=== PATIENT | female | born 1930 | race Caucasian/White ===

== ENCOUNTER 2017-01-08 12:34 | Inpatient (IN) | payer MEDICARE, BC ==
--- NOTE | 2017-01-08 14:12 | EDM.PDOC ---
ED HPI Trauma - General Chief Complaint: Lower Extremity Injury/Pain Stated Complaint: right sciatic pain Time Seen by Provider: 01/08/17 12:56 Source: Reports: Patient, Family History Limitations: Reports: No limitations - History of Present Illness INITIAL COMMENTS - FREE TEXT/NARRATIVE: Patient has had worsening right sciatic pain since recent UTI diagnosed on . Pain is now to point where patient cannot get around her apartment. Significant difficulties with ADLs. Pain originates in right buttock area and goes all the way down to her toes in sciatic distribution. Was seen at clinic for this and also at chiropractor. Told to try Aleve twice daily. Seen once at Rehab and had deep massage in sciatic area, patient said this made pain worse. Denies any focal weakness in affected limb. No numbness. Has not fallen or had recent trauma. No UTI complaints. No fever. No weight changes. No loss bowel/ bladder control. No other new complaints. Last episode of sciatica this severe was years ago per patient. Allergies/ADRs: Allergies ciprofloxacin [From Cipro] Allergy (Verified 01/08/17 12:55) Other ciprofloxacin HCl [From Cipro] Allergy (Verified 01/08/17 12:55) Other Home Medications: Ambulatory Orders Cholecalciferol (Vitamin D3) [Vitamin D3] 1,000 units PO QAM 05/28/15 [ Confirmed 01/20/16] Fish Oil/[place]-3 Fatty Acids [Fish Oil 1,000 MG] 1,000 mg PO QAM 05/28/15 [ Confirmed 01/20/16] Levothyroxine 25 mcg PO QAM 05/28/15 [Confirmed 01/20/16] Ezetimibe [Zetia] 10 mg PO BEDTIME 01/20/16 [Confirmed 01/20/16] Ibuprofen 200 mg PO Q4HR PRN 01/20/16 [Confirmed 01/20/16] Multivitamin [Daily Multiple Vitamin] 1 tab PO DAILY 01/20/16 [Confirmed ] Naproxen Sodium [Aleve] 220 mg PO BID PRN 01/20/16 [Confirmed 01/20/16] Vit C/E/Zn/Coppr/Lutein/Zeaxan [Preservision Areds 2 Softgel] 1 each PO TID [Confirmed 01/20/16] Past Medical History HEENT History: Reports: Macular degeneration Social & Family History - Tobacco Use Smoking Status *Q: Never Smoker Second Hand Smoke Exposure: No - Alcohol Use Days Per Week of Alcohol Use: 0 - Recreational Drug Use Recreational Drug Use: No Drug Use in Last 12 Months: No - Living Situation & Occupation Living situation: Reports: (07/17[birth year]1999, 5 children), alone Occupation: retired ([employer] ) Review of Systems - Review of Systems Review Of Systems: See Below Constitutional: Reports: no symptoms Eyes: Reports: other (No acute changes) Ears: Reports: other (No acute changes) Nose: Reports: no symptoms Mouth/Throat: Reports: no symptoms Respiratory: Reports: no symptoms, other (no acute changes) Cardiovascular: Reports: no symptoms GI/Abdominal: Reports: Other (no acute changes) Genitourinary: Reports: no symptoms Musculoskeletal: Reports: other (See HPI for right sided sciatic complaints. ) Skin: Reports: no symptoms Neurological: Reports: difficulty walking. Denies: confusion, dizziness, headache, numbness, paresthesia, trouble speaking, weakness, change in speech Psychiatric: Reports: no symptoms Trauma Exam - Physical Exam Exam: See Below Exam Limited By: No limitations General Appearance: Reports: alert, WD/WN, no apparent distress Head: Reports: atraumatic, normocephalic Eyes: bilateral eye: EOMI, PERRL (1mm difference between left and right) Ears: Reports: normal external exam, hearing grossly normal Nose: Reports: normal inspection Throat/Mouth: Reports: Normal inspection, Normal voice, No airway compromise Neck: Reports: non-tender, full range of motion, normal alignment, normal inspection Respiratory Exam: Reports: no respiratory distress, lungs clear, normal breath sounds, no accessory muscle use, chest non-tender Cardiovascular: Reports: normal peripheral pulses, regular rate, rhythm, no edema, no gallop, systolic murmur (low grade). Denies: JVD GI/Abdominal: Reports: normal bowel sounds, soft, non tender, no distention (Female) Exam: Deferred Rectal (Female) Exam: Deferred Back: Reports: other (patient noted to have tenderness only in right buttock area. ). Denies: CVA tenderness (R), CVA tenderness (L), paraspinal tenderness , vertebral tenderness Extremities: Reports: no evidence of injury, normal range of motion, non-tender , no pedal edema, pelvis stable, pain with movement (some pain with lifting of right leg/straight leg raise in buttock area but patient did not complain of increase in sciatic radicular pain severity), unable to bear weight (Patient had significant difficulty trying to go from laying to sitting , and from sitting to standing. Also significant difficulty trying to ambulate due to pain in sciatic distribution. Needed assistance for ambulation. Usually uses walker. ). Denies: pedal edema Neurologic: Reports: no motor/sensory deficits, alert, normal mood/affect, oriented x 3 Skin: Reports: Normal color, Warm/dry Course - Vital Signs Last Recorded V/S: Last Vital Signs Temp 36.8 C 01/08/17 13:12 Pulse 65 01/08/17 13:12 Resp 16 01/08/17 13:12 BP 137/66 01/08/17 13:12 Pulse Ox 99 01/08/17 13:12 - Re-Assessments/Exams Free Text/Narrative Re-Assessment/Exam: 01/08/17 14:26 Exacerbation of right sided sciatica. Patient unable to perform ADLs or safely move around apartment. Failed outpatient therapy. Will admit for pain control, steroids to help inflammation, PT and OT. Anticipate 3-4 day stay as inpatient. Swing bed if needed. Departure - Departure Time of Disposition: 14:28 Disposition: Admitted As Inpatient 64 Condition: good Clinical Impression: Right sided sciatica, Unable to ambulate Forms: ED Department Discharge - Problem List & Annotations (1) Right sided sciatica SNOMED Code(s): 68762365 Code(s): M54.31 - SCIATICA, RIGHT SIDE Status: Acute Priority: High Current Visit: Yes Onset Date: Unknown (2) Unable to ambulate SNOMED Code(s): 674007837 Code(s): R26.2 - DIFFICULTY IN WALKING, NOT ELSEWHERE CLASSIFIED Status: Acute Priority: High Current Visit: Yes Onset Date: ~01/08/17 - Problem List Review Problem List Initiated/Reviewed/Updated: No - Assessment/Plan Admission H&P: Please use this note as an admission H&P Assessment:: Exacerbation of right sided sciatica in elderly patient that lives alone and currently cannot perform ADLs due to limitations from pain. Plan: Will admit for pain control, PT/OT. PO steroids planned to help with pain. Will request updated problem list from clinic for patient.
[2017-01-08] MEDS ORDERED: methylPREDNISolone Sodium Succinate 125 MG/2 ML SDV IVPUSH ONE (14:43)
--- NOTE | 2017-01-08 14:53 | PCM.SN ---
- Free Text/Narrative Note: NSAIDS on form of Ibuprofen and Aleve held/discontinued per recommendation of Pharmacy due to patient's advanced age and potential side effects.
[2017-01-08 15:19] LABS: CHLORIDE,CL 108 mmol/L (98-107); SODIUM,NA 145 mmol/L (136-145)
[2017-01-08] MEDS: traMADol 50 MG Tab PO PRN (15:44)
[2017-01-08] MEDS: Lutein/Minerals/Vitamin C/Vitamin E Acetate Cap PO SCH (17:42)
[2017-01-08] MEDS: Ezetimibe 10 MG Tab PO SCH (19:13)
[2017-01-09] MEDS: traMADol 50 MG Tab PO PRN ×3 (03:42→21:54)
[2017-01-09] MEDS: Lutein/Minerals/Vitamin C/Vitamin E Acetate Cap PO SCH ×2 (09:23→17:38)
[2017-01-09] MEDS: Multivitamin Tab PO SCH (09:23)
[2017-01-09] MEDS: Cholecalciferol (Vitamin D3) 1,000 Unit Tab PO SCH (09:24)
[2017-01-09] MEDS: Levothyroxine 25 MCG Tab PO SCH (09:24)
[2017-01-09] MEDS: Fish Oil/Omega-3 Fatty Acids 1 Gm Cap PO SCH (09:24)
[2017-01-09] MEDS ORDERED: Loperamide 1 MG/5 ML Soln 5 ML UD Cup PO SCH (10:00)
[2017-01-09] MEDS ORDERED: Loperamide 2 MG Tab PO ONE (10:15)
[2017-01-09] MEDS ORDERED: methylPREDNISolone Sodium Succinate 125 MG/2 ML SDV IVPUSH ONE (16:59)
--- NOTE | 2017-01-09 17:07 | PCM.PN ---
- General Info Date of Service: 01/09/17 Admission Dx/Problem (Free Text): Right sided sciatic pain. Unable to perform ADLs. Functional Status: Reports: other (Pain improved. Able to ambulate with assistance. ) - Review of Systems General: Reports: no symptoms HEENT: Reports: no symptoms Pulmonary: Reports: no symptoms Cardiovascular: Reports: no symptoms Gastrointestinal: Reports: No symptoms Genitourinary: Reports: no symptoms Musculoskeletal: Reports: back pain (low back/sciatic), leg pain. Denies: joint swelling Skin: Reports: no symptoms Neurological: Reports: no symptoms Psychiatric: Reports: no symptoms - Patient Data Vitals - most recent: Last Vital Signs Temp 36.2 C 01/09/17 08:00 Pulse 69 01/09/17 08:00 Resp 20 01/09/17 08:00 BP 142/93 H 01/09/17 08:00 Pulse Ox 96 01/09/17 08:00 Weight - most recent: 81.647 kg I&O - last 24 hours: Intake & Output 01/09/17 01/09/17 01/09/17 06:59 14:59 22:59 Intake Total 150 360 Balance 150 360 Lab Results last 24 hrs: Laboratory Results - last 24 hr 01/09/17 Range/Units 09:30 Specimen Type Urinblad Urine Color Shannan H (YELLOW) Urine Appearance Slightly cloudy H (CLEAR) Urine pH 5.5 (5.0-9.0) Ur Specific [place] >= 1.030 (1.005-1.030) Urine Protein Negative (NEGATIVE) mg/dL Urine Glucose (UA) Negative (NEGATIVE) mg/dL Urine Ketones 15 H (NEGATIVE) mg/dL Urine Occult Blood Negative (NEGATIVE) Urine Nitrite Negative (NEGATIVE) Urine Bilirubin Negative (NEGATIVE) Urine Urobilinogen 0.2 (0.2-1.0) E.U./dL Ur Leukocyte Esterase Negative (NEGATIVE) Urine RBC 5-10 H /HPF Urine WBC 5-10 H /HPF Ur Epithelial Cells Moderate H /LPF Urine Bacteria Moderate H (NONE TO FEW) /HPF Urine Mucus Moderate H (NEGATIVE) /LPF Med Orders - Current: Current Medications Acetaminophen (Tylenol) 650 mg PO Q6H PRN PRN Reason: Pain Cholecalciferol (Vitamin D3) 2,000 units PO [facility] Last Admin: 01/09/17 09:24 Dose: 2,000 units Ezetimibe (Zetia) 10 mg PO BEDTIME [facility] Last Admin: 01/08/17 19:13 Dose: 10 mg Fish Oil (Fish Oil) 1 gm PO QAM [facility] Last Admin: 01/09/17 09:24 Dose: 1 gm Levothyroxine Sodium (Levothyroxine) 25 mcg PO QAM [facility] Last Admin: 01/09/17 09:24 Dose: 25 mcg Methylprednisolone Sodium Succinate (Solu-Medrol) 125 mg IVPUSH ONETIME ONE Stop: 01/09/17 17:00 Multivitamins/Minerals/Vitamin C (Tab-A-Camila) 1 tab PO DAILY [facility] Last Admin: 01/09/17 09:23 Dose: 1 tab Sodium Chloride (Saline Flush) 10 ml FLUSH ASDIRECTED PRN PRN Reason: flush Tramadol HCl (Ultram) 50 mg PO Q6H PRN PRN Reason: Pain (moderate 4-6) Last Admin: 01/09/17 09:42 Dose: 50 mg Vit C/Vit E/Zinc/Copper/Lutein (Ocuvite Lutein) 1 each PO BID [facility] Last Admin: 01/09/17 09:23 Dose: 1 each Discontinued Medications Loperamide HCl (Imodium) 4 mg PO ASDIRECTED [facility] Loperamide HCl (Imodium Ad) 4 mg PO ONETIME ONE Stop: 01/09/17 10:16 Last Admin: 01/09/17 10:26 Dose: 4 mg Methylprednisolone Sodium Succinate (Solu-Medrol) 125 mg IVPUSH ONETIME ONE Stop: 01/08/17 14:44 Last Admin: 01/08/17 15:45 Dose: 125 mg - Exam General: alert, oriented, cooperative, no acute distress HEENT: Pupils equal, Pupils reactive, EOMI, Mucous membr. moist/pink Neck: supple Lungs: Clear to auscultation, Normal respiratory effort Cardiovascular: regular rate, regular rhythm, murmurs (faint systolic murmur) Abdomen: bowel sounds present, soft, no tenderness, no distension Back Exam: other (tender right buttock area). No: CVA tenderness (L), CVA tenderness (R) Extremities: no calf tenderness Skin: warm, dry, intact Neurological: no new focal deficit Psy/Mental Status: alert, normal affect, normal mood - Problem List & Annotations (1) Right sided sciatica SNOMED Code(s): 36106238 Code(s): M54.31 - SCIATICA, RIGHT SIDE Status: Acute Priority: High Current Visit: Yes Onset Date: Unknown Annotation/Comment:: improved since yesterday but still present. (2) Unable to ambulate SNOMED Code(s): 965614039 Code(s): R26.2 - DIFFICULTY IN WALKING, NOT ELSEWHERE CLASSIFIED Status: Acute Priority: High Current Visit: Yes Onset Date: ~01/08/17 (3) Macular degeneration SNOMED Code(s): 061764196 Code(s): H35.30 - UNSPECIFIED MACULAR DEGENERATION Status: Acute Current Visit: Yes (4) Low back pain SNOMED Code(s): 393265319 Code(s): M54.5 - LOW BACK PAIN Status: Acute Current Visit: Yes (5) Obesity SNOMED Code(s): 168420660 Code(s): E66.9 - OBESITY, UNSPECIFIED Status: Chronic Priority: Low Current Visit: No (6) Hyperlipidemia SNOMED Code(s): 14123872 Code(s): E78.5 - HYPERLIPIDEMIA, UNSPECIFIED Status: Chronic Priority: Low Current Visit: No Annotation/Comment:: Medically treated with repeat lipid panel per discretion of her providers at [facility] (7) Hypertension SNOMED Code(s): 59569169 Code(s): I10 - ESSENTIAL (PRIMARY) HYPERTENSION Status: Chronic Priority : Low Current Visit: No Annotation/Comment:: Blood Pressures under adequate control during emergency room care, although systolic blood pressure in the 100s prior to transfer to her observation bed. Continue to watch blood pressures closely secondary to the newly initiated Lasix therapy as above (8) Hypothyroidism SNOMED Code(s): 27847775 Code(s): E03.9 - HYPOTHYROIDISM, UNSPECIFIED Status: Chronic Priority: Low Current Visit: No (9) Osteoarthritis SNOMED Code(s): 637814188 Code(s): M19.90 - UNSPECIFIED OSTEOARTHRITIS, UNSPECIFIED SITE Status: Chronic Priority: Low Current Visit: No Annotation/Comment:: Stable by patient history despite history of spinal stenosis - Problem List Review Problem List Initiated/Reviewed/Updated: Yes - My Orders Last 24 Hours: My Active Orders 01/08/17 18:00 Lutein/Min/Vit C/Vit E Acetate [Ocuvite Lutein] 1 each PO BID 01/08/17 20:00 Ezetimibe [Zetia] 10 mg PO BEDTIME 01/08/17 Dinner Heart Healthy Diet [DIET] 01/09/17 08:00 Cholecalciferol (Vitamin D3) [Vitamin D3] 2,000 units PO QAM Fish Oil/[place]-3 Fatty Acids [Fish Oil] 1 gm PO QAM Levothyroxine 25 mcg PO QAM Multivitamins [Tab-A-Camila] 1 tab PO DAILY 01/09/17 16:59 methylPREDNISolone Sod Succ [Solu-MEDROL] 125 mg IVPUSH ONETIME ONE 01/09/17 17:00 Enoxaparin [Lovenox] 40 mg SUBCUT DAILY - Assessment Assessment:: Acute sciatica. Patient lives alone. Unable to perform ADLs, unsafe. Some improvement since yesterday. - Plan Plan:: Continue pain medication, steroids, and assistance with ADLs. PT and OT to see patient Wednesday. Anticipate discharge Wednesday unless patient is required to move to Swing Bed for further treatment.
[2017-01-09] MEDS: Acetaminophen 325 MG Tab PO PRN (17:39)
[2017-01-09] MEDS: Enoxaparin 40 MG/0.4 ML Syringe SUBCUT SCH (17:41)
[2017-01-09] MEDS: Sodium Chloride 0.9% 10 ML Syringe FLUSH PRN ×2 (17:42→21:55)
[2017-01-09] MEDS: Ezetimibe 10 MG Tab PO SCH (20:12)
[2017-01-10] MEDS: traMADol 50 MG Tab PO PRN (06:22)
[2017-01-10] MEDS: Lutein/Minerals/Vitamin C/Vitamin E Acetate Cap PO SCH ×2 (09:20→17:21)
[2017-01-10] MEDS: Fish Oil/Omega-3 Fatty Acids 1 Gm Cap PO SCH (09:20)
[2017-01-10] MEDS: Multivitamin Tab PO SCH (09:21)
[2017-01-10] MEDS: Cholecalciferol (Vitamin D3) 1,000 Unit Tab PO SCH (09:21)
[2017-01-10] MEDS: Levothyroxine 25 MCG Tab PO SCH (09:21)
[2017-01-10] MEDS: Enoxaparin 40 MG/0.4 ML Syringe SUBCUT SCH (09:22)
[2017-01-10] MEDS: Acetaminophen 325 MG Tab PO PRN ×2 (10:27→21:32)
--- NOTE | 2017-01-10 13:15 | PCM.PN ---
- General Info Date of Service: 01/10/17 Admission Dx/Problem (Free Text): Right sided sciatic pain. Unable to perform ADLs. Functional Status: Reports: other (Pain free when laying down. Continues to complain of signficant right sciatic pain with activity/change of position/ ambulation) - Review of Systems General: Reports: no symptoms HEENT: Reports: no symptoms Pulmonary: Reports: no symptoms Cardiovascular: Reports: no symptoms Gastrointestinal: Reports: No symptoms Genitourinary: Reports: no symptoms Musculoskeletal: Reports: other (See HPI) Skin: Reports: no symptoms Neurological: Reports: other (episodic numbness in sciatic distribution right leg) Psychiatric: Reports: no symptoms - Patient Data Vitals - most recent: Last Vital Signs Temp 36.3 C 01/10/17 08:00 Pulse 67 01/10/17 08:00 Resp 20 01/10/17 08:00 BP 124/60 01/09/17 19:56 Pulse Ox 93 L 01/10/17 08:00 Weight - most recent: 81.647 kg Med Orders - Current: Current Medications Acetaminophen (Tylenol) 650 mg PO Q6H PRN PRN Reason: Pain Last Admin: 01/10/17 10:27 Dose: 650 mg Cholecalciferol (Vitamin D3) 2,000 units PO QAM [facility] Last Admin: 01/10/17 09:21 Dose: 2,000 units Ezetimibe (Zetia) 10 mg PO BEDTIME [facility] Last Admin: 01/09/17 20:12 Dose: 10 mg Enoxaparin Sodium (Lovenox) 40 mg SUBCUT DAILY [facility] Last Admin: 01/10/17 09:22 Dose: 40 mg Fish Oil (Fish Oil) 1 gm PO QAM [facility] Last Admin: 01/10/17 09:20 Dose: 1 gm Levothyroxine Sodium (Levothyroxine) 25 mcg PO QAM [facility] Last Admin: 01/10/17 09:21 Dose: 25 mcg Multivitamins/Minerals/Vitamin C (Tab-A-Camila) 1 tab PO DAILY [facility] Last Admin: 01/10/17 09:21 Dose: 1 tab Sodium Chloride (Saline Flush) 10 ml FLUSH ASDIRECTED PRN PRN Reason: flush Last Admin: 01/09/17 21:55 Dose: 10 ml Tramadol HCl (Ultram) 50 mg PO Q6H PRN PRN Reason: Pain (moderate 4-6) Last Admin: 01/10/17 06:22 Dose: 50 mg Vit C/Vit E/Zinc/Copper/Lutein (Ocuvite Lutein) 1 each PO BID [facility] Last Admin: 01/10/17 09:20 Dose: 1 each Discontinued Medications Loperamide HCl (Imodium) 4 mg PO ASDIRECTED [facility] Loperamide HCl (Imodium Ad) 4 mg PO ONETIME ONE Stop: 01/09/17 10:16 Last Admin: 01/09/17 10:26 Dose: 4 mg Methylprednisolone Sodium Succinate (Solu-Medrol) 125 mg IVPUSH ONETIME ONE Stop: 01/08/17 14:44 Last Admin: 01/08/17 15:45 Dose: 125 mg Methylprednisolone Sodium Succinate (Solu-Medrol) 125 mg IVPUSH ONETIME ONE Stop: 01/09/17 17:00 Last Admin: 01/09/17 17:41 Dose: 125 mg - Exam General: alert, oriented, cooperative, no acute distress HEENT: Pupils equal, Pupils reactive, EOMI, Mucous membr. moist/pink Neck: supple Lungs: Clear to auscultation, Normal respiratory effort Cardiovascular: regular rate, regular rhythm Abdomen: bowel sounds present, soft, no tenderness, no distension Back Exam: No: muscle spasm, paraspinal tenderness, vertebral tenderness Extremities: normal pulses, no tenderness/swelling, no cyanosis, no calf tenderness, other (negative straight leg raise bilaterally) Peripheral Pulses: 2+: radial (L), radial (R) Skin: warm, dry, intact Neurological: no new focal deficit Psy/Mental Status: alert, normal affect, normal mood - Problem List & Annotations (1) Right sided sciatica SNOMED Code(s): 88817836 Code(s): M54.31 - SCIATICA, RIGHT SIDE Status: Acute Priority: High Current Visit: Yes Onset Date: Unknown Annotation/Comment:: improved since yesterday but still present. (2) Unable to ambulate SNOMED Code(s): 667055119 Code(s): R26.2 - DIFFICULTY IN WALKING, NOT ELSEWHERE CLASSIFIED Status: Acute Priority: High Current Visit: Yes Onset Date: ~01/08/17 (3) Macular degeneration SNOMED Code(s): 058551904 Code(s): H35.30 - UNSPECIFIED MACULAR DEGENERATION Status: Acute Current Visit: Yes (4) Low back pain SNOMED Code(s): 620190392 Code(s): M54.5 - LOW BACK PAIN Status: Acute Priority: High Current Visit: Yes Qualifiers: Chronicity: acute Back pain laterality: right Sciatica laterality: sciatica of right side (5) Obesity SNOMED Code(s): 202986986 Code(s): E66.9 - OBESITY, UNSPECIFIED Status: Chronic Priority: Low Current Visit: No (6) Hyperlipidemia SNOMED Code(s): 33742589 Code(s): E78.5 - HYPERLIPIDEMIA, UNSPECIFIED Status: Chronic Priority: Low Current Visit: No Annotation/Comment:: Medically treated with repeat lipid panel per discretion of her providers at [facility] (7) Hypertension SNOMED Code(s): 90756497 Code(s): I10 - ESSENTIAL (PRIMARY) HYPERTENSION Status: Chronic Priority : Low Current Visit: No Annotation/Comment:: Currently on no medication for HTN due to episodes of dizziness in past. (8) Hypothyroidism SNOMED Code(s): 98380098 Code(s): E03.9 - HYPOTHYROIDISM, UNSPECIFIED Status: Chronic Priority: Low Current Visit: No (9) Osteoarthritis SNOMED Code(s): 865146760 Code(s): M19.90 - UNSPECIFIED OSTEOARTHRITIS, UNSPECIFIED SITE Status: Chronic Priority: Low Current Visit: No Annotation/Comment:: Stable by patient history despite history of spinal stenosis - Problem List Review Problem List Initiated/Reviewed/Updated: Yes - My Orders Last 24 Hours: My Active Orders 01/09/17 17:00 Enoxaparin [Lovenox] 40 mg SUBCUT DAILY 01/11/17 05:11 UA W/MICROSCOPIC [URIN] AM - Assessment Assessment:: Mild improvement. Still has pain to point where ambulation and ADLs are difficult. - Plan Plan:: Continue pain medication, steroids, and assistance with ADLs. PT and OT to see patient Wednesday. Anticipate discharge Wednesday unless patient is required to move to Swing Bed for further treatment.
[2017-01-10] MEDS ORDERED: methylPREDNISolone Sodium Succinate 125 MG/2 ML SDV IVPUSH ONE (17:00)
[2017-01-10] MEDS: Ezetimibe 10 MG Tab PO SCH (19:57)
[2017-01-11] MEDS: Fish Oil/Omega-3 Fatty Acids 1 Gm Cap PO SCH (07:42)
[2017-01-11] MEDS: Lutein/Minerals/Vitamin C/Vitamin E Acetate Cap PO SCH ×2 (07:44→17:12)
[2017-01-11] MEDS: Levothyroxine 25 MCG Tab PO SCH (07:44)
[2017-01-11] MEDS: Enoxaparin 40 MG/0.4 ML Syringe SUBCUT SCH (07:45)
[2017-01-11] MEDS: Multivitamin Tab PO SCH (07:46)
[2017-01-11] MEDS: Cholecalciferol (Vitamin D3) 1,000 Unit Tab PO SCH (07:46)
[2017-01-11] MEDS: Sodium Chloride 0.9% 10 ML Syringe FLUSH SCH ×2 (07:46→17:13)
[2017-01-11] MEDS ORDERED: Ketorolac 15 MG/ML SDV IVPUSH ONE (13:00)
[2017-01-11] MEDS ORDERED: Pantoprazole 40 MG Vial IVPUSH ONE (13:00)
[2017-01-11 13:34] LABS: CHLORIDE,CL 108 mmol/L (98-107); SODIUM,NA 145 mmol/L (136-145)
[2017-01-11] MEDS: Sodium Chloride 0.9% 10 ML Syringe FLUSH PRN ×2 (13:44→23:57)
[2017-01-11] MEDS: Ketorolac 15 MG/ML SDV IVPUSH SCH ×2 (17:13→23:56)
[2017-01-11] MEDS: Ezetimibe 10 MG Tab PO SCH (19:36)
[2017-01-11] MEDS ORDERED: Sennosides 8.6 MG Tab PO PRN (20:02)
--- NOTE | 2017-01-11 20:11 | PCM.PN ---
- General Info Date of Service: 01/11/17 Admission Dx/Problem (Free Text): Right sided sciatic pain. Unable to perform ADLs. Functional Status: Reports: tolerating diet - Review of Systems HEENT: Reports: no symptoms Pulmonary: Reports: no symptoms Cardiovascular: Reports: no symptoms Gastrointestinal: Reports: Constipation Genitourinary: Reports: no symptoms Musculoskeletal: Reports: back pain, leg pain (right) Skin: Reports: no symptoms Neurological: Reports: difficulty walking Psychiatric: Reports: no symptoms - Patient Data Vitals - most recent: Last Vital Signs Temp 96 F 01/11/17 19:39 Pulse 62 01/11/17 19:39 Resp 20 01/11/17 19:39 BP 151/56 H 01/11/17 19:39 Pulse Ox 94 L 01/11/17 19:39 Weight - most recent: 180 lb 0.013 oz I&O - last 24 hours: Intake & Output 01/11/17 01/11/17 01/11/17 06:59 14:59 22:59 Intake Total 1100 300 Output Total 150 650 100 Balance -150 450 200 Lab Results last 24 hrs: Laboratory Results - last 24 hr 01/11/17 01/11/17 01/11/17 Range/Units 06:00 13:05 13:05 WBC 8.0 (4.0-10.2) K/uL RBC 4.25 (3.77-5.09) M/uL Hgb 13.1 (11.7-15.5) g/dL Hct 39.7 (34.0-46.0) % MCV 93.4 (84.0-98.0) fL MCH 30.8 (28.2-33.3) pg MCHC 33.0 (31.7-36.0) g/dL RDW 14.1 (11.2-14.1) % Plt Count 181 (150-350) K/uL Neut % (Auto) 70.2 (45.0-80.0) % Lymph % (Auto) 21.3 (10.0-50.0) % Andrews % (Auto) 8.0 (2.0-14.0) % Eos % (Auto) 0.1 (0.0-5.0) % Baso % (Auto) 0.4 (0.0-2.0) % Neut # 5.59 (1.40-7.00) K/uL Lymph # 1.70 (0.50-3.50) K/uL Andrews # 0.64 (0.00-1.00) K/uL Eos # 0.01 (0.00-0.50) K/uL Baso # 0.03 (0.00-0.20) K/uL ESR 16 (0-42) mm/hr PT 10.7 (9.8-11.7) SEC INR 1.0 APTT 21.8 L (23.5-30.0) SEC Sodium (136-145) mmol/L Potassium (3.5-5.1) mmol/L Chloride (98-107) mmol/L Carbon Dioxide (21.0-32.0) mmol/L BUN (7-18) mg/dL Creatinine (0.51-1.17) mg/dL Est Cr Clr Drug Dosing mL/min Estimated GFR (MDRD) mL/min Glucose (74-106) mg/dL Lactic Acid (0.4-2.0) mmol/L Uric Acid (2.6-7.2) mg/dL Calcium (8.5-10.1) mg/dL Total Bilirubin (0.2-1.0) mg/dL AST (15-37) U/L ALT (12-78) U/L Alkaline Phosphatase (46-116) IU/L Creatine Kinase (26-308) U/L C-Reactive Protein (<=0.9) mg/dL Total Protein (6.4-8.2) g/dL Albumin (3.4-5.0) g/dL Specimen Type Urinvoid Urine Color Yellow Urine Appearance Clear Urine pH 6.5 (5.0-9.0) Ur Specific Inez 1.020 (1.005-1.030) Urine Protein Negative (NEGATIVE) mg/dL Urine Glucose (UA) Negative (NEGATIVE) mg/dL Urine Ketones Negative (NEGATIVE) mg/dL Urine Occult Blood Negative (NEGATIVE) Urine Nitrite Negative (NEGATIVE) Urine Bilirubin Negative (NEGATIVE) Urine Urobilinogen 0.2 (0.2-1.0) E.U./dL Ur Leukocyte Esterase Negative (NEGATIVE) Urine RBC Not seen /HPF Urine WBC 0-5 /HPF Ur Epithelial Cells Few /LPF Urine Bacteria Rare (NONE TO FEW) /HPF 03/06/17 03/06/17 Range/Units 13:05 13:05 WBC (4.0-10.2) K/uL RBC (3.77-5.09) M/uL Hgb (11.7-15.5) g/dL Hct (34.0-46.0) % MCV (84.0-98.0) fL MCH (28.2-33.3) pg MCHC (31.7-36.0) g/dL RDW (11.2-14.1) % Plt Count (150-350) K/uL Neut % (Auto) (45.0-80.0) % Lymph % (Auto) (10.0-50.0) % Andrews % (Auto) (2.0-14.0) % Eos % (Auto) (0.0-5.0) % Baso % (Auto) (0.0-2.0) % Neut # (1.40-7.00) K/uL Lymph # (0.50-3.50) K/uL Andrews # (0.00-1.00) K/uL Eos # (0.00-0.50) K/uL Baso # (0.00-0.20) K/uL ESR (0-42) mm/hr PT (9.8-11.7) SEC INR APTT (23.5-30.0) SEC Sodium 145 (136-145) mmol/L Potassium 3.5 (3.5-5.1) mmol/L Chloride 108 H (98-107) mmol/L Carbon Dioxide 26.5 (21.0-32.0) mmol/L BUN 25 H (7-18) mg/dL Creatinine 0.58 (0.51-1.17) mg/dL Est Cr Clr Drug Dosing 65.03 mL/min Estimated GFR (MDRD) > 60 mL/min Glucose 108 H (74-106) mg/dL Lactic Acid 2.8 H (0.4-2.0) mmol/L Uric Acid 2.7 (2.6-7.2) mg/dL Calcium 9.2 (8.5-10.1) mg/dL Total Bilirubin 0.2 (0.2-1.0) mg/dL AST 16 (15-37) U/L ALT 16 (12-78) U/L Alkaline Phosphatase 67 (46-116) IU/L Creatine Kinase 61 (26-308) U/L C-Reactive Protein < 0.1 (<=0.9) mg/dL Total Protein 6.5 (6.4-8.2) g/dL Albumin 3.1 L (3.4-5.0) g/dL Specimen Type Urine Color Urine Appearance Urine pH (5.0-9.0) Ur Specific Inez (1.005-1.030) Urine Protein (NEGATIVE) mg/dL Urine Glucose (UA) (NEGATIVE) mg/dL Urine Ketones (NEGATIVE) mg/dL Urine Occult Blood (NEGATIVE) Urine Nitrite (NEGATIVE) Urine Bilirubin (NEGATIVE) Urine Urobilinogen (0.2-1.0) E.U./dL Ur Leukocyte Esterase (NEGATIVE) Urine RBC /HPF Urine WBC /HPF Ur Epithelial Cells /LPF Urine Bacteria (NONE TO FEW) /HPF Med Orders - Current: Current Medications Acetaminophen (Tylenol) 650 mg PO Q6H PRN PRN Reason: Pain Last Admin: 01/10/17 21:32 Dose: 650 mg Cholecalciferol (Vitamin D[facility]) [facility] [place] Last Admin: 01/11/17 07:46 Dose: 2,000 units Ketorolac Tromethamine (Toradol) 15 mg IVPUSH Q6H [facility] Stop: 01/16/17 18:01 Last Admin: 01/11/17 17:13 Dose: 15 mg Levothyroxine Sodium (Levothyroxine) 25 mcg PO QAM [facility] Last Admin: 01/11/17 07:44 Dose: 25 mcg Senna (Senna) 8.6 mg PO BID PRN PRN Reason: Constipation Sodium Chloride (Saline Flush) 10 ml FLUSH ASDIRECTED PRN PRN Reason: flush Last Admin: 01/11/17 13:44 Dose: 10 ml Sodium Chloride (Saline Flush) 10 ml FLUSH BID [facility] Last Admin: 01/11/17 17:13 Dose: 10 ml Tramadol HCl (Ultram) 50 mg PO Q6H PRN PRN Reason: Pain (moderate 4-6) Last Admin: 01/10/17 06:22 Dose: 50 mg Discontinued Medications Ezetimibe (Zetia) 10 mg PO BEDTIME [facility] Last Admin: 01/11/17 19:36 Dose: 10 mg Enoxaparin Sodium (Lovenox) 40 mg SUBCUT DAILY [facility] Last Admin: 01/11/17 07:45 Dose: 40 mg Fish Oil (Fish Oil) 1 gm PO QAM [facility] Last Admin: 01/11/17 07:42 Dose: 1 gm Ketorolac Tromethamine (Toradol) 15 mg IVPUSH ONETIME ONE Stop: 01/11/17 13:01 Last Admin: 01/11/17 13:43 Dose: 15 mg Loperamide HCl (Imodium) 4 mg PO ASDIRECTED [facility] Loperamide HCl (Imodium Ad) 4 mg PO ONETIME ONE Stop: 01/09/17 10:16 Last Admin: 01/09/17 10:26 Dose: 4 mg Methylprednisolone Sodium Succinate (Solu-Medrol) 125 mg IVPUSH ONETIME ONE Stop: 01/08/17 14:44 Last Admin: 01/08/17 15:45 Dose: 125 mg Methylprednisolone Sodium Succinate (Solu-Medrol) 125 mg IVPUSH ONETIME ONE Stop: 01/09/17 17:00 Last Admin: 01/09/17 17:41 Dose: 125 mg Methylprednisolone Sodium Succinate (Solu-Medrol) 125 mg IVPUSH ONETIME ONE Stop: 01/10/17 17:01 Last Admin: 01/10/17 16:58 Dose: 125 mg Multivitamins/Minerals/Vitamin C (Tab-A-Camila) 1 tab PO DAILY [facility] Last Admin: 01/11/17 07:46 Dose: 1 tab Pantoprazole Sodium (Protonix Iv) 40 mg IVPUSH ONETIME ONE Stop: 01/11/17 13:01 Last Admin: 01/11/17 13:42 Dose: 40 mg Vit C/Vit E/Zinc/Copper/Lutein (Ocuvite Lutein) 1 each PO BID [facility] Last Admin: 01/11/17 17:12 Dose: 1 each - Exam General: alert, cooperative HEENT: Mucous membr. moist/pink Neck: trachea midline Lungs: Normal respiratory effort Cardiovascular: regular rate, regular rhythm Abdomen: bowel sounds present, soft, no tenderness, no distension (Female) Exam: Deferred Back Exam: decreased range of motion, other (tender over SI notch) Extremities: no edema, other (pain radiating down right leg) Skin: warm, dry, intact Neurological: no new focal deficit Psy/Mental Status: alert, normal affect, normal mood - Problem List & Annotations (1) Low back pain SNOMED Code(s): 887894687 Code(s): M54.5 - LOW BACK PAIN Status: Acute Priority: High Current Visit: Yes Qualifiers: Chronicity: acute Back pain laterality: right Sciatica laterality: sciatica of right side (2) Right sided sciatica SNOMED Code(s): 68009786 Code(s): M54.31 - SCIATICA, RIGHT SIDE Status: Acute Priority: High Current Visit: Yes Onset Date: Unknown Annotation/Comment:: improved since yesterday but still present. 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 Still has pain to point where ambulation and ADLs are difficult. - Plan Plan:: Continue pain medication, steroids, and assistance with ADLs. PT and OT to see patient Wednesday. Anticipate discharge Wednesday unless patient is required to move to Swing Bed for further treatment. 01/11/17 Ever Marino MD Still with significant back pain radiating into right leg. Change medications to IV toradol. Monitor kidney function and start GI prophylaxis.
[2017-01-12] MEDS: Ketorolac 15 MG/ML SDV IVPUSH SCH ×4 (05:44→23:39)
[2017-01-12] MEDS: Levothyroxine 25 MCG Tab PO SCH (07:34)
[2017-01-12] MEDS: Cholecalciferol (Vitamin D3) 1,000 Unit Tab PO SCH (07:35)
[2017-01-12 07:36] LABS: CHLORIDE,CL 109 mmol/L (98-107); SODIUM,NA 146 mmol/L (136-145)
[2017-01-12] MEDS: Sodium Chloride 0.9% 10 ML Syringe FLUSH SCH ×2 (09:09→17:47)
[2017-01-12] MEDS: Sodium Chloride 0.9% 10 ML Syringe FLUSH PRN (11:14)
[2017-01-12] MEDS ORDERED: Loperamide 1 MG/5 ML Soln 5 ML UD Cup PO PRN (15:49)
--- NOTE | 2017-01-12 17:20 | PCM.PN ---
- General Info Date of Service: 01/12/17 Admission Dx/Problem (Free Text): Right sided sciatic pain. Unable to perform ADLs. Functional Status: Reports: new symptoms - Review of Systems HEENT: Reports: no symptoms Pulmonary: Reports: no symptoms Cardiovascular: Reports: no symptoms Gastrointestinal: Reports: Diarrhea Genitourinary: Reports: no symptoms Musculoskeletal: Reports: back pain (maybe slight improvement), leg pain (right) Skin: Reports: no symptoms Neurological: Reports: no symptoms Psychiatric: Reports: no symptoms - Patient Data Vitals - most recent: Last Vital Signs Temp 97.2 F 01/12/17 08:00 Pulse 82 01/12/17 08:00 Resp 18 01/12/17 08:00 BP 146/83 H 01/12/17 08:00 Pulse Ox 98 01/12/17 08:00 Weight - most recent: 180 lb 0.013 oz Lab Results last 24 hrs: Laboratory Results - last 24 hr 01/12/17 01/12/17 Range/Units 06:50 06:50 WBC 4.9 (4.0-10.2) K/uL RBC 4.06 (3.77-5.09) M/uL Hgb 12.6 (11.7-15.5) g/dL Hct 38.3 (34.0-46.0) % MCV 94.3 (84.0-98.0) fL MCH 31.0 (28.2-33.3) pg MCHC 32.9 (31.7-36.0) g/dL RDW 14.4 H (11.2-14.1) % Plt Count 159 (150-350) K/uL Neut % (Auto) 59.8 (45.0-80.0) % Lymph % (Auto) 26.5 (10.0-50.0) % Mckean % (Auto) 10.8 (2.0-14.0) % Eos % (Auto) 2.7 (0.0-5.0) % Baso % (Auto) 0.2 (0.0-2.0) % Neut # 2.93 (1.40-7.00) K/uL Lymph # 1.30 (0.50-3.50) K/uL Mckean # 0.53 (0.00-1.00) K/uL Eos # 0.13 (0.00-0.50) K/uL Baso # 0.01 (0.00-0.20) K/uL Sodium 146 H (136-145) mmol/L Potassium 3.8 (3.5-5.1) mmol/L Chloride 109 H (98-107) mmol/L Carbon Dioxide 30.4 (21.0-32.0) mmol/L BUN 29 H (7-18) mg/dL Creatinine 0.66 (0.51-1.17) mg/dL Est Cr Clr Drug Dosing 57.14 mL/min Estimated GFR (MDRD) > 60 mL/min Glucose 86 (74-106) mg/dL Calcium 8.7 (8.5-10.1) mg/dL Total Bilirubin 0.3 (0.2-1.0) mg/dL AST 16 (15-37) U/L ALT 20 (12-78) U/L Alkaline Phosphatase 61 (46-116) IU/L Total Protein 6.0 L (6.4-8.2) g/dL Albumin 3.0 L (3.4-5.0) g/dL Med Orders - Current: Current Medications Acetaminophen (Tylenol) 650 mg PO Q6H PRN PRN Reason: Pain Last Admin: 01/10/17 21:32 Dose: 650 mg Cholecalciferol (Vitamin D3) 2,000 units PO [facility] Last Admin: 01/12/17 07:35 Dose: 2,000 units Ketorolac Tromethamine (Toradol) 15 mg IVPUSH Q6H [facility] Stop: 01/16/17 18:01 Last Admin: 01/12/17 11:14 Dose: 15 mg Levothyroxine Sodium (Levothyroxine) [facility] [place] Last Admin: 01/12/17 07:34 Dose: 25 mcg Loperamide HCl (Imodium Ad) 2 mg PO Q4H PRN PRN Reason: Diarrhea Senna (Senna) 8.6 mg PO BID PRN PRN Reason: Constipation Sodium Chloride (Saline Flush) 10 ml FLUSH ASDIRECTED PRN PRN Reason: flush Last Admin: 01/12/17 11:14 Dose: 10 ml Sodium Chloride (Saline Flush) 10 ml FLUSH BID [facility] Last Admin: 01/12/17 09:09 Dose: Not Given Tramadol HCl (Ultram) 50 mg PO Q6H PRN PRN Reason: Pain (moderate 4-6) Last Admin: 01/10/17 06:22 Dose: 50 mg Discontinued Medications Ezetimibe (Zetia) 10 mg PO BEDTIME [facility] Last Admin: 01/11/17 19:36 Dose: 10 mg Enoxaparin Sodium (Lovenox) 40 mg SUBCUT DAILY [facility] Last Admin: 01/11/17 07:45 Dose: 40 mg Fish Oil (Fish Oil) 1 gm PO QAM [facility] Last Admin: 01/11/17 07:42 Dose: 1 gm Ketorolac Tromethamine (Toradol) 15 mg IVPUSH ONETIME ONE Stop: 01/11/17 13:01 Last Admin: 01/11/17 13:43 Dose: 15 mg Loperamide HCl (Imodium) 4 mg PO ASDIRECTED ANIYA Loperamide HCl (Imodium Ad) 4 mg PO ONETIME ONE Stop: 01/09/17 10:16 Last Admin: 01/09/17 10:26 Dose: 4 mg Loperamide HCl (Imodium) 2 mg PO ASDIRECTED PRN PRN Reason: Diarrhea Last Admin: 01/12/17 16:06 Dose: 2 mg Methylprednisolone Sodium Succinate (Solu-Medrol) 125 mg IVPUSH ONETIME ONE Stop: 01/08/17 14:44 Last Admin: 01/08/17 15:45 Dose: 125 mg Methylprednisolone Sodium Succinate (Solu-Medrol) 125 mg IVPUSH ONETIME ONE Stop: 01/09/17 17:00 Last Admin: 01/09/17 17:41 Dose: 125 mg Methylprednisolone Sodium Succinate (Solu-Medrol) 125 mg IVPUSH ONETIME ONE Stop: 01/10/17 17:01 Last Admin: 01/10/17 16:58 Dose: 125 mg Multivitamins/Minerals/Vitamin C (Tab-A-Camila) 1 tab PO DAILY [facility] Last Admin: 01/11/17 07:46 Dose: 1 tab Pantoprazole Sodium (Protonix Iv) 40 mg IVPUSH ONETIME ONE Stop: 01/11/17 13:01 Last Admin: 01/11/17 13:42 Dose: 40 mg Vit C/Vit E/Zinc/Copper/Lutein (Ocuvite Lutein) 1 each PO BID [facility] Last Admin: 01/11/17 17:12 Dose: 1 each - Exam General: alert, cooperative HEENT: Mucous membr. moist/pink Neck: trachea midline Lungs: Clear to auscultation Cardiovascular: regular rate, regular rhythm Abdomen: bowel sounds present, soft, no tenderness, no distension (Female) Exam: Deferred Back Exam: decreased range of motion, other (pain radiates down right leg) Extremities: no edema Skin: warm, dry, intact Neurological: no new focal deficit Psy/Mental Status: alert, normal affect, normal mood - Problem List & Annotations (1) Low back pain SNOMED Code(s): 622470259 Code(s): M54.5 - LOW BACK PAIN Status: Acute Priority: High Current Visit: Yes Qualifiers: Chronicity: acute Back pain laterality: right Sciatica laterality: sciatica of right side (2) Right sided sciatica SNOMED Code(s): 26141913 Code(s): M54.31 - SCIATICA, RIGHT SIDE Status: Acute Priority: High Current Visit: Yes Onset Date: Unknown Annotation/Comment:: improved since yesterday but still present. (3) Obesity SNOMED Code(s): 753467727 Code(s): E66.9 - OBESITY, UNSPECIFIED Status: Chronic Priority: Low Current Visit: No (4) Osteoarthritis SNOMED Code(s): 302140802 Code(s): M19.90 - UNSPECIFIED OSTEOARTHRITIS, UNSPECIFIED SITE Status: Chronic Priority: Low Current Visit: No Qualifiers: Osteoarthritis location: spine Spinal region: lumbosacral Spinal osteoarthritis complication: with radiculopathy Qualified Code(s): M47.27 - Other spondylosis with radiculopathy, lumbosacral region Annotation/Comment:: Stable by patient history despite history of spinal stenosis - Problem List Review Problem List Initiated/Reviewed/Updated: Yes - My Orders Last 24 Hours: My Active Orders 01/11/17 18:00 Ketorolac [Toradol] 15 mg IVPUSH Q6H 01/11/17 20:02 Sennosides [Senna] 8.6 mg PO BID PRN 01/12/17 17:00 Loperamide [Imodium AD] 2 mg PO Q4H PRN 01/12/17 20:00 Vital Signs [RC] QID 01/13/17 05:11 Lumbar Spine wo Cont [CT] Routine CBC WITH AUTO DIFF [HEME] Routine CMP [COMPREHENSIVE METABOLIC PN,CMP] [CHEM] Routine - Assessment Assessment:: Mild improvement. Still has pain to point where ambulation and ADLs are difficult. - Plan Plan:: Continue pain medication, steroids, and assistance with ADLs. PT and OT to see patient Wednesday. Anticipate discharge Wednesday unless patient is required to move to Swing Bed for further treatment. 01/11/17 Ever Marino MD Still with significant back pain radiating into right leg. Change medications to IV toradol. Monitor kidney function and start GI prophylaxis. 01/12/17 Ever Marino MD Maybe pain is a little bit better. She does have history of endometrial cancer with surgery and radiation treatments. With radiation of pain down right leg will check lumbar sacral spine CT to R/O radiculopathy/ or metasis. Also she needs to continue scheduled IV toradol for at least another 24-48 hours so impatient status necessary and justified. Having a lot of diarrhea today. Did have imodium AD.
[2017-01-12] MEDS: Loperamide 2 MG Tab PO PRN (19:40)
[2017-01-13] MEDS: Ketorolac 15 MG/ML SDV IVPUSH SCH ×2 (06:18→11:38)
[2017-01-13] MEDS: Cholecalciferol (Vitamin D3) 1,000 Unit Tab PO SCH (07:39)
[2017-01-13] MEDS: Levothyroxine 25 MCG Tab PO SCH (07:39)
[2017-01-13] MEDS: Sodium Chloride 0.9% 10 ML Syringe FLUSH SCH (07:39)
[2017-01-13 07:57] LABS: CHLORIDE,CL 109 mmol/L (98-107); SODIUM,NA 144 mmol/L (136-145)
[2017-01-13 08:00] VITALS: BP 120/65
[2017-01-13] MEDS: Loperamide 2 MG Tab PO PRN (09:42)
[2017-01-13] MEDS: Sodium Chloride 0.9% 10 ML Syringe FLUSH PRN (11:39)
[2017-01-13] MEDS ORDERED: Calcitonin (Salmon) Nasal Spray 3.7 ML Bottle NAS SCH (12:00)
[2017-01-13] MEDS ORDERED: fentaNYL 100 MCG/2 ML SDV IVPUSH PRN (12:00)
--- NOTE | 2017-01-13 16:16 | PCM.PN ---
- General Info Date of Service: 01/13/17 Functional Status: Reports: ambulating - Review of Systems General: Reports: other (pain persists) HEENT: Reports: no symptoms Pulmonary: Reports: no symptoms Cardiovascular: Reports: no symptoms Gastrointestinal: Reports: Diarrhea Genitourinary: Reports: no symptoms Musculoskeletal: Reports: back pain, leg pain Skin: Reports: no symptoms Neurological: Reports: no symptoms Psychiatric: Reports: no symptoms - Patient Data Vitals - most recent: Last Vital Signs Temp 95.8 F 01/13/17 07:58 Pulse 72 01/13/17 07:58 Resp 16 01/13/17 07:58 BP 120/65 01/13/17 07:58 Pulse Ox 94 L 01/13/17 07:58 Weight - most recent: 180 lb 0.013 oz Lab Results last 24 hrs: Laboratory Results - last 24 hr 01/13/17 01/13/17 Range/Units 07:30 07:30 WBC 5.6 (4.0-10.2) K/uL RBC 3.97 (3.77-5.09) M/uL Hgb 12.3 (11.7-15.5) g/dL Hct 37.0 (34.0-46.0) % MCV 93.2 (84.0-98.0) fL MCH 31.0 (28.2-33.3) pg MCHC 33.2 (31.7-36.0) g/dL RDW 14.6 H (11.2-14.1) % Plt Count 140 L (150-350) K/uL Neut % (Auto) 62.9 (45.0-80.0) % Lymph % (Auto) 22.7 (10.0-50.0) % Todd % (Auto) 9.5 (2.0-14.0) % Eos % (Auto) 4.5 (0.0-5.0) % Baso % (Auto) 0.4 (0.0-2.0) % Neut # 3.50 (1.40-7.00) K/uL Lymph # 1.26 (0.50-3.50) K/uL Todd # 0.53 (0.00-1.00) K/uL Eos # 0.25 (0.00-0.50) K/uL Baso # 0.02 (0.00-0.20) K/uL Sodium 144 (136-145) mmol/L Potassium 4.0 (3.5-5.1) mmol/L Chloride 109 H (98-107) mmol/L Carbon Dioxide 29.2 (21.0-32.0) mmol/L BUN 32 H (7-18) mg/dL Creatinine 0.71 (0.51-1.17) mg/dL Est Cr Clr Drug Dosing 53.12 mL/min Estimated GFR (MDRD) > 60 mL/min Glucose 95 (74-106) mg/dL Calcium 8.7 (8.5-10.1) mg/dL Total Bilirubin 0.4 (0.2-1.0) mg/dL AST 18 (15-37) U/L ALT 19 (12-78) U/L Alkaline Phosphatase 65 (46-116) IU/L Total Protein 5.8 L (6.4-8.2) g/dL Albumin 2.8 L (3.4-5.0) g/dL Med Orders - Current: Current Medications Acetaminophen (Tylenol) 650 mg PO Q6H PRN PRN Reason: Pain Last Admin: 01/10/17 21:32 Dose: 650 mg Calcitonin [place] (Miacalcin Nasal [place]) 0 ml RADHA DAILY [facility] Last Admin: 01/13/17 13:57 Dose: 1 spray Cholecalcifer[facility] ([facility]itamin [facility]) [facility] [place] Last Admin: 01/13/17 07:39 Dose: 2,000 units Fentanyl (Sublimaze) 25 mcg IVPUSH Q4H PRN PRN Reason: Pain (severe 7-10) Levothyroxine S[facility]ine) [facility] [place] Last Admin: 01/13/17 07:39 Dose: 25 mcg Loperamide HCl (Imodium Ad) 2 mg PO Q4H PRN PRN Reason: Diarrhea Last Admin: 01/13/17 09:42 Dose: 2 mg Senna (Senna) 8.6 mg PO BID PRN PRN Reason: Constipation Sodium Chloride (Saline Flush) 10 ml FLUSH ASDIRECTED PRN PRN Reason: flush Last Admin: 01/13/17 11:39 Dose: 10 ml Sodium Chloride (Saline Flush) 10 ml FLUSH BID [facility] Last Admin: 01/13/17 07:39 Dose: 10 ml Tramadol HCl (Ultram) 50 mg PO Q6H PRN PRN Reason: Pain (moderate 4-6) Last Admin: 01/10/17 06:22 Dose: 50 mg Discontinued Medications Ezetimibe (Zetia) 10 mg PO BEDTIME [facility] Last Admin: 01/11/17 19:36 Dose: 10 mg Enoxaparin Sodium (Lovenox) 40 mg SUBCUT DAILY [facility] Last Admin: 01/11/17 07:45 Dose: 40 mg Fish Oil (Fish Oil) 1 gm PO QAM [facility] Last Admin: 01/11/17 07:42 Dose: 1 gm Ketorolac Tromethamine (Toradol) 15 mg IVPUSH ONETIME ONE Stop: 01/11/17 13:01 Last Admin: 01/11/17 13:43 Dose: 15 mg Ketorolac Tromethamine (Toradol) 15 mg IVPUSH Q6H [facility] Stop: 01/16/17 18:01 Last Admin: 01/13/17 11:38 Dose: 15 mg Loperamide HCl (Imodium) 4 mg PO ASDIRECTED ANIYA Loperamide HCl (Imodium Ad) 4 mg PO ONETIME ONE Stop: 01/09/17 10:16 Last Admin: 01/09/17 10:26 Dose: 4 mg Loperamide HCl (Imodium) 2 mg PO ASDIRECTED PRN PRN Reason: Diarrhea Last Admin: 01/12/17 16:06 Dose: 2 mg Methylprednisolone Sodium Succinate (Solu-Medrol) 125 mg IVPUSH ONETIME ONE Stop: 01/08/17 14:44 Last Admin: 01/08/17 15:45 Dose: 125 mg Methylprednisolone Sodium Succinate (Solu-Medrol) 125 mg IVPUSH ONETIME ONE Stop: 01/09/17 17:00 Last Admin: 01/09/17 17:41 Dose: 125 mg Methylprednisolone Sodium Succinate (Solu-Medrol) 125 mg IVPUSH ONETIME ONE Stop: 01/10/17 17:01 Last Admin: 01/10/17 16:58 Dose: 125 mg Multivitamins/Minerals/Vitamin C (Tab-A-Camila) 1 tab PO DAILY [facility] Last Admin: 01/11/17 07:46 Dose: 1 tab Pantoprazole Sodium (Protonix Iv) 40 mg IVPUSH ONETIME ONE Stop: 01/11/17 13:01 Last Admin: 01/11/17 13:42 Dose: 40 mg Vit C/Vit E/Zinc/Copper/Lutein (Ocuvite Lutein) 1 each PO BID ANIYA Last Admin: 01/11/17 17:12 Dose: 1 each - Exam General: alert, cooperative HEENT: Mucous membr. moist/pink Neck: trachea midline, no JVD Lungs: Clear to auscultation, Normal respiratory effort Cardiovascular: regular rate, regular rhythm Abdomen: bowel sounds present, soft, no tenderness, no distension (Female) Exam: Deferred Back Exam: decreased range of motion, paraspinal tenderness, vertebral tenderness (L5) Extremities: no edema Skin: warm, dry, intact Neurological: no new focal deficit Psy/Mental Status: alert, normal affect, normal mood - Problem List & Annotations (1) Low back pain SNOMED Code(s): 343012521 Code(s): M54.5 - LOW BACK PAIN Status: Acute Priority: High Current Visit: Yes Qualifiers: Chronicity: acute Back pain laterality: right Sciatica laterality: sciatica of right side (2) Right sided sciatica SNOMED Code(s): 75469053 Code(s): M54.31 - SCIATICA, RIGHT SIDE Status: Acute Priority: High Current Visit: Yes Onset Date: Unknown Annotation/Comment:: improved since yesterday but still present. (3) Obesity SNOMED Code(s): 631685861 Code(s): E66.9 - OBESITY, UNSPECIFIED Status: Chronic Priority: Low Current Visit: No (4) Osteoarthritis SNOMED Code(s): 734475784 Code(s): M19.90 - UNSPECIFIED OSTEOARTHRITIS, UNSPECIFIED SITE Status: Chronic Priority: Low Current Visit: No Qualifiers: Osteoarthritis location: spine Spinal region: lumbosacral Spinal osteoarthritis complication: with radiculopathy Qualified Code(s): M47.27 - Other spondylosis with radiculopathy, lumbosacral region Annotation/Comment:: Stable by patient history despite history of spinal stenosis (5) Compression fracture of L5 lumbar vertebra SNOMED Code(s): 111654587 Code(s): S32.050A - WEDGE COMPRESSION FRACTURE OF FIFTH LUMBAR VERTEBRA, INIT Status: Acute Priority: High Current Visit: Yes (6) Spinal stenosis of lumbar region at multiple levels SNOMED Code(s): 16073883 Code(s): M48.06 - SPINAL STENOSIS, LUMBAR REGION Status: Acute Priority: High Current Visit: Yes (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 Status: Acute Current Visit: Yes Qualifiers: Spinal osteoarthritis complication: with radiculopathy Qualified Code(s): M47.26 - Other spondylosis with radiculopathy, lumbar region - Problem List Review Problem List Initiated/Reviewed/Updated: Yes - My Orders Last 24 Hours: My Active Orders 01/12/17 17:00 Loperamide [Imodium AD] 2 mg PO Q4H PRN 01/12/17 20:00 Vital Signs [RC] QID 01/13/17 05:11 Lumbar Spine wo Cont [CT] Routine 01/13/17 12:00 Calcitonin ([place]) [Miacalcin Nasal [place]] See Dose Instructions RADHA DAILY fentaNYL [Sublimaze] 25 mcg IVPUSH Q4H PRN - Assessment Assessment:: Mild improvement. Still has pain to point where ambulation and ADLs are difficult. 01/13/17 Ever Marino MD Still with pain. Maybe a little bit better. Stopped IV toradol due to dropping platelets (thrombocytopenia). Ct showing compression fracture L5, spinal stenosis, and DJD multiple levels lumbar spine. Stable for transfer into swingbed to continue PT-OT and medical therapy. - Plan Plan:: Continue pain medication, steroids, and assistance with ADLs. PT and OT to see patient Wednesday. Anticipate discharge Wednesday unless patient is required to move to Swing Bed for further treatment. 01/11/17 Ever Marino MD Still with significant back pain radiating into right leg. Change medications to IV toradol. Monitor kidney function and start GI prophylaxis. 01/12/17 Ever Marino MD Maybe pain is a little bit better. She does have history of endometrial cancer with surgery and radiation treatments. With radiation of pain down right leg will check lumbar sacral spine CT to R/O radiculopathy/ or metasis. Also she needs to continue scheduled IV toradol for at least another 24-48 hours so impatient status necessary and justified. Having a lot of diarrhea today. Did have imodium AD.
--- NOTE | 2017-01-13 16:18 | PCM.DCSUM1 ---
Discharge Summary - Discharge Data Discharge Date: 01/13/17 Discharge Disposition: DC/Tfer W/I Hosp To Swing 61 Condition: Good - Discharge Diagnosis/Problem(s) (1) Low back pain SNOMED Code(s): 483967403 ICD Code: M54.5 - LOW BACK PAIN Status: Acute Priority: High Current Visit: Yes Qualifiers: Chronicity: acute Back pain laterality: right Sciatica laterality: sciatica of right side (2) Right sided sciatica SNOMED Code(s): 88060618 ICD Code: M54.31 - SCIATICA, RIGHT SIDE Status: Acute Priority: High Current Visit: Yes Onset Date: Unknown Problem Details: improved since yesterday but still present. (3) Obesity SNOMED Code(s): 978402848 ICD Code: E66.9 - OBESITY, UNSPECIFIED Status: Chronic Priority: Low Current Visit: No (4) Osteoarthritis SNOMED Code(s): 703700358 ICD Code: M19.90 - UNSPECIFIED OSTEOARTHRITIS, UNSPECIFIED SITE Status: Chronic Priority: Low Current Visit: No Problem Details: Stable by patient history despite history of spinal stenosis Qualifiers: Osteoarthritis location: spine Spinal region: lumbosacral Spinal osteoarthritis complication: with radiculopathy Qualified Code(s): M47.27 - Other spondylosis with radiculopathy, lumbosacral region (5) Compression fracture of L5 lumbar vertebra SNOMED Code(s): 735039306 ICD Code: S32.050A - WEDGE COMPRESSION FRACTURE OF FIFTH LUMBAR VERTEBRA, INIT Status: Acute Priority: High Current Visit: Yes (6) Spinal stenosis of lumbar region at multiple levels SNOMED Code(s): 79169047 ICD Code: M48.06 - SPINAL STENOSIS, LUMBAR REGION Status: Acute Priority : High Current Visit: Yes (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 Status: Acute Current Visit: Yes Qualifiers: Spinal osteoarthritis complication: with radiculopathy Qualified Code(s): M47.26 - Other spondylosis with radiculopathy, lumbar region - Patient Summary/Data Consults: Consultations 01/08/17 14:35 OT Evaluation and Treatment [CONS] Routine PT Evaluation and Treatment [CONS] Routine - Patient Instructions Diet: Regular Diet as Tolerated Activity: As Tolerated - Discharge Plan Home Medications: Home Meds Cholecalciferol (Vitamin D3) [Vitamin D3] 2,000 units PO QAM 05/28/15 [History] Fish Oil/[place]-3 Fatty Acids [Fish Oil 1,000 MG] 1,000 mg PO QAM 05/28/15 [ History] Levothyroxine 25 mcg PO QAM 05/28/15 [History] Ezetimibe [Zetia] 10 mg PO BEDTIME 01/20/16 [History] Ibuprofen 200 mg PO Q4HR PRN 01/20/16 [History] Multivitamin [Daily Multiple Vitamin] 1 tab PO DAILY 01/20/16 [History] Naproxen Sodium [Aleve] 220 mg PO BID PRN 01/20/16 [History] Vit C/E/Zn/Coppr/Lutein/Zeaxan [Preservision Areds 2 Softgel] 1 each PO BID [History] Forms: ED Department Discharge Referrals: Sheets-Radha Marino MD [Primary Care Provider] - - Discharge Summary/Plan Comment DC Time >30 min.: No Discharge Summary/Plan Comment: Transfer into [facility] today for continued PT-OT and medical therapy for acute back pain. - Patient Data Vitals - Most Recent: Last Vital Signs Temp 95.8 F 01/13/17 07:58 Pulse 72 01/13/17 07:58 Resp 16 01/13/17 07:58 BP 120/65 01/13/17 07:58 Pulse Ox 94 L 01/13/17 07:58 Weight - Most Recent: 180 lb 0.013 oz Lab Results - Last 24 hrs: Laboratory Results - last 24 hr 01/13/17 01/13/17 Range/Units 07:30 07:30 WBC 5.6 (4.0-10.2) K/uL RBC 3.97 (3.77-5.09) M/uL Hgb 12.3 (11.7-15.5) g/dL Hct 37.0 (34.0-46.0) % MCV 93.2 (84.0-98.0) fL MCH 31.0 (28.2-33.3) pg MCHC 33.2 (31.7-36.0) g/dL RDW 14.6 H (11.2-14.1) % Plt Count 140 L (150-350) K/uL Neut % (Auto) 62.9 (45.0-80.0) % Lymph % (Auto) 22.7 (10.0-50.0) % [place] % (Auto) 9.5 (2.0-14.0) % Eos % (Auto) 4.5 (0.0-5.0) % Baso % (Auto) 0.4 (0.0-2.0) % Neut # 3.50 (1.40-7.00) K/uL Lymph # 1.26 (0.50-3.50) K/uL [place] # 0.53 (0.00-1.00) K/uL Eos # 0.25 (0.00-0.50) K/uL Baso # 0.02 (0.00-0.20) K/uL Sodium 144 (136-145) mmol/L Potassium 4.0 (3.5-5.1) mmol/L Chloride 109 H (98-107) mmol/L Carbon Dioxide 29.2 (21.0-32.0) mmol/L BUN 32 H (7-18) mg/dL Creatinine 0.71 (0.51-1.17) mg/dL Est Cr Clr Drug Dosing 53.12 mL/min Estimated GFR (MDRD) > 60 mL/min Glucose 95 (74-106) mg/dL Calcium 8.7 (8.5-10.1) mg/dL Total Bilirubin 0.4 (0.2-1.0) mg/dL AST 18 (15-37) U/L ALT 19 (12-78) U/L Alkaline Phosphatase 65 (46-116) IU/L Total Protein 5.8 L (6.4-8.2) g/dL Albumin 2.8 L (3.4-5.0) g/dL Med Orders - Current: Current Medications Acetaminophen (Tylenol) 650 mg PO Q6H PRN PRN Reason: Pain Last Admin: 01/10/17 21:32 Dose: 650 mg Calcitonin [place] (Miacalcin Nasal [place]) 0 ml RADHA DAILY [facility] Last Admin: 01/13/17 13:57 Dose: 1 spray Cholecalciferol (Vitamin D3) 2,000 units PO QAM [facility] Last Admin: 01/13/17 07:39 Dose: 2,000 units Fentanyl (Sublimaze) 25 mcg IVPUSH Q4H PRN PRN Reason: Pain (severe 7-10) Levothyroxine Sodium (Levothyroxine) 25 mcg PO QAM ANIYA Last Admin: 01/13/17 07:39 Dose: 25 mcg Loperamide HCl (Imodium Ad) 2 mg PO Q4H PRN PRN Reason: Diarrhea Last Admin: 01/13/17 09:42 Dose: 2 mg Senna (Senna) 8.6 mg PO BID PRN PRN Reason: Constipation Sodium Chloride (Saline Flush) 10 ml FLUSH ASDIRECTED PRN PRN Reason: flush Last Admin: 01/13/17 11:39 Dose: 10 ml Sodium Chloride (Saline Flush) 10 ml FLUSH BID ANIYA Last Admin: 01/13/17 07:39 Dose: 10 ml Tramadol HCl (Ultram) 50 mg PO Q6H PRN PRN Reason: Pain (moderate 4-6) Last Admin: 01/10/17 06:22 Dose: 50 mg Discontinued Medications Ezetimibe (Zetia) 10 mg PO BEDTIME [facility] Last Admin: 01/11/17 19:36 Dose: 10 mg Enoxaparin Sodium (Lovenox) 40 mg SUBCUT DAILY [facility] Last Admin: 01/11/17 07:45 Dose: 40 mg Fish Oil (Fish Oil) 1 gm PO QAM [facility] Last Admin: 01/11/17 07:42 Dose: 1 gm Ketorolac Tromethamine (Toradol) 15 mg IVPUSH ONETIME ONE Stop: 01/11/17 13:01 Last Admin: 01/11/17 13:43 Dose: 15 mg Ketorolac Tromethamine (Toradol) 15 mg IVPUSH Q6H [facility] Stop: 01/16/17 18:01 Last Admin: 01/13/17 11:38 Dose: 15 mg Loperamide HCl (Imodium) 4 mg PO ASDIRECTED ANIYA Loperamide HCl (Imodium Ad) 4 mg PO ONETIME ONE Stop: 01/09/17 10:16 Last Admin: 01/09/17 10:26 Dose: 4 mg Loperamide HCl (Imodium) 2 mg PO ASDIRECTED PRN PRN Reason: Diarrhea Last Admin: 01/12/17 16:06 Dose: 2 mg Methylprednisolone Sodium Succinate (Solu-Medrol) 125 mg IVPUSH ONETIME ONE Stop: 01/08/17 14:44 Last Admin: 01/08/17 15:45 Dose: 125 mg Methylprednisolone Sodium Succinate (Solu-Medrol) 125 mg IVPUSH ONETIME ONE Stop: 01/09/17 17:00 Last Admin: 01/09/17 17:41 Dose: 125 mg Methylprednisolone Sodium Succinate (Solu-Medrol) 125 mg IVPUSH ONETIME ONE Stop: 01/10/17 17:01 Last Admin: 01/10/17 16:58 Dose: 125 mg Multivitamins/Minerals/Vitamin C (Tab-A-Camila) 1 tab PO DAILY [facility] Last Admin: 01/11/17 07:46 Dose: 1 tab Pantoprazole Sodium (Protonix Iv) 40 mg IVPUSH ONETIME ONE Stop: 01/11/17 13:01 Last Admin: 01/11/17 13:42 Dose: 40 mg Vit C/Vit E/Zinc/Copper/Lutein (Ocuvite Lutein) 1 each PO BID [facility] Last Admin: 01/11/17 17:12 Dose: 1 each *Q Meaningful Use (DIS) - VTE *Q VTE Criteria *Q: - Stroke *Q Stroke Criteria *Q: - AMI *Q AMI Criteria *Q:
== END 2017-01-13 16:24 | disposition swing bed (61) | DRG 552 ==
LOC: LL.ED 12:34 → LL.MS 14:11
PROVIDERS: ADMIT Emergency Medicine; ATTEND Family Medicine
DX: M54.31 Sciatica, right side (principal); M54.41 Lumbago with sciatica, right side; H35.30 Unspecified macular degeneration; S32.050A Wedge compression fracture of fifth lumbar vertebra, initial encounter for closed fracture; R26.2 Difficulty in walking, not elsewhere classified; H65.30 Chronic mucoid otitis media, unspecified ear; E66.9 Obesity, unspecified; E78.5 Hyperlipidemia, unspecified; I10 Essential (primary) hypertension; E03.9 Hypothyroidism, unspecified; M19.90 Unspecified osteoarthritis, unspecified site; M48.06 Spinal stenosis, lumbar region; M47.26 Other spondylosis with radiculopathy, lumbar region; X58.XXXA Exposure to other specified factors, initial encounter; Z79.899 Other long term (current) drug therapy; Z88.1 Allergy status to other antibiotic agents
CPT/HCPCS: 36000; 36415; 72131; 80053; 81001; 82550; 83605; 84550; 85025; 85610; 85651; 85730; 86140; 97032-GP; 97110-GP; 97161-GP; 97165-GO; 99284; A9270-GY; C9113; G0283-GP; J1650; J1885; J2930; J7050

== ENCOUNTER 2017-01-13 16:11 | Inpatient (IN) | payer MEDICARE, BC ==
[2017-01-13] MEDS ORDERED: fentaNYL 100 MCG/2 ML SDV IVPUSH PRN (16:22)
--- NOTE | 2017-01-13 16:45 | PCM.HP ---
H&P History of Present Illness - General Date of Service: 01/13/17 Admit Problem/Dx: Admission Diagnosis/Problem Admission Diagnosis/Problem Compression fracture Source of Information: Patient, Old records History Limitations: Reports: No limitations - History of Present Illness Onset of Symptoms: Reports: other (couple of weeks ago) Location: Reports: back, lower extremity, right Severity: severe Improves with: Reports: Heat therapy, Immobilization, Medication, Rest Worsens with: Reports: Movement Associated Symptoms: Reports: no other symptoms - Related Data Allergies/Adverse Reactions: Allergies Allergy/AdvReac Type Severity Reaction Status Date / Time ciprofloxacin [From Cipro] Allergy Other Verified 01/08/17 12:55 ciprofloxacin HCl Allergy Other Verified 01/08/17 12:55 [From Cipro] Home Medications: Home Meds Cholecalciferol (Vitamin D3) [Vitamin D3] 2,000 units PO QAM 05/28/15 [History] Fish Oil/Maryneal-3 Fatty Acids [Fish Oil 1,000 MG] 1,000 mg PO QAM 05/28/15 [ History] Levothyroxine 25 mcg PO QAM 05/28/15 [History] Ezetimibe [Zetia] 10 mg PO BEDTIME 01/20/16 [History] Ibuprofen 200 mg PO Q4HR PRN 01/20/16 [History] Multivitamin [Daily Multiple Vitamin] 1 tab PO DAILY 01/20/16 [History] Naproxen Sodium [Aleve] 220 mg PO BID PRN 01/20/16 [History] Vit C/E/Zn/Coppr/Lutein/Zeaxan [Preservision Areds 2 Softgel] 1 each PO BID [History] Past Medical History HEENT History: Reports: Macular degeneration Cardiovascular History: Reports: High cholesterol, Hypertension Gastrointestinal History: Reports: Diverticulosis, Other (see below) Other Gastrointestinal History: History of perforated diverticuli with colon resection with pelvic abscess and urinary fistula Genitourinary History: Reports: Other (see below) Other Genitourinary History: Urinary fistula Musculoskeletal History: Reports: Back pain, chronic Endocrine/Metabolic History: Reports: Hypothyroidism Oncologic (Cancer) History: Reports: Uterine - Past Surgical History Female Surgical History: Reports: Hysterectomy, Other (see below) Other Female Surgeries/Procedures: Hysterectomy fall 2015 secondary to uterine malignancy Social & Family History - Tobacco Use Smoking Status *Q: Never Smoker Second Hand Smoke Exposure: No - Caffeine Use Caffeine Use: Reports: Coffee - Alcohol Use Days Per Week of Alcohol Use: 0 - Recreational Drug Use Recreational Drug Use: No Drug Use in Last 12 Months: No - Living Situation & Occupation Living situation: Reports: (07/17/1999, 5 children), alone Occupation: retired ([employer] ) H&P Review of Systems - Review of Systems: Review Of Systems: See Below General: Reports: no symptoms HEENT: Reports: no symptoms Pulmonary: Reports: no symptoms Cardiovascular: Reports: no symptoms Gastrointestinal: Reports: No symptoms Genitourinary: Reports: no symptoms Musculoskeletal: Reports: back pain, leg pain Skin: Reports: no symptoms Psychiatric: Reports: no symptoms Neurological: Reports: no symptoms Hematologic/Lymphatic: Reports: no symptoms Immunologic: Reports: no symptoms Exam - Exam Exam: See Below - Vital Signs Weight: 180 lb 0.013 oz - Exam General: alert, cooperative, mild distress HEENT: Hearing intact Neck: trachea midline Lungs: Clear to auscultation, Normal respiratory effort Cardiovascular: regular rate, regular rhythm Abdomen: normal bowel sounds, soft (Female) Exam: Deferred Rectal (Female) Exam: Deferred Back Exam: decreased range of motion, paraspinal tenderness, vertebral tenderness (L5) Extremities: 3, normal inspection, 10 Skin: warm, dry, intact, ecchymosis (arms) Neuro Extensive - Mental Status: alert, normal mood/affect, normal cognition, memory intact Neuro Extensive - Motor, Sensory, Reflexes: abnormal gait Psychiatric: alert, normal affect, normal mood *Q Meaningful Use (ADM) - VTE *Q VTE Criteria *Q: - Stroke *Q Stroke Criteria *Q: - AMI *Q AMI Criteria *Q: - Problem List (1) COPD (chronic obstructive pulmonary disease) SNOMED Code(s): 98690274 ICD Code: J44.9 - CHRONIC OBSTRUCTIVE PULMONARY DISEASE, UNSPECIFIED Status : Acute Priority: Medium Current Visit: No Problem Details: No recent history of bronchitic-type symptoms, fever, etc. with patient not using any medications currently for her COPD/pulmonary fibrosis. Consider PFTs on an outpatient basis (2) Compression fracture of L5 lumbar vertebra SNOMED Code(s): 935666643 ICD Code: S32.050A - WEDGE COMPRESSION FRACTURE OF FIFTH LUMBAR VERTEBRA, INIT Status: Acute Priority: High Current Visit: No (3) Degenerative joint disease (DJD) of lumbar spine Status: Acute Current Visit: No Qualifiers: Spinal osteoarthritis complication: with radiculopathy Qualified Code(s): M47.26 - Other spondylosis with radiculopathy, lumbar region (4) Heart disease SNOMED Code(s): 88745354 ICD Code: I51.9 - HEART DISEASE, UNSPECIFIED Status: Acute Priority: High Current Visit: No Problem Details: Chest Pain protocol was not initiated in the emergency room secondary to absence of anginal-type symptoms. Note history of distant atrial fibrillation with no current anticoagulation therapy. Complete bifascicular bundle-branch, sinus arrhythmia, and sinus bradycardia with multiple previous negative Persantine Cardiolite evaluations as below. Note CHF as above with consideration of an echocardiogram on an outpatient basis. Cardiology consultation as needed. (5) Low back pain SNOMED Code(s): 015036943 ICD Code: M54.5 - LOW BACK PAIN Status: Acute Priority: High Current Visit: No Qualifiers: Chronicity: acute Back pain laterality: right Sciatica laterality: sciatica of right side (6) Macular degeneration SNOMED Code(s): 208015881 ICD Code: H35.30 - UNSPECIFIED MACULAR DEGENERATION Status: Acute Current Visit: No (7) Right sided sciatica SNOMED Code(s): 20258754 ICD Code: M54.31 - SCIATICA, RIGHT SIDE Status: Acute Priority: High Current Visit: No Onset Date: Unknown Problem Details: improved since yesterday but still present. (8) Spinal stenosis of lumbar region at multiple levels SNOMED Code(s): 83459869 ICD Code: M48.06 - SPINAL STENOSIS, LUMBAR REGION Status: Acute Priority : High Current Visit: No (9) Hyperlipidemia SNOMED Code(s): 17750752 ICD Code: E78.5 - HYPERLIPIDEMIA, UNSPECIFIED Status: Chronic Priority: Low Current Visit: No Problem Details: Medically treated with repeat lipid panel per discretion of her providers at [facility] [place] (10) Hypertension SNOMED Code(s): 71882022 ICD Code: I10 - ESSENTIAL (PRIMARY) HYPERTENSION Status: Chronic Priority : Low Current Visit: No Problem Details: Currently on no medication for HTN due to episodes of dizziness in past. (11) Hypothyroidism SNOMED Code(s): 07808369 ICD Code: E03.9 - HYPOTHYROIDISM, UNSPECIFIED Status: Chronic Priority: Low Current Visit: No (12) Obesity SNOMED Code(s): 656204880 ICD Code: E66.9 - OBESITY, UNSPECIFIED Status: Chronic Priority: Low Current Visit: No (13) Osteoarthritis SNOMED Code(s): 751658451 ICD Code: M19.90 - UNSPECIFIED OSTEOARTHRITIS, UNSPECIFIED SITE Status: Chronic Priority: Low Current Visit: No Problem Details: Stable by patient history despite history of spinal stenosis Qualifiers: Osteoarthritis location: spine Spinal region: lumbosacral Spinal osteoarthritis complication: with radiculopathy Qualified Code(s): M47.27 - Other spondylosis with radiculopathy, lumbosacral region (14) TIA (transient ischemic attack) SNOMED Code(s): 838975994, 524154685 ICD Code: G45.9 - TRANSIENT CEREBRAL ISCHEMIC ATTACK, UNSPECIFIED Status: Suspected Current Visit: No Problem List Initiated/Reviewed/Updated: Yes Orders Last 24hrs: Active Orders 24 hr Category Date Time Status Patient Status [ADT] Routine ADT 01/13/17 16:25 Active Antiembolic Devices [RC] .Routine Care 01/13/17 16:22 Active Antiembolic Devices [RC] PER UNIT ROUTINE Care 01/13/17 16:22 Active May Shower [RC] ASDIRECTED Care 01/13/17 16:22 Active Up With Assistance [RC] ASDIRECTED Care 01/13/17 16:22 Active Vital Signs [RC] BID Care 01/13/17 16:28 Ordered OT Evaluation and Treatment [CONS] Routine Cons 01/13/17 16:22 Active PT Evaluation and Treatment [CONS] Routine Cons 01/13/17 16:22 Active Heart Healthy Diet [DIET] Diet 01/13/17 Dinner Active CBC WITH AUTO DIFF [HEME] Routine Lab 01/14/17 05:11 Ordered CMP [COMPREHENSIVE METABOLIC PN,CMP] [CHEM] Routine Lab 01/14/17 05:11 Ordered Acetaminophen [Tylenol] Med 01/13/17 16:22 Ordered 650 mg PO Q6H PRN Calcitonin ([place]) [Miacalcin Nasal [place]] Med 01/14/17 08:00 Ordered See Dose Instructions RADHA DAILY Cholecalciferol (Vitamin D3) [Vitamin D3] Med 01/14/17 08:00 Ordered 2,000 units PO QAM Levothyroxine Med 01/14/17 08:00 Ordered 25 mcg PO QAM Loperamide [Imodium AD] Med 01/13/17 16:22 Ordered 2 mg PO Q4H PRN Loperamide [Imodium AD] Med 01/14/17 08:00 Ordered 4 mg PO DAILY Sennosides [Senna] Med 01/13/17 16:22 Ordered 8.6 mg PO BID PRN Sodium Chloride 0.9% [Saline Flush] Med 01/13/17 16:22 Ordered 10 ml FLUSH ASDIRECTED PRN Sodium Chloride 0.9% [Saline Flush] Med 01/13/17 18:00 Ordered 10 ml FLUSH BID fentaNYL [Sublimaze] Med 01/13/17 16:22 Ordered 25 mcg IVPUSH Q4H PRN traMADol [Ultram] Med 01/13/17 16:22 Ordered 50 mg PO Q6H PRN Antiembolic Hose [OM.PC] Per Unit Routine Oth 01/13/17 16:22 Ordered DVT/VTE Prophylaxis Reflex [OM.PC] Routine Oth 01/13/17 16:22 Ordered Code Status [Resuscitation Status] Routine Resus Stat 01/13/17 16:27 Ordered Medication Orders Acetaminophen (Tylenol) 650 mg PO Q6H PRN PRN Reason: Pain Calcitonin [place] (Miacalcin Nasal [place]) 0 ml RADHA DAILY ANIYA Cholecalciferol (Vitamin D3) 2,000 units PO QAM ANIYA Fentanyl (Sublimaze) 25 mcg IVPUSH Q4H PRN PRN Reason: Pain (severe 7-10) Levothyroxine Sodium (Levothyroxine) 25 mcg PO QAM ANIYA Loperamide HCl (Imodium Ad) 2 mg PO Q4H PRN PRN Reason: Diarrhea Loperamide HCl (Imodium Ad) 4 mg PO DAILY ANIYA Senna (Senna) 8.6 mg PO BID PRN PRN Reason: Constipation Sodium Chloride (Saline Flush) 10 ml FLUSH ASDIRECTED PRN PRN Reason: flush Sodium Chloride (Saline Flush) 10 ml FLUSH BID ANIYA Tramadol HCl (Ultram) 50 mg PO Q6H PRN PRN Reason: Pain (moderate 4-6) Assessment/Plan Comment:: 01/13/17 Ever Marino MD Severe low back pain. Treated with IV solumedrol, IV toradol, for right sciatica. Lumbar CT today reveals acute compression fracture L5, spinal stenosis , DJD lumbar spine. Platelets decreasing so IV toradol stopped. Miacalcin started. Needs swing bed status for continued pain control, monitoring renal function, platelet level and PT-OT.
[2017-01-13] MEDS: Sodium Chloride 0.9% 10 ML Syringe FLUSH SCH (20:12)
[2017-01-14 07:24] LABS: CHLORIDE,CL 109 mmol/L (98-107); SODIUM,NA 145 mmol/L (136-145)
[2017-01-14] MEDS: Loperamide 2 MG Tab PO SCH (08:09)
[2017-01-14] MEDS: Levothyroxine 25 MCG Tab PO SCH (08:10)
[2017-01-14] MEDS: Cholecalciferol (Vitamin D3) 1,000 Unit Tab PO SCH (08:10)
[2017-01-14] MEDS: Sodium Chloride 0.9% 10 ML Syringe FLUSH SCH ×2 (08:11→21:12)
[2017-01-14] MEDS: Calcitonin (Salmon) Nasal Spray 3.7 ML Bottle NAS SCH (08:11)
[2017-01-14] MEDS: Loperamide 2 MG Tab PO PRN (16:12)
[2017-01-14] MEDS: Acetaminophen 325 MG Tab PO PRN (16:12)
[2017-01-14] MEDS: traMADol 50 MG Tab PO PRN (21:11)
[2017-01-15] MEDS: Calcitonin (Salmon) Nasal Spray 3.7 ML Bottle NAS SCH (07:30)
[2017-01-15] MEDS: Levothyroxine 25 MCG Tab PO SCH (07:30)
[2017-01-15] MEDS: Loperamide 2 MG Tab PO SCH (07:31)
[2017-01-15] MEDS: Cholecalciferol (Vitamin D3) 1,000 Unit Tab PO SCH (07:31)
[2017-01-15] MEDS: Sodium Chloride 0.9% 10 ML Syringe FLUSH SCH ×2 (07:32→20:45)
[2017-01-15] MEDS: Sodium Chloride 0.9% 10 ML Syringe FLUSH PRN (16:51)
[2017-01-15] MEDS: traMADol 50 MG Tab PO PRN (17:45)
[2017-01-16] MEDS: Loperamide 2 MG Tab PO SCH (07:14)
[2017-01-16] MEDS: Levothyroxine 25 MCG Tab PO SCH (07:14)
[2017-01-16] MEDS: Cholecalciferol (Vitamin D3) 1,000 Unit Tab PO SCH (07:14)
[2017-01-16] MEDS: Sodium Chloride 0.9% 10 ML Syringe FLUSH SCH ×2 (07:16→17:38)
[2017-01-16] MEDS: Calcitonin (Salmon) Nasal Spray 3.7 ML Bottle NAS SCH (07:24)
[2017-01-16] MEDS: Sodium Chloride 0.9% 10 ML Syringe FLUSH PRN ×2 (08:24→08:28)
[2017-01-16] MEDS: traMADol 50 MG Tab PO PRN (17:49)
[2017-01-17] MEDS: traMADol 50 MG Tab PO PRN ×2 (04:25→11:04)
[2017-01-17] MEDS: Loperamide 2 MG Tab PO SCH (07:38)
[2017-01-17] MEDS: Levothyroxine 25 MCG Tab PO SCH (07:39)
[2017-01-17] MEDS: Calcitonin (Salmon) Nasal Spray 3.7 ML Bottle NAS SCH (07:41)
[2017-01-17] MEDS: Cholecalciferol (Vitamin D3) 1,000 Unit Tab PO SCH (07:42)
[2017-01-17] MEDS: Sodium Chloride 0.9% 10 ML Syringe FLUSH SCH ×2 (07:42→17:43)
[2017-01-17] MEDS: Famotidine 20 MG Tab PO SCH (19:49)
[2017-01-17] MEDS: Celecoxib 100 MG Cap PO SCH (19:49)
[2017-01-18] MEDS: traMADol 50 MG Tab PO PRN ×3 (00:26→20:00)
[2017-01-18 07:44] LABS: CHLORIDE,CL 106 mmol/L (98-107); SODIUM,NA 142 mmol/L (136-145)
[2017-01-18] MEDS: Calcitonin (Salmon) Nasal Spray 3.7 ML Bottle NAS SCH (08:02)
[2017-01-18] MEDS: Levothyroxine 25 MCG Tab PO SCH (08:03)
[2017-01-18] MEDS: Cholecalciferol (Vitamin D3) 1,000 Unit Tab PO SCH ×2 (08:05→17:32)
[2017-01-18] MEDS: Loperamide 2 MG Tab PO SCH (08:06)
[2017-01-18] MEDS: Sodium Chloride 0.9% 10 ML Syringe FLUSH SCH ×2 (08:08→17:32)
[2017-01-18] MEDS: Celecoxib 100 MG Cap PO SCH ×2 (08:11→17:31)
[2017-01-18] MEDS: Famotidine 20 MG Tab PO SCH ×2 (08:11→17:31)
[2017-01-19] MEDS: Celecoxib 100 MG Cap PO SCH ×2 (07:43→17:29)
[2017-01-19] MEDS: Loperamide 2 MG Tab PO SCH (07:44)
[2017-01-19] MEDS: Levothyroxine 25 MCG Tab PO SCH (07:45)
[2017-01-19] MEDS: Calcitonin (Salmon) Nasal Spray 3.7 ML Bottle NAS SCH (07:45)
[2017-01-19] MEDS: Sodium Chloride 0.9% 10 ML Syringe FLUSH SCH ×2 (07:46→17:31)
[2017-01-19] MEDS: Famotidine 20 MG Tab PO SCH ×2 (07:46→17:29)
[2017-01-19] MEDS: traMADol 50 MG Tab PO PRN ×2 (07:47→13:45)
[2017-01-19] MEDS: Cholecalciferol (Vitamin D3) 1,000 Unit Tab PO SCH ×2 (07:47→17:30)
[2017-01-19] MEDS: Acetaminophen 650 MG Tab.ER PO PRN (13:42)
[2017-01-19] MEDS: [UNRECOGNIZED DRUG - REMARK] TRDERM SCH (20:09)
[2017-01-19] MEDS: Acetaminophen 650 MG Tab.ER PO SCH (20:10)
[2017-01-19] MEDS: traMADol 50 MG Tab PO SCH (20:12)
[2017-01-20] MEDS: Celecoxib 100 MG Cap PO SCH ×2 (07:36→17:14)
[2017-01-20] MEDS: Levothyroxine 25 MCG Tab PO SCH (07:37)
[2017-01-20] MEDS: Calcitonin (Salmon) Nasal Spray 3.7 ML Bottle NAS SCH (07:37)
[2017-01-20] MEDS: Famotidine 20 MG Tab PO SCH ×2 (07:37→17:14)
[2017-01-20] MEDS: Acetaminophen 325 MG Tab PO PRN (07:39)
[2017-01-20] MEDS: Cholecalciferol (Vitamin D3) 1,000 Unit Tab PO SCH ×2 (07:41→17:14)
[2017-01-20] MEDS: Acetaminophen 650 MG Tab.ER PO SCH ×2 (07:41→19:17)
[2017-01-20] MEDS: traMADol 50 MG Tab PO SCH ×2 (07:42→19:16)
[2017-01-20] MEDS: [UNRECOGNIZED DRUG - OTHER] TRDERM SCH (07:51)
[2017-01-20] MEDS: [UNRECOGNIZED DRUG - REMARK] TRDERM SCH (19:12)
[2017-01-21] MEDS: traMADol 50 MG Tab PO PRN (02:56)
[2017-01-21] MEDS: Celecoxib 100 MG Cap PO SCH ×2 (07:47→17:38)
[2017-01-21] MEDS: Levothyroxine 25 MCG Tab PO SCH (07:48)
[2017-01-21] MEDS: Calcitonin (Salmon) Nasal Spray 3.7 ML Bottle NAS SCH (07:48)
[2017-01-21] MEDS: Acetaminophen 650 MG Tab.ER PO SCH ×2 (07:51→19:13)
[2017-01-21] MEDS: Famotidine 20 MG Tab PO SCH ×2 (07:51→17:38)
[2017-01-21] MEDS: Cholecalciferol (Vitamin D3) 1,000 Unit Tab PO SCH ×2 (07:54→17:38)
[2017-01-21] MEDS: traMADol 50 MG Tab PO SCH ×2 (07:54→19:12)
[2017-01-21] MEDS: [UNRECOGNIZED DRUG - OTHER] TRDERM SCH (07:55)
[2017-01-21 09:13] LABS: CHLORIDE,CL 106 mmol/L (98-107); SODIUM,NA 142 mmol/L (136-145)
[2017-01-21] MEDS: [UNRECOGNIZED DRUG - REMARK] TRDERM SCH (19:10)
--- NOTE | 2017-01-21 20:34 | PCM.PN ---
- General Info Date of Service: 01/21/17 Functional Status: Reports: ambulating (with walker but causes increasing pain low back and right leg) - Review of Systems General: Reports: Other (pain) HEENT: Reports: no symptoms Pulmonary: Reports: no symptoms Cardiovascular: Reports: No Symptoms Gastrointestinal: Reports: No symptoms Genitourinary: Reports: no symptoms Musculoskeletal: Reports: back pain, leg pain (right) Skin: Reports: no symptoms Neurological: Reports: Difficulty Walking (due to pain) Psychiatric: Reports: no symptoms - Patient Data Vitals - most recent: Last Vital Signs Temp 97.6 F 01/21/17 17:00 Pulse 76 01/21/17 17:00 Resp 18 01/21/17 17:00 BP 109/55 L 01/21/17 17:00 Pulse Ox 95 01/21/17 17:00 Weight - most recent: 171 lb 3.2 oz I&O - last 24 hours: Intake & Output 01/21/17 01/21/17 01/21/17 06:59 14:59 22:59 Intake Total 240 Balance 240 Lab Results last 24 hrs: Laboratory Results - last 24 hr 01/18/17 01/21/17 01/21/17 Range/Units 07:05 06:40 06:40 WBC 5.9 (4.0-10.2) K/uL RBC 3.86 (3.77-5.09) M/uL Hgb 12.0 (11.7-15.5) g/dL Hct 36.7 (34.0-46.0) % MCV 95.1 (84.0-98.0) fL MCH 31.1 (28.2-33.3) pg MCHC 32.7 (31.7-36.0) g/dL RDW 14.3 H (11.2-14.1) % Plt Count 157 (150-350) K/uL Neut % (Auto) 67.1 (45.0-80.0) % Lymph % (Auto) 18.9 (10.0-50.0) % Humphreys % (Auto) 8.3 (2.0-14.0) % Eos % (Auto) 5.4 H (0.0-5.0) % Baso % (Auto) 0.3 (0.0-2.0) % Neut # 3.98 (1.40-7.00) K/uL Lymph # 1.12 (0.50-3.50) K/uL Humphreys # 0.49 (0.00-1.00) K/uL Eos # 0.32 (0.00-0.50) K/uL Baso # 0.02 (0.00-0.20) K/uL Sodium 142 (136-145) mmol/L Potassium 4.2 (3.5-5.1) mmol/L Chloride 106 (98-107) mmol/L Carbon Dioxide 28.0 (21.0-32.0) mmol/L BUN 20 H (7-18) mg/dL Creatinine 0.71 (0.51-1.17) mg/dL Est Cr Clr Drug Dosing 53.12 mL/min Estimated GFR (MDRD) > 60 mL/min Glucose 94 (74-106) mg/dL Calcium 8.7 (8.5-10.1) mg/dL Total Bilirubin 0.3 (0.2-1.0) mg/dL AST 14 L (15-37) U/L ALT 21 (12-78) U/L Alkaline Phosphatase 59 (46-116) IU/L Total Protein 5.8 L (6.4-8.2) g/dL Albumin 2.7 L (3.4-5.0) g/dL 25-OH Vitamin D Total 20 L (>29) ng/mL Med Orders - Current: Current Medications Acetaminophen (Tylenol Arthritis Pain) 650 mg PO Q12H COUNT INCLUDES THE [facility] Last Admin: 01/21/17 19:13 Dose: 650 mg Acetaminophen (Tylenol Arthritis Pain) 650 mg PO Q8H PRN PRN Reason: Pain Last Admin: 01/19/17 13:42 Dose: 650 mg Calcitonin [place] (Miacalcin Nasal [place]) 0 ml RADHA DAILY COUNT INCLUDES THE [facility] Last Admin: 01/21/17 07:48 Dose: 1 spray Celecoxib (Celebrex) 100 mg PO BID COUNT INCLUDES THE [facility] Last Admin: 01/21/17 17:38 Dose: 100 mg Cholecalciferol (Vitamin D3) 4,000 units PO BID COUNT INCLUDES THE [facility] Last Admin: 01/21/17 17:38 Dose: 4,000 units Famotidine (Pepcid) 20 mg PO BID COUNT INCLUDES THE [facility] Last Admin: 01/21/17 17:38 Dose: 20 mg Fentanyl (Sublimaze) 25 mcg IVPUSH Q4H PRN PRN Reason: Pain (severe 7-10) Last Admin: 01/16/17 08:24 Dose: 25 mcg Levothyroxine Sodium (Levothyroxine) 25 mcg PO QAM COUNT INCLUDES THE [facility] Last Admin: 01/21/17 07:48 Dose: 25 mcg Lidocaine (Lidocaine 5% Paraben-Free) 140 mg TRDERM Q24H COUNT INCLUDES THE [facility] Last Admin: 01/21/17 19:10 Dose: 140 mg Loperamide HCl (Imodium Ad) 2 mg PO Q4H PRN PRN Reason: Diarrhea Last Admin: 01/14/17 16:12 Dose: 2 mg Miscellaneous Information (Remove Patch) 1 ea TRDERM DAILY@0800 COUNT INCLUDES THE [facility] Last Admin: 01/21/17 07:55 Dose: 1 ea Senna (Senna) 8.6 mg PO BID PRN PRN Reason: Constipation Sodium Chloride (Saline Flush) 10 ml FLUSH ASDIRECTED PRN PRN Reason: flush Last Admin: 01/16/17 08:28 Dose: 10 ml Tramadol HCl (Ultram) 50 mg PO Q6H PRN PRN Reason: Pain (moderate 4-6) Last Admin: 01/21/17 02:56 Dose: 50 mg Tramadol HCl (Ultram) 50 mg PO Q12H COUNT INCLUDES THE [facility] Last Admin: 01/21/17 19:12 Dose: 50 mg Discontinued Medications Acetaminophen (Tylenol) 650 mg PO Q6H PRN PRN Reason: Pain Last Admin: 01/20/17 07:39 Dose: 650 mg Cholecalciferol (Vitamin D3) 2,000 units PO QAM COUNT INCLUDES THE [facility] Last Admin: 01/17/17 07:42 Dose: 2,000 units Cholecalciferol (Vitamin D3) 2,000 units PO BID COUNT INCLUDES THE [facility] Last Admin: 01/21/17 07:54 Dose: 2,000 units Loperamide HCl (Imodium Ad) 4 mg PO DAILY COUNT INCLUDES THE [facility] Last Admin: 01/19/17 07:44 Dose: 4 mg Sodium Chloride (Saline Flush) 10 ml FLUSH BID COUNT INCLUDES THE [facility] Last Admin: 01/19/17 17:31 Dose: 10 ml - Exam General: alert, cooperative HEENT: Mucous membr. moist/pink Neck: trachea midline, no JVD Lungs: Clear to auscultation, Normal respiratory effort Cardiovascular: Regular Rate, Regular Rhythm Abdomen: bowel sounds present, soft, no tenderness, no distension (Female) Exam: Deferred Back Exam: decreased range of motion, paraspinal tenderness, vertebral tenderness (L1) Extremities: no edema Skin: warm, dry, intact Neurological: other (right radiculopathy) Psy/Mental Status: alert, normal affect, normal mood, other (frustrated due to slow progress) - Problem List & Annotations (1) COPD (chronic obstructive pulmonary disease) SNOMED Code(s): 05182326 Code(s): J44.9 - CHRONIC OBSTRUCTIVE PULMONARY DISEASE, UNSPECIFIED Status : Acute Priority: Medium Current Visit: No Annotation/Comment:: No recent history of bronchitic-type symptoms, fever, etc. with patient not using any medications currently for her COPD/pulmonary fibrosis. Consider PFTs on an outpatient basis (2) Compression fracture of L5 lumbar vertebra SNOMED Code(s): 457470401 Code(s): S32.050A - WEDGE COMPRESSION FRACTURE OF FIFTH LUMBAR VERTEBRA, INIT Status: Acute Priority: High Current Visit: No (3) Degenerative joint disease (DJD) of lumbar spine Status: Acute Current Visit: No Qualifiers: Spinal osteoarthritis complication: with radiculopathy Qualified Code(s): M47.26 - Other spondylosis with radiculopathy, lumbar region (4) Heart disease SNOMED Code(s): 48302534 Code(s): I51.9 - HEART DISEASE, UNSPECIFIED Status: Acute Priority: High Current Visit: No Annotation/Comment:: Chest Pain protocol was not initiated in the emergency room secondary to absence of anginal-type symptoms. Note history of distant atrial fibrillation with no current anticoagulation therapy. Complete bifascicular bundle-branch, sinus arrhythmia, and sinus bradycardia with multiple previous negative Persantine Cardiolite evaluations as below. Note CHF as above with consideration of an echocardiogram on an outpatient basis. Cardiology consultation as needed. (5) Low back pain SNOMED Code(s): 136418680 Code(s): M54.5 - LOW BACK PAIN Status: Acute Priority: High Current Visit: No Qualifiers: Chronicity: acute Back pain laterality: right Sciatica laterality: sciatica of right side (6) Macular degeneration SNOMED Code(s): 183327566 Code(s): H35.30 - UNSPECIFIED MACULAR DEGENERATION Status: Acute Current Visit: No (7) Right sided sciatica SNOMED Code(s): 24616157 Code(s): M54.31 - SCIATICA, RIGHT SIDE Status: Acute Priority: High Current Visit: No Onset Date: Unknown Annotation/Comment:: improved since yesterday but still present. (8) Spinal stenosis of lumbar region at multiple levels SNOMED Code(s): 10962283 Code(s): M48.06 - SPINAL STENOSIS, LUMBAR REGION Status: Acute Priority: High Current Visit: No (9) Hyperlipidemia SNOMED Code(s): 64508290 Code(s): E78.5 - HYPERLIPIDEMIA, UNSPECIFIED Status: Chronic Priority: Low Current Visit: No Annotation/Comment:: Medically treated with repeat lipid panel per discretion of her providers at [facility] [place] (10) Hypertension SNOMED Code(s): 65653873 Code(s): I10 - ESSENTIAL (PRIMARY) HYPERTENSION Status: Chronic Priority : Low Current Visit: No Annotation/Comment:: Currently on no medication for HTN due to episodes of dizziness in past. (11) Hypothyroidism SNOMED Code(s): 55604547 Code(s): E03.9 - HYPOTHYROIDISM, UNSPECIFIED Status: Chronic Priority: Low Current Visit: No (12) Obesity SNOMED Code(s): 908225192 Code(s): E66.9 - OBESITY, UNSPECIFIED Status: Chronic Priority: Low Current Visit: No (13) Osteoarthritis SNOMED Code(s): 680357394 Code(s): M19.90 - UNSPECIFIED OSTEOARTHRITIS, UNSPECIFIED SITE Status: Chronic Priority: Low Current Visit: No Qualifiers: Osteoarthritis location: spine Spinal region: lumbosacral Spinal osteoarthritis complication: with radiculopathy Qualified Code(s): M47.27 - Other spondylosis with radiculopathy, lumbosacral region Annotation/Comment:: Stable by patient history despite history of spinal stenosis (14) TIA (transient ischemic attack) SNOMED Code(s): 947074298, 093410166 Code(s): G45.9 - TRANSIENT CEREBRAL ISCHEMIC ATTACK, UNSPECIFIED Status: Suspected Current Visit: No - Problem List Review Problem List Initiated/Reviewed/Updated: Yes - My Orders Last 24 Hours: My Active Orders 01/21/17 18:00 Cholecalciferol (Vitamin D3) [Vitamin D3] 4,000 units PO BID - Plan Plan:: 01/13/17 Ever Marino MD Severe low back pain. Treated with IV solumedrol, IV toradol, for right sciatica. Lumbar CT today reveals acute compression fracture L5, spinal stenosis , DJD lumbar spine. Platelets decreasing so IV toradol stopped. Miacalcin started. Needs swing bed status for continued pain control, monitoring renal function, platelet level and PT-OT. 01/21/17 Ever Marino MD Still with severe pain into right leg. On scheduled tylenol, scheduled tramadol , scheduled NSAID (celebrex) and prn pain medications. PT working with her. Will order MRI.
[2017-01-22] MEDS: traMADol 50 MG Tab PO PRN ×2 (03:58→15:45)
[2017-01-22] MEDS: Famotidine 20 MG Tab PO SCH ×2 (07:36→17:52)
[2017-01-22] MEDS: Celecoxib 100 MG Cap PO SCH ×2 (07:36→17:52)
[2017-01-22] MEDS: Levothyroxine 25 MCG Tab PO SCH (07:36)
[2017-01-22] MEDS: [UNRECOGNIZED DRUG - OTHER] TRDERM SCH (07:36)
[2017-01-22] MEDS: Acetaminophen 650 MG Tab.ER PO SCH ×2 (07:37→19:19)
[2017-01-22] MEDS: Cholecalciferol (Vitamin D3) 1,000 Unit Tab PO SCH ×2 (07:38→17:52)
[2017-01-22] MEDS: traMADol 50 MG Tab PO SCH ×2 (07:38→19:20)
[2017-01-22] MEDS: Calcitonin (Salmon) Nasal Spray 3.7 ML Bottle NAS SCH (07:39)
[2017-01-22] MEDS: [UNRECOGNIZED DRUG - REMARK] TRDERM SCH (19:19)
[2017-01-23] MEDS: traMADol 50 MG Tab PO SCH ×2 (07:34→19:23)
[2017-01-23] MEDS: Celecoxib 100 MG Cap PO SCH ×2 (07:35→17:20)
[2017-01-23] MEDS: Calcitonin (Salmon) Nasal Spray 3.7 ML Bottle NAS SCH (07:36)
[2017-01-23] MEDS: Levothyroxine 25 MCG Tab PO SCH (07:36)
[2017-01-23] MEDS: Famotidine 20 MG Tab PO SCH ×2 (07:37→17:20)
[2017-01-23] MEDS: Acetaminophen 650 MG Tab.ER PO SCH ×2 (07:38→19:23)
[2017-01-23] MEDS: Cholecalciferol (Vitamin D3) 1,000 Unit Tab PO SCH ×2 (07:39→17:21)
[2017-01-23] MEDS: [UNRECOGNIZED DRUG - OTHER] TRDERM SCH (07:40)
[2017-01-23] MEDS: traMADol 50 MG Tab PO PRN (11:57)
[2017-01-23] MEDS: [UNRECOGNIZED DRUG - REMARK] TRDERM SCH (19:22)
[2017-01-24] MEDS: Levothyroxine 25 MCG Tab PO SCH (07:47)
[2017-01-24] MEDS: Famotidine 20 MG Tab PO SCH ×2 (07:47→17:14)
[2017-01-24] MEDS: Calcitonin (Salmon) Nasal Spray 3.7 ML Bottle NAS SCH (07:48)
[2017-01-24] MEDS: Celecoxib 100 MG Cap PO SCH ×2 (07:48→17:13)
[2017-01-24] MEDS: Acetaminophen 650 MG Tab.ER PO SCH ×2 (07:49→19:07)
[2017-01-24] MEDS: [UNRECOGNIZED DRUG - OTHER] TRDERM SCH (07:50)
[2017-01-24] MEDS: traMADol 50 MG Tab PO SCH ×2 (07:50→19:07)
[2017-01-24] MEDS: Cholecalciferol (Vitamin D3) 1,000 Unit Tab PO SCH ×2 (07:51→17:14)
[2017-01-24] MEDS: [UNRECOGNIZED DRUG - REMARK] TRDERM SCH (19:07)
[2017-01-25 07:46] LABS: CHLORIDE,CL 106 mmol/L (98-107); SODIUM,NA 144 mmol/L (136-145)
[2017-01-25] MEDS: Calcitonin (Salmon) Nasal Spray 3.7 ML Bottle NAS SCH (07:53)
[2017-01-25] MEDS: Famotidine 20 MG Tab PO SCH ×2 (07:54→17:40)
[2017-01-25] MEDS: Cholecalciferol (Vitamin D3) 1,000 Unit Tab PO SCH ×2 (07:56→17:40)
[2017-01-25] MEDS: Acetaminophen 650 MG Tab.ER PO SCH ×2 (07:57→19:27)
[2017-01-25] MEDS: Levothyroxine 25 MCG Tab PO SCH (07:58)
[2017-01-25] MEDS: traMADol 50 MG Tab PO SCH ×2 (07:59→19:31)
[2017-01-25] MEDS: [UNRECOGNIZED DRUG - OTHER] TRDERM SCH (09:56)
[2017-01-25] MEDS: Celecoxib 100 MG Cap PO SCH (17:39)
[2017-01-25] MEDS: [UNRECOGNIZED DRUG - REMARK] TRDERM SCH (19:27)
[2017-01-26] MEDS: Calcitonin (Salmon) Nasal Spray 3.7 ML Bottle NAS SCH (07:41)
[2017-01-26] MEDS: Famotidine 20 MG Tab PO SCH ×2 (07:41→17:32)
[2017-01-26] MEDS: Levothyroxine 25 MCG Tab PO SCH (07:41)
[2017-01-26] MEDS: [UNRECOGNIZED DRUG - OTHER] TRDERM SCH (07:42)
[2017-01-26] MEDS: Acetaminophen 650 MG Tab.ER PO SCH ×2 (07:42→19:16)
[2017-01-26] MEDS: traMADol 50 MG Tab PO SCH ×2 (07:43→19:17)
[2017-01-26] MEDS: Cholecalciferol (Vitamin D3) 1,000 Unit Tab PO SCH ×2 (07:45→17:32)
[2017-01-26] MEDS: Acetaminophen/HYDROcodone 325-5 MG Tab PO PRN (16:09)
[2017-01-26] MEDS: Celecoxib 100 MG Cap PO SCH (17:32)
[2017-01-26] MEDS: [UNRECOGNIZED DRUG - REMARK] TRDERM SCH (19:15)
[2017-01-27] MEDS: Levothyroxine 25 MCG Tab PO SCH (07:32)
[2017-01-27] MEDS: Calcitonin (Salmon) Nasal Spray 3.7 ML Bottle NAS SCH (07:32)
[2017-01-27] MEDS: Famotidine 20 MG Tab PO SCH ×2 (07:33→18:02)
[2017-01-27] MEDS: [UNRECOGNIZED DRUG - OTHER] TRDERM SCH (07:33)
[2017-01-27] MEDS: Acetaminophen 650 MG Tab.ER PO SCH ×2 (07:34→19:20)
[2017-01-27] MEDS: traMADol 50 MG Tab PO SCH ×2 (07:35→19:21)
[2017-01-27] MEDS: Cholecalciferol (Vitamin D3) 1,000 Unit Tab PO SCH ×2 (07:36→18:01)
[2017-01-27] MEDS: Loperamide 2 MG Tab PO PRN (09:00)
[2017-01-27] MEDS: Acetaminophen/HYDROcodone 325-5 MG Tab PO PRN ×2 (11:49→18:00)
[2017-01-27] MEDS: Celecoxib 100 MG Cap PO SCH (18:02)
--- NOTE | 2017-01-27 18:02 | PCM.PN ---
- General Info Date of Service: 01/27/17 Admission Dx/Problem (Free Text): Admission Diagnosis/Problem Admission Diagnosis/Problem Compression fracture Functional Status: Reports: ambulating (but still has right low back pain, right leg pain) - Review of Systems General: Reports: No Symptoms HEENT: Reports: no symptoms Pulmonary: Reports: no symptoms Cardiovascular: Reports: No Symptoms Gastrointestinal: Reports: No symptoms Genitourinary: Reports: no symptoms Musculoskeletal: Reports: back pain, leg pain, joint pain (right hip) Skin: Reports: no symptoms Neurological: Reports: No Symptoms Psychiatric: Reports: no symptoms - Patient Data Vitals - most recent: Last Vital Signs Temp 97.9 F 01/27/17 09:00 Pulse 98 01/27/17 09:00 Resp 20 01/27/17 09:00 BP 99/56 L 01/27/17 09:00 Pulse Ox 97 01/26/17 17:00 Weight - most recent: 168 lb 6.4 oz Med Orders - Current: Current Medications Acetaminophen (Tylenol Arthritis Pain) 650 mg PO Q12H [facility] Last Admin: 01/27/17 07:34 Dose: 650 mg Acetaminophen (Tylenol Arthritis Pain) 650 mg PO Q8H PRN PRN Reason: Pain Last Admin: 01/19/17 13:42 Dose: 650 mg Acetaminophen/Hydrocodone Bitart ([place] 325-5 Mg) 1 tab PO Q6H PRN PRN Reason: Pain Last Admin: 01/27/17 11:49 Dose: 1 tab Calcitonin [place] (Miacalcin Nasal [place]) 0 ml RADHA DAILY [facility] Last Admin: 01/27/17 07:32 Dose: 1 spray Celecoxib (Celebrex) 100 mg PO DAILY@1800 [facility] Last Admin: 01/26/17 17:32 Dose: 100 mg Cholecalciferol (Vitamin D3) 4,000 units PO BID [facility] Last Admin: 01/27/17 07:36 Dose: 4,000 units Famotidine (Pepcid) 20 mg PO BID [facility] Last Admin: 01/27/17 07:33 Dose: 20 mg Levothyroxine Sodium (Levothyroxine) 25 mcg PO QAM [facility] Last Admin: 01/27/17 07:32 Dose: 25 mcg Lidocaine (Lidocaine 5% Paraben-Free) 140 mg TRDERM Q24H [facility] Last Admin: 01/26/17 19:15 Dose: 140 mg Loperamide HCl (Imodium Ad) 2 mg PO Q4H PRN PRN Reason: Diarrhea Last Admin: 01/27/17 09:00 Dose: 2 mg Miscellaneous Information (Remove Patch) 1 ea TRDERM DAILY@0800 [facility] Last Admin: 01/27/17 07:33 Dose: 1 ea Senna (Senna) 8.6 mg PO BID PRN PRN Reason: Constipation Tramadol HCl (Ultram) 50 mg PO Q6H PRN PRN Reason: Pain (moderate 4-6) Last Admin: 01/23/17 11:57 Dose: 50 mg Tramadol HCl (Ultram) 50 mg PO Q12H [facility] Last Admin: 01/27/17 07:35 Dose: 50 mg Discontinued Medications Acetaminophen (Tylenol) 650 mg PO Q6H PRN PRN Reason: Pain Last Admin: 01/20/17 07:39 Dose: 650 mg Celecoxib (Celebrex) 100 mg PO BID [facility] Last Admin: 01/24/17 07:48 Dose: 100 mg Cholecalciferol (Vitamin D3) 2,000 units PO QAM [facility] Last Admin: 01/17/17 07:42 Dose: 2,000 units Cholecalciferol (Vitamin D3) 2,000 units PO BID [facility] Last Admin: 01/21/17 07:54 Dose: 2,000 units Fentanyl (Sublimaze) 25 mcg IVPUSH Q4H PRN PRN Reason: Pain (severe 7-10) Last Admin: 01/16/17 08:24 Dose: 25 mcg Loperamide HCl (Imodium Ad) 4 mg PO DAILY [facility] Last Admin: 01/19/17 07:44 Dose: 4 mg Sodium Chloride (Saline Flush) 10 ml FLUSH ASDIRECTED PRN PRN Reason: flush Last Admin: 01/16/17 08:28 Dose: 10 ml Sodium Chloride (Saline Flush) 10 ml FLUSH BID [facility] Last Admin: 01/19/17 17:31 Dose: 10 ml - Exam General: alert, cooperative HEENT: Mucous membr. moist/pink Neck: trachea midline Lungs: Clear to auscultation, Normal respiratory effort Cardiovascular: Regular Rate, Regular Rhythm Abdomen: bowel sounds present, soft, no tenderness, no distension (Female) Exam: Deferred Back Exam: decreased range of motion, paraspinal tenderness (right para-lumbar) Extremities: no edema Skin: warm, dry, intact Neurological: no new focal deficit Psy/Mental Status: alert, normal affect, normal mood - Problem List & Annotations (1) COPD (chronic obstructive pulmonary disease) SNOMED Code(s): 52072200 Code(s): J44.9 - CHRONIC OBSTRUCTIVE PULMONARY DISEASE, UNSPECIFIED Status : Acute Priority: Medium Current Visit: No Annotation/Comment:: No recent history of bronchitic-type symptoms, fever, etc. with patient not using any medications currently for her COPD/pulmonary fibrosis. Consider PFTs on an outpatient basis (2) Compression fracture of L5 lumbar vertebra SNOMED Code(s): 185350003 Code(s): S32.050A - WEDGE COMPRESSION FRACTURE OF FIFTH LUMBAR VERTEBRA, INIT Status: Acute Priority: High Current Visit: No (3) Degenerative joint disease (DJD) of lumbar spine Status: Acute Current Visit: No Qualifiers: Spinal osteoarthritis complication: with radiculopathy Qualified Code(s): M47.26 - Other spondylosis with radiculopathy, lumbar region (4) Heart disease SNOMED Code(s): 94254903 Code(s): I51.9 - HEART DISEASE, UNSPECIFIED Status: Acute Priority: High Current Visit: No Annotation/Comment:: Chest Pain protocol was not initiated in the emergency room secondary to absence of anginal-type symptoms. Note history of distant atrial fibrillation with no current anticoagulation therapy. Complete bifascicular bundle-branch, sinus arrhythmia, and sinus bradycardia with multiple previous negative Persantine Cardiolite evaluations as below. Note CHF as above with consideration of an echocardiogram on an outpatient basis. Cardiology consultation as needed. (5) Low back pain SNOMED Code(s): 272270260 Code(s): M54.5 - LOW BACK PAIN Status: Acute Priority: High Current Visit: No Qualifiers: Chronicity: acute Back pain laterality: right Sciatica laterality: sciatica of right side (6) Macular degeneration SNOMED Code(s): 066589746 Code(s): H35.30 - UNSPECIFIED MACULAR DEGENERATION Status: Acute Current Visit: No (7) Right sided sciatica SNOMED Code(s): 18433881 Code(s): M54.31 - SCIATICA, RIGHT SIDE Status: Acute Priority: High Current Visit: No Onset Date: Unknown Annotation/Comment:: improved since yesterday but still present. (8) Spinal stenosis of lumbar region at multiple levels SNOMED Code(s): 14249935 Code(s): M48.06 - SPINAL STENOSIS, LUMBAR REGION Status: Acute Priority: High Current Visit: No (9) Hyperlipidemia SNOMED Code(s): 00743755 Code(s): E78.5 - HYPERLIPIDEMIA, UNSPECIFIED Status: Chronic Priority: Low Current Visit: No Annotation/Comment:: Medically treated with repeat lipid panel per discretion of her providers at [facility] (10) Hypertension SNOMED Code(s): 12993395 Code(s): I10 - ESSENTIAL (PRIMARY) HYPERTENSION Status: Chronic Priority : Low Current Visit: No Annotation/Comment:: Currently on no medication for HTN due to episodes of dizziness in past. (11) Hypothyroidism SNOMED Code(s): 87044125 Code(s): E03.9 - HYPOTHYROIDISM, UNSPECIFIED Status: Chronic Priority: Low Current Visit: No (12) Obesity SNOMED Code(s): 096852901 Code(s): E66.9 - OBESITY, UNSPECIFIED Status: Chronic Priority: Low Current Visit: No (13) Osteoarthritis SNOMED Code(s): 872275831 Code(s): M19.90 - UNSPECIFIED OSTEOARTHRITIS, UNSPECIFIED SITE Status: Chronic Priority: Low Current Visit: No Qualifiers: Osteoarthritis location: spine Spinal region: lumbosacral Spinal osteoarthritis complication: with radiculopathy Qualified Code(s): M47.27 - Other spondylosis with radiculopathy, lumbosacral region Annotation/Comment:: Stable by patient history despite history of spinal stenosis (14) TIA (transient ischemic attack) SNOMED Code(s): 979062153, 580890045 Code(s): G45.9 - TRANSIENT CEREBRAL ISCHEMIC ATTACK, UNSPECIFIED Status: Suspected Current Visit: No - Problem List Review Problem List Initiated/Reviewed/Updated: Yes - Plan Plan:: 01/13/17 Ever Marino MD Severe low back pain. Treated with IV solumedrol, IV toradol, for right sciatica. Lumbar CT today reveals acute compression fracture L5, spinal stenosis , DJD lumbar spine. Platelets decreasing so IV toradol stopped. Miacalcin started. Needs swing bed status for continued pain control, monitoring renal function, platelet level and PT-OT. 01/21/17 Ever Marino MD Still with severe pain into right leg. On scheduled tylenol, scheduled tramadol , scheduled NSAID (celebrex) and prn pain medications. PT working with her. Will order MRI. 01/27/17 Ever Marino MD Still with pain right low back, right hip and right lateral thigh. MRI 25% loss of vertebral height compression fracture of L1. L4-L5 severe central stenosis, advanced facet arthropathy, diffuse bulging disc. Discussed options with her and daughter Ashley. PT starting to help pain. She continues on scheduled tylenol , scheduled tramadol, scheduled NSAID (celebrex), calcitonin, vitamin D, and lidocaine patch and prn pain medications.
[2017-01-27] MEDS: [UNRECOGNIZED DRUG - REMARK] TRDERM SCH (19:19)
[2017-01-28] MEDS: Calcitonin (Salmon) Nasal Spray 3.7 ML Bottle NAS SCH (08:04)
[2017-01-28] MEDS: Levothyroxine 25 MCG Tab PO SCH (08:04)
[2017-01-28] MEDS: Famotidine 20 MG Tab PO SCH ×2 (08:05→17:20)
[2017-01-28] MEDS: Acetaminophen 650 MG Tab.ER PO SCH ×2 (08:05→19:22)
[2017-01-28] MEDS: [UNRECOGNIZED DRUG - OTHER] TRDERM SCH (08:09)
[2017-01-28] MEDS: traMADol 50 MG Tab PO SCH ×2 (08:10→19:24)
[2017-01-28] MEDS: Cholecalciferol (Vitamin D3) 1,000 Unit Tab PO SCH ×2 (08:12→17:20)
[2017-01-28] MEDS: Acetaminophen/HYDROcodone 325-5 MG Tab PO PRN ×2 (11:05→17:21)
[2017-01-28] MEDS: Celecoxib 100 MG Cap PO SCH (17:19)
[2017-01-28] MEDS: [UNRECOGNIZED DRUG - REMARK] TRDERM SCH (19:22)
[2017-01-29] MEDS: [UNRECOGNIZED DRUG - OTHER] TRDERM SCH (08:12)
[2017-01-29] MEDS: Famotidine 20 MG Tab PO SCH ×2 (08:13→17:54)
[2017-01-29] MEDS: Levothyroxine 25 MCG Tab PO SCH (08:13)
[2017-01-29] MEDS: Calcitonin (Salmon) Nasal Spray 3.7 ML Bottle NAS SCH (08:13)
[2017-01-29] MEDS: Acetaminophen 650 MG Tab.ER PO SCH ×2 (08:14→19:09)
[2017-01-29] MEDS: traMADol 50 MG Tab PO SCH ×2 (08:16→19:10)
[2017-01-29] MEDS: Cholecalciferol (Vitamin D3) 1,000 Unit Tab PO SCH ×2 (08:17→17:54)
[2017-01-29] MEDS: Loperamide 2 MG Tab PO PRN (09:34)
[2017-01-29] MEDS: Acetaminophen/HYDROcodone 325-5 MG Tab PO PRN (16:18)
[2017-01-29] MEDS: Celecoxib 100 MG Cap PO SCH (17:54)
[2017-01-29] MEDS: Gabapentin 100 MG Cap PO SCH (19:08)
[2017-01-29] MEDS: [UNRECOGNIZED DRUG - REMARK] TRDERM SCH (19:10)
[2017-01-30] MEDS: Levothyroxine 25 MCG Tab PO SCH (07:42)
[2017-01-30] MEDS: Calcitonin (Salmon) Nasal Spray 3.7 ML Bottle NAS SCH (07:42)
[2017-01-30] MEDS: Famotidine 20 MG Tab PO SCH ×2 (07:43→17:02)
[2017-01-30] MEDS: Acetaminophen 650 MG Tab.ER PO SCH ×2 (07:43→19:05)
[2017-01-30] MEDS: Cholecalciferol (Vitamin D3) 1,000 Unit Tab PO SCH ×2 (07:44→17:01)
[2017-01-30] MEDS: traMADol 50 MG Tab PO SCH ×2 (07:45→19:04)
[2017-01-30] MEDS: [UNRECOGNIZED DRUG - OTHER] TRDERM SCH (07:46)
[2017-01-30] MEDS: Loperamide 2 MG Tab PO PRN (07:47)
[2017-01-30] MEDS: Celecoxib 100 MG Cap PO SCH (17:02)
[2017-01-30] MEDS: Gabapentin 100 MG Cap PO SCH (19:04)
[2017-01-30] MEDS: [UNRECOGNIZED DRUG - REMARK] TRDERM SCH (19:07)
[2017-01-31] MEDS: Levothyroxine 25 MCG Tab PO SCH (07:53)
[2017-01-31] MEDS: Calcitonin (Salmon) Nasal Spray 3.7 ML Bottle NAS SCH (07:54)
[2017-01-31] MEDS: Famotidine 20 MG Tab PO SCH ×2 (07:54→17:16)
[2017-01-31] MEDS: Acetaminophen 650 MG Tab.ER PO SCH ×2 (07:55→19:23)
[2017-01-31] MEDS: traMADol 50 MG Tab PO SCH ×2 (07:57→19:24)
[2017-01-31] MEDS: Cholecalciferol (Vitamin D3) 1,000 Unit Tab PO SCH ×2 (07:57→17:17)
[2017-01-31] MEDS: [UNRECOGNIZED DRUG - OTHER] TRDERM SCH (07:58)
[2017-01-31] MEDS: Loperamide 2 MG Tab PO PRN (08:04)
[2017-01-31] MEDS: Acetaminophen/HYDROcodone 325-5 MG Tab PO PRN (16:40)
[2017-01-31] MEDS: Celecoxib 100 MG Cap PO SCH (17:16)
[2017-01-31] MEDS: Gabapentin 100 MG Cap PO SCH (19:24)
[2017-01-31] MEDS: [UNRECOGNIZED DRUG - REMARK] TRDERM SCH (19:25)
[2017-02-01 07:34] LABS: CHLORIDE,CL 110 mmol/L (98-107); SODIUM,NA 145 mmol/L (136-145)
[2017-02-01] MEDS: Levothyroxine 25 MCG Tab PO SCH (07:36)
[2017-02-01] MEDS: Calcitonin (Salmon) Nasal Spray 3.7 ML Bottle NAS SCH (07:36)
[2017-02-01] MEDS: Famotidine 20 MG Tab PO SCH ×2 (07:37→17:27)
[2017-02-01] MEDS: [UNRECOGNIZED DRUG - OTHER] TRDERM SCH (07:37)
[2017-02-01] MEDS: Acetaminophen 650 MG Tab.ER PO SCH ×2 (07:38→19:18)
[2017-02-01] MEDS: traMADol 50 MG Tab PO SCH ×2 (07:39→19:20)
[2017-02-01] MEDS: Cholecalciferol (Vitamin D3) 1,000 Unit Tab PO SCH ×2 (07:40→17:28)
[2017-02-01] MEDS: Loperamide 2 MG Tab PO PRN (07:45)
[2017-02-01] MEDS: Acetaminophen/HYDROcodone 325-5 MG Tab PO PRN ×2 (10:50→17:30)
[2017-02-01] MEDS: traMADol 50 MG Tab PO PRN (14:15)
[2017-02-01] MEDS: [UNRECOGNIZED DRUG - REMARK] TRDERM SCH (19:17)
[2017-02-01] MEDS: Gabapentin 100 MG Cap PO SCH (19:17)
--- NOTE | 2017-02-01 20:06 | PCM.SN ---
- Free Text/Narrative Note: 02/01/17 Ever Marino MD EKG noted. Atrial fibrillation with ventricular rate ~118. Asymptomatic. Will monitor blood pressure and pulse.
[2017-02-02] MEDS: Acetaminophen/HYDROcodone 325-5 MG Tab PO PRN ×4 (01:09→23:40)
[2017-02-02] MEDS: Levothyroxine 25 MCG Tab PO SCH (07:25)
[2017-02-02] MEDS: Calcitonin (Salmon) Nasal Spray 3.7 ML Bottle NAS SCH (07:25)
[2017-02-02] MEDS: Famotidine 20 MG Tab PO SCH ×2 (07:26→17:09)
[2017-02-02] MEDS: Acetaminophen 650 MG Tab.ER PO SCH ×2 (07:30→20:06)
[2017-02-02] MEDS: traMADol 50 MG Tab PO SCH ×2 (07:32→20:00)
[2017-02-02] MEDS: Cholecalciferol (Vitamin D3) 1,000 Unit Tab PO SCH ×2 (07:34→17:10)
[2017-02-02] MEDS: [UNRECOGNIZED DRUG - OTHER] TRDERM SCH (07:35)
[2017-02-02] MEDS: traMADol 50 MG Tab PO PRN (14:27)
[2017-02-02] MEDS: Acetaminophen 650 MG Tab.ER PO PRN (14:28)
[2017-02-02] MEDS: Gabapentin 100 MG Cap PO SCH (19:59)
[2017-02-02] MEDS: [UNRECOGNIZED DRUG - REMARK] TRDERM SCH (19:59)
[2017-02-03] MEDS: Acetaminophen/HYDROcodone 325-5 MG Tab PO PRN ×2 (06:22→16:14)
[2017-02-03] MEDS: Calcitonin (Salmon) Nasal Spray 3.7 ML Bottle NAS SCH (07:53)
[2017-02-03] MEDS: [UNRECOGNIZED DRUG - OTHER] TRDERM SCH (07:53)
[2017-02-03] MEDS: Famotidine 20 MG Tab PO SCH ×2 (07:53→17:14)
[2017-02-03] MEDS: Acetaminophen 650 MG Tab.ER PO SCH ×2 (07:54→20:00)
[2017-02-03] MEDS: Cholecalciferol (Vitamin D3) 1,000 Unit Tab PO SCH ×2 (07:54→17:14)
[2017-02-03] MEDS: traMADol 50 MG Tab PO SCH ×2 (07:56→19:59)
[2017-02-03] MEDS: Levothyroxine 25 MCG Tab PO SCH (07:57)
[2017-02-03] MEDS: Loperamide 2 MG Tab PO PRN (08:10)
[2017-02-03] MEDS: traMADol 50 MG Tab PO PRN (12:03)
[2017-02-03] MEDS: Acetaminophen 650 MG Tab.ER PO PRN (12:03)
[2017-02-03] MEDS: Gabapentin 100 MG Cap PO SCH (19:58)
[2017-02-03] MEDS: [UNRECOGNIZED DRUG - REMARK] TRDERM SCH (19:58)
[2017-02-04] MEDS: Acetaminophen/HYDROcodone 325-5 MG Tab PO PRN ×2 (06:51→12:51)
[2017-02-04] MEDS: Levothyroxine 25 MCG Tab PO SCH (08:04)
[2017-02-04] MEDS: Calcitonin (Salmon) Nasal Spray 3.7 ML Bottle NAS SCH (08:05)
[2017-02-04] MEDS: Famotidine 20 MG Tab PO SCH ×2 (08:05→17:38)
[2017-02-04] MEDS: Acetaminophen 650 MG Tab.ER PO SCH ×2 (08:06→20:15)
[2017-02-04] MEDS: traMADol 50 MG Tab PO SCH ×2 (08:07→20:15)
[2017-02-04] MEDS: Cholecalciferol (Vitamin D3) 1,000 Unit Tab PO SCH ×2 (08:07→17:38)
[2017-02-04] MEDS: [UNRECOGNIZED DRUG - OTHER] TRDERM SCH (08:12)
[2017-02-04] MEDS: Acetaminophen 650 MG Tab.ER PO PRN (15:52)
[2017-02-04] MEDS: traMADol 50 MG Tab PO PRN (15:53)
[2017-02-04] MEDS: Gabapentin 100 MG Cap PO SCH (20:12)
[2017-02-04] MEDS: [UNRECOGNIZED DRUG - REMARK] TRDERM SCH (20:16)
[2017-02-05] MEDS: Acetaminophen/HYDROcodone 325-5 MG Tab PO PRN ×2 (01:44→16:14)
[2017-02-05] MEDS: Calcitonin (Salmon) Nasal Spray 3.7 ML Bottle NAS SCH (08:14)
[2017-02-05] MEDS: Famotidine 20 MG Tab PO SCH ×2 (08:14→17:32)
[2017-02-05] MEDS: Levothyroxine 25 MCG Tab PO SCH (08:14)
[2017-02-05] MEDS: [UNRECOGNIZED DRUG - OTHER] TRDERM SCH (08:15)
[2017-02-05] MEDS: Acetaminophen 650 MG Tab.ER PO SCH ×2 (08:16→19:39)
[2017-02-05] MEDS: Cholecalciferol (Vitamin D3) 1,000 Unit Tab PO SCH ×2 (08:18→17:32)
[2017-02-05] MEDS: traMADol 50 MG Tab PO SCH ×2 (08:18→19:40)
[2017-02-05] MEDS: [UNRECOGNIZED DRUG - REMARK] TRDERM SCH (19:38)
[2017-02-05] MEDS: Gabapentin 100 MG Cap PO SCH (19:38)
[2017-02-06] MEDS: Acetaminophen/HYDROcodone 325-5 MG Tab PO PRN ×3 (04:03→21:14)
[2017-02-06] MEDS: Famotidine 20 MG Tab PO SCH ×2 (07:38→17:38)
[2017-02-06] MEDS: Levothyroxine 25 MCG Tab PO SCH (07:38)
[2017-02-06] MEDS: Calcitonin (Salmon) Nasal Spray 3.7 ML Bottle NAS SCH (07:38)
[2017-02-06] MEDS: Acetaminophen 650 MG Tab.ER PO SCH ×2 (07:39→19:30)
[2017-02-06] MEDS: [UNRECOGNIZED DRUG - OTHER] TRDERM SCH (07:39)
[2017-02-06] MEDS: Cholecalciferol (Vitamin D3) 1,000 Unit Tab PO SCH ×2 (07:41→17:38)
[2017-02-06] MEDS: traMADol 50 MG Tab PO SCH ×2 (07:42→19:32)
[2017-02-06] MEDS: traMADol 50 MG Tab PO PRN (15:39)
[2017-02-06] MEDS: Gabapentin 100 MG Cap PO SCH (19:30)
[2017-02-06] MEDS: [UNRECOGNIZED DRUG - REMARK] TRDERM SCH (19:33)
[2017-02-07] MEDS: Calcitonin (Salmon) Nasal Spray 3.7 ML Bottle NAS SCH (07:28)
[2017-02-07] MEDS: Famotidine 20 MG Tab PO SCH ×2 (07:29→17:16)
[2017-02-07] MEDS: Levothyroxine 25 MCG Tab PO SCH (07:29)
[2017-02-07] MEDS: [UNRECOGNIZED DRUG - OTHER] TRDERM SCH (07:30)
[2017-02-07] MEDS: Acetaminophen 650 MG Tab.ER PO SCH ×2 (07:30→19:18)
[2017-02-07] MEDS: traMADol 50 MG Tab PO SCH ×2 (07:31→19:20)
[2017-02-07] MEDS: Cholecalciferol (Vitamin D3) 1,000 Unit Tab PO SCH ×2 (07:32→17:16)
[2017-02-07] MEDS: Acetaminophen/HYDROcodone 325-5 MG Tab PO PRN ×2 (13:37→23:57)
[2017-02-07] MEDS: Gabapentin 100 MG Cap PO SCH (19:18)
[2017-02-07] MEDS: [UNRECOGNIZED DRUG - REMARK] TRDERM SCH (19:20)
[2017-02-08] MEDS: Acetaminophen/HYDROcodone 325-5 MG Tab PO PRN (06:20)
[2017-02-08] MEDS: Levothyroxine 25 MCG Tab PO SCH (07:37)
[2017-02-08] MEDS: Calcitonin (Salmon) Nasal Spray 3.7 ML Bottle NAS SCH (07:38)
[2017-02-08] MEDS: Famotidine 20 MG Tab PO SCH ×2 (07:38→17:32)
[2017-02-08] MEDS: Acetaminophen 650 MG Tab.ER PO SCH ×2 (07:39→20:55)
[2017-02-08] MEDS: [UNRECOGNIZED DRUG - OTHER] TRDERM SCH (07:39)
[2017-02-08] MEDS: traMADol 50 MG Tab PO SCH ×2 (07:40→20:56)
[2017-02-08] MEDS: Cholecalciferol (Vitamin D3) 1,000 Unit Tab PO SCH ×2 (07:42→17:32)
[2017-02-08 07:46] LABS: CHLORIDE,CL 106 mmol/L (98-107); SODIUM,NA 142 mmol/L (136-145)
[2017-02-08] MEDS: Acetaminophen/HYDROcodone 325-10 MG Tab PO PRN (13:19)
[2017-02-08] MEDS: Loperamide 2 MG Tab PO PRN (13:20)
[2017-02-08] MEDS: traMADol 50 MG Tab PO PRN (16:35)
[2017-02-08] MEDS: Acetaminophen 650 MG Tab.ER PO PRN (16:38)
--- NOTE | 2017-02-08 19:38 | PCM.PN ---
- General Info Date of Service: 02/08/17 Functional Status: Reports: other (still with pain right leg and lower back) - Review of Systems General: Reports: No Symptoms HEENT: Reports: no symptoms Pulmonary: Reports: no symptoms Cardiovascular: Reports: No Symptoms Gastrointestinal: Reports: No symptoms Genitourinary: Reports: no symptoms Musculoskeletal: Reports: leg pain (right) Skin: Reports: no symptoms Neurological: Reports: No Symptoms Psychiatric: Reports: no symptoms - Patient Data Vitals - most recent: Last Vital Signs Temp 98.9 F 02/08/17 16:53 Pulse 87 02/08/17 16:53 Resp 20 02/08/17 16:53 BP 138/64 02/08/17 16:53 Pulse Ox 96 02/08/17 16:53 Weight - most recent: 171 lb 4.8 oz I&O - last 24 hours: Intake & Output 02/08/17 02/08/17 02/08/17 06:59 14:59 22:59 Intake Total 100 Balance 100 Lab Results last 24 hrs: Laboratory Results - last 24 hr 02/08/17 02/08/17 02/08/17 Range/Units 07:20 07:20 07:20 WBC 3.6 L (4.0-10.2) K/uL RBC 4.10 (3.77-5.09) M/uL Hgb 12.7 (11.7-15.5) g/dL Hct 39.0 (34.0-46.0) % MCV 95.1 (84.0-98.0) fL MCH 31.0 (28.2-33.3) pg MCHC 32.6 (31.7-36.0) g/dL RDW 15.3 H (11.2-14.1) % Plt Count 160 (150-350) K/uL Neut % (Auto) 56.0 (45.0-80.0) % Lymph % (Auto) 26.9 (10.0-50.0) % [place] % (Auto) 10.9 (2.0-14.0) % Eos % (Auto) 5.6 H (0.0-5.0) % Baso % (Auto) 0.6 (0.0-2.0) % Neut # (Auto) 2.00 (1.40-7.00) K/uL Lymph # (Auto) 0.96 (0.50-3.50) K/uL [place] # (Auto) 0.39 (0.00-1.00) K/uL Eos # (Auto) 0.20 (0.00-0.50) K/uL Baso # (Auto) 0.02 (0.00-0.20) K/uL PT 11.2 (9.8-11.7) SEC INR 1.0 APTT 24.4 (23.5-30.0) SEC Sodium 142 (136-145) mmol/L Potassium 4.0 (3.5-5.1) mmol/L Chloride 106 (98-107) mmol/L Carbon Dioxide 28.7 (21.0-32.0) mmol/L BUN 14 (7-18) mg/dL Creatinine 0.82 (0.51-1.17) mg/dL Est Cr Clr Drug Dosing 45.99 mL/min Estimated GFR (MDRD) > 60 mL/min Glucose 97 (74-106) mg/dL Calcium 8.9 (8.5-10.1) mg/dL Total Bilirubin 0.3 (0.2-1.0) mg/dL AST 15 (15-37) U/L ALT 14 (12-78) U/L Alkaline Phosphatase 58 (46-116) IU/L Total Protein 5.9 L (6.4-8.2) g/dL Albumin 2.9 L (3.4-5.0) g/dL Med Orders - Current: Current Medications Acetaminophen (Tylenol Arthritis Pain) 650 mg PO Q12H [facility] Last Admin: 02/08/17 07:39 Dose: 650 mg Acetaminophen (Tylenol Arthritis Pain) 650 mg PO Q8H PRN PRN Reason: Pain Last Admin: 02/08/17 16:38 Dose: 650 mg Hydrocodone Bitart/Acetaminophen ([place] 325-10 Mg) 1 tab PO Q6H PRN PRN Reason: Pain Last Admin: 02/08/17 13:19 Dose: 1 tab Calcitonin [place] (Miacalcin Nasal [place]) 0 ml RADHA DAILY [facility] Last Admin: 02/08/17 07:38 Dose: 1 spray Cholecalciferol (Vitamin D3) 4,000 units PO BID [facility] Last Admin: 02/08/17 17:32 Dose: 4,000 units Famotidine (Pepcid) 20 mg PO BID [facility] Last Admin: 02/08/17 17:32 Dose: 20 mg Gabapentin (Neurontin) 100 mg PO BEDTIME [facility] Last Admin: 02/07/17 19:18 Dose: 100 mg Levothyroxine Sodium (Levothyroxine) 25 mcg PO QAM [facility] Last Admin: 02/08/17 07:37 Dose: 25 mcg Lidocaine (Lidocaine 5% Paraben-Free) 140 mg TRDERM Q24H [facility] Last Admin: 02/07/17 19:20 Dose: 140 mg Loperamide HCl (Imodium Ad) 2 mg PO Q4H PRN PRN Reason: Diarrhea Last Admin: 02/08/17 13:20 Dose: 2 mg Miscellaneous Information (Remove Patch) 1 ea TRDERM DAILY@0800 [facility] Last Admin: 02/08/17 07:39 Dose: 1 ea Senna (Senna) 8.6 mg PO BID PRN PRN Reason: Constipation Tramadol HCl (Ultram) 50 mg PO Q6H PRN PRN Reason: Pain (moderate 4-6) Last Admin: 02/08/17 16:35 Dose: 50 mg Tramadol HCl (Ultram) 50 mg PO Q12H [facility] Last Admin: 02/08/17 07:40 Dose: 50 mg Discontinued Medications Acetaminophen (Tylenol) 650 mg PO Q6H PRN PRN Reason: Pain Last Admin: 01/20/17 07:39 Dose: 650 mg Hydrocodone Bitart/Acetaminophen ([place] 325-5 Mg) 1 tab PO Q6H PRN PRN Reason: Pain Last Admin: 02/08/17 06:20 Dose: 1 tab Celecoxib (Celebrex) 100 mg PO BID [facility] Last Admin: 01/24/17 07:48 Dose: 100 mg Celecoxib (Celebrex) 100 mg PO DAILY@1800 [facility] Last Admin: 01/31/17 17:16 Dose: 100 mg Cholecalciferol (Vitamin D3) 2,000 units PO QAM [facility] Last Admin: 01/17/17 07:42 Dose: 2,000 units Cholecalciferol (Vitamin D3) 2,000 units PO BID [facility] Last Admin: 01/21/17 07:54 Dose: 2,000 units Fentanyl (Sublimaze) 25 mcg IVPUSH Q4H PRN PRN Reason: Pain (severe 7-10) Last Admin: 01/16/17 08:24 Dose: 25 mcg Loperamide HCl (Imodium Ad) 4 mg PO DAILY [facility] Last Admin: 01/19/17 07:44 Dose: 4 mg Sodium Chloride (Saline Flush) 10 ml FLUSH ASDIRECTED PRN PRN Reason: flush Last Admin: 01/16/17 08:28 Dose: 10 ml Sodium Chloride (Saline Flush) 10 ml FLUSH BID [facility] Last Admin: 01/19/17 17:31 Dose: 10 ml - Exam General: alert, cooperative, mild distress HEENT: Mucous membr. moist/pink Neck: trachea midline, no JVD Lungs: Clear to auscultation, Normal respiratory effort Cardiovascular: Irregular Rhythm Abdomen: bowel sounds present, soft, no tenderness, no distension (Female) Exam: Deferred Back Exam: paraspinal tenderness (right lumbar) Extremities: no edema Skin: warm, dry, intact Neurological: other (right radiculopathy) Psy/Mental Status: alert, normal affect, normal mood - Problem List & Annotations (1) COPD (chronic obstructive pulmonary disease) SNOMED Code(s): 34294334 Code(s): J44.9 - CHRONIC OBSTRUCTIVE PULMONARY DISEASE, UNSPECIFIED Status : Acute Priority: Medium Current Visit: No Annotation/Comment:: No recent history of bronchitic-type symptoms, fever, etc. with patient not using any medications currently for her COPD/pulmonary fibrosis. Consider PFTs on an outpatient basis (2) Compression fracture of L5 lumbar vertebra SNOMED Code(s): 227898014 Code(s): S32.050A - WEDGE COMPRESSION FRACTURE OF FIFTH LUMBAR VERTEBRA, INIT Status: Acute Priority: High Current Visit: No (3) Degenerative joint disease (DJD) of lumbar spine Status: Acute Current Visit: No Qualifiers: Spinal osteoarthritis complication: with radiculopathy Qualified Code(s): M47.26 - Other spondylosis with radiculopathy, lumbar region (4) Heart disease SNOMED Code(s): 28821806 Code(s): I51.9 - HEART DISEASE, UNSPECIFIED Status: Acute Priority: High Current Visit: No Annotation/Comment:: Chest Pain protocol was not initiated in the emergency room secondary to absence of anginal-type symptoms. Note history of distant atrial fibrillation with no current anticoagulation therapy. Complete bifascicular bundle-branch, sinus arrhythmia, and sinus bradycardia with multiple previous negative Persantine Cardiolite evaluations as below. Note CHF as above with consideration of an echocardiogram on an outpatient basis. Cardiology consultation as needed. (5) Low back pain SNOMED Code(s): 975436459 Code(s): M54.5 - LOW BACK PAIN Status: Acute Priority: High Current Visit: No Qualifiers: Chronicity: acute Back pain laterality: right Sciatica laterality: sciatica of right side (6) Macular degeneration SNOMED Code(s): 651472524 Code(s): H35.30 - UNSPECIFIED MACULAR DEGENERATION Status: Acute Current Visit: No (7) Right sided sciatica SNOMED Code(s): 80165049 Code(s): M54.31 - SCIATICA, RIGHT SIDE Status: Acute Priority: High Current Visit: No Onset Date: Unknown Annotation/Comment:: improved since yesterday but still present. (8) Spinal stenosis of lumbar region at multiple levels SNOMED Code(s): 64427164 Code(s): M48.06 - SPINAL STENOSIS, LUMBAR REGION Status: Acute Priority: High Current Visit: No (9) Hyperlipidemia SNOMED Code(s): 52924470 Code(s): E78.5 - HYPERLIPIDEMIA, UNSPECIFIED Status: Chronic Priority: Low Current Visit: No Annotation/Comment:: Medically treated with repeat lipid panel per discretion of her providers at [facility] (10) Hypertension SNOMED Code(s): 69259517 Code(s): I10 - ESSENTIAL (PRIMARY) HYPERTENSION Status: Chronic Priority : Low Current Visit: No Annotation/Comment:: Currently on no medication for HTN due to episodes of dizziness in past. (11) Hypothyroidism SNOMED Code(s): 53282780 Code(s): E03.9 - HYPOTHYROIDISM, UNSPECIFIED Status: Chronic Priority: Low Current Visit: No (12) Obesity SNOMED Code(s): 702827058 Code(s): E66.9 - OBESITY, UNSPECIFIED Status: Chronic Priority: Low Current Visit: No (13) Osteoarthritis SNOMED Code(s): 924177401 Code(s): M19.90 - UNSPECIFIED OSTEOARTHRITIS, UNSPECIFIED SITE Status: Chronic Priority: Low Current Visit: No Qualifiers: Osteoarthritis location: spine Spinal region: lumbosacral Spinal osteoarthritis complication: with radiculopathy Qualified Code(s): M47.27 - Other spondylosis with radiculopathy, lumbosacral region Annotation/Comment:: Stable by patient history despite history of spinal stenosis (14) TIA (transient ischemic attack) SNOMED Code(s): 716904187, 691337663 Code(s): G45.9 - TRANSIENT CEREBRAL ISCHEMIC ATTACK, UNSPECIFIED Status: Suspected Current Visit: No - Problem List Review Problem List Initiated/Reviewed/Updated: Yes - Plan Plan:: 01/13/17 Ever Marino MD Severe low back pain. Treated with IV solumedrol, IV toradol, for right sciatica. Lumbar CT today reveals acute compression fracture L5, spinal stenosis , DJD lumbar spine. Platelets decreasing so IV toradol stopped. Miacalcin started. Needs swing bed status for continued pain control, monitoring renal function, platelet level and PT-OT. 01/21/17 Ever Marino MD Still with severe pain into right leg. On scheduled tylenol, scheduled tramadol , scheduled NSAID (celebrex) and prn pain medications. PT working with her. Will order MRI. 01/27/17 Ever Marino MD Still with pain right low back, right hip and right lateral thigh. MRI 25% loss of vertebral height compression fracture of L1. L4-L5 severe central stenosis, advanced facet arthropathy, diffuse bulging disc. Discussed options with her and daughter Ashley. PT starting to help pain. She continues on scheduled tylenol , scheduled tramadol, scheduled NSAID (celebrex), calcitonin, vitamin D, and lidocaine patch and prn pain medications. 02/08/17 Ever Marino MD Still with significant right lower back and right leg pain. Increase in pain pill has helped. She continues with PT. She has appointment with [facility] Wednesday02/15/17, 1300 x-rays and appointment with Dr.Dan Parnell 1340. Continue PT-OT.
[2017-02-08] MEDS: [UNRECOGNIZED DRUG - REMARK] TRDERM SCH (20:53)
[2017-02-08] MEDS: Gabapentin 300 MG Cap PO SCH (21:06)
[2017-02-09] MEDS: Calcitonin (Salmon) Nasal Spray 3.7 ML Bottle NAS SCH (07:55)
[2017-02-09] MEDS: Levothyroxine 25 MCG Tab PO SCH (07:55)
[2017-02-09] MEDS: Famotidine 20 MG Tab PO SCH ×2 (07:56→17:24)
[2017-02-09] MEDS: Acetaminophen 650 MG Tab.ER PO SCH ×2 (07:57→19:30)
[2017-02-09] MEDS: [UNRECOGNIZED DRUG - OTHER] TRDERM SCH (07:58)
[2017-02-09] MEDS: Cholecalciferol (Vitamin D3) 1,000 Unit Tab PO SCH ×2 (07:59→17:24)
[2017-02-09] MEDS: traMADol 50 MG Tab PO SCH ×2 (08:00→19:32)
[2017-02-09] MEDS: Gabapentin 300 MG Cap PO SCH ×2 (08:09→19:30)
[2017-02-09] MEDS: Loperamide 2 MG Tab PO PRN ×2 (12:48→17:22)
[2017-02-09] MEDS: Acetaminophen/HYDROcodone 325-10 MG Tab PO PRN (15:56)
[2017-02-09] MEDS: [UNRECOGNIZED DRUG - REMARK] TRDERM SCH (19:30)
[2017-02-10] MEDS: Levothyroxine 25 MCG Tab PO SCH (08:33)
[2017-02-10] MEDS: Calcitonin (Salmon) Nasal Spray 3.7 ML Bottle NAS SCH (08:33)
[2017-02-10] MEDS: Gabapentin 300 MG Cap PO SCH ×2 (08:34→20:24)
[2017-02-10] MEDS: Famotidine 20 MG Tab PO SCH ×2 (08:35→18:11)
[2017-02-10] MEDS: Acetaminophen 650 MG Tab.ER PO SCH ×2 (08:36→20:24)
[2017-02-10] MEDS: Cholecalciferol (Vitamin D3) 1,000 Unit Tab PO SCH ×2 (08:41→18:11)
[2017-02-10] MEDS: traMADol 50 MG Tab PO SCH ×2 (08:45→20:25)
[2017-02-10] MEDS: [UNRECOGNIZED DRUG - OTHER] TRDERM SCH (08:48)
[2017-02-10] MEDS: Acetaminophen/HYDROcodone 325-10 MG Tab PO PRN (12:51)
[2017-02-10] MEDS: Loperamide 2 MG Tab PO PRN (12:54)
[2017-02-10] MEDS: traMADol 50 MG Tab PO PRN (16:05)
[2017-02-10] MEDS: [UNRECOGNIZED DRUG - REMARK] TRDERM SCH (20:22)
[2017-02-11] MEDS: Levothyroxine 25 MCG Tab PO SCH (07:50)
[2017-02-11] MEDS: Calcitonin (Salmon) Nasal Spray 3.7 ML Bottle NAS SCH (07:51)
[2017-02-11] MEDS: Famotidine 20 MG Tab PO SCH ×2 (07:52→17:42)
[2017-02-11] MEDS: Gabapentin 300 MG Cap PO SCH ×2 (07:52→19:09)
[2017-02-11] MEDS: [UNRECOGNIZED DRUG - OTHER] TRDERM SCH (07:53)
[2017-02-11] MEDS: Acetaminophen 650 MG Tab.ER PO SCH ×2 (07:53→19:10)
[2017-02-11] MEDS: traMADol 50 MG Tab PO SCH ×2 (07:55→19:12)
[2017-02-11] MEDS: Cholecalciferol (Vitamin D3) 1,000 Unit Tab PO SCH ×2 (07:56→17:42)
[2017-02-11] MEDS: Acetaminophen/HYDROcodone 325-10 MG Tab PO PRN (15:54)
[2017-02-11] MEDS: [UNRECOGNIZED DRUG - REMARK] TRDERM SCH (19:10)
[2017-02-12] MEDS: Calcitonin (Salmon) Nasal Spray 3.7 ML Bottle NAS SCH (07:48)
[2017-02-12] MEDS: Levothyroxine 25 MCG Tab PO SCH (07:48)
[2017-02-12] MEDS: [UNRECOGNIZED DRUG - OTHER] TRDERM SCH (07:49)
[2017-02-12] MEDS: Acetaminophen 650 MG Tab.ER PO SCH ×2 (07:49→20:00)
[2017-02-12] MEDS: Gabapentin 300 MG Cap PO SCH ×2 (07:49→19:59)
[2017-02-12] MEDS: Famotidine 20 MG Tab PO SCH ×2 (07:49→17:16)
[2017-02-12] MEDS: traMADol 50 MG Tab PO SCH ×2 (07:52→20:02)
[2017-02-12] MEDS: Cholecalciferol (Vitamin D3) 1,000 Unit Tab PO SCH ×2 (07:54→17:17)
[2017-02-12] MEDS: Acetaminophen/HYDROcodone 325-10 MG Tab PO PRN ×2 (10:10→17:18)
[2017-02-12] MEDS: [UNRECOGNIZED DRUG - REMARK] TRDERM SCH (19:58)
[2017-02-13] MEDS: Levothyroxine 25 MCG Tab PO SCH (07:49)
[2017-02-13] MEDS: Calcitonin (Salmon) Nasal Spray 3.7 ML Bottle NAS SCH (07:50)
[2017-02-13] MEDS: Gabapentin 300 MG Cap PO SCH ×2 (07:50→19:20)
[2017-02-13] MEDS: [UNRECOGNIZED DRUG - OTHER] TRDERM SCH (07:51)
[2017-02-13] MEDS: Famotidine 20 MG Tab PO SCH ×2 (07:51→17:10)
[2017-02-13] MEDS: Acetaminophen 650 MG Tab.ER PO SCH ×2 (07:52→19:21)
[2017-02-13] MEDS: traMADol 50 MG Tab PO SCH ×2 (07:53→19:23)
[2017-02-13] MEDS: Cholecalciferol (Vitamin D3) 1,000 Unit Tab PO SCH ×2 (07:54→17:11)
[2017-02-13] MEDS: Acetaminophen/HYDROcodone 325-10 MG Tab PO PRN (10:30)
[2017-02-13] MEDS: traMADol 50 MG Tab PO PRN (15:22)
[2017-02-13] MEDS: [UNRECOGNIZED DRUG - REMARK] TRDERM SCH (19:18)
[2017-02-14] MEDS: Acetaminophen/HYDROcodone 325-10 MG Tab PO PRN ×2 (02:11→12:00)
[2017-02-14] MEDS: Levothyroxine 25 MCG Tab PO SCH (07:50)
[2017-02-14] MEDS: Gabapentin 300 MG Cap PO SCH ×2 (07:51→19:33)
[2017-02-14] MEDS: Calcitonin (Salmon) Nasal Spray 3.7 ML Bottle NAS SCH (07:51)
[2017-02-14] MEDS: Famotidine 20 MG Tab PO SCH ×2 (07:52→17:38)
[2017-02-14] MEDS: [UNRECOGNIZED DRUG - OTHER] TRDERM SCH (07:52)
[2017-02-14] MEDS: Acetaminophen 650 MG Tab.ER PO SCH ×2 (07:52→19:34)
[2017-02-14] MEDS: traMADol 50 MG Tab PO SCH ×2 (07:53→19:36)
[2017-02-14] MEDS: Cholecalciferol (Vitamin D3) 1,000 Unit Tab PO SCH ×2 (07:54→17:39)
[2017-02-14] MEDS: traMADol 50 MG Tab PO PRN (17:16)
[2017-02-14] MEDS: [UNRECOGNIZED DRUG - REMARK] TRDERM SCH (19:32)
[2017-02-15] MEDS: Acetaminophen/HYDROcodone 325-10 MG Tab PO PRN ×3 (05:24→19:40)
[2017-02-15] MEDS: Levothyroxine 25 MCG Tab PO SCH (07:29)
[2017-02-15] MEDS: Calcitonin (Salmon) Nasal Spray 3.7 ML Bottle NAS SCH (07:29)
[2017-02-15] MEDS: Gabapentin 300 MG Cap PO SCH ×2 (07:29→19:42)
[2017-02-15] MEDS: [UNRECOGNIZED DRUG - OTHER] TRDERM SCH (07:30)
[2017-02-15] MEDS: Famotidine 20 MG Tab PO SCH ×2 (07:30→17:48)
[2017-02-15] MEDS: Acetaminophen 650 MG Tab.ER PO SCH ×2 (07:31→19:43)
[2017-02-15] MEDS: traMADol 50 MG Tab PO SCH ×2 (07:32→19:45)
[2017-02-15] MEDS: Cholecalciferol (Vitamin D3) 1,000 Unit Tab PO SCH ×2 (07:33→17:49)
[2017-02-15] MEDS: [UNRECOGNIZED DRUG - REMARK] TRDERM SCH (19:42)
[2017-02-16] MEDS: Levothyroxine 25 MCG Tab PO SCH (07:40)
[2017-02-16] MEDS: Calcitonin (Salmon) Nasal Spray 3.7 ML Bottle NAS SCH (07:40)
[2017-02-16] MEDS: Gabapentin 300 MG Cap PO SCH ×2 (07:41→19:15)
[2017-02-16] MEDS: Famotidine 20 MG Tab PO SCH ×2 (07:42→17:53)
[2017-02-16] MEDS: Acetaminophen 650 MG Tab.ER PO SCH ×2 (07:42→19:16)
[2017-02-16] MEDS: [UNRECOGNIZED DRUG - OTHER] TRDERM SCH (07:42)
[2017-02-16] MEDS: traMADol 50 MG Tab PO SCH ×2 (07:43→19:17)
[2017-02-16] MEDS: Cholecalciferol (Vitamin D3) 1,000 Unit Tab PO SCH ×2 (07:44→17:53)
[2017-02-16] MEDS: Acetaminophen/HYDROcodone 325-10 MG Tab PO PRN (18:03)
[2017-02-16] MEDS: [UNRECOGNIZED DRUG - REMARK] TRDERM SCH (19:15)
[2017-02-17] MEDS: Acetaminophen/HYDROcodone 325-10 MG Tab PO PRN ×2 (05:30→23:41)
[2017-02-17 07:36] LABS: CHLORIDE,CL 106 mmol/L (98-107); SODIUM,NA 141 mmol/L (136-145)
[2017-02-17] MEDS ORDERED: Calcium Citrate 950 MG Tab PO SCH (08:00)
[2017-02-17] MEDS: Levothyroxine 25 MCG Tab PO SCH (08:43)
[2017-02-17] MEDS: Gabapentin 300 MG Cap PO SCH ×2 (08:44→19:34)
[2017-02-17] MEDS: Calcitonin (Salmon) Nasal Spray 3.7 ML Bottle NAS SCH (08:44)
[2017-02-17] MEDS: Famotidine 20 MG Tab PO SCH ×2 (08:45→17:09)
[2017-02-17] MEDS: Acetaminophen 650 MG Tab.ER PO SCH ×2 (08:45→19:34)
[2017-02-17] MEDS: traMADol 50 MG Tab PO SCH ×2 (08:46→19:35)
[2017-02-17] MEDS: Cholecalciferol (Vitamin D3) 1,000 Unit Tab PO SCH ×2 (08:48→17:09)
[2017-02-17] MEDS: [UNRECOGNIZED DRUG - OTHER] TRDERM SCH (09:01)
[2017-02-17] MEDS: Calcium Citrate 950 MG Tab PO SCH (17:08)
[2017-02-17] MEDS: [UNRECOGNIZED DRUG - REMARK] TRDERM SCH (19:33)
[2017-02-18] MEDS: Levothyroxine 25 MCG Tab PO SCH (07:25)
[2017-02-18] MEDS: Calcium Citrate 950 MG Tab PO SCH ×2 (08:04→17:47)
[2017-02-18] MEDS: Calcitonin (Salmon) Nasal Spray 3.7 ML Bottle NAS SCH (08:05)
[2017-02-18] MEDS: Gabapentin 300 MG Cap PO SCH ×2 (08:05→19:24)
[2017-02-18] MEDS: Famotidine 20 MG Tab PO SCH ×2 (08:06→17:48)
[2017-02-18] MEDS: Acetaminophen 650 MG Tab.ER PO SCH ×2 (08:06→19:25)
[2017-02-18] MEDS: [UNRECOGNIZED DRUG - OTHER] TRDERM SCH (08:06)
[2017-02-18] MEDS: traMADol 50 MG Tab PO SCH ×2 (08:08→19:26)
[2017-02-18] MEDS: Cholecalciferol (Vitamin D3) 1,000 Unit Tab PO SCH ×2 (08:09→17:48)
[2017-02-18] MEDS: Loperamide 2 MG Tab PO PRN (09:57)
[2017-02-18] MEDS: Acetaminophen/HYDROcodone 325-10 MG Tab PO PRN ×2 (09:59→23:46)
--- NOTE | 2017-02-18 16:47 | PCM.SN ---
- Free Text/Narrative Note: 02-18-17 Lolita Mendoza PA-C Vitamin D level came back today at 29 (nl 30-100). Res. is on 4,000 units of Vitamin D BID. No change made in dose, will recheck level in one more month.
[2017-02-18] MEDS: [UNRECOGNIZED DRUG - REMARK] TRDERM SCH (19:24)
[2017-02-19] MEDS: Levothyroxine 25 MCG Tab PO SCH (07:16)
[2017-02-19] MEDS: Calcium Citrate 950 MG Tab PO SCH ×2 (08:13→17:10)
[2017-02-19] MEDS: Calcitonin (Salmon) Nasal Spray 3.7 ML Bottle NAS SCH (08:13)
[2017-02-19] MEDS: Gabapentin 300 MG Cap PO SCH ×2 (08:14→20:14)
[2017-02-19] MEDS: Famotidine 20 MG Tab PO SCH ×2 (08:14→17:10)
[2017-02-19] MEDS: Acetaminophen 650 MG Tab.ER PO SCH ×2 (08:14→20:13)
[2017-02-19] MEDS: Cholecalciferol (Vitamin D3) 1,000 Unit Tab PO SCH ×2 (08:16→17:10)
[2017-02-19] MEDS: traMADol 50 MG Tab PO SCH ×2 (08:17→20:14)
[2017-02-19] MEDS: [UNRECOGNIZED DRUG - OTHER] TRDERM SCH (08:25)
[2017-02-19] MEDS: Acetaminophen/HYDROcodone 325-10 MG Tab PO PRN (10:40)
[2017-02-19] MEDS: Celecoxib 100 MG Cap PO SCH (17:09)
[2017-02-19] MEDS: [UNRECOGNIZED DRUG - REMARK] TRDERM SCH (20:14)
[2017-02-20] MEDS: Levothyroxine 25 MCG Tab PO SCH (08:08)
[2017-02-20] MEDS: Celecoxib 100 MG Cap PO SCH ×2 (08:09→17:23)
[2017-02-20] MEDS: Calcitonin (Salmon) Nasal Spray 3.7 ML Bottle NAS SCH (08:10)
[2017-02-20] MEDS: Gabapentin 300 MG Cap PO SCH ×2 (08:10→20:08)
[2017-02-20] MEDS: Acetaminophen 650 MG Tab.ER PO SCH ×2 (08:11→20:09)
[2017-02-20] MEDS: Famotidine 20 MG Tab PO SCH ×2 (08:11→17:23)
[2017-02-20] MEDS: [UNRECOGNIZED DRUG - OTHER] TRDERM SCH (08:11)
[2017-02-20] MEDS: Cholecalciferol (Vitamin D3) 1,000 Unit Tab PO SCH ×2 (08:13→17:23)
[2017-02-20] MEDS: traMADol 50 MG Tab PO SCH ×2 (08:13→20:08)
[2017-02-20] MEDS: Loperamide 2 MG Tab PO PRN ×2 (08:17→14:14)
[2017-02-20] MEDS: Calcium Citrate 950 MG Tab PO SCH ×2 (08:48→17:22)
[2017-02-20] MEDS: [UNRECOGNIZED DRUG - REMARK] TRDERM SCH (20:08)
[2017-02-21] MEDS: Levothyroxine 25 MCG Tab PO SCH (08:15)
[2017-02-21] MEDS: Celecoxib 100 MG Cap PO SCH ×2 (08:16→17:14)
[2017-02-21] MEDS: Calcitonin (Salmon) Nasal Spray 3.7 ML Bottle NAS SCH (08:17)
[2017-02-21] MEDS: Gabapentin 300 MG Cap PO SCH ×2 (08:17→19:39)
[2017-02-21] MEDS: [UNRECOGNIZED DRUG - OTHER] TRDERM SCH (08:18)
[2017-02-21] MEDS: Famotidine 20 MG Tab PO SCH ×2 (08:18→17:13)
[2017-02-21] MEDS: Acetaminophen 650 MG Tab.ER PO SCH ×2 (08:19→19:40)
[2017-02-21] MEDS: traMADol 50 MG Tab PO SCH ×2 (08:20→19:41)
[2017-02-21] MEDS: Cholecalciferol (Vitamin D3) 1,000 Unit Tab PO SCH ×2 (08:21→17:15)
[2017-02-21] MEDS: Calcium Citrate 950 MG Tab PO SCH ×2 (08:46→17:13)
[2017-02-21] MEDS: [UNRECOGNIZED DRUG - REMARK] TRDERM SCH (19:38)
[2017-02-22] MEDS: Levothyroxine 25 MCG Tab PO SCH (07:13)
[2017-02-22 08:10] LABS: CHLORIDE,CL 105 mmol/L (98-107); SODIUM,NA 143 mmol/L (136-145)
[2017-02-22] MEDS: Calcium Citrate 950 MG Tab PO SCH ×2 (08:10→17:19)
[2017-02-22] MEDS: Celecoxib 100 MG Cap PO SCH ×2 (08:10→17:20)
[2017-02-22] MEDS: Calcitonin (Salmon) Nasal Spray 3.7 ML Bottle NAS SCH (08:11)
[2017-02-22] MEDS: Gabapentin 300 MG Cap PO SCH ×2 (08:11→19:33)
[2017-02-22] MEDS: Acetaminophen 650 MG Tab.ER PO SCH ×2 (08:12→19:32)
[2017-02-22] MEDS: [UNRECOGNIZED DRUG - OTHER] TRDERM SCH (08:12)
[2017-02-22] MEDS: Famotidine 20 MG Tab PO SCH ×2 (08:12→17:20)
[2017-02-22] MEDS: traMADol 50 MG Tab PO SCH ×2 (08:14→19:34)
[2017-02-22] MEDS: Cholecalciferol (Vitamin D3) 1,000 Unit Tab PO SCH ×2 (08:15→17:21)
[2017-02-22] MEDS: [UNRECOGNIZED DRUG - REMARK] TRDERM SCH (19:31)
[2017-02-23] MEDS: Acetaminophen/HYDROcodone 325-10 MG Tab PO PRN ×2 (03:16→15:04)
[2017-02-23] MEDS: Levothyroxine 25 MCG Tab PO SCH (08:10)
[2017-02-23] MEDS: Calcitonin (Salmon) Nasal Spray 3.7 ML Bottle NAS SCH (08:11)
[2017-02-23] MEDS: Celecoxib 100 MG Cap PO SCH ×2 (08:11→17:09)
[2017-02-23] MEDS: Gabapentin 300 MG Cap PO SCH ×2 (08:12→19:29)
[2017-02-23] MEDS: Famotidine 20 MG Tab PO SCH ×2 (08:12→17:10)
[2017-02-23] MEDS: Acetaminophen 650 MG Tab.ER PO SCH ×2 (08:13→19:29)
[2017-02-23] MEDS: traMADol 50 MG Tab PO SCH ×2 (08:14→19:30)
[2017-02-23] MEDS: Cholecalciferol (Vitamin D3) 1,000 Unit Tab PO SCH ×2 (08:15→17:10)
[2017-02-23] MEDS: [UNRECOGNIZED DRUG - OTHER] TRDERM SCH (08:15)
[2017-02-23] MEDS: Calcium Citrate 950 MG Tab PO SCH ×2 (09:05→17:09)
[2017-02-23] MEDS: [UNRECOGNIZED DRUG - REMARK] TRDERM SCH (19:29)
[2017-02-24] MEDS: Acetaminophen/HYDROcodone 325-10 MG Tab PO PRN (02:13)
[2017-02-24] MEDS: Levothyroxine 25 MCG Tab PO SCH (07:02)
[2017-02-24] MEDS: Celecoxib 100 MG Cap PO SCH ×2 (07:47→17:20)
[2017-02-24] MEDS: Calcium Citrate 950 MG Tab PO SCH ×2 (07:47→17:19)
[2017-02-24] MEDS: Calcitonin (Salmon) Nasal Spray 3.7 ML Bottle NAS SCH (07:47)
[2017-02-24] MEDS: Gabapentin 300 MG Cap PO SCH ×2 (07:48→19:51)
[2017-02-24] MEDS: Famotidine 20 MG Tab PO SCH ×2 (07:48→17:20)
[2017-02-24] MEDS: [UNRECOGNIZED DRUG - OTHER] TRDERM SCH (07:48)
[2017-02-24] MEDS: Acetaminophen 650 MG Tab.ER PO SCH ×2 (07:49→19:52)
[2017-02-24] MEDS: traMADol 50 MG Tab PO SCH ×2 (07:50→19:54)
[2017-02-24] MEDS: Cholecalciferol (Vitamin D3) 1,000 Unit Tab PO SCH ×2 (07:51→17:20)
[2017-02-24] MEDS: [UNRECOGNIZED DRUG - REMARK] TRDERM SCH (19:50)
[2017-02-25] MEDS: Acetaminophen/HYDROcodone 325-10 MG Tab PO PRN ×2 (02:16→08:27)
[2017-02-25] MEDS: traMADol 50 MG Tab PO PRN ×2 (05:35→12:03)
[2017-02-25] MEDS: Levothyroxine 25 MCG Tab PO SCH (07:26)
[2017-02-25] MEDS: Celecoxib 100 MG Cap PO SCH ×2 (08:02→17:34)
[2017-02-25] MEDS: Calcium Citrate 950 MG Tab PO SCH ×2 (08:02→17:33)
[2017-02-25] MEDS: Gabapentin 300 MG Cap PO SCH ×2 (08:03→19:32)
[2017-02-25] MEDS: Calcitonin (Salmon) Nasal Spray 3.7 ML Bottle NAS SCH (08:03)
[2017-02-25] MEDS: Acetaminophen 650 MG Tab.ER PO SCH ×3 (08:04→19:32)
[2017-02-25] MEDS: Famotidine 20 MG Tab PO SCH ×2 (08:04→17:34)
[2017-02-25] MEDS: Cholecalciferol (Vitamin D3) 1,000 Unit Tab PO SCH ×2 (08:05→17:34)
[2017-02-25] MEDS: [UNRECOGNIZED DRUG - OTHER] TRDERM SCH (08:06)
[2017-02-25] MEDS: traMADol 50 MG Tab PO SCH ×2 (08:15→19:34)
[2017-02-25] MEDS: [UNRECOGNIZED DRUG - REMARK] TRDERM SCH (19:32)
[2017-02-26] MEDS: Levothyroxine 25 MCG Tab PO SCH (08:19)
[2017-02-26] MEDS: Calcium Citrate 950 MG Tab PO SCH ×2 (08:19→17:56)
[2017-02-26] MEDS: Celecoxib 100 MG Cap PO SCH ×2 (08:19→17:56)
[2017-02-26] MEDS: Gabapentin 300 MG Cap PO SCH ×2 (08:20→19:32)
[2017-02-26] MEDS: Calcitonin (Salmon) Nasal Spray 3.7 ML Bottle NAS SCH (08:20)
[2017-02-26] MEDS: Famotidine 20 MG Tab PO SCH ×2 (08:21→17:59)
[2017-02-26] MEDS: [UNRECOGNIZED DRUG - OTHER] TRDERM SCH (08:21)
[2017-02-26] MEDS: Acetaminophen 650 MG Tab.ER PO SCH ×2 (08:22→19:32)
[2017-02-26] MEDS: traMADol 50 MG Tab PO SCH ×2 (08:24→19:33)
[2017-02-26] MEDS: Cholecalciferol (Vitamin D3) 1,000 Unit Tab PO SCH ×2 (08:25→18:00)
[2017-02-26] MEDS: Acetaminophen/HYDROcodone 325-10 MG Tab PO PRN (18:01)
[2017-02-26] MEDS: [UNRECOGNIZED DRUG - REMARK] TRDERM SCH (19:34)
[2017-02-27] MEDS: Acetaminophen/HYDROcodone 325-10 MG Tab PO PRN ×2 (06:31→17:15)
[2017-02-27] MEDS: Levothyroxine 25 MCG Tab PO SCH (07:39)
[2017-02-27] MEDS: Calcium Citrate 950 MG Tab PO SCH ×2 (08:15→17:13)
[2017-02-27] MEDS: Calcitonin (Salmon) Nasal Spray 3.7 ML Bottle NAS SCH (08:16)
[2017-02-27] MEDS: Celecoxib 100 MG Cap PO SCH ×2 (08:16→17:13)
[2017-02-27] MEDS: Gabapentin 300 MG Cap PO SCH ×3 (08:17→19:27)
[2017-02-27] MEDS: Famotidine 20 MG Tab PO SCH ×2 (08:17→17:14)
[2017-02-27] MEDS: [UNRECOGNIZED DRUG - OTHER] TRDERM SCH (08:17)
[2017-02-27] MEDS: Acetaminophen 650 MG Tab.ER PO SCH ×2 (08:18→19:27)
[2017-02-27] MEDS: traMADol 50 MG Tab PO SCH ×2 (08:20→19:28)
[2017-02-27] MEDS: Cholecalciferol (Vitamin D3) 1,000 Unit Tab PO SCH ×2 (08:20→17:14)
[2017-02-27] MEDS: [UNRECOGNIZED DRUG - REMARK] TRDERM SCH (19:27)
[2017-02-28] MEDS: Acetaminophen/HYDROcodone 325-10 MG Tab PO PRN ×2 (02:14→14:52)
[2017-02-28] MEDS: Levothyroxine 25 MCG Tab PO SCH (07:38)
[2017-02-28] MEDS: Calcium Citrate 950 MG Tab PO SCH ×2 (08:02→17:25)
[2017-02-28] MEDS: Celecoxib 100 MG Cap PO SCH ×2 (08:02→17:25)
[2017-02-28] MEDS: Gabapentin 300 MG Cap PO SCH ×3 (08:03→19:26)
[2017-02-28] MEDS: Calcitonin (Salmon) Nasal Spray 3.7 ML Bottle NAS SCH (08:03)
[2017-02-28] MEDS: [UNRECOGNIZED DRUG - OTHER] TRDERM SCH (08:04)
[2017-02-28] MEDS: Famotidine 20 MG Tab PO SCH ×2 (08:04→17:26)
[2017-02-28] MEDS: Acetaminophen 650 MG Tab.ER PO SCH ×2 (08:04→19:25)
[2017-02-28] MEDS: traMADol 50 MG Tab PO SCH ×2 (08:06→19:26)
[2017-02-28] MEDS: Cholecalciferol (Vitamin D3) 1,000 Unit Tab PO SCH ×2 (08:07→17:26)
[2017-02-28] MEDS: [UNRECOGNIZED DRUG - REMARK] TRDERM SCH (19:24)
[2017-03-01] MEDS: Acetaminophen/HYDROcodone 325-10 MG Tab PO PRN ×2 (00:20→11:18)
[2017-03-01] MEDS: Levothyroxine 25 MCG Tab PO SCH (07:46)
[2017-03-01] MEDS: traMADol 50 MG Tab PO SCH ×2 (07:48→19:34)
[2017-03-01] MEDS: Acetaminophen 650 MG Tab.ER PO SCH ×2 (07:49→19:33)
[2017-03-01] MEDS: Calcium Citrate 950 MG Tab PO SCH ×2 (08:11→17:09)
[2017-03-01] MEDS: Celecoxib 100 MG Cap PO SCH ×2 (08:11→17:09)
[2017-03-01] MEDS: Calcitonin (Salmon) Nasal Spray 3.7 ML Bottle NAS SCH (08:13)
[2017-03-01] MEDS: Gabapentin 300 MG Cap PO SCH ×3 (08:14→19:32)
[2017-03-01] MEDS: Famotidine 20 MG Tab PO SCH ×2 (08:14→17:10)
[2017-03-01] MEDS: [UNRECOGNIZED DRUG - OTHER] TRDERM SCH (08:14)
[2017-03-01] MEDS: Cholecalciferol (Vitamin D3) 1,000 Unit Tab PO SCH ×2 (08:15→17:10)
[2017-03-01] MEDS: [UNRECOGNIZED DRUG - REMARK] TRDERM SCH (19:32)
[2017-03-02] MEDS: Acetaminophen/HYDROcodone 325-10 MG Tab PO PRN ×2 (03:43→11:42)
[2017-03-02] MEDS: Levothyroxine 25 MCG Tab PO SCH (07:15)
[2017-03-02] MEDS: Calcium Citrate 950 MG Tab PO SCH ×2 (07:49→17:14)
[2017-03-02] MEDS: Celecoxib 100 MG Cap PO SCH ×2 (07:50→17:14)
[2017-03-02] MEDS: Gabapentin 300 MG Cap PO SCH ×3 (07:51→19:35)
[2017-03-02] MEDS: Calcitonin (Salmon) Nasal Spray 3.7 ML Bottle NAS SCH (07:51)
[2017-03-02] MEDS: Famotidine 20 MG Tab PO SCH ×2 (07:52→17:14)
[2017-03-02] MEDS: [UNRECOGNIZED DRUG - OTHER] TRDERM SCH (07:52)
[2017-03-02] MEDS: Acetaminophen 650 MG Tab.ER PO SCH ×2 (07:53→19:35)
[2017-03-02] MEDS: traMADol 50 MG Tab PO SCH ×2 (07:54→19:36)
[2017-03-02] MEDS: Cholecalciferol (Vitamin D3) 1,000 Unit Tab PO SCH ×2 (07:55→17:14)
[2017-03-02] MEDS: Sennosides 8.6 MG Tab PO PRN (08:11)
[2017-03-02] MEDS: [UNRECOGNIZED DRUG - REMARK] TRDERM SCH (19:36)
[2017-03-03] MEDS: Acetaminophen/HYDROcodone 325-10 MG Tab PO PRN ×2 (06:14→17:21)
[2017-03-03] MEDS: Levothyroxine 25 MCG Tab PO SCH (07:15)
[2017-03-03] MEDS: traMADol 50 MG Tab PO SCH ×2 (07:15→19:33)
[2017-03-03] MEDS: Calcium Citrate 950 MG Tab PO SCH ×2 (07:47→17:17)
[2017-03-03] MEDS: Gabapentin 300 MG Cap PO SCH ×3 (07:48→19:31)
[2017-03-03] MEDS: Celecoxib 100 MG Cap PO SCH ×2 (07:48→17:18)
[2017-03-03] MEDS: Calcitonin (Salmon) Nasal Spray 3.7 ML Bottle NAS SCH (07:48)
[2017-03-03] MEDS: [UNRECOGNIZED DRUG - OTHER] TRDERM SCH (07:49)
[2017-03-03] MEDS: Famotidine 20 MG Tab PO SCH ×2 (07:49→17:18)
[2017-03-03] MEDS: Acetaminophen 650 MG Tab.ER PO SCH ×2 (07:49→19:31)
[2017-03-03] MEDS: Cholecalciferol (Vitamin D3) 1,000 Unit Tab PO SCH ×2 (07:50→17:18)
[2017-03-03] MEDS: [UNRECOGNIZED DRUG - REMARK] TRDERM SCH (19:32)
[2017-03-04] MEDS: Levothyroxine 25 MCG Tab PO SCH (07:13)
[2017-03-04] MEDS: Acetaminophen 650 MG Tab.ER PO SCH ×2 (07:13→20:22)
[2017-03-04] MEDS: traMADol 50 MG Tab PO SCH ×2 (07:15→20:23)
[2017-03-04] MEDS: Celecoxib 100 MG Cap PO SCH ×2 (08:02→17:22)
[2017-03-04] MEDS: Calcium Citrate 950 MG Tab PO SCH ×2 (08:02→17:21)
[2017-03-04] MEDS: Calcitonin (Salmon) Nasal Spray 3.7 ML Bottle NAS SCH (08:03)
[2017-03-04] MEDS: Cholecalciferol (Vitamin D3) 1,000 Unit Tab PO SCH ×2 (08:04→17:22)
[2017-03-04] MEDS: Gabapentin 300 MG Cap PO SCH ×3 (08:04→20:21)
[2017-03-04] MEDS: Famotidine 20 MG Tab PO SCH ×2 (08:04→17:22)
[2017-03-04] MEDS: [UNRECOGNIZED DRUG - OTHER] TRDERM SCH (08:05)
[2017-03-04] MEDS: Acetaminophen/HYDROcodone 325-10 MG Tab PO PRN (17:24)
[2017-03-04] MEDS: [UNRECOGNIZED DRUG - REMARK] TRDERM SCH (20:21)
[2017-03-05] MEDS: Acetaminophen/HYDROcodone 325-10 MG Tab PO PRN ×2 (04:40→16:08)
[2017-03-05] MEDS: Acetaminophen 650 MG Tab.ER PO SCH ×2 (07:08→19:17)
[2017-03-05] MEDS: Levothyroxine 25 MCG Tab PO SCH (07:08)
[2017-03-05] MEDS: traMADol 50 MG Tab PO SCH ×2 (07:09→19:19)
[2017-03-05] MEDS: Calcium Citrate 950 MG Tab PO SCH ×2 (07:41→17:55)
[2017-03-05] MEDS: Celecoxib 100 MG Cap PO SCH ×2 (07:41→17:56)
[2017-03-05] MEDS: Calcitonin (Salmon) Nasal Spray 3.7 ML Bottle NAS SCH (07:41)
[2017-03-05] MEDS: Famotidine 20 MG Tab PO SCH ×2 (07:42→17:57)
[2017-03-05] MEDS: Gabapentin 300 MG Cap PO SCH ×3 (07:42→19:17)
[2017-03-05] MEDS: [UNRECOGNIZED DRUG - OTHER] TRDERM SCH (07:43)
[2017-03-05] MEDS: Cholecalciferol (Vitamin D3) 1,000 Unit Tab PO SCH ×2 (07:43→17:58)
[2017-03-05] MEDS: [UNRECOGNIZED DRUG - REMARK] TRDERM SCH (19:17)
[2017-03-06] MEDS: Levothyroxine 25 MCG Tab PO SCH (07:19)
[2017-03-06] MEDS: Calcium Citrate 950 MG Tab PO SCH ×2 (07:19→17:13)
[2017-03-06] MEDS: Calcitonin (Salmon) Nasal Spray 3.7 ML Bottle NAS SCH (07:20)
[2017-03-06] MEDS: Gabapentin 300 MG Cap PO SCH ×3 (07:20→19:15)
[2017-03-06] MEDS: Celecoxib 100 MG Cap PO SCH ×2 (07:20→17:14)
[2017-03-06] MEDS: Acetaminophen 650 MG Tab.ER PO SCH ×2 (07:21→19:15)
[2017-03-06] MEDS: Famotidine 20 MG Tab PO SCH ×2 (07:21→17:14)
[2017-03-06] MEDS: traMADol 50 MG Tab PO SCH ×2 (07:23→19:16)
[2017-03-06] MEDS: Cholecalciferol (Vitamin D3) 1,000 Unit Tab PO SCH ×2 (07:24→17:15)
[2017-03-06] MEDS: [UNRECOGNIZED DRUG - OTHER] TRDERM SCH (07:25)
[2017-03-06] MEDS: [UNRECOGNIZED DRUG - REMARK] TRDERM SCH (19:15)
[2017-03-07] MEDS: Celecoxib 100 MG Cap PO SCH ×2 (08:16→17:44)
[2017-03-07] MEDS: Calcium Citrate 950 MG Tab PO SCH ×2 (08:16→17:43)
[2017-03-07] MEDS: Levothyroxine 25 MCG Tab PO SCH (08:16)
[2017-03-07] MEDS: Calcitonin (Salmon) Nasal Spray 3.7 ML Bottle NAS SCH (08:17)
[2017-03-07] MEDS: Gabapentin 300 MG Cap PO SCH ×3 (08:17→19:15)
[2017-03-07] MEDS: Famotidine 20 MG Tab PO SCH ×2 (08:18→17:45)
[2017-03-07] MEDS: [UNRECOGNIZED DRUG - OTHER] TRDERM SCH (08:18)
[2017-03-07] MEDS: Acetaminophen 650 MG Tab.ER PO SCH ×2 (08:19→19:17)
[2017-03-07] MEDS: traMADol 50 MG Tab PO SCH ×2 (08:20→19:18)
[2017-03-07] MEDS: Cholecalciferol (Vitamin D3) 1,000 Unit Tab PO SCH ×2 (08:21→17:46)
[2017-03-07] MEDS: Acetaminophen/HYDROcodone 325-10 MG Tab PO PRN (14:11)
[2017-03-07] MEDS: [UNRECOGNIZED DRUG - REMARK] TRDERM SCH (19:16)
[2017-03-08] MEDS: Acetaminophen/HYDROcodone 325-10 MG Tab PO PRN (05:27)
[2017-03-08] MEDS: Levothyroxine 25 MCG Tab PO SCH (07:33)
[2017-03-08] MEDS: Calcium Citrate 950 MG Tab PO SCH ×2 (08:32→17:25)
[2017-03-08] MEDS: Calcitonin (Salmon) Nasal Spray 3.7 ML Bottle NAS SCH (08:33)
[2017-03-08] MEDS: Celecoxib 100 MG Cap PO SCH (08:33)
[2017-03-08] MEDS: Gabapentin 300 MG Cap PO SCH (08:34)
[2017-03-08] MEDS: Acetaminophen 650 MG Tab.ER PO SCH (08:35)
[2017-03-08] MEDS: [UNRECOGNIZED DRUG - OTHER] TRDERM SCH (08:35)
[2017-03-08] MEDS: Famotidine 20 MG Tab PO SCH ×2 (08:35→17:25)
[2017-03-08] MEDS: traMADol 50 MG Tab PO SCH (08:37)
[2017-03-08] MEDS: Cholecalciferol (Vitamin D3) 1,000 Unit Tab PO SCH ×2 (08:37→17:26)
[2017-03-08] MEDS: DULoxetine 20 MG Cap PO SCH (12:35)
[2017-03-08] MEDS: Gabapentin 400 MG Cap PO SCH ×2 (13:01→19:37)
[2017-03-08] MEDS: Morphine 15 MG Tab.ER PO SCH ×2 (13:02→19:37)
[2017-03-08] MEDS: Lidocaine 5% 700 MG Patch TRDERM SCH (19:36)
[2017-03-09] MEDS: Acetaminophen/HYDROcodone 325-10 MG Tab PO PRN (00:03)
[2017-03-09 07:13] LABS: CHLORIDE,CL 106 mmol/L (98-107); SODIUM,NA 142 mmol/L (136-145)
[2017-03-09] MEDS: Levothyroxine 25 MCG Tab PO SCH (07:25)
[2017-03-09] MEDS: Calcium Citrate 950 MG Tab PO SCH ×2 (08:03→17:34)
[2017-03-09] MEDS: DULoxetine 20 MG Cap PO SCH (08:04)
[2017-03-09] MEDS: Calcitonin (Salmon) Nasal Spray 3.7 ML Bottle NAS SCH (08:04)
[2017-03-09] MEDS: Morphine 15 MG Tab.ER PO SCH ×3 (08:05→20:03)
[2017-03-09] MEDS: Famotidine 20 MG Tab PO SCH ×2 (08:07→17:34)
[2017-03-09] MEDS: Gabapentin 400 MG Cap PO SCH ×3 (08:07→20:01)
[2017-03-09] MEDS: [UNRECOGNIZED DRUG - OTHER] TRDERM SCH (08:08)
[2017-03-09] MEDS: Cholecalciferol (Vitamin D3) 1,000 Unit Tab PO SCH ×2 (08:08→17:35)
[2017-03-09] MEDS: Lidocaine 5% 700 MG Patch TRDERM SCH (20:01)
[2017-03-10] MEDS: Acetaminophen/HYDROcodone 325-10 MG Tab PO PRN ×2 (01:14→16:34)
[2017-03-10] MEDS: Calcium Citrate 950 MG Tab PO SCH ×2 (07:56→17:19)
[2017-03-10] MEDS: Levothyroxine 25 MCG Tab PO SCH (07:56)
[2017-03-10] MEDS: DULoxetine 20 MG Cap PO SCH (07:57)
[2017-03-10] MEDS: Calcitonin (Salmon) Nasal Spray 3.7 ML Bottle NAS SCH (07:58)
[2017-03-10] MEDS: Morphine 15 MG Tab.ER PO SCH ×3 (07:59→19:31)
[2017-03-10] MEDS: Gabapentin 400 MG Cap PO SCH ×3 (08:01→19:30)
[2017-03-10] MEDS: Famotidine 20 MG Tab PO SCH ×2 (08:02→17:19)
[2017-03-10] MEDS: [UNRECOGNIZED DRUG - OTHER] TRDERM SCH (08:03)
[2017-03-10] MEDS: Cholecalciferol (Vitamin D3) 1,000 Unit Tab PO SCH (08:03)
[2017-03-10] MEDS: Lidocaine 5% 700 MG Patch TRDERM SCH (19:29)
[2017-03-11] MEDS: Acetaminophen/HYDROcodone 325-10 MG Tab PO PRN (03:23)
[2017-03-11] MEDS: Levothyroxine 25 MCG Tab PO SCH (07:53)
[2017-03-11] MEDS: Morphine 15 MG Tab.ER PO SCH ×2 (07:54→14:32)
[2017-03-11] MEDS: Calcitonin (Salmon) Nasal Spray 3.7 ML Bottle NAS SCH (07:54)
[2017-03-11] MEDS: Calcium Citrate 950 MG Tab PO SCH ×2 (08:21→17:32)
[2017-03-11] MEDS: Gabapentin 400 MG Cap PO SCH ×2 (08:22→14:32)
[2017-03-11] MEDS: DULoxetine 20 MG Cap PO SCH (08:22)
[2017-03-11] MEDS: [UNRECOGNIZED DRUG - OTHER] TRDERM SCH (08:23)
[2017-03-11] MEDS: Famotidine 20 MG Tab PO SCH ×2 (08:23→17:32)
[2017-03-11] MEDS: Cholecalciferol (Vitamin D3) 1,000 Unit Tab PO SCH (08:23)
[2017-03-11] MEDS: Lidocaine 5% 700 MG Patch TRDERM SCH (20:01)
[2017-03-11] MEDS: Gabapentin 300 MG Cap PO SCH (20:02)
[2017-03-12] MEDS: Acetaminophen/HYDROcodone 325-10 MG Tab PO PRN (06:10)
[2017-03-12] MEDS: Levothyroxine 25 MCG Tab PO SCH (07:42)
[2017-03-12] MEDS: Calcitonin (Salmon) Nasal Spray 3.7 ML Bottle NAS SCH (07:42)
[2017-03-12] MEDS: Calcium Citrate 950 MG Tab PO SCH ×2 (08:17→17:27)
[2017-03-12] MEDS: DULoxetine 20 MG Cap PO SCH (08:18)
[2017-03-12] MEDS: Morphine 15 MG Tab.ER PO SCH ×2 (08:19→19:16)
[2017-03-12] MEDS: Gabapentin 300 MG Cap PO SCH ×3 (08:21→19:11)
[2017-03-12] MEDS: Famotidine 20 MG Tab PO SCH ×2 (08:21→17:27)
[2017-03-12] MEDS: [UNRECOGNIZED DRUG - OTHER] TRDERM SCH (08:21)
[2017-03-12] MEDS: Cholecalciferol (Vitamin D3) 1,000 Unit Tab PO SCH (08:22)
[2017-03-12] MEDS: Lidocaine 5% 700 MG Patch TRDERM SCH (19:11)
[2017-03-13] MEDS: Levothyroxine 25 MCG Tab PO SCH (07:24)
[2017-03-13] MEDS: Calcitonin (Salmon) Nasal Spray 3.7 ML Bottle NAS SCH (07:24)
[2017-03-13] MEDS: Calcium Citrate 950 MG Tab PO SCH ×2 (07:48→17:11)
[2017-03-13] MEDS: Morphine 15 MG Tab.ER PO SCH ×2 (07:49→19:22)
[2017-03-13] MEDS: DULoxetine 20 MG Cap PO SCH (07:49)
[2017-03-13] MEDS: Famotidine 20 MG Tab PO SCH ×2 (07:51→17:12)
[2017-03-13] MEDS: Gabapentin 300 MG Cap PO SCH ×3 (07:51→19:22)
[2017-03-13] MEDS: [UNRECOGNIZED DRUG - OTHER] TRDERM SCH (07:52)
[2017-03-13] MEDS: Cholecalciferol (Vitamin D3) 1,000 Unit Tab PO SCH (07:52)
[2017-03-13] MEDS: Acetaminophen/HYDROcodone 325-10 MG Tab PO PRN (18:24)
[2017-03-13] MEDS: Lidocaine 5% 700 MG Patch TRDERM SCH (19:25)
[2017-03-14] MEDS: Levothyroxine 25 MCG Tab PO SCH (07:11)
[2017-03-14] MEDS: Calcitonin (Salmon) Nasal Spray 3.7 ML Bottle NAS SCH (07:11)
[2017-03-14] MEDS: Calcium Citrate 950 MG Tab PO SCH ×2 (07:37→17:19)
[2017-03-14] MEDS: Morphine 15 MG Tab.ER PO SCH (07:38)
[2017-03-14] MEDS: DULoxetine 20 MG Cap PO SCH (07:38)
[2017-03-14] MEDS: Famotidine 20 MG Tab PO SCH ×2 (07:40→17:20)
[2017-03-14] MEDS: Gabapentin 300 MG Cap PO SCH ×3 (07:40→19:43)
[2017-03-14] MEDS: [UNRECOGNIZED DRUG - OTHER] TRDERM SCH (07:41)
[2017-03-14] MEDS: Cholecalciferol (Vitamin D3) 1,000 Unit Tab PO SCH (07:41)
[2017-03-14] MEDS: Celecoxib 100 MG Cap PO SCH (17:26)
[2017-03-14] MEDS: Lidocaine 5% 700 MG Patch TRDERM SCH (19:43)
[2017-03-14] MEDS: Acetaminophen/HYDROcodone 325-10 MG Tab PO SCH (19:45)
[2017-03-15] MEDS: oxyCODONE 5 MG Tab PO PRN (05:35)
[2017-03-15] MEDS: Levothyroxine 25 MCG Tab PO SCH (07:19)
[2017-03-15] MEDS: Calcitonin (Salmon) Nasal Spray 3.7 ML Bottle NAS SCH (07:52)
[2017-03-15] MEDS: Calcium Citrate 950 MG Tab PO SCH ×2 (07:52→17:43)
[2017-03-15] MEDS: Gabapentin 300 MG Cap PO SCH ×3 (07:53→20:16)
[2017-03-15] MEDS: Famotidine 20 MG Tab PO SCH ×2 (07:55→17:44)
[2017-03-15] MEDS ORDERED: DULoxetine 20 MG Cap PO SCH (08:00)
[2017-03-15] MEDS: Celecoxib 100 MG Cap PO SCH ×2 (08:02→17:44)
[2017-03-15] MEDS: Acetaminophen/HYDROcodone 325-10 MG Tab PO SCH ×3 (08:03→20:17)
[2017-03-15] MEDS: Cholecalciferol (Vitamin D3) 1,000 Unit Tab PO SCH (08:05)
[2017-03-15] MEDS: [UNRECOGNIZED DRUG - OTHER] TRDERM SCH (08:11)
[2017-03-15] MEDS: DULoxetine 30 MG Cap PO SCH (08:51)
[2017-03-15] MEDS: Lidocaine 5% 700 MG Patch TRDERM SCH (20:16)
[2017-03-16] MEDS: oxyCODONE 5 MG Tab PO PRN (00:25)
[2017-03-16] MEDS: Acetaminophen/HYDROcodone 325-10 MG Tab PO SCH ×3 (07:20→19:09)
[2017-03-16] MEDS: Levothyroxine 25 MCG Tab PO SCH (07:23)
[2017-03-16] MEDS: Calcium Citrate 950 MG Tab PO SCH ×2 (08:19→17:23)
[2017-03-16] MEDS: DULoxetine 30 MG Cap PO SCH (08:20)
[2017-03-16] MEDS: Celecoxib 100 MG Cap PO SCH ×2 (08:20→17:24)
[2017-03-16] MEDS: Calcitonin (Salmon) Nasal Spray 3.7 ML Bottle NAS SCH (08:21)
[2017-03-16] MEDS: Gabapentin 300 MG Cap PO SCH ×3 (08:21→19:09)
[2017-03-16] MEDS: [UNRECOGNIZED DRUG - OTHER] TRDERM SCH (08:22)
[2017-03-16] MEDS: Famotidine 20 MG Tab PO SCH ×2 (08:22→17:24)
[2017-03-16] MEDS: Cholecalciferol (Vitamin D3) 1,000 Unit Tab PO SCH (08:22)
[2017-03-16] MEDS: Lidocaine 5% 700 MG Patch TRDERM SCH (19:07)
[2017-03-17] MEDS: Calcitonin (Salmon) Nasal Spray 3.7 ML Bottle NAS SCH (07:19)
[2017-03-17] MEDS: Levothyroxine 25 MCG Tab PO SCH (07:19)
[2017-03-17] MEDS: Celecoxib 100 MG Cap PO SCH ×2 (07:35→19:21)
[2017-03-17] MEDS: Calcium Citrate 950 MG Tab PO SCH ×2 (07:35→19:19)
[2017-03-17] MEDS: DULoxetine 30 MG Cap PO SCH (07:35)
[2017-03-17] MEDS: Gabapentin 300 MG Cap PO SCH ×3 (07:36→19:23)
[2017-03-17] MEDS: Acetaminophen/HYDROcodone 325-10 MG Tab PO SCH ×3 (07:37→19:26)
[2017-03-17] MEDS: Famotidine 20 MG Tab PO SCH ×2 (07:40→19:21)
[2017-03-17] MEDS: [UNRECOGNIZED DRUG - OTHER] TRDERM SCH (07:41)
[2017-03-17] MEDS: Cholecalciferol (Vitamin D3) 1,000 Unit Tab PO SCH (07:41)
[2017-03-17] MEDS: Lidocaine 5% 700 MG Patch TRDERM SCH (19:25)
[2017-03-18] MEDS: Levothyroxine 25 MCG Tab PO SCH (07:39)
[2017-03-18] MEDS: Calcitonin (Salmon) Nasal Spray 3.7 ML Bottle NAS SCH (07:40)
[2017-03-18] MEDS: Calcium Citrate 950 MG Tab PO SCH ×2 (08:03→17:36)
[2017-03-18] MEDS: Celecoxib 100 MG Cap PO SCH ×2 (08:03→17:37)
[2017-03-18] MEDS: Gabapentin 300 MG Cap PO SCH ×3 (08:04→20:20)
[2017-03-18] MEDS: Acetaminophen/HYDROcodone 325-10 MG Tab PO SCH ×3 (08:04→20:18)
[2017-03-18] MEDS: DULoxetine 30 MG Cap PO SCH (08:04)
[2017-03-18] MEDS: Famotidine 20 MG Tab PO SCH ×2 (08:06→17:37)
[2017-03-18] MEDS: [UNRECOGNIZED DRUG - OTHER] TRDERM SCH (08:06)
[2017-03-18] MEDS: Cholecalciferol (Vitamin D3) 1,000 Unit Tab PO SCH (08:07)
[2017-03-19] MEDS: Levothyroxine 25 MCG Tab PO SCH (07:40)
[2017-03-19] MEDS: Acetaminophen/HYDROcodone 325-10 MG Tab PO SCH ×3 (07:42→19:47)
[2017-03-19] MEDS: Calcium Citrate 950 MG Tab PO SCH ×2 (08:16→17:27)
[2017-03-19] MEDS: DULoxetine 30 MG Cap PO SCH (08:17)
[2017-03-19] MEDS: Celecoxib 100 MG Cap PO SCH ×2 (08:17→17:28)
[2017-03-19] MEDS: Calcitonin (Salmon) Nasal Spray 3.7 ML Bottle NAS SCH (08:18)
[2017-03-19] MEDS: Gabapentin 300 MG Cap PO SCH ×3 (08:19→19:46)
[2017-03-19] MEDS: Cholecalciferol (Vitamin D3) 1,000 Unit Tab PO SCH (08:19)
[2017-03-19] MEDS: Famotidine 20 MG Tab PO SCH ×2 (08:19→17:28)
[2017-03-20] MEDS: Levothyroxine 25 MCG Tab PO SCH (07:28)
[2017-03-20] MEDS: Calcium Citrate 950 MG Tab PO SCH ×2 (07:58→17:46)
[2017-03-20] MEDS: Celecoxib 100 MG Cap PO SCH ×2 (07:58→17:46)
[2017-03-20] MEDS: Calcitonin (Salmon) Nasal Spray 3.7 ML Bottle NAS SCH (07:59)
[2017-03-20] MEDS: Famotidine 20 MG Tab PO SCH ×2 (07:59→17:46)
[2017-03-20] MEDS: DULoxetine 30 MG Cap PO SCH (07:59)
[2017-03-20] MEDS: Gabapentin 300 MG Cap PO SCH ×3 (07:59→19:21)
[2017-03-20] MEDS: Cholecalciferol (Vitamin D3) 1,000 Unit Tab PO SCH (08:00)
[2017-03-20] MEDS: Acetaminophen/HYDROcodone 325-10 MG Tab PO SCH ×3 (08:01→19:21)
[2017-03-21] MEDS: Levothyroxine 25 MCG Tab PO SCH (07:25)
[2017-03-21] MEDS: Acetaminophen/HYDROcodone 325-10 MG Tab PO SCH ×3 (07:25→19:01)
[2017-03-21] MEDS: Calcium Citrate 950 MG Tab PO SCH ×2 (08:05→17:26)
[2017-03-21] MEDS: DULoxetine 30 MG Cap PO SCH (08:05)
[2017-03-21] MEDS: Celecoxib 100 MG Cap PO SCH ×2 (08:05→17:27)
[2017-03-21] MEDS: Calcitonin (Salmon) Nasal Spray 3.7 ML Bottle NAS SCH (08:06)
[2017-03-21] MEDS: Gabapentin 300 MG Cap PO SCH ×3 (08:06→19:01)
[2017-03-21] MEDS: Famotidine 20 MG Tab PO SCH ×2 (08:06→17:27)
[2017-03-21] MEDS: Cholecalciferol (Vitamin D3) 1,000 Unit Tab PO SCH (08:07)
[2017-03-22] MEDS: Levothyroxine 25 MCG Tab PO SCH (07:13)
[2017-03-22] MEDS: Acetaminophen/HYDROcodone 325-10 MG Tab PO SCH ×3 (07:13→19:01)
[2017-03-22] MEDS: Calcitonin (Salmon) Nasal Spray 3.7 ML Bottle NAS SCH (07:14)
[2017-03-22] MEDS: Celecoxib 100 MG Cap PO SCH ×2 (07:50→17:32)
[2017-03-22] MEDS: Famotidine 20 MG Tab PO SCH ×2 (07:50→17:32)
[2017-03-22] MEDS: Gabapentin 300 MG Cap PO SCH ×3 (07:50→19:01)
[2017-03-22] MEDS: Calcium Citrate 950 MG Tab PO SCH ×2 (07:50→17:32)
[2017-03-22] MEDS: DULoxetine 30 MG Cap PO SCH (07:50)
[2017-03-22] MEDS: Cholecalciferol (Vitamin D3) 1,000 Unit Tab PO SCH (07:51)
[2017-03-23] MEDS: Levothyroxine 25 MCG Tab PO SCH (06:56)
[2017-03-23] MEDS: DULoxetine 30 MG Cap PO SCH (07:34)
[2017-03-23] MEDS: Calcium Citrate 950 MG Tab PO SCH ×2 (07:34→17:18)
[2017-03-23] MEDS: Celecoxib 100 MG Cap PO SCH ×2 (07:34→17:18)
[2017-03-23] MEDS: Calcitonin (Salmon) Nasal Spray 3.7 ML Bottle NAS SCH (07:35)
[2017-03-23] MEDS: Gabapentin 300 MG Cap PO SCH ×3 (07:36→19:23)
[2017-03-23] MEDS: Acetaminophen/HYDROcodone 325-10 MG Tab PO SCH ×3 (07:36→19:24)
[2017-03-23] MEDS: Famotidine 20 MG Tab PO SCH ×2 (07:37→17:19)
[2017-03-23] MEDS: Cholecalciferol (Vitamin D3) 1,000 Unit Tab PO SCH (07:37)
[2017-03-24] MEDS: Levothyroxine 25 MCG Tab PO SCH (06:53)
[2017-03-24] MEDS: DULoxetine 30 MG Cap PO SCH (07:24)
[2017-03-24] MEDS: Celecoxib 100 MG Cap PO SCH ×2 (07:24→17:26)
[2017-03-24] MEDS: Calcium Citrate 950 MG Tab PO SCH ×2 (07:24→17:26)
[2017-03-24] MEDS: Gabapentin 300 MG Cap PO SCH ×3 (07:24→19:08)
[2017-03-24] MEDS: Calcitonin (Salmon) Nasal Spray 3.7 ML Bottle NAS SCH (07:24)
[2017-03-24] MEDS: Acetaminophen/HYDROcodone 325-10 MG Tab PO SCH ×3 (07:26→19:09)
[2017-03-24] MEDS: Famotidine 20 MG Tab PO SCH ×2 (07:27→17:26)
[2017-03-24] MEDS: Cholecalciferol (Vitamin D3) 1,000 Unit Tab PO SCH (07:27)
[2017-03-25] MEDS: Levothyroxine 25 MCG Tab PO SCH (07:24)
[2017-03-25] MEDS: Acetaminophen/HYDROcodone 325-10 MG Tab PO SCH ×3 (07:25→19:05)
[2017-03-25] MEDS: Calcium Citrate 950 MG Tab PO SCH ×2 (07:57→17:21)
[2017-03-25] MEDS: Celecoxib 100 MG Cap PO SCH ×2 (07:58→17:21)
[2017-03-25] MEDS: DULoxetine 30 MG Cap PO SCH (07:58)
[2017-03-25] MEDS: Multivitamin Tab PO SCH (07:59)
[2017-03-25] MEDS: Calcitonin (Salmon) Nasal Spray 3.7 ML Bottle NAS SCH (07:59)
[2017-03-25] MEDS: Famotidine 20 MG Tab PO SCH ×2 (07:59→17:21)
[2017-03-25] MEDS: Gabapentin 300 MG Cap PO SCH ×3 (07:59→19:05)
[2017-03-25] MEDS: Cholecalciferol (Vitamin D3) 1,000 Unit Tab PO SCH (08:00)
[2017-03-25] MEDS: Zinc (Zinc Gluconate) 50 MG Tab PO SCH (08:01)
[2017-03-26] MEDS: Levothyroxine 25 MCG Tab PO SCH (07:30)
[2017-03-26] MEDS: Acetaminophen/HYDROcodone 325-10 MG Tab PO SCH ×3 (07:30→19:28)
[2017-03-26 07:40] LABS: CHLORIDE,CL 105 mmol/L (98-107); SODIUM,NA 145 mmol/L (136-145)
[2017-03-26] MEDS: Calcium Citrate 950 MG Tab PO SCH ×2 (08:21→17:38)
[2017-03-26] MEDS: Celecoxib 100 MG Cap PO SCH ×2 (08:22→17:38)
[2017-03-26] MEDS: DULoxetine 30 MG Cap PO SCH (08:22)
[2017-03-26] MEDS: Gabapentin 300 MG Cap PO SCH ×3 (08:23→19:28)
[2017-03-26] MEDS: Calcitonin (Salmon) Nasal Spray 3.7 ML Bottle NAS SCH (08:23)
[2017-03-26] MEDS: Famotidine 20 MG Tab PO SCH ×2 (08:23→17:38)
[2017-03-26] MEDS: Multivitamin Tab PO SCH (08:24)
[2017-03-26] MEDS: Cholecalciferol (Vitamin D3) 1,000 Unit Tab PO SCH (08:24)
[2017-03-26] MEDS: Zinc (Zinc Gluconate) 50 MG Tab PO SCH (08:25)
--- NOTE | 2017-03-26 22:31 | PCM.PN ---
- General Info Date of Service: 03/26/17 Admission Dx/Problem (Free Text): Admission Diagnosis/Problem Admission Diagnosis/Problem Compression fracture Functional Status: Reports: pain controlled (she says she still has pain with movement but she thinks she is getting enough pain medication and does not want her pain medication increased) - Review of Systems General: Reports: No Symptoms HEENT: Reports: no symptoms Pulmonary: Reports: no symptoms Cardiovascular: Reports: No Symptoms Gastrointestinal: Reports: No symptoms Genitourinary: Reports: no symptoms Musculoskeletal: Reports: back pain, leg pain (improved) Skin: Reports: no symptoms Neurological: Reports: Confusion, Difficulty Walking, Weakness Psychiatric: Reports: no symptoms, other (she thinks she is ready to go home) - Patient Data Vitals - most recent: Last Vital Signs Temp 97.7 F 03/26/17 08:00 Pulse 96 03/26/17 08:00 Resp 17 03/26/17 08:00 BP 136/75 03/26/17 08:00 Pulse Ox 98 03/26/17 08:00 Weight - most recent: 169 lb 3.241 oz I&O - last 24 hours: Intake & Output 03/26/17 03/26/17 03/26/17 06:59 14:59 22:59 Intake Total 100 Balance 100 Lab Results last 24 hrs: Laboratory Results - last 24 hr 03/26/17 03/26/17 Range/Units 07:00 07:00 WBC 4.5 (4.0-10.2) K/uL RBC 4.36 (3.77-5.09) M/uL Hgb 13.9 (11.7-15.5) g/dL Hct 42.3 (34.0-46.0) % MCV 97.0 (84.0-98.0) fL MCH 31.9 (28.2-33.3) pg MCHC 32.9 (31.7-36.0) g/dL RDW 13.9 (11.2-14.1) % Plt Count 159 (150-350) K/uL Neut % (Auto) 61.8 (45.0-80.0) % Lymph % (Auto) 24.6 (10.0-50.0) % [place] % (Auto) 8.6 (2.0-14.0) % Eos % (Auto) 4.6 (0.0-5.0) % Baso % (Auto) 0.4 (0.0-2.0) % Neut # (Auto) 2.79 (1.40-7.00) K/uL Lymph # (Auto) 1.11 (0.50-3.50) K/uL [place] # (Auto) 0.39 (0.00-1.00) K/uL Eos # (Auto) 0.21 (0.00-0.50) K/uL Baso # (Auto) 0.02 (0.00-0.20) K/uL Sodium 145 (136-145) mmol/L Potassium 4.4 (3.5-5.1) mmol/L Chloride 105 (98-107) mmol/L Carbon Dioxide 33.4 H (21.0-32.0) mmol/L BUN 20 H (7-18) mg/dL Creatinine 0.74 (0.51-1.17) mg/dL Est Cr Clr Drug Dosing 50.97 mL/min Estimated GFR (MDRD) > 60 mL/min Glucose 86 (74-106) mg/dL Calcium 9.1 (8.5-10.1) mg/dL Total Bilirubin 0.4 (0.2-1.0) mg/dL AST 17 (15-37) U/L ALT 18 (12-78) U/L Alkaline Phosphatase 67 (46-116) IU/L Total Protein 6.1 L (6.4-8.2) g/dL Albumin 3.2 L (3.4-5.0) g/dL Med Orders - Current: Current Medications Hydrocodone Bitart/Acetaminophen ([place] 325-10 Mg) 1 tab PO TID@0800,1400,2000 [facility] Last Admin: 03/26/17 19:28 Dose: 1 tab Calcitonin Marcellus (Miacalcin Nasal [place]) 0 ml RADHA DAILY [facility] Last Admin: 03/26/17 08:23 Dose: 1 spray Calcium Citrate (Calcitrate) 950 mg PO BID [facility] Last Admin: 03/26/17 17:38 Dose: 950 mg Celecoxib (Celebrex) 100 mg PO BID [facility] Last Admin: 03/26/17 17:38 Dose: 100 mg Cholecalciferol (Vitamin D3) 4,000 units PO DAILY [facility] Last Admin: 03/26/17 08:24 Dose: 4,000 units Duloxetine HCl (Cymbalta) 30 mg PO DAILY [facility] Last Admin: 03/26/17 08:22 Dose: 30 mg Famotidine (Pepcid) 20 mg PO BID [facility] Last Admin: 03/26/17 17:38 Dose: 20 mg Gabapentin (Neurontin) 300 mg PO TID@0800,1400,2000 [facility] Last Admin: 03/26/17 19:28 Dose: 300 mg Levothyroxine Sodium (Levothyroxine) 25 mcg PO ACBREAKFAST [facility] Last Admin: 03/26/17 07:30 Dose: 25 mcg Loperamide HCl (Imodium Ad) 2 mg PO Q4H PRN PRN Reason: Diarrhea Last Admin: 02/20/17 14:14 Dose: 2 mg Multivitamins/Minerals/Vitamin C (Tab-A-Camila) 1 tab PO DAILY [facility] Last Admin: 03/26/17 08:24 Dose: 1 tab Oxycodone HCl (Oxycodone) 5 mg PO Q4H PRN PRN Reason: Pain Last Admin: 03/16/17 00:25 Dose: 5 mg Senna (Senna) 8.6 mg PO BID PRN PRN Reason: Constipation Last Admin: 03/02/17 08:11 Dose: 8.6 mg Zinc Gluconate (Zinc) 50 mg PO DAILY [facility] Last Admin: 03/26/17 08:25 Dose: 50 mg Discontinued Medications Acetaminophen (Tylenol) 650 mg PO Q6H PRN PRN Reason: Pain Last Admin: 01/20/17 07:39 Dose: 650 mg Acetaminophen (Tylenol Arthritis Pain) 650 mg PO Q12H [facility] Last Admin: 03/08/17 08:35 Dose: 650 mg Acetaminophen (Tylenol Arthritis Pain) 650 mg PO Q8H PRN PRN Reason: Pain Last Admin: 02/08/17 16:38 Dose: 650 mg Hydrocodone Bitart/Acetaminophen ([place] 325-5 Mg) 1 tab PO Q6H PRN PRN Reason: Pain Last Admin: 02/08/17 06:20 Dose: 1 tab Hydrocodone Bitart/Acetaminophen ([place] 325-10 Mg) 1 tab PO Q6H PRN PRN Reason: Pain Last Admin: 03/08/17 05:27 Dose: 1 tab Hydrocodone Bitart/Acetaminophen ([place] 325-10 Mg) 1 tab PO Q4H PRN PRN Reason: Pain Last Admin: 03/13/17 18:24 Dose: 1 tab Calcium Citrate (Calcitrate) 315 mg PO BID [facility] Last Admin: 02/17/17 19:39 Dose: Not Given Celecoxib (Celebrex) 100 mg PO BID [facility] Last Admin: 01/24/17 07:48 Dose: 100 mg Celecoxib (Celebrex) 100 mg PO DAILY@1800 [facility] Last Admin: 01/31/17 17:16 Dose: 100 mg Celecoxib (Celebrex) 100 mg PO BID [facility] Last Admin: 03/08/17 08:33 Dose: 100 mg Cholecalciferol (Vitamin D3) 2,000 units PO QAM [facility] Last Admin: 01/17/17 07:42 Dose: 2,000 units Cholecalciferol (Vitamin D3) 2,000 units PO BID [facility] Last Admin: 01/21/17 07:54 Dose: 2,000 units Cholecalciferol (Vitamin D3) 4,000 units PO BID [facility] Last Admin: 03/10/17 08:03 Dose: 4,000 units Duloxetine HCl (Cymbalta) 20 mg PO DAILY [facility] Last Admin: 03/14/17 07:38 Dose: 20 mg Duloxetine HCl (Cymbalta) 30 mg PO DAILY [facility] Last Admin: 03/15/17 08:58 Dose: Not Given Fentanyl (Sublimaze) 25 mcg IVPUSH Q4H PRN PRN Reason: Pain (severe 7-10) Last Admin: 01/16/17 08:24 Dose: 25 mcg Gabapentin (Neurontin) 100 mg PO BEDTIME [facility] Last Admin: 02/07/17 19:18 Dose: 100 mg Gabapentin (Neurontin) 300 mg PO Q12HR [facility] Last Admin: 02/26/17 08:20 Dose: 300 mg Gabapentin (Neurontin) 300 mg PO TID@0800,1400,1999 [facility] Last Admin: 03/08/17 08:34 Dose: 300 mg Gabapentin (Neurontin) 400 mg PO TID@0800,1400,1999 [facility] Last Admin: 03/11/17 14:32 Dose: 400 mg Levothyroxine Sodium (Levothyroxine) 25 mcg PO QAM [facility] Last Admin: 02/17/17 08:43 Dose: 25 mcg Lidocaine (Lidocaine 5% Paraben-Free) 140 mg TRDERM Q24H [facility] Last Admin: 03/07/17 19:16 Dose: 140 mg Lidocaine (Lidoderm 5%) 700 mg TRDERM Q24H [facility] Last Admin: 03/17/17 19:25 Dose: Not Given Loperamide HCl (Imodium Ad) 4 mg PO DAILY [facility] Last Admin: 01/19/17 07:44 Dose: 4 mg Miscellaneous Information (Remove Patch) 1 ea TRDERM DAILY@0800 [facility] Last Admin: 03/08/17 08:35 Dose: 1 ea Miscellaneous Information (Remove Patch) 1 ea TRDERM DAILY@0800 [facility] Last Admin: 03/18/17 08:06 Dose: 1 ea Morphine Sulfate (Ms Contin) 15 mg PO TID@0800,1400,2000 [facility] Last Admin: 03/11/17 14:32 Dose: 15 mg Morphine Sulfate (Ms Contin) 15 mg PO Q12HR [facility] Last Admin: 03/14/17 07:38 Dose: 15 mg Sodium Chloride (Saline Flush) 10 ml FLUSH ASDIRECTED PRN PRN Reason: flush Last Admin: 01/16/17 08:28 Dose: 10 ml Sodium Chloride (Saline Flush) 10 ml FLUSH BID [facility] Last Admin: 01/19/17 17:31 Dose: 10 ml Tramadol HCl (Ultram) 50 mg PO Q6H PRN PRN Reason: Pain (moderate 4-6) Last Admin: 02/25/17 12:03 Dose: 50 mg Tramadol HCl (Ultram) 50 mg PO Q12H [facility] Last Admin: 03/08/17 08:37 Dose: 50 mg - Exam General: alert, cooperative, no acute distress HEENT: Mucous membr. moist/pink, Other (decreased visual acuity) Neck: trachea midline, no JVD Lungs: Clear to auscultation, Normal respiratory effort Cardiovascular: Irregular Rhythm Abdomen: bowel sounds present, soft, no tenderness, no distension (Female) Exam: Deferred Back Exam: Decreased Range of Motion, Paraspinal Tenderness, Other (kyphosis) Extremities: no edema, no calf tenderness Skin: warm, dry, intact Wound/Incisions: healing well, no drainage, decubitis (coccyx) Neurological: no new focal deficit Psy/Mental Status: alert, normal affect, normal mood - Problem List & Annotations (1) COPD (chronic obstructive pulmonary disease) SNOMED Code(s): 30698498 Code(s): J44.9 - CHRONIC OBSTRUCTIVE PULMONARY DISEASE, UNSPECIFIED Status : Acute Priority: Medium Current Visit: No Annotation/Comment:: No recent history of bronchitic-type symptoms, fever, etc. with patient not using any medications currently for her COPD/pulmonary fibrosis. Consider PFTs on an outpatient basis (2) Compression fracture of L5 lumbar vertebra SNOMED Code(s): 547672563 Code(s): S32.050A - WEDGE COMPRESSION FRACTURE OF FIFTH LUMBAR VERTEBRA, INIT Status: Acute Priority: High Current Visit: No (3) Degenerative joint disease (DJD) of lumbar spine Status: Acute Current Visit: No Qualifiers: Spinal osteoarthritis complication: with radiculopathy Qualified Code(s): M47.26 - Other spondylosis with radiculopathy, lumbar region (4) Heart disease SNOMED Code(s): 07033852 Code(s): I51.9 - HEART DISEASE, UNSPECIFIED Status: Acute Priority: High Current Visit: No Annotation/Comment:: Chest Pain protocol was not initiated in the emergency room secondary to absence of anginal-type symptoms. Note history of distant atrial fibrillation with no current anticoagulation therapy. Complete bifascicular bundle-branch, sinus arrhythmia, and sinus bradycardia with multiple previous negative Persantine Cardiolite evaluations as below. Note CHF as above with consideration of an echocardiogram on an outpatient basis. Cardiology consultation as needed. (5) Low back pain SNOMED Code(s): 679710152 Code(s): M54.5 - LOW BACK PAIN Status: Acute Priority: High Current Visit: No Qualifiers: Chronicity: acute Back pain laterality: right Sciatica laterality: sciatica of right side (6) Macular degeneration SNOMED Code(s): 356942348 Code(s): H35.30 - UNSPECIFIED MACULAR DEGENERATION Status: Acute Current Visit: No (7) Right sided sciatica SNOMED Code(s): 40470104 Code(s): M54.31 - SCIATICA, RIGHT SIDE Status: Acute Priority: High Current Visit: No Onset Date: Unknown Annotation/Comment:: improved since yesterday but still present. (8) Spinal stenosis of lumbar region at multiple levels SNOMED Code(s): 06372580 Code(s): M48.06 - SPINAL STENOSIS, LUMBAR REGION Status: Acute Priority: High Current Visit: No (9) Hyperlipidemia SNOMED Code(s): 74067542 Code(s): E78.5 - HYPERLIPIDEMIA, UNSPECIFIED Status: Chronic Priority: Low Current Visit: No Annotation/Comment:: Medically treated with repeat lipid panel per discretion of her providers at [facility] (10) Hypertension SNOMED Code(s): 21206715 Code(s): I10 - ESSENTIAL (PRIMARY) HYPERTENSION Status: Chronic Priority : Low Current Visit: No Annotation/Comment:: Currently on no medication for HTN due to episodes of dizziness in past. (11) Hypothyroidism SNOMED Code(s): 20365146 Code(s): E03.9 - HYPOTHYROIDISM, UNSPECIFIED Status: Chronic Priority: Low Current Visit: No (12) Obesity SNOMED Code(s): 822995770 Code(s): E66.9 - OBESITY, UNSPECIFIED Status: Chronic Priority: Low Current Visit: No (13) Osteoarthritis SNOMED Code(s): 713976212 Code(s): M19.90 - UNSPECIFIED OSTEOARTHRITIS, UNSPECIFIED SITE Status: Chronic Priority: Low Current Visit: No Qualifiers: Osteoarthritis location: spine Spinal region: lumbosacral Spinal osteoarthritis complication: with radiculopathy Qualified Code(s): M47.27 - Other spondylosis with radiculopathy, lumbosacral region Annotation/Comment:: Stable by patient history despite history of spinal stenosis (14) TIA (transient ischemic attack) SNOMED Code(s): 968333343, 271274222 Code(s): G45.9 - TRANSIENT CEREBRAL ISCHEMIC ATTACK, UNSPECIFIED Status: Suspected Current Visit: No - Problem List Review Problem List Initiated/Reviewed/Updated: Yes - My Orders Last 24 Hours: My Active Orders 03/26/17 07:00 GABAPENTIN [REF] Routine 03/29/17 08:00 Consult to Occupational Therapy [OT Evaluation and Treatment] [CONS] Routine - Plan Plan:: 01/13/17 Ever Marino MD Severe low back pain. Treated with IV solumedrol, IV toradol, for right sciatica. Lumbar CT today reveals acute compression fracture L5, spinal stenosis , DJD lumbar spine. Platelets decreasing so IV toradol stopped. Miacalcin started. Needs swing bed status for continued pain control, monitoring renal function, platelet level and PT-OT. 01/21/17 Ever Marino MD Still with severe pain into right leg. On scheduled tylenol, scheduled tramadol , scheduled NSAID (celebrex) and prn pain medications. PT working with her. Will order MRI. 01/27/17 Ever Marino MD Still with pain right low back, right hip and right lateral thigh. MRI 25% loss of vertebral height compression fracture of L1. L4-L5 severe central stenosis, advanced facet arthropathy, diffuse bulging disc. Discussed options with her and daughter Ashley. PT starting to help pain. She continues on scheduled tylenol , scheduled tramadol, scheduled NSAID (celebrex), calcitonin, vitamin D, and lidocaine patch and prn pain medications. 02/08/17 Ever Marino MD Still with significant right lower back and right leg pain. Increase in pain pill has helped. She continues with PT. She has appointment with [facility] Wednesday02/15/17, 1300 x-rays and appointment with Dr.Dan Parnell 1340. Continue PT-OT. 03/26/17 Ever Marino MD She says her pain is improved. In fact she thinks she is good enough to go home. Questions about the doctor appointments in [place]. She does not think the appointments have helped her. Will obtain OT evaluation for home safety next week and review notes from [place].
[2017-03-27] MEDS: Levothyroxine 25 MCG Tab PO SCH (08:11)
[2017-03-27] MEDS: Celecoxib 100 MG Cap PO SCH ×2 (08:11→17:57)
[2017-03-27] MEDS: Gabapentin 300 MG Cap PO SCH ×3 (08:14→19:13)
[2017-03-27] MEDS: DULoxetine 30 MG Cap PO SCH (08:14)
[2017-03-27] MEDS: Calcium Citrate 950 MG Tab PO SCH ×2 (08:14→17:57)
[2017-03-27] MEDS: Calcitonin (Salmon) Nasal Spray 3.7 ML Bottle NAS SCH (08:14)
[2017-03-27] MEDS: Famotidine 20 MG Tab PO SCH ×2 (08:14→17:57)
[2017-03-27] MEDS: Acetaminophen/HYDROcodone 325-10 MG Tab PO SCH ×3 (08:15→19:13)
[2017-03-27] MEDS: Multivitamin Tab PO SCH (08:16)
[2017-03-27] MEDS: Cholecalciferol (Vitamin D3) 1,000 Unit Tab PO SCH (08:16)
[2017-03-27] MEDS: Zinc (Zinc Gluconate) 50 MG Tab PO SCH (08:17)
[2017-03-28] MEDS: Gabapentin 300 MG Cap PO SCH ×3 (07:38→19:12)
[2017-03-28] MEDS: Celecoxib 100 MG Cap PO SCH ×2 (07:38→18:17)
[2017-03-28] MEDS: DULoxetine 30 MG Cap PO SCH (07:38)
[2017-03-28] MEDS: Levothyroxine 25 MCG Tab PO SCH (07:38)
[2017-03-28] MEDS: Famotidine 20 MG Tab PO SCH ×2 (07:39→18:17)
[2017-03-28] MEDS: Calcium Citrate 950 MG Tab PO SCH ×2 (07:39→18:22)
[2017-03-28] MEDS: Acetaminophen/HYDROcodone 325-10 MG Tab PO SCH ×3 (07:40→19:13)
[2017-03-28] MEDS: Calcitonin (Salmon) Nasal Spray 3.7 ML Bottle NAS SCH (07:41)
[2017-03-28] MEDS: Multivitamin Tab PO SCH (07:42)
[2017-03-28] MEDS: Cholecalciferol (Vitamin D3) 1,000 Unit Tab PO SCH (07:43)
[2017-03-28] MEDS: Zinc (Zinc Gluconate) 50 MG Tab PO SCH (07:44)
[2017-03-29] MEDS: Calcium Citrate 950 MG Tab PO SCH ×2 (08:23→17:10)
[2017-03-29] MEDS: Levothyroxine 25 MCG Tab PO SCH (08:23)
[2017-03-29] MEDS: Calcitonin (Salmon) Nasal Spray 3.7 ML Bottle NAS SCH (08:24)
[2017-03-29] MEDS: Celecoxib 100 MG Cap PO SCH ×2 (08:24→17:10)
[2017-03-29] MEDS: DULoxetine 30 MG Cap PO SCH (08:24)
[2017-03-29] MEDS: Multivitamin Tab PO SCH (08:25)
[2017-03-29] MEDS: Famotidine 20 MG Tab PO SCH ×2 (08:25→17:10)
[2017-03-29] MEDS: Acetaminophen/HYDROcodone 325-10 MG Tab PO SCH ×3 (08:25→19:54)
[2017-03-29] MEDS: Gabapentin 300 MG Cap PO SCH ×3 (08:25→19:54)
[2017-03-29] MEDS: Cholecalciferol (Vitamin D3) 1,000 Unit Tab PO SCH (08:26)
[2017-03-29] MEDS: Zinc (Zinc Gluconate) 50 MG Tab PO SCH (08:26)
--- NOTE | 2017-03-29 20:14 | PCM.PN ---
- General Info Date of Service: 03/29/17 Admission Dx/Problem (Free Text): Admission Diagnosis/Problem Admission Diagnosis/Problem Compression fracture Functional Status: Reports: pain controlled, tolerating diet, ambulating - Review of Systems General: Reports: Weakness HEENT: Reports: other (decreased visual acuity) Pulmonary: Reports: no symptoms Cardiovascular: Reports: No Symptoms Gastrointestinal: Reports: No symptoms Genitourinary: Reports: no symptoms Musculoskeletal: Reports: back pain (improved), leg pain (improved) Skin: Reports: no symptoms Neurological: Reports: Confusion, Difficulty Walking (walks with walker) Psychiatric: Reports: confusion, depression - Patient Data Vitals - most recent: Last Vital Signs Temp 97 F 03/29/17 08:00 Pulse 99 03/29/17 08:00 Resp 18 03/29/17 08:00 BP 115/60 03/29/17 08:00 Pulse Ox 97 03/29/17 08:00 Weight - most recent: 169 lb 3.241 oz I&O - last 24 hours: Intake & Output 03/29/17 03/29/17 03/29/17 06:59 14:59 22:59 Intake Total 240 240 Balance 240 240 Med Orders - Current: Current Medications Hydrocodone Bitart/Acetaminophen (Tarzana 325-10 Mg) 1 tab PO TID@0800,1399,1999 [facility] Last Admin: 03/29/17 19:54 Dose: 1 tab Calcitonin Bronson (Miacalcin Nasal [place]) 0 ml RADHA DAILY [facility] Last Admin: 03/29/17 08:24 Dose: 1 spray Calcium Citrate (Calcitrate) 950 mg PO BID [facility] Last Admin: 03/29/17 17:10 Dose: 950 mg Celecoxib (Celebrex) 100 mg PO BID [facility] Last Admin: 03/29/17 17:10 Dose: 100 mg Cholecalciferol (Vitamin D3) 4,000 units PO DAILY [facility] Last Admin: 03/29/17 08:26 Dose: 4,000 units Duloxetine HCl (Cymbalta) 30 mg PO DAILY [facility] Last Admin: 03/29/17 08:24 Dose: 30 mg Famotidine (Pepcid) 20 mg PO BID [facility] Last Admin: 03/29/17 17:10 Dose: 20 mg Gabapentin (Neurontin) 300 mg PO TID@0800,1399,1999 [facility] Last Admin: 03/29/17 19:54 Dose: 300 mg Levothyroxine Sodium (Levothyroxine) 25 mcg PO ACBREAKFAST [facility] Last Admin: 03/29/17 08:23 Dose: 25 mcg Loperamide HCl (Imodium Ad) 2 mg PO Q4H PRN PRN Reason: Diarrhea Last Admin: 02/20/17 14:14 Dose: 2 mg Multivitamins/Minerals/Vitamin C (Tab-A-Camila) 1 tab PO DAILY [facility] Last Admin: 03/29/17 08:25 Dose: 1 tab Oxycodone HCl (Oxycodone) 5 mg PO Q4H PRN PRN Reason: Pain Last Admin: 03/16/17 00:25 Dose: 5 mg Senna (Senna) 8.6 mg PO BID PRN PRN Reason: Constipation Last Admin: 03/02/17 08:11 Dose: 8.6 mg Zinc Gluconate (Zinc) 50 mg PO DAILY [facility] Last Admin: 03/29/17 08:26 Dose: 50 mg Discontinued Medications Acetaminophen (Tylenol) 650 mg PO Q6H PRN PRN Reason: Pain Last Admin: 01/20/17 07:39 Dose: 650 mg Acetaminophen (Tylenol Arthritis Pain) 650 mg PO Q12H [facility] Last Admin: 03/08/17 08:35 Dose: 650 mg Acetaminophen (Tylenol Arthritis Pain) 650 mg PO Q8H PRN PRN Reason: Pain Last Admin: 02/08/17 16:38 Dose: 650 mg Hydrocodone Bitart/Acetaminophen (Tarzana 325-5 Mg) 1 tab PO Q6H PRN PRN Reason: Pain Last Admin: 02/08/17 06:20 Dose: 1 tab Hydrocodone Bitart/Acetaminophen (Tarzana 325-10 Mg) 1 tab PO Q6H PRN PRN Reason: Pain Last Admin: 03/08/17 05:27 Dose: 1 tab Hydrocodone Bitart/Acetaminophen (Tarzana 325-10 Mg) 1 tab PO Q4H PRN PRN Reason: Pain Last Admin: 03/13/17 18:24 Dose: 1 tab Calcium Citrate (Calcitrate) 315 mg PO BID [facility] Last Admin: 02/17/17 19:39 Dose: Not Given Celecoxib (Celebrex) 100 mg PO BID [facility] Last Admin: 01/24/17 07:48 Dose: 100 mg Celecoxib (Celebrex) 100 mg PO DAILY@1800 [facility] Last Admin: 01/31/17 17:16 Dose: 100 mg Celecoxib (Celebrex) 100 mg PO BID [facility] Last Admin: 03/08/17 08:33 Dose: 100 mg Cholecalciferol (Vitamin D3) 2,000 units PO QAM [facility] Last Admin: 01/17/17 07:42 Dose: 2,000 units Cholecalciferol (Vitamin D3) 2,000 units PO BID [facility] Last Admin: 01/21/17 07:54 Dose: 2,000 units Cholecalciferol (Vitamin D3) 4,000 units PO BID [facility] Last Admin: 03/10/17 08:03 Dose: 4,000 units Duloxetine HCl (Cymbalta) 20 mg PO DAILY [facility] Last Admin: 03/14/17 07:38 Dose: 20 mg Duloxetine HCl (Cymbalta) 30 mg PO DAILY [facility] Last Admin: 03/15/17 08:58 Dose: Not Given Fentanyl (Sublimaze) 25 mcg IVPUSH Q4H PRN PRN Reason: Pain (severe 7-10) Last Admin: 01/16/17 08:24 Dose: 25 mcg Gabapentin (Neurontin) 100 mg PO BEDTIME [facility] Last Admin: 02/07/17 19:18 Dose: 100 mg Gabapentin (Neurontin) 300 mg PO Q12HR [facility] Last Admin: 02/26/17 08:20 Dose: 300 mg Gabapentin (Neurontin) 300 mg PO TID@0800,1400,2000 [facility] Last Admin: 03/08/17 08:34 Dose: 300 mg Gabapentin (Neurontin) 400 mg PO TID@0800,1400,2000 [facility] Last Admin: 03/11/17 14:32 Dose: 400 mg Levothyroxine Sodium (Levothyroxine) 25 mcg PO QAM [facility] Last Admin: 02/17/17 08:43 Dose: 25 mcg Lidocaine (Lidocaine 5% Paraben-Free) 140 mg TRDERM Q24H [facility] Last Admin: 03/07/17 19:16 Dose: 140 mg Lidocaine (Lidoderm 5%) 700 mg TRDERM Q24H [facility] Last Admin: 03/17/17 19:25 Dose: Not Given Loperamide HCl (Imodium Ad) 4 mg PO DAILY [facility] Last Admin: 01/19/17 07:44 Dose: 4 mg Miscellaneous Information (Remove Patch) 1 ea TRDERM DAILY@0800 [facility] Last Admin: 03/08/17 08:35 Dose: 1 ea Miscellaneous Information (Remove Patch) 1 ea TRDERM DAILY@0800 [facility] Last Admin: 03/18/17 08:06 Dose: 1 ea Morphine Sulfate (Ms Contin) 15 mg PO TID@0800,1400,2000 [facility] Last Admin: 03/11/17 14:32 Dose: 15 mg Morphine Sulfate (Ms Contin) 15 mg PO Q12HR [facility] Last Admin: 03/14/17 07:38 Dose: 15 mg Sodium Chloride (Saline Flush) 10 ml FLUSH ASDIRECTED PRN PRN Reason: flush Last Admin: 01/16/17 08:28 Dose: 10 ml Sodium Chloride (Saline Flush) 10 ml FLUSH BID [facility] Last Admin: 01/19/17 17:31 Dose: 10 ml Tramadol HCl (Ultram) 50 mg PO Q6H PRN PRN Reason: Pain (moderate 4-6) Last Admin: 02/25/17 12:03 Dose: 50 mg Tramadol HCl (Ultram) 50 mg PO Q12H [facility] Last Admin: 03/08/17 08:37 Dose: 50 mg - Exam General: alert, cooperative, no acute distress HEENT: Mucous membr. moist/pink Neck: trachea midline, no JVD Lungs: Normal respiratory effort, Decreased breath sounds Cardiovascular: Irregular Rhythm Abdomen: bowel sounds present, soft, no tenderness, no distension (Female) Exam: Deferred Back Exam: Decreased Range of Motion, Paraspinal Tenderness, Other (kyphosis, lordosis) Extremities: no edema, no calf tenderness Skin: warm, dry, intact Neurological: no new focal deficit Psy/Mental Status: alert, depressed - Problem List & Annotations (1) COPD (chronic obstructive pulmonary disease) SNOMED Code(s): 71162856 Code(s): J44.9 - CHRONIC OBSTRUCTIVE PULMONARY DISEASE, UNSPECIFIED Status : Acute Priority: Medium Current Visit: No Annotation/Comment:: No recent history of bronchitic-type symptoms, fever, etc. with patient not using any medications currently for her COPD/pulmonary fibrosis. Consider PFTs on an outpatient basis (2) Compression fracture of L5 lumbar vertebra SNOMED Code(s): 366496247 Code(s): S32.050A - WEDGE COMPRESSION FRACTURE OF FIFTH LUMBAR VERTEBRA, INIT Status: Acute Priority: High Current Visit: No (3) Degenerative joint disease (DJD) of lumbar spine Status: Acute Current Visit: No Qualifiers: Spinal osteoarthritis complication: with radiculopathy Qualified Code(s): M47.26 - Other spondylosis with radiculopathy, lumbar region (4) Heart disease SNOMED Code(s): 47778661 Code(s): I51.9 - HEART DISEASE, UNSPECIFIED Status: Acute Priority: High Current Visit: No Annotation/Comment:: Chest Pain protocol was not initiated in the emergency room secondary to absence of anginal-type symptoms. Note history of distant atrial fibrillation with no current anticoagulation therapy. Complete bifascicular bundle-branch, sinus arrhythmia, and sinus bradycardia with multiple previous negative Persantine Cardiolite evaluations as below. Note CHF as above with consideration of an echocardiogram on an outpatient basis. Cardiology consultation as needed. (5) Low back pain SNOMED Code(s): 172135813 Code(s): M54.5 - LOW BACK PAIN Status: Acute Priority: High Current Visit: No Qualifiers: Chronicity: acute Back pain laterality: right Sciatica laterality: sciatica of right side (6) Macular degeneration SNOMED Code(s): 641616654 Code(s): H35.30 - UNSPECIFIED MACULAR DEGENERATION Status: Acute Current Visit: No (7) Right sided sciatica SNOMED Code(s): 68660312 Code(s): M54.31 - SCIATICA, RIGHT SIDE Status: Acute Priority: High Current Visit: No Onset Date: Unknown Annotation/Comment:: improved since yesterday but still present. (8) Spinal stenosis of lumbar region at multiple levels SNOMED Code(s): 00216267 Code(s): M48.06 - SPINAL STENOSIS, LUMBAR REGION Status: Acute Priority: High Current Visit: No (9) Hyperlipidemia SNOMED Code(s): 01530214 Code(s): E78.5 - HYPERLIPIDEMIA, UNSPECIFIED Status: Chronic Priority: Low Current Visit: No Annotation/Comment:: Medically treated with repeat lipid panel per discretion of her providers at [facility] (10) Hypertension SNOMED Code(s): 87271251 Code(s): I10 - ESSENTIAL (PRIMARY) HYPERTENSION Status: Chronic Priority : Low Current Visit: No Annotation/Comment:: Currently on no medication for HTN due to episodes of dizziness in past. (11) Hypothyroidism SNOMED Code(s): 78582172 Code(s): E03.9 - HYPOTHYROIDISM, UNSPECIFIED Status: Chronic Priority: Low Current Visit: No (12) Obesity SNOMED Code(s): 508443097 Code(s): E66.9 - OBESITY, UNSPECIFIED Status: Chronic Priority: Low Current Visit: No (13) Osteoarthritis SNOMED Code(s): 005634576 Code(s): M19.90 - UNSPECIFIED OSTEOARTHRITIS, UNSPECIFIED SITE Status: Chronic Priority: Low Current Visit: No Qualifiers: Osteoarthritis location: spine Spinal region: lumbosacral Spinal osteoarthritis complication: with radiculopathy Qualified Code(s): M47.27 - Other spondylosis with radiculopathy, lumbosacral region Annotation/Comment:: Stable by patient history despite history of spinal stenosis (14) TIA (transient ischemic attack) SNOMED Code(s): 204618464, 167444620 Code(s): G45.9 - TRANSIENT CEREBRAL ISCHEMIC ATTACK, UNSPECIFIED Status: Suspected Current Visit: No (15) Depressed affect SNOMED Code(s): 332882704 Code(s): R45.89 - OTHER SYMPTOMS AND SIGNS INVOLVING EMOTIONAL STATE Status : Acute Priority: High Current Visit: Yes - Problem List Review Problem List Initiated/Reviewed/Updated: Yes - My Orders Last 24 Hours: My Active Orders 03/29/17 08:00 Consult to Occupational Therapy [OT Evaluation and Treatment] [CONS] Routine - Plan Plan:: 01/13/17 Ever Marino MD Severe low back pain. Treated with IV solumedrol, IV toradol, for right sciatica. Lumbar CT today reveals acute compression fracture L5, spinal stenosis , DJD lumbar spine. Platelets decreasing so IV toradol stopped. Miacalcin started. Needs swing bed status for continued pain control, monitoring renal function, platelet level and PT-OT. 01/21/17 Ever Marino MD Still with severe pain into right leg. On scheduled tylenol, scheduled tramadol , scheduled NSAID (celebrex) and prn pain medications. PT working with her. Will order MRI. 01/27/17 Ever Marino MD Still with pain right low back, right hip and right lateral thigh. MRI 25% loss of vertebral height compression fracture of L1. L4-L5 severe central stenosis, advanced facet arthropathy, diffuse bulging disc. Discussed options with her and daughter Ashley. PT starting to help pain. She continues on scheduled tylenol , scheduled tramadol, scheduled NSAID (celebrex), calcitonin, vitamin D, and lidocaine patch and prn pain medications. 02/08/17 Ever Marino MD Still with significant right lower back and right leg pain. Increase in pain pill has helped. She continues with PT. She has appointment with [facility] Wednesday02/15/17, 1300 x-rays and appointment with Dr.Dan Parnell 1340. Continue PT-OT. 03/26/17 Ever Marino MD She says her pain is improved. In fact she thinks she is good enough to go home. Questions about the doctor appointments in [place]. She does not think the appointments have helped her. Will obtain OT evaluation for home safety next week and review notes from [place]. 03/29/17 Ever Marino MD She says she is about the same. She was seen by OT today. She is still not dressing herself. [id number] not here at this time. I did call her cell phone [phone] but no answer.
[2017-03-30] MEDS: Levothyroxine 25 MCG Tab PO SCH (07:09)
[2017-03-30] MEDS: Calcium Citrate 950 MG Tab PO SCH ×2 (07:41→17:49)
[2017-03-30] MEDS: Calcitonin (Salmon) Nasal Spray 3.7 ML Bottle NAS SCH (07:42)
[2017-03-30] MEDS: Celecoxib 100 MG Cap PO SCH ×2 (07:42→17:50)
[2017-03-30] MEDS: DULoxetine 30 MG Cap PO SCH (07:42)
[2017-03-30] MEDS: Gabapentin 300 MG Cap PO SCH ×2 (07:42→17:45)
[2017-03-30] MEDS: Acetaminophen/HYDROcodone 325-10 MG Tab PO SCH ×3 (07:43→19:13)
[2017-03-30] MEDS: Famotidine 20 MG Tab PO SCH ×2 (07:45→17:50)
[2017-03-30] MEDS: Zinc (Zinc Gluconate) 50 MG Tab PO SCH (07:46)
[2017-03-30] MEDS: Multivitamin Tab PO SCH (07:46)
[2017-03-30] MEDS: Cholecalciferol (Vitamin D3) 1,000 Unit Tab PO SCH (07:46)
--- NOTE | 2017-03-30 18:53 | PCM.PN ---
- General Info Date of Service: 03/30/17 Functional Status: Reports: tolerating diet, new symptoms (increased weakness) - Review of Systems General: Reports: Weakness HEENT: Reports: other (decreased visual acuity) Pulmonary: Reports: no symptoms Cardiovascular: Reports: No Symptoms Gastrointestinal: Reports: No symptoms Genitourinary: Reports: no symptoms Musculoskeletal: Reports: back pain, leg pain Skin: Reports: no symptoms Neurological: Reports: Confusion, Difficulty Walking, Weakness Psychiatric: Reports: depression - Patient Data Vitals - most recent: Last Vital Signs Temp 97.9 F 03/30/17 08:00 Pulse 80 03/30/17 08:00 Resp 18 03/30/17 08:00 BP 103/61 03/30/17 08:00 Pulse Ox 97 03/30/17 08:00 Weight - most recent: 169 lb 3.241 oz I&O - last 24 hours: Intake & Output 03/30/17 03/30/17 03/30/17 06:59 14:59 22:59 Intake Total 100 Balance 100 Med Orders - Current: Current Medications Hydrocodone Bitart/Acetaminophen ([place] 325-10 Mg) 1 tab PO TID@0800,1400,2000 [facility] Last Admin: 03/30/17 17:47 Dose: 1 tab Alendronate Sodium (Fosamax) 70 mg PO Q7D@0600 [facility] Calcium Citrate (Calcitrate) 950 mg PO BID [facility] Last Admin: 03/30/17 17:49 Dose: 950 mg Celecoxib (Celebrex) 100 mg PO BID [facility] Last Admin: 03/30/17 17:50 Dose: 100 mg Cholecalciferol (Vitamin D3) 4,000 units PO DAILY [facility] Last Admin: 03/30/17 07:46 Dose: 4,000 units Duloxetine HCl (Cymbalta) 30 mg PO DAILY [facility] Last Admin: 03/30/17 07:42 Dose: 30 mg Famotidine (Pepcid) 20 mg PO BID [facility] Last Admin: 03/30/17 17:50 Dose: 20 mg Gabapentin (Neurontin) 300 mg PO BID@0800,1400 [facility] Gabapentin (Neurontin) 600 mg PO BEDTIME [facility] Levothyroxine Sodium (Levothyroxine) 25 mcg PO ACBREAKFAST [facility] Last Admin: 03/30/17 07:09 Dose: 25 mcg Loperamide HCl (Imodium Ad) 2 mg PO Q4H PRN PRN Reason: Diarrhea Last Admin: 02/20/17 14:14 Dose: 2 mg Multivitamins/Minerals/Vitamin C (Tab-A-Camila) 1 tab PO DAILY@1200 [facility] Oxycodone HCl (Oxycodone) 5 mg PO Q4H PRN PRN Reason: Pain Last Admin: 03/16/17 00:25 Dose: 5 mg Senna (Senna) 8.6 mg PO BID PRN PRN Reason: Constipation Last Admin: 03/02/17 08:11 Dose: 8.6 mg Zinc Gluconate (Zinc) 50 mg PO DAILY@1200 [facility] Discontinued Medications Acetaminophen (Tylenol) 650 mg PO Q6H PRN PRN Reason: Pain Last Admin: 01/20/17 07:39 Dose: 650 mg Acetaminophen (Tylenol Arthritis Pain) 650 mg PO Q12H [facility] Last Admin: 03/08/17 08:35 Dose: 650 mg Acetaminophen (Tylenol Arthritis Pain) 650 mg PO Q8H PRN PRN Reason: Pain Last Admin: 02/08/17 16:38 Dose: 650 mg Hydrocodone Bitart/Acetaminophen ([place]ier 325-5 Mg) 1 tab PO Q6H PRN PRN Reason: Pain Last Admin: 02/08/17 06:20 Dose: 1 tab Hydrocodone Bitart/Acetaminophen ([place] 325-10 Mg) 1 tab PO Q6H PRN PRN Reason: Pain Last Admin: 03/08/17 05:27 Dose: 1 tab Hydrocodone Bitart/Acetaminophen ([place] 325-10 Mg) 1 tab PO Q4H PRN PRN Reason: Pain Last Admin: 03/13/17 18:24 Dose: 1 tab Calcitonin [place] (Miacalcin Nasal [place]) 0 ml RADHA DAILY [facility] Last Admin: 03/30/17 07:42 Dose: 1 spray Calcium Citrate (Calcitrate) 315 mg PO BID [facility] Last Admin: 02/17/17 19:39 Dose: Not Given Celecoxib (Celebrex) 100 mg PO BID [facility] Last Admin: 01/24/17 07:48 Dose: 100 mg Celecoxib (Celebrex) 100 mg PO DAILY@1800 [facility] Last Admin: 01/31/17 17:16 Dose: 100 mg Celecoxib (Celebrex) 100 mg PO BID [facility] Last Admin: 03/08/17 08:33 Dose: 100 mg Cholecalciferol (Vitamin D3) 2,000 units PO QAM [facility] Last Admin: 01/17/17 07:42 Dose: 2,000 units Cholecalciferol (Vitamin D3) 2,000 units PO BID [facility] Last Admin: 01/21/17 07:54 Dose: 2,000 units Cholecalciferol (Vitamin D3) 4,000 units PO BID [facility] Last Admin: 03/10/17 08:03 Dose: 4,000 units Duloxetine HCl (Cymbalta) 20 mg PO DAILY [facility] Last Admin: 03/14/17 07:38 Dose: 20 mg Duloxetine HCl (Cymbalta) 30 mg PO DAILY [facility] Last Admin: 03/15/17 08:58 Dose: Not Given Fentanyl (Sublimaze) 25 mcg IVPUSH Q4H PRN PRN Reason: Pain (severe 7-10) Last Admin: 01/16/17 08:24 Dose: 25 mcg Gabapentin (Neurontin) 100 mg PO BEDTIME [facility] Last Admin: 02/07/17 19:18 Dose: 100 mg Gabapentin (Neurontin) 300 mg PO Q12HR [facility] Last Admin: 02/26/17 08:20 Dose: 300 mg Gabapentin (Neurontin) 300 mg PO TID@0800,1400,2000 [facility] Last Admin: 03/08/17 08:34 Dose: 300 mg Gabapentin (Neurontin) 400 mg PO TID@0800,1400,2000 [facility] Last Admin: 03/11/17 14:32 Dose: 400 mg Gabapentin (Neurontin) 300 mg PO TID@0800,1400,2000 [facility] Last Admin: 03/30/17 17:45 Dose: 300 mg Levothyroxine Sodium (Levothyroxine) 25 mcg PO QAM [facility] Last Admin: 02/17/17 08:43 Dose: 25 mcg Lidocaine (Lidocaine 5% Paraben-Free) 140 mg TRDERM Q24H [facility] Last Admin: 03/07/17 19:16 Dose: 140 mg Lidocaine (Lidoderm 5%) 700 mg TRDERM Q24H [facility] Last Admin: 03/17/17 19:25 Dose: Not Given Loperamide HCl (Imodium Ad) 4 mg PO DAILY [facility] Last Admin: 01/19/17 07:44 Dose: 4 mg Miscellaneous Information (Remove Patch) 1 ea TRDERM DAILY@0800 [facility] Last Admin: 03/08/17 08:35 Dose: 1 ea Miscellaneous Information (Remove Patch) 1 ea TRDERM DAILY@0800 [facility] Last Admin: 03/18/17 08:06 Dose: 1 ea Morphine Sulfate (Ms Contin) 15 mg PO TID@0800,1400,2000 [facility] Last Admin: 03/11/17 14:32 Dose: 15 mg Morphine Sulfate (Ms Contin) 15 mg PO Q12HR [facility] Last Admin: 03/14/17 07:38 Dose: 15 mg Multivitamins/Minerals/Vitamin C (Tab-A-Camila) 1 tab PO DAILY [facility] Last Admin: 03/30/17 07:46 Dose: 1 tab Sodium Chloride (Saline Flush) 10 ml FLUSH ASDIRECTED PRN PRN Reason: flush Last Admin: 01/16/17 08:28 Dose: 10 ml Sodium Chloride (Saline Flush) 10 ml FLUSH BID [facility] Last Admin: 01/19/17 17:31 Dose: 10 ml Tramadol HCl (Ultram) 50 mg PO Q6H PRN PRN Reason: Pain (moderate 4-6) Last Admin: 02/25/17 12:03 Dose: 50 mg Tramadol HCl (Ultram) 50 mg PO Q12H [facility] Last Admin: 03/08/17 08:37 Dose: 50 mg Zinc Gluconate (Zinc) 50 mg PO DAILY [facility] Last Admin: 03/30/17 07:46 Dose: 50 mg - Exam General: alert, cooperative, no acute distress HEENT: Mucous membr. moist/pink Neck: trachea midline Lungs: Normal respiratory effort Cardiovascular: Irregular Rhythm Abdomen: bowel sounds present, soft, no tenderness, no distension (Female) Exam: Deferred Back Exam: Decreased Range of Motion, Paraspinal Tenderness, Other (kyphosis) Extremities: no edema, no calf tenderness Skin: warm, dry, intact Wound/Incisions: decubitis (coccyx) Neurological: other (weakness bilateral legs R>L) Psy/Mental Status: alert, depressed - Problem List & Annotations (1) COPD (chronic obstructive pulmonary disease) SNOMED Code(s): 25130156 Code(s): J44.9 - CHRONIC OBSTRUCTIVE PULMONARY DISEASE, UNSPECIFIED Status : Acute Priority: Medium Current Visit: No Annotation/Comment:: No recent history of bronchitic-type symptoms, fever, etc. with patient not using any medications currently for her COPD/pulmonary fibrosis. Consider PFTs on an outpatient basis (2) Compression fracture of L5 lumbar vertebra SNOMED Code(s): 306886076 Code(s): S32.050A - WEDGE COMPRESSION FRACTURE OF FIFTH LUMBAR VERTEBRA, INIT Status: Acute Priority: High Current Visit: No (3) Degenerative joint disease (DJD) of lumbar spine Status: Acute Current Visit: No Qualifiers: Spinal osteoarthritis complication: with radiculopathy Qualified Code(s): M47.26 - Other spondylosis with radiculopathy, lumbar region (4) Heart disease SNOMED Code(s): 35921186 Code(s): I51.9 - HEART DISEASE, UNSPECIFIED Status: Acute Priority: High Current Visit: No Annotation/Comment:: Chest Pain protocol was not initiated in the emergency room secondary to absence of anginal-type symptoms. Note history of distant atrial fibrillation with no current anticoagulation therapy. Complete bifascicular bundle-branch, sinus arrhythmia, and sinus bradycardia with multiple previous negative Persantine Cardiolite evaluations as below. Note CHF as above with consideration of an echocardiogram on an outpatient basis. Cardiology consultation as needed. (5) Low back pain SNOMED Code(s): 846288430 Code(s): M54.5 - LOW BACK PAIN Status: Acute Priority: High Current Visit: No Qualifiers: Chronicity: acute Back pain laterality: right Sciatica laterality: sciatica of right side (6) Macular degeneration SNOMED Code(s): 997230862 Code(s): H35.30 - UNSPECIFIED MACULAR DEGENERATION Status: Acute Current Visit: No (7) Right sided sciatica SNOMED Code(s): 56601080 Code(s): M54.31 - SCIATICA, RIGHT SIDE Status: Acute Priority: High Current Visit: No Onset Date: Unknown Annotation/Comment:: improved since yesterday but still present. (8) Spinal stenosis of lumbar region at multiple levels SNOMED Code(s): 83550762 Code(s): M48.06 - SPINAL STENOSIS, LUMBAR REGION Status: Acute Priority: High Current Visit: No (9) Hyperlipidemia SNOMED Code(s): 94010784 Code(s): E78.5 - HYPERLIPIDEMIA, UNSPECIFIED Status: Chronic Priority: Low Current Visit: No Annotation/Comment:: Medically treated with repeat lipid panel per discretion of her providers at [facility] (10) Hypertension SNOMED Code(s): 34399087 Code(s): I10 - ESSENTIAL (PRIMARY) HYPERTENSION Status: Chronic Priority : Low Current Visit: No Annotation/Comment:: Currently on no medication for HTN due to episodes of dizziness in past. (11) Hypothyroidism SNOMED Code(s): 88916997 Code(s): E03.9 - HYPOTHYROIDISM, UNSPECIFIED Status: Chronic Priority: Low Current Visit: No (12) Obesity SNOMED Code(s): 832165539 Code(s): E66.9 - OBESITY, UNSPECIFIED Status: Chronic Priority: Low Current Visit: No (13) Osteoarthritis SNOMED Code(s): 398625287 Code(s): M19.90 - UNSPECIFIED OSTEOARTHRITIS, UNSPECIFIED SITE Status: Chronic Priority: Low Current Visit: No Qualifiers: Osteoarthritis location: spine Spinal region: lumbosacral Spinal osteoarthritis complication: with radiculopathy Qualified Code(s): M47.27 - Other spondylosis with radiculopathy, lumbosacral region Annotation/Comment:: Stable by patient history despite history of spinal stenosis (14) TIA (transient ischemic attack) SNOMED Code(s): 471821341, 272426439 Code(s): G45.9 - TRANSIENT CEREBRAL ISCHEMIC ATTACK, UNSPECIFIED Status: Suspected Current Visit: No (15) Depressed affect SNOMED Code(s): 265116891 Code(s): R45.89 - OTHER SYMPTOMS AND SIGNS INVOLVING EMOTIONAL STATE Status : Acute Priority: High Current Visit: Yes - Problem List Review Problem List Initiated/Reviewed/Updated: Yes - My Orders Last 24 Hours: My Active Orders 03/29/17 22:28 Communication Order [RC] ROUTINE 03/30/17 11:54 Communication Order [RC] DAILY 03/30/17 20:00 Gabapentin [Neurontin] 600 mg PO BEDTIME 03/31/17 06:00 Alendronate [Fosamax] 70 mg PO Q7D@0600 03/31/17 08:00 Consult to Physical Therapy [PT Evaluation and Treatment] [CONS] Routine Gabapentin [Neurontin] 300 mg PO BID@0800,1400 03/31/17 12:00 Multivitamins [Tab-A-Camila] 1 tab PO DAILY@1200 Zinc Gluconate [Zinc] 50 mg PO DAILY@1200 - Plan Plan:: 01/13/17 Ever Marino MD Severe low back pain. Treated with IV solumedrol, IV toradol, for right sciatica. Lumbar CT today reveals acute compression fracture L5, spinal stenosis , DJD lumbar spine. Platelets decreasing so IV toradol stopped. Miacalcin started. Needs swing bed status for continued pain control, monitoring renal function, platelet level and PT-OT. 01/21/17 Ever Marino MD Still with severe pain into right leg. On scheduled tylenol, scheduled tramadol , scheduled NSAID (celebrex) and prn pain medications. PT working with her. Will order MRI. 01/27/17 Ever Marino MD Still with pain right low back, right hip and right lateral thigh. MRI 25% loss of vertebral height compression fracture of L1. L4-L5 severe central stenosis, advanced facet arthropathy, diffuse bulging disc. Discussed options with her and daughter Ashley. PT starting to help pain. She continues on scheduled tylenol , scheduled tramadol, scheduled NSAID (celebrex), calcitonin, vitamin D, and lidocaine patch and prn pain medications. 02/08/17 Ever Marino MD Still with significant right lower back and right leg pain. Increase in pain pill has helped. She continues with PT. She has appointment with [facility] Wednesday02/15/17, 1300 x-rays and appointment with Dr.Dan Parnell [phone]. Continue PT-OT. 03/26/17 Ever Marino MD She says her pain is improved. In fact she thinks she is good enough to go home. Questions about the doctor appointments in [place]. She does not think the appointments have helped her. Will obtain OT evaluation for home safety next week and review notes from [place]. 03/29/17 Ever Marino MD She says she is about the same. She was seen by OT today. She is still not dressing herself. She can not get out of bed herself. [id number] not here at this time. I did call her cell phone [phone] but no answer. 03/30/17 Ever Marino MD She had [address] [facility] today. Notes reviewed from Dr. Tim Felton. Restart PT. Increase gabapentin. Continue other medications. Manage decubitus ulcer. Pain is from spinal stenosis. She has appointment Wednesday with psychologist for evaluation to consider the spinal nerve stimulator. Talked with Jessy, son Deandre, and daughter in law Fox. Discussion >1 hour. She has surgical consult on with surgeon to evaluate decubitus ulcer. All in agreement with plan of care.
[2017-03-30] MEDS ORDERED: Gabapentin 300 MG Cap ** OWN MED PO SCH (20:00)
[2017-03-31] MEDS ORDERED: Alendronate 70 MG Tab PO SCH (06:00)
[2017-03-31] MEDS: Levothyroxine 25 MCG Tab PO SCH (08:23)
[2017-03-31] MEDS: Calcium Citrate 950 MG Tab PO SCH ×2 (08:24→17:45)
[2017-03-31] MEDS: Celecoxib 100 MG Cap PO SCH ×2 (08:24→17:46)
[2017-03-31] MEDS: Gabapentin 300 MG Cap PO SCH ×2 (08:24→14:33)
[2017-03-31] MEDS: DULoxetine 30 MG Cap PO SCH (08:24)
[2017-03-31] MEDS: Cholecalciferol (Vitamin D3) 1,000 Unit Tab PO SCH (08:25)
[2017-03-31] MEDS: Famotidine 20 MG Tab PO SCH ×2 (08:25→17:46)
[2017-03-31] MEDS: Acetaminophen/HYDROcodone 325-10 MG Tab PO SCH ×3 (08:28→19:18)
[2017-03-31] MEDS: Zinc (Zinc Gluconate) 50 MG Tab PO SCH (11:52)
[2017-03-31] MEDS: Multivitamin Tab PO SCH (11:52)
[2017-03-31] MEDS: GABAPENTIN 600 MG PO SCH (19:18)
[2017-04-01] MEDS ORDERED: Alendronate 70 MG Tab PO SCH (06:00)
[2017-04-01] MEDS: Celecoxib 100 MG Cap PO SCH ×2 (08:15→17:40)
[2017-04-01] MEDS: Calcium Citrate 950 MG Tab PO SCH ×2 (08:15→17:40)
[2017-04-01] MEDS: DULoxetine 30 MG Cap PO SCH (08:15)
[2017-04-01] MEDS: Levothyroxine 25 MCG Tab PO SCH (08:15)
[2017-04-01] MEDS: Gabapentin 300 MG Cap PO SCH ×2 (08:16→14:36)
[2017-04-01] MEDS: Famotidine 20 MG Tab PO SCH ×2 (08:16→17:40)
[2017-04-01] MEDS: Acetaminophen/HYDROcodone 325-10 MG Tab PO SCH ×3 (08:17→19:14)
[2017-04-01] MEDS: Cholecalciferol (Vitamin D3) 1,000 Unit Tab PO SCH (08:19)
[2017-04-01] MEDS: Zinc (Zinc Gluconate) 50 MG Tab PO SCH (12:07)
[2017-04-01] MEDS: Multivitamin Tab PO SCH (12:07)
[2017-04-01] MEDS: GABAPENTIN 600 MG PO SCH (19:13)
[2017-04-02] MEDS: Levothyroxine 25 MCG Tab PO SCH (06:50)
[2017-04-02] MEDS: Calcium Citrate 950 MG Tab PO SCH ×2 (07:42→17:15)
[2017-04-02] MEDS: Celecoxib 100 MG Cap PO SCH ×2 (07:44→17:16)
[2017-04-02] MEDS: Gabapentin 300 MG Cap PO SCH ×2 (07:44→13:55)
[2017-04-02] MEDS: DULoxetine 30 MG Cap PO SCH (07:44)
[2017-04-02] MEDS: Acetaminophen/HYDROcodone 325-10 MG Tab PO SCH ×3 (07:44→19:13)
[2017-04-02] MEDS: Famotidine 20 MG Tab PO SCH ×2 (07:45→17:16)
[2017-04-02] MEDS: Cholecalciferol (Vitamin D3) 1,000 Unit Tab PO SCH (07:46)
--- NOTE | 2017-04-02 10:16 | PN ---
PATIENT NAME: FRANKO BROWN : 1930 DATE: 04/01/2017 This patient is currently swing bed patient at [facility]. She has developed a decubitus ulcer over her coccyx. It is unclear how long this has been in place, but at least for several days. The patient does note some pain at the site and it is noted by the staff that she is now more mobile being able to spend more time ambulating and lying on her side than previously. Examination shows that over the coccyx, there is a 2 x 1.5 cm decubitus ulcer in the midline. The ulcer appears to go down to the underlying muscle at this area and there is necrotic tissue in the base of the wound. A silver-based dressing has been used in an attempt to debride the wound. The surrounding skin appears to be of good quality and is beginning to show evidence of healing across. There is no crepitus or erythema of the skin. I advised debridement of the depth of the wound to remove as much necrotic tissue as possible and promote wound healing. This was agreed upon and carried out today with the depth of the 2 x 1.5 cm decubitus ulcer being sharply debrided of necrotic tissue down to bleeding sites in many areas. This is well tolerated by the patient. We will continue with the silver-based dressing at this time, but as the wound becomes more clean, a wound VAC may be a good option for promoting a good healing in this decubitus ulcer. She will try to keep pressure off this as much as possible and also maximize her nutrition. FLACO
[2017-04-02] MEDS: Multivitamin Tab PO SCH (13:54)
[2017-04-02] MEDS: Zinc (Zinc Gluconate) 50 MG Tab PO SCH (13:54)
[2017-04-02] MEDS: GABAPENTIN 600 MG PO SCH (19:12)
[2017-04-03] MEDS: Levothyroxine 25 MCG Tab PO SCH (07:37)
[2017-04-03] MEDS: Gabapentin 300 MG Cap PO SCH ×2 (07:56→13:00)
[2017-04-03] MEDS: Celecoxib 100 MG Cap PO SCH ×2 (07:56→17:10)
[2017-04-03] MEDS: Acetaminophen/HYDROcodone 325-10 MG Tab PO SCH ×3 (07:56→19:14)
[2017-04-03] MEDS: Calcium Citrate 950 MG Tab PO SCH ×2 (07:56→17:10)
[2017-04-03] MEDS: DULoxetine 30 MG Cap PO SCH (07:56)
[2017-04-03] MEDS: Cholecalciferol (Vitamin D3) 1,000 Unit Tab PO SCH (07:58)
[2017-04-03] MEDS: Famotidine 20 MG Tab PO SCH ×2 (07:58→17:11)
[2017-04-03] MEDS: Zinc (Zinc Gluconate) 50 MG Tab PO SCH (11:21)
[2017-04-03] MEDS: Multivitamin Tab PO SCH (11:21)
[2017-04-03] MEDS: Betamethasone Dipropionate/Clotrimazole 0.05-1% Crm 15 GM Tube TOP SCH (17:11)
[2017-04-03] MEDS: GABAPENTIN 600 MG PO SCH (19:14)
[2017-04-04] MEDS: Levothyroxine 25 MCG Tab PO SCH (06:59)
[2017-04-04] MEDS: Betamethasone Dipropionate/Clotrimazole 0.05-1% Crm 15 GM Tube TOP SCH ×2 (07:44→17:17)
[2017-04-04] MEDS: Celecoxib 100 MG Cap PO SCH ×2 (07:44→17:16)
[2017-04-04] MEDS: DULoxetine 30 MG Cap PO SCH (07:44)
[2017-04-04] MEDS: Calcium Citrate 950 MG Tab PO SCH ×2 (07:44→17:16)
[2017-04-04] MEDS: Acetaminophen/HYDROcodone 325-10 MG Tab PO SCH ×3 (07:45→19:31)
[2017-04-04] MEDS: Gabapentin 300 MG Cap PO SCH ×2 (07:45→13:02)
[2017-04-04] MEDS: Famotidine 20 MG Tab PO SCH ×2 (07:46→17:17)
[2017-04-04] MEDS: Cholecalciferol (Vitamin D3) 1,000 Unit Tab PO SCH (07:46)
[2017-04-04] MEDS: Multivitamin Tab PO SCH (11:13)
[2017-04-04] MEDS: Zinc (Zinc Gluconate) 50 MG Tab PO SCH (11:13)
[2017-04-04] MEDS: GABAPENTIN 600 MG PO SCH (19:30)
[2017-04-05] MEDS: Levothyroxine 25 MCG Tab PO SCH (08:17)
[2017-04-05] MEDS: Celecoxib 100 MG Cap PO SCH ×2 (08:17→17:36)
[2017-04-05] MEDS: Gabapentin 300 MG Cap PO SCH ×2 (08:18→14:24)
[2017-04-05] MEDS: Calcium Citrate 950 MG Tab PO SCH ×2 (08:18→17:36)
[2017-04-05] MEDS: Famotidine 20 MG Tab PO SCH ×2 (08:18→17:37)
[2017-04-05] MEDS: DULoxetine 30 MG Cap PO SCH (08:18)
[2017-04-05] MEDS: Betamethasone Dipropionate/Clotrimazole 0.05-1% Crm 15 GM Tube TOP SCH ×2 (08:19→17:36)
[2017-04-05] MEDS: Acetaminophen/HYDROcodone 325-10 MG Tab PO SCH ×3 (08:20→19:12)
[2017-04-05] MEDS: Cholecalciferol (Vitamin D3) 1,000 Unit Tab PO SCH (08:21)
[2017-04-05] MEDS: Multivitamin Tab PO SCH (12:03)
[2017-04-05] MEDS: Zinc (Zinc Gluconate) 50 MG Tab PO SCH (12:03)
[2017-04-05] MEDS: GABAPENTIN 600 MG PO SCH (19:14)
[2017-04-06] MEDS: Levothyroxine 25 MCG Tab PO SCH (08:20)
[2017-04-06] MEDS: Celecoxib 100 MG Cap PO SCH ×2 (08:20→17:33)
[2017-04-06] MEDS: Famotidine 20 MG Tab PO SCH ×2 (08:21→17:33)
[2017-04-06] MEDS: Gabapentin 300 MG Cap PO SCH ×2 (08:21→14:17)
[2017-04-06] MEDS: Calcium Citrate 950 MG Tab PO SCH ×2 (08:21→17:32)
[2017-04-06] MEDS: Acetaminophen/HYDROcodone 325-10 MG Tab PO SCH ×3 (08:24→19:17)
[2017-04-06] MEDS: Cholecalciferol (Vitamin D3) 1,000 Unit Tab PO SCH (08:27)
[2017-04-06] MEDS: Betamethasone Dipropionate/Clotrimazole 0.05-1% Crm 15 GM Tube TOP SCH ×2 (08:28→17:33)
[2017-04-06] MEDS: DULoxetine 30 MG Cap PO SCH (10:42)
[2017-04-06] MEDS: Zinc (Zinc Gluconate) 50 MG Tab PO SCH (11:51)
[2017-04-06] MEDS: Multivitamin Tab PO SCH (11:51)
[2017-04-06] MEDS: GABAPENTIN 600 MG PO SCH (19:16)
[2017-04-07] MEDS: Levothyroxine 25 MCG Tab PO SCH (07:03)
[2017-04-07] MEDS: Celecoxib 100 MG Cap PO SCH ×2 (07:49→17:23)
[2017-04-07] MEDS: Calcium Citrate 950 MG Tab PO SCH ×2 (07:49→17:22)
[2017-04-07] MEDS: Betamethasone Dipropionate/Clotrimazole 0.05-1% Crm 15 GM Tube TOP SCH ×2 (07:50→17:23)
[2017-04-07] MEDS: DULoxetine 30 MG Cap PO SCH (07:50)
[2017-04-07] MEDS: Acetaminophen/HYDROcodone 325-10 MG Tab PO SCH ×3 (07:51→19:05)
[2017-04-07] MEDS: Gabapentin 300 MG Cap PO SCH ×2 (07:51→13:26)
[2017-04-07] MEDS: Famotidine 20 MG Tab PO SCH ×2 (07:53→17:23)
[2017-04-07] MEDS: Cholecalciferol (Vitamin D3) 1,000 Unit Tab PO SCH (07:54)
[2017-04-07] MEDS: Zinc (Zinc Gluconate) 50 MG Tab PO SCH (12:11)
[2017-04-07] MEDS: Multivitamin Tab PO SCH (12:11)
[2017-04-07] MEDS: GABAPENTIN 600 MG PO SCH (19:05)
[2017-04-08] MEDS: Levothyroxine 25 MCG Tab PO SCH (07:18)
[2017-04-08 07:50] LABS: CHLORIDE,CL 108 mmol/L (98-107); SODIUM,NA 145 mmol/L (136-145)
[2017-04-08] MEDS: Calcium Citrate 950 MG Tab PO SCH ×2 (08:13→17:18)
[2017-04-08] MEDS: DULoxetine 30 MG Cap PO SCH (08:13)
[2017-04-08] MEDS: Gabapentin 300 MG Cap PO SCH ×2 (08:14→14:50)
[2017-04-08] MEDS: Betamethasone Dipropionate/Clotrimazole 0.05-1% Crm 15 GM Tube TOP SCH ×2 (08:14→17:18)
[2017-04-08] MEDS: Acetaminophen/HYDROcodone 325-10 MG Tab PO SCH ×3 (08:14→19:05)
[2017-04-08] MEDS: Famotidine 20 MG Tab PO SCH ×2 (08:15→17:19)
[2017-04-08] MEDS: Cholecalciferol (Vitamin D3) 1,000 Unit Tab PO SCH (08:16)
[2017-04-08] MEDS: Zinc (Zinc Gluconate) 50 MG Tab PO SCH (11:44)
[2017-04-08] MEDS: Multivitamin Tab PO SCH (11:44)
[2017-04-08] MEDS: GABAPENTIN 600 MG PO SCH (19:05)
[2017-04-09] MEDS: oxyCODONE 5 MG Tab PO PRN ×2 (00:33→17:34)
[2017-04-09] MEDS: Acetaminophen/HYDROcodone 325-10 MG Tab PO SCH ×3 (07:24→19:58)
[2017-04-09] MEDS: Levothyroxine 25 MCG Tab PO SCH (07:24)
[2017-04-09] MEDS: DULoxetine 30 MG Cap PO SCH (08:02)
[2017-04-09] MEDS: Calcium Citrate 950 MG Tab PO SCH ×2 (08:02→17:25)
[2017-04-09] MEDS: Famotidine 20 MG Tab PO SCH ×2 (08:03→17:25)
[2017-04-09] MEDS: Betamethasone Dipropionate/Clotrimazole 0.05-1% Crm 15 GM Tube TOP SCH ×2 (08:03→17:26)
[2017-04-09] MEDS: Gabapentin 300 MG Cap PO SCH ×2 (08:03→13:35)
[2017-04-09] MEDS: Cholecalciferol (Vitamin D3) 1,000 Unit Tab PO SCH (08:04)
[2017-04-09] MEDS: Multivitamin Tab PO SCH (12:36)
[2017-04-09] MEDS: Zinc (Zinc Gluconate) 50 MG Tab PO SCH (12:36)
[2017-04-09] MEDS: Sennosides 8.6 MG Tab PO PRN (12:38)
[2017-04-09] MEDS: Metoprolol Tartrate 25 MG Tab **OWN MED PO SCH ×2 (19:50→19:52)
[2017-04-09] MEDS: GABAPENTIN 600 MG PO SCH (19:57)
[2017-04-10] MEDS: Levothyroxine 25 MCG Tab PO SCH (07:29)
[2017-04-10] MEDS: Acetaminophen/HYDROcodone 325-10 MG Tab PO SCH ×3 (07:29→20:07)
[2017-04-10] MEDS: Betamethasone Dipropionate/Clotrimazole 0.05-1% Crm 15 GM Tube TOP SCH ×2 (07:33→17:11)
[2017-04-10] MEDS: Calcium Citrate 950 MG Tab PO SCH ×2 (08:21→17:11)
[2017-04-10] MEDS: DULoxetine 30 MG Cap PO SCH (08:22)
[2017-04-10] MEDS: Gabapentin 300 MG Cap PO SCH ×2 (08:22→13:51)
[2017-04-10] MEDS: Famotidine 20 MG Tab PO SCH ×2 (08:22→17:11)
[2017-04-10] MEDS: Cholecalciferol (Vitamin D3) 1,000 Unit Tab PO SCH (08:23)
[2017-04-10] MEDS: Metoprolol Tartrate 25 MG Tab **OWN MED PO SCH (08:28)
[2017-04-10] MEDS: Magnesium Hydroxide 400 MG/5 ML Susp 30 ML Cup PO PRN (11:08)
[2017-04-10] MEDS: Multivitamin Tab PO SCH (11:45)
[2017-04-10] MEDS: Zinc (Zinc Gluconate) 50 MG Tab PO SCH (11:46)
[2017-04-10] MEDS: oxyCODONE 5 MG Tab PO PRN (11:51)
[2017-04-10] MEDS: Sennosides 8.6 MG Tab PO PRN (17:13)
[2017-04-10] MEDS: GABAPENTIN 600 MG PO SCH (20:06)
[2017-04-11] MEDS: Levothyroxine 25 MCG Tab PO SCH (07:20)
[2017-04-11] MEDS: Acetaminophen/HYDROcodone 325-10 MG Tab PO SCH ×3 (07:21→20:29)
[2017-04-11] MEDS ORDERED: Metoprolol Succinate 25 MG Tab.ER PO SCH (08:00)
[2017-04-11] MEDS: Gabapentin 300 MG Cap PO SCH ×2 (08:01→13:48)
[2017-04-11] MEDS: Betamethasone Dipropionate/Clotrimazole 0.05-1% Crm 15 GM Tube TOP SCH ×2 (08:01→17:01)
[2017-04-11] MEDS: DULoxetine 30 MG Cap PO SCH (08:01)
[2017-04-11] MEDS: Calcium Citrate 950 MG Tab PO SCH ×2 (08:01→17:01)
[2017-04-11] MEDS: Famotidine 20 MG Tab PO SCH ×2 (08:02→17:01)
[2017-04-11] MEDS: Cholecalciferol (Vitamin D3) 1,000 Unit Tab PO SCH (08:05)
[2017-04-11] MEDS ORDERED: Metoprolol Tartrate 25 MG Tab PO SCH (08:30)
[2017-04-11] MEDS: Multivitamin Tab PO SCH (11:11)
[2017-04-11] MEDS: Zinc (Zinc Gluconate) 50 MG Tab PO SCH (11:11)
[2017-04-11] MEDS: Sennosides 8.6 MG Tab PO PRN (11:14)
[2017-04-11] MEDS: oxyCODONE 5 MG Tab PO PRN (16:59)
[2017-04-11] MEDS: GABAPENTIN 600 MG PO SCH (20:11)
--- NOTE | 2017-04-11 21:11 | PCM.PN ---
- General Info Date of Service: 04/11/17 Admission Dx/Problem (Free Text): Admission Diagnosis/Problem Admission Diagnosis/Problem Compression fracture Functional Status: Reports: new symptoms (now weakness also in left leg, more difficulty with ambulation) - Review of Systems General: Reports: Weakness (bilateral legs) HEENT: Reports: other (decreased vision) Pulmonary: Reports: no symptoms Cardiovascular: Reports: No Symptoms Gastrointestinal: Reports: No symptoms Genitourinary: Reports: no symptoms Musculoskeletal: Reports: back pain, leg pain (right) Skin: Reports: other (decubitus ulcer coccyx) Neurological: Reports: Confusion, Pre-Existing Deficit, Difficulty Walking, Gait Disturbance, Other (right radiculopathy, left foot drop) Psychiatric: Reports: confusion - Patient Data Vitals - most recent: Last Vital Signs Temp 98.2 F 04/11/17 09:54 Pulse 96 04/11/17 09:54 Resp 16 04/11/17 09:54 BP 115/71 04/11/17 09:54 Pulse Ox 93 L 04/11/17 09:54 Weight - most recent: 170 lb 9.6 oz Med Orders - Current: Current Medications Hydrocodone Bitart/Acetaminophen ([place] 325-10 Mg) 1 tab PO TID@0800,1400,2000 [facility] Last Admin: 04/11/17 20:29 Dose: 1 tab Betamethasone/Clotrimazole (Lotrisone) 0 gm TOP BID [facility] Last Admin: 04/11/17 17:01 Dose: 1 applic Calcium Citrate (Calcitrate) 950 mg PO BID [facility] Last Admin: 04/11/17 17:01 Dose: 950 mg Cholecalciferol (Vitamin D3) 4,000 units PO DAILY [facility] Last Admin: 04/11/17 08:05 Dose: 4,000 units Duloxetine HCl (Cymbalta) 30 mg PO DAILY [facility] Last Admin: 04/11/17 08:01 Dose: 30 mg Famotidine (Pepcid) 20 mg PO BID [facility] Last Admin: 04/11/17 17:01 Dose: 20 mg Gabapentin (Neurontin) 300 mg PO BID@0800,1400 [facility] Last Admin: 04/11/17 13:48 Dose: 300 mg Levothyroxine Sodium (Levothyroxine) 25 mcg PO ACBREAKFAST [facility] Last Admin: 04/11/17 07:20 Dose: 25 mcg Loperamide HCl (Imodium Ad) 2 mg PO Q4H PRN PRN Reason: Diarrhea Last Admin: 02/20/17 14:14 Dose: 2 mg Magnesium Hydroxide (Milk Of Magnesia) 30 ml PO DAILY PRN PRN Reason: Constipation Last Admin: 04/10/17 11:08 Dose: 30 ml Metoprolol Tartrate (Lopressor) 25 mg PO ONETIME ONE Stop: 04/12/17 06:01 Multivitamins/Minerals/Vitamin C (Tab-A-Camila) 1 tab PO DAILY@1200 [facility] Last Admin: 04/11/17 11:11 Dose: 1 tab Gabapentin 600 Mg (Cap Own Med ) 1 each PO BEDTIME [facility] Last Admin: 04/11/17 20:11 Dose: 1 each Oxycodone HCl (Oxycodone) 5 mg PO Q4H PRN PRN Reason: Pain Last Admin: 04/11/17 16:59 Dose: 5 mg Senna (Senna) 8.6 mg PO BID PRN PRN Reason: Constipation Last Admin: 04/11/17 11:14 Dose: 8.6 mg Zinc Gluconate (Zinc) 50 mg PO DAILY@1200 [facility] Last Admin: 04/11/17 11:11 Dose: 50 mg Discontinued Medications Acetaminophen (Tylenol) 650 mg PO Q6H PRN PRN Reason: Pain Last Admin: 01/20/17 07:39 Dose: 650 mg Acetaminophen (Tylenol Arthritis Pain) 650 mg PO Q12H [facility] Last Admin: 03/08/17 08:35 Dose: 650 mg Acetaminophen (Tylenol Arthritis Pain) 650 mg PO Q8H PRN PRN Reason: Pain Last Admin: 02/08/17 16:38 Dose: 650 mg Hydrocodone Bitart/Acetaminophen ([place] 325-5 Mg) 1 tab PO Q6H PRN PRN Reason: Pain Last Admin: 02/08/17 06:20 Dose: 1 tab Hydrocodone Bitart/Acetaminophen ([place] 325-10 Mg) 1 tab PO Q6H PRN PRN Reason: Pain Last Admin: 03/08/17 05:27 Dose: 1 tab Hydrocodone Bitart/Acetaminophen ([place] 325-10 Mg) 1 tab PO Q4H PRN PRN Reason: Pain Last Admin: 03/13/17 18:24 Dose: 1 tab Alendronate Sodium (Fosamax) 70 mg PO Q7D@0600 [facility] Last Admin: 03/31/17 14:55 Dose: Not Given Alendronate Sodium (Fosamax) 70 mg PO Q7D@0600 [facility] Last Admin: 04/01/17 06:10 Dose: 70 mg Calcitonin [place] (Miacalcin Nasal [place]) 0 ml RADHA DAILY [facility] Last Admin: 03/30/17 07:42 Dose: 1 spray Calcium Citrate (Calcitrate) 315 mg PO BID [facility] Last Admin: 02/17/17 19:39 Dose: Not Given Celecoxib (Celebrex) 100 mg PO BID [facility] Last Admin: 01/24/17 07:48 Dose: 100 mg Celecoxib (Celebrex) 100 mg PO DAILY@1800 [facility] Last Admin: 01/31/17 17:16 Dose: 100 mg Celecoxib (Celebrex) 100 mg PO BID [facility] Last Admin: 03/08/17 08:33 Dose: 100 mg Celecoxib (Celebrex) 100 mg PO BID [facility] Last Admin: 04/07/17 17:23 Dose: 100 mg Cholecalciferol (Vitamin D3) 2,000 units PO QAM [facility] Last Admin: 01/17/17 07:42 Dose: 2,000 units Cholecalciferol (Vitamin D3) 2,000 units PO BID [facility] Last Admin: 01/21/17 07:54 Dose: 2,000 units Cholecalciferol (Vitamin D3) 4,000 units PO BID [facility] Last Admin: 03/10/17 08:03 Dose: 4,000 units Duloxetine HCl (Cymbalta) 20 mg PO DAILY [facility] Last Admin: 03/14/17 07:38 Dose: 20 mg Duloxetine HCl (Cymbalta) 30 mg PO DAILY [facility] Last Admin: 03/15/17 08:58 Dose: Not Given Fentanyl (Sublimaze) 25 mcg IVPUSH Q4H PRN PRN Reason: Pain (severe 7-10) Last Admin: 01/16/17 08:24 Dose: 25 mcg Gabapentin (Neurontin) 100 mg PO BEDTIME [facility] Last Admin: 02/07/17 19:18 Dose: 100 mg Gabapentin (Neurontin) 300 mg PO Q12HR [facility] Last Admin: 02/26/17 08:20 Dose: 300 mg Gabapentin (Neurontin) 300 mg PO TID@0800,1400,2000 [facility] Last Admin: 03/08/17 08:34 Dose: 300 mg Gabapentin (Neurontin) 400 mg PO TID@0800,1400,1999 [facility] Last Admin: 03/11/17 14:32 Dose: 400 mg Gabapentin (Neurontin) 300 mg PO TID@0800,1399,1999 [facility] Last Admin: 03/30/17 17:45 Dose: 300 mg Gabapentin (Neurontin) 600 mg PO BEDTIME [facility] Last Admin: 03/30/17 19:12 Dose: 600 mg Levothyroxine Sodium (Levothyroxine) 25 mcg PO QAM [facility] Last Admin: 02/17/17 08:43 Dose: 25 mcg Lidocaine (Lidocaine 5% Paraben-Free) 140 mg TRDERM Q24H [facility] Last Admin: 03/07/17 19:16 Dose: 140 mg Lidocaine (Lidoderm 5%) 700 mg TRDERM Q24H [facility] Last Admin: 03/17/17 19:25 Dose: Not Given Loperamide HCl (Imodium Ad) 4 mg PO DAILY [facility] Last Admin: 01/19/17 07:44 Dose: 4 mg Metoprolol Succinate (Toprol Xl) 25 mg PO DAILY [facility] Last Admin: 04/11/17 08:39 Dose: Not Given Metoprolol Tartrate (Lopressor) 25 mg PO Q12HR [facility] Last Admin: 04/10/17 08:28 Dose: 25 mg Metoprolol Tartrate (Lopressor) 25 mg PO DAILY [facility] Last Admin: 04/11/17 08:38 Dose: 25 mg Miscellaneous Information (Remove Patch) 1 ea TRDERM DAILY@0800 [facility] Last Admin: 03/08/17 08:35 Dose: 1 ea Miscellaneous Information (Remove Patch) 1 ea TRDERM DAILY@0800 [facility] Last Admin: 03/18/17 08:06 Dose: 1 ea Morphine Sulfate (Ms Contin) 15 mg PO TID@0800,1399,1999 [facility] Last Admin: 03/11/17 14:32 Dose: 15 mg Morphine Sulfate (Ms Contin) 15 mg PO Q12HR [facility] Last Admin: 03/14/17 07:38 Dose: 15 mg Multivitamins/Minerals/Vitamin C (Tab-A-Camila) 1 tab PO DAILY [facility] Last Admin: 03/30/17 07:46 Dose: 1 tab Sodium Chloride (Saline Flush) 10 ml FLUSH ASDIRECTED PRN PRN Reason: flush Last Admin: 01/16/17 08:28 Dose: 10 ml Sodium Chloride (Saline Flush) 10 ml FLUSH BID [facility] Last Admin: 01/19/17 17:31 Dose: 10 ml Tramadol HCl (Ultram) 50 mg PO Q6H PRN PRN Reason: Pain (moderate 4-6) Last Admin: 02/25/17 12:03 Dose: 50 mg Tramadol HCl (Ultram) 50 mg PO Q12H [facility] Last Admin: 03/08/17 08:37 Dose: 50 mg Zinc Gluconate (Zinc) 50 mg PO DAILY [facility] Last Admin: 03/30/17 07:46 Dose: 50 mg - Exam General: alert, cooperative, no acute distress HEENT: Mucous membr. moist/pink Neck: trachea midline, no JVD Lungs: Clear to auscultation, Normal respiratory effort Cardiovascular: Irregular Rhythm Abdomen: bowel sounds present, soft, no tenderness, no distension (Female) Exam: Deferred Back Exam: Other (kyphosis) Extremities: no edema, no calf tenderness, other (right thigh pain) Skin: warm, dry, intact Wound/Incisions: decubitis (coccyx, with acute tear and small amount of bleeding ) Neurological: other (right and left leg weakness, right radiculopathy pain) Psy/Mental Status: alert, depressed - Problem List & Annotations (1) COPD (chronic obstructive pulmonary disease) SNOMED Code(s): 00129998 Code(s): J44.9 - CHRONIC OBSTRUCTIVE PULMONARY DISEASE, UNSPECIFIED Status : Acute Priority: Medium Current Visit: No Annotation/Comment:: No recent history of bronchitic-type symptoms, fever, etc. with patient not using any medications currently for her COPD/pulmonary fibrosis. Consider PFTs on an outpatient basis (2) Compression fracture of L5 lumbar vertebra SNOMED Code(s): 571127414 Code(s): S32.050A - WEDGE COMPRESSION FRACTURE OF FIFTH LUMBAR VERTEBRA, INIT Status: Acute Priority: High Current Visit: No (3) Degenerative joint disease (DJD) of lumbar spine Status: Acute Current Visit: No Qualifiers: Spinal osteoarthritis complication: with radiculopathy Qualified Code(s): M47.26 - Other spondylosis with radiculopathy, lumbar region (4) Heart disease SNOMED Code(s): 62495508 Code(s): I51.9 - HEART DISEASE, UNSPECIFIED Status: Acute Priority: High Current Visit: No Annotation/Comment:: Chest Pain protocol was not initiated in the emergency room secondary to absence of anginal-type symptoms. Note history of distant atrial fibrillation with no current anticoagulation therapy. Complete bifascicular bundle-branch, sinus arrhythmia, and sinus bradycardia with multiple previous negative Persantine Cardiolite evaluations as below. Note CHF as above with consideration of an echocardiogram on an outpatient basis. Cardiology consultation as needed. (5) Low back pain SNOMED Code(s): 942825279 Code(s): M54.5 - LOW BACK PAIN Status: Acute Priority: High Current Visit: No Qualifiers: Chronicity: acute Back pain laterality: right Sciatica laterality: sciatica of right side (6) Macular degeneration SNOMED Code(s): 791515907 Code(s): H35.30 - UNSPECIFIED MACULAR DEGENERATION Status: Acute Current Visit: No (7) Right sided sciatica SNOMED Code(s): 25862996 Code(s): M54.31 - SCIATICA, RIGHT SIDE Status: Acute Priority: High Current Visit: No Onset Date: Unknown Annotation/Comment:: improved since yesterday but still present. (8) Spinal stenosis of lumbar region at multiple levels SNOMED Code(s): 77764428 Code(s): M48.06 - SPINAL STENOSIS, LUMBAR REGION Status: Acute Priority: High Current Visit: No (9) Hyperlipidemia SNOMED Code(s): 62599463 Code(s): E78.5 - HYPERLIPIDEMIA, UNSPECIFIED Status: Chronic Priority: Low Current Visit: No Annotation/Comment:: Medically treated with repeat lipid panel per discretion of [place] [facility] [place] (10) Hypertension SNOMED Code(s): 96319541 Code(s): I10 - ESSENTIAL (PRIMARY) HYPERTENSION Status: Chronic Priority : Low Current Visit: No Annotation/Comment:: Currently on no medication for HTN due to episodes of dizziness in past. (11) Hypothyroidism SNOMED Code(s): 63603460 Code(s): E03.9 - HYPOTHYROIDISM, UNSPECIFIED Status: Chronic Priority: Low Current Visit: No (12) Obesity SNOMED Code(s): 123378009 Code(s): E66.9 - OBESITY, UNSPECIFIED Status: Chronic Priority: Low Current Visit: No (13) Osteoarthritis SNOMED Code(s): 515915627 Code(s): M19.90 - UNSPECIFIED OSTEOARTHRITIS, UNSPECIFIED SITE Status: Chronic Priority: Low Current Visit: No Qualifiers: Osteoarthritis location: spine Spinal region: lumbosacral Spinal osteoarthritis complication: with radiculopathy Qualified Code(s): M47.27 - Other spondylosis with radiculopathy, lumbosacral region Annotation/Comment:: Stable by patient history despite history of spinal stenosis (14) TIA (transient ischemic attack) SNOMED Code(s): 788101034, 788666988 Code(s): G45.9 - TRANSIENT CEREBRAL ISCHEMIC ATTACK, UNSPECIFIED Status: Suspected Current Visit: No (15) Depressed affect SNOMED Code(s): 800394656 Code(s): R45.89 - OTHER SYMPTOMS AND SIGNS INVOLVING EMOTIONAL STATE Status : Acute Priority: High Current Visit: Yes - Problem List Review Problem List Initiated/Reviewed/Updated: Yes - My Orders Last 24 Hours: My Active Orders 04/12/17 06:00 Metoprolol Tartrate [Lopressor] 25 mg PO ONETIME ONE 04/13/17 08:00 Metoprolol Succinate [Toprol XL] 25 mg PO DAILY - Plan Plan:: 01/13/17 Ever Marino MD Severe low back pain. Treated with IV solumedrol, IV toradol, for right sciatica. Lumbar CT today reveals acute compression fracture L5, spinal stenosis , DJD lumbar spine. Platelets decreasing so IV toradol stopped. Miacalcin started. Needs swing bed status for continued pain control, monitoring renal function, platelet level and PT-OT. 01/21/17 Ever Marino MD Still with severe pain into right leg. On scheduled tylenol, scheduled tramadol , scheduled NSAID (celebrex) and prn pain medications. PT working with her. Will order MRI. 01/27/17 Ever Marino MD Still with pain right low back, right hip and right lateral thigh. MRI 25% loss of vertebral height compression fracture of L1. L4-L5 severe central stenosis, advanced facet arthropathy, diffuse bulging disc. Discussed options with her and daughter Ashley. PT starting to help pain. She continues on scheduled tylenol , scheduled tramadol, scheduled NSAID (celebrex), calcitonin, vitamin D, and lidocaine patch and prn pain medications. 02/08/17 Ever Marino MD Still with significant right lower back and right leg pain. Increase in pain pill has helped. She continues with PT. She has appointment with [facility] Wednesday02/15/17, 1300 x-rays and appointment with Dr.Dan Parnell 1340. Continue PT-OT. 03/26/17 Ever Marino MD She says her pain is improved. In fact she thinks she is good enough to go home. Questions about the doctor appointments in [place]. She does not think the appointments have helped her. Will obtain OT evaluation for home safety next week and review notes from [place]. 03/29/17 Ever Marino MD She says she is about the same. She was seen by OT today. She is still not dressing herself. She can not get out of bed herself. [id number] not here at this time. I did call her cell phone [phone] but no answer. 03/30/17 Ever Marino MD She had 2 appointments in [facility] today. Notes reviewed from Dr. Tim Felton. Restart PT. Increase gabapentin. Continue other medications. Manage decubitus ulcer. Pain is from spinal stenosis. She has appointment Wednesday with psychologist for evaluation to consider the spinal nerve stimulator. Talked with Jessy, son Deandre, and daughter in law Dominique. Discussion >1 hour. She has surgical consult on with surgeon to evaluate decubitus ulcer. All in agreement with plan of care. 04/11/17 Ever Marino MD She is scheduled tomorrow at [facility] for temporary placement of spinal nerve stimulator. NPO after midnight except will have her take metoprolol tartrate for rate control for her atrial fibrillation with sip of water before she leaves for [place]. She is not on any blood thinners. We do not have the metoprolol succinate available for her at this time. I did call [facility] on Wednesday to Dr. Felton. I was able to talk to his nurse. I reported to her to let him know regarding Jessy decubitus ulcer on coccyx. [facility] plans to proceed with the procedure Wednesday April 12, 2017. Jessy says she cannot live this way. Multiple medical therapies have been utilized. She is receiving PT currently but she feels her walking is not improving due to the pain in the right leg.
[2017-04-12] MEDS: oxyCODONE 5 MG Tab PO PRN (05:56)
[2017-04-12] MEDS ORDERED: Metoprolol Tartrate 25 MG Tab PO ONE (06:00)
[2017-04-12] MEDS: Levothyroxine 25 MCG Tab PO SCH (13:44)
[2017-04-12] MEDS: Betamethasone Dipropionate/Clotrimazole 0.05-1% Crm 15 GM Tube TOP SCH ×2 (13:45→18:12)
[2017-04-12] MEDS: DULoxetine 30 MG Cap PO SCH (13:45)
[2017-04-12] MEDS: Acetaminophen/HYDROcodone 325-10 MG Tab PO SCH ×3 (13:45→19:51)
[2017-04-12] MEDS: Calcium Citrate 950 MG Tab PO SCH ×2 (13:45→18:09)
[2017-04-12] MEDS: Gabapentin 300 MG Cap PO SCH ×2 (13:45→14:50)
[2017-04-12] MEDS: Cholecalciferol (Vitamin D3) 1,000 Unit Tab PO SCH (13:46)
[2017-04-12] MEDS: Multivitamin Tab PO SCH (13:46)
[2017-04-12] MEDS: Zinc (Zinc Gluconate) 50 MG Tab PO SCH (13:46)
[2017-04-12] MEDS: Famotidine 20 MG Tab PO SCH ×2 (13:46→18:09)
[2017-04-12] MEDS: CEPHALEXIN 500MG CAPS PO SCH (19:50)
[2017-04-12] MEDS: GABAPENTIN 600 MG PO SCH (19:50)
[2017-04-13] MEDS: Levothyroxine 25 MCG Tab PO SCH (07:33)
[2017-04-13] MEDS: DULoxetine 30 MG Cap PO SCH (07:51)
[2017-04-13] MEDS: Calcium Citrate 950 MG Tab PO SCH ×2 (07:51→17:38)
[2017-04-13] MEDS: Betamethasone Dipropionate/Clotrimazole 0.05-1% Crm 15 GM Tube TOP SCH (07:52)
[2017-04-13] MEDS: Acetaminophen/HYDROcodone 325-10 MG Tab PO SCH ×3 (07:53→20:38)
[2017-04-13] MEDS: CEPHALEXIN 500MG CAPS PO SCH ×2 (07:53→20:38)
[2017-04-13] MEDS: Gabapentin 300 MG Cap PO SCH ×2 (07:53→14:04)
[2017-04-13] MEDS: Famotidine 20 MG Tab PO SCH ×2 (07:54→17:38)
[2017-04-13] MEDS: Cholecalciferol (Vitamin D3) 1,000 Unit Tab PO SCH (07:55)
[2017-04-13] MEDS: Metoprolol Succinate 25 MG Tab.ER PO SCH (07:55)
[2017-04-13] MEDS: Zinc (Zinc Gluconate) 50 MG Tab PO SCH (11:38)
[2017-04-13] MEDS: Multivitamin Tab PO SCH (11:38)
[2017-04-13] MEDS ORDERED: Betamethasone Dipropionate/Clotrimazole 0.05-1% Crm 15 GM Tube TOP SCH (20:00)
[2017-04-13] MEDS: GABAPENTIN 600 MG PO SCH (20:38)
--- NOTE | 2017-04-13 20:38 | PCM.PN ---
- General Info Date of Service: 04/13/17 Admission Dx/Problem (Free Text): Admission Diagnosis/Problem Admission Diagnosis/Problem Compression fracture Functional Status: Reports: pain controlled - Review of Systems General: Reports: Weakness (right and left lower legs) HEENT: Reports: other (decreased visual acuity) Pulmonary: Reports: no symptoms Cardiovascular: Reports: No Symptoms Gastrointestinal: Reports: No symptoms Genitourinary: Reports: no symptoms Musculoskeletal: Reports: leg pain (right) Skin: Reports: no symptoms, other (decubitous ulcer coccyx) Neurological: Reports: Confusion, Pre-Existing Deficit (right radiculopathy, left foot drop), Difficulty Walking, Weakness, Gait Disturbance Psychiatric: Reports: confusion, depression - Patient Data Vitals - most recent: Last Vital Signs Temp 97.7 F 04/13/17 08:00 Pulse 85 04/13/17 08:00 Resp 17 04/13/17 08:00 BP 104/76 04/13/17 08:00 Pulse Ox 98 04/13/17 08:00 Weight - most recent: 170 lb 9.6 oz I&O - last 24 hours: Intake & Output 04/13/17 04/13/17 04/13/17 06:59 14:59 22:59 Intake Total 360 240 Balance 360 240 Med Orders - Current: Current Medications Hydrocodone Bitart/Acetaminophen ([place] 325-10 Mg) 1 tab PO TID@0800,1400,2000 [facility] Last Admin: 04/13/17 14:04 Dose: 1 tab Calcium Citrate (Calcitrate) 950 mg PO BID [facility] Last Admin: 04/13/17 17:38 Dose: 950 mg Cholecalciferol (Vitamin D3) 4,000 units PO DAILY [facility] Last Admin: 04/13/17 07:55 Dose: 4,000 units Duloxetine HCl (Cymbalta) 30 mg PO DAILY [facility] Last Admin: 04/13/17 07:51 Dose: 30 mg Famotidine (Pepcid) 20 mg PO BID [facility] Last Admin: 04/13/17 17:38 Dose: 20 mg Gabapentin (Neurontin) 300 mg PO BID@0800,1400 [facility] Last Admin: 04/13/17 14:04 Dose: 300 mg Levothyroxine Sodium (Levothyroxine) 25 mcg PO ACBREAKFAST [facility] Last Admin: 04/13/17 07:33 Dose: 25 mcg Loperamide HCl (Imodium Ad) 2 mg PO Q4H PRN PRN Reason: Diarrhea Last Admin: 02/20/17 14:14 Dose: 2 mg Magnesium Hydroxide (Milk Of Magnesia) 30 ml PO DAILY PRN PRN Reason: Constipation Last Admin: 04/10/17 11:08 Dose: 30 ml Metoprolol Succinate (Toprol Xl) 25 mg PO DAILY [facility] Last Admin: 04/13/17 07:55 Dose: 25 mg Multivitamins/Minerals/Vitamin C (Tab-A-Camila) 1 tab PO DAILY@1200 [facility] Last Admin: 04/13/17 11:38 Dose: 1 tab Gabapentin 600 Mg (Cap Own Med ) 1 each PO BEDTIME [facility] Last Admin: 04/12/17 19:50 Dose: 1 each Cephalexin 500mg (Caps) 0 each PO Q12HR [facility] Stop: 04/14/17 08:01 Last Admin: 04/13/17 07:53 Dose: 1 each Oxycodone HCl (Oxycodone) 5 mg PO Q4H PRN PRN Reason: Pain Last Admin: 04/12/17 05:56 Dose: 5 mg Senna (Senna) 8.6 mg PO BID PRN PRN Reason: Constipation Last Admin: 04/11/17 11:14 Dose: 8.6 mg Zinc Gluconate (Zinc) 50 mg PO DAILY@1200 [facility] Last Admin: 04/13/17 11:38 Dose: 50 mg Discontinued Medications Acetaminophen (Tylenol) 650 mg PO Q6H PRN PRN Reason: Pain Last Admin: 01/20/17 07:39 Dose: 650 mg Acetaminophen (Tylenol Arthritis Pain) 650 mg PO Q12H [facility] Last Admin: 03/08/17 08:35 Dose: 650 mg Acetaminophen (Tylenol Arthritis Pain) 650 mg PO Q8H PRN PRN Reason: Pain Last Admin: 02/08/17 16:38 Dose: 650 mg Hydrocodone Bitart/Acetaminophen ([place] 325-5 Mg) 1 tab PO Q6H PRN PRN Reason: Pain Last Admin: 02/08/17 06:20 Dose: 1 tab Hydrocodone Bitart/Acetaminophen ([place] 325-10 Mg) 1 tab PO Q6H PRN PRN Reason: Pain Last Admin: 03/08/17 05:27 Dose: 1 tab Hydrocodone Bitart/Acetaminophen ([place] 325-10 Mg) 1 tab PO Q4H PRN PRN Reason: Pain Last Admin: 03/13/17 18:24 Dose: 1 tab Alendronate Sodium (Fosamax) 70 mg PO Q7D@0600 [facility] Last Admin: 03/31/17 14:55 Dose: Not Given Alendronate Sodium (Fosamax) 70 mg PO Q7D@0600 [facility] Last Admin: 04/01/17 06:10 Dose: 70 mg Betamethasone/Clotrimazole (Lotrisone) 0 gm TOP BID [facility] Last Admin: 04/13/17 07:52 Dose: 1 applic Betamethasone/Clotrimazole (Lotrisone) 0 gm TOP Q12HR [facility] Calcitonin [place] (Miacalcin Nasal [place]) 0 ml RADHA DAILY [facility] Last Admin: 03/30/17 07:42 Dose: 1 spray Calcium Citrate (Calcitrate) 315 mg PO BID [facility] Last Admin: 02/17/17 19:39 Dose: Not Given Celecoxib (Celebrex) 100 mg PO BID [facility] Last Admin: 01/24/17 07:48 Dose: 100 mg Celecoxib (Celebrex) 100 mg PO DAILY@1800 [facility] Last Admin: 01/31/17 17:16 Dose: 100 mg Celecoxib (Celebrex) 100 mg PO BID [facility] Last Admin: 03/08/17 08:33 Dose: 100 mg Celecoxib (Celebrex) 100 mg PO BID [facility] Last Admin: 04/07/17 17:23 Dose: 100 mg Cholecalciferol (Vitamin D3) 2,000 units PO QAM [facility] Last Admin: 01/17/17 07:42 Dose: 2,000 units Cholecalciferol (Vitamin D3) 2,000 units PO BID [facility] Last Admin: 01/21/17 07:54 Dose: 2,000 units Cholecalciferol (Vitamin D3) 4,000 units PO BID [facility] Last Admin: 03/10/17 08:03 Dose: 4,000 units Duloxetine HCl (Cymbalta) 20 mg PO DAILY [facility] Last Admin: 03/14/17 07:38 Dose: 20 mg Duloxetine HCl (Cymbalta) 30 mg PO DAILY [facility] Last Admin: 03/15/17 08:58 Dose: Not Given Fentanyl (Sublimaze) 25 mcg IVPUSH Q4H PRN PRN Reason: Pain (severe 7-10) Last Admin: 01/16/17 08:24 Dose: 25 mcg Gabapentin (Neurontin) 100 mg PO BEDTIME [facility] Last Admin: 02/07/17 19:18 Dose: 100 mg Gabapentin (Neurontin) 300 mg PO Q12HR [facility] Last Admin: 02/26/17 08:20 Dose: 300 mg Gabapentin (Neurontin) 300 mg PO TID@0800,1400,2000 [facility] Last Admin: 03/08/17 08:34 Dose: 300 mg Gabapentin (Neurontin) 400 mg PO TID@0800,1400,1999 [facility] Last Admin: 03/11/17 14:32 Dose: 400 mg Gabapentin (Neurontin) 300 mg PO TID@0800,1400,1999 [facility] Last Admin: 03/30/17 17:45 Dose: 300 mg Gabapentin (Neurontin) 600 mg PO BEDTIME [facility] Last Admin: 03/30/17 19:12 Dose: 600 mg Levothyroxine Sodium (Levothyroxine) 25 mcg PO QAM [facility] Last Admin: 02/17/17 08:43 Dose: 25 mcg Lidocaine (Lidocaine 5% Paraben-Free) 140 mg TRDERM Q24H [facility] Last Admin: 03/07/17 19:16 Dose: 140 mg Lidocaine (Lidoderm 5%) 700 mg TRDERM Q24H [facility] Last Admin: 03/17/17 19:25 Dose: Not Given Loperamide HCl (Imodium Ad) 4 mg PO DAILY [facility] Last Admin: 01/19/17 07:44 Dose: 4 mg Metoprolol Succinate (Toprol Xl) 25 mg PO DAILY [facility] Last Admin: 04/11/17 08:39 Dose: Not Given Metoprolol Tartrate (Lopressor) 25 mg PO Q12HR [facility] Last Admin: 04/10/17 08:28 Dose: 25 mg Metoprolol Tartrate (Lopressor) 25 mg PO DAILY [facility] Last Admin: 04/11/17 08:38 Dose: 25 mg Metoprolol Tartrate (Lopressor) 25 mg PO ONETIME ONE Stop: 04/12/17 06:01 Last Admin: 04/12/17 05:45 Dose: 25 mg Miscellaneous Information (Remove Patch) 1 ea TRDERM DAILY@0800 [facility] Last Admin: 03/08/17 08:35 Dose: 1 ea Miscellaneous Information (Remove Patch) 1 ea TRDERM DAILY@0800 [facility] Last Admin: 03/18/17 08:06 Dose: 1 ea Morphine Sulfate (Ms Contin) 15 mg PO TID@0800,1400,2000 [facility] Last Admin: 03/11/17 14:32 Dose: 15 mg Morphine Sulfate (Ms Contin) 15 mg PO Q12HR [facility] Last Admin: 03/14/17 07:38 Dose: 15 mg Multivitamins/Minerals/Vitamin C (Tab-A-Camila) 1 tab PO DAILY [facility] Last Admin: 03/30/17 07:46 Dose: 1 tab Sodium Chloride (Saline Flush) 10 ml FLUSH ASDIRECTED PRN PRN Reason: flush Last Admin: 01/16/17 08:28 Dose: 10 ml Sodium Chloride (Saline Flush) 10 ml FLUSH BID [facility] Last Admin: 01/19/17 17:31 Dose: 10 ml Tramadol HCl (Ultram) 50 mg PO Q6H PRN PRN Reason: Pain (moderate 4-6) Last Admin: 02/25/17 12:03 Dose: 50 mg Tramadol HCl (Ultram) 50 mg PO Q12H [facility] Last Admin: 03/08/17 08:37 Dose: 50 mg Zinc Gluconate (Zinc) 50 mg PO DAILY [facility] Last Admin: 03/30/17 07:46 Dose: 50 mg - Exam General: alert, cooperative, no acute distress HEENT: Mucous membr. moist/pink Neck: trachea midline, no JVD Lungs: Clear to auscultation, Normal respiratory effort Cardiovascular: Irregular Rhythm Abdomen: bowel sounds present, soft, no tenderness, no distension (Female) Exam: Deferred Back Exam: Decreased Range of Motion, Other (kyphosis) Extremities: no edema Skin: warm, dry, intact Wound/Incisions: decubitis (coccyx) Psy/Mental Status: alert, normal mood, depressed - Problem List & Annotations (1) COPD (chronic obstructive pulmonary disease) SNOMED Code(s): 99141312 Code(s): J44.9 - CHRONIC OBSTRUCTIVE PULMONARY DISEASE, UNSPECIFIED Status : Acute Priority: Medium Current Visit: No Annotation/Comment:: No recent history of bronchitic-type symptoms, fever, etc. with patient not using any medications currently for her COPD/pulmonary fibrosis. Consider PFTs on an outpatient basis (2) Compression fracture of L5 lumbar vertebra SNOMED Code(s): 741840035 Code(s): S32.050A - WEDGE COMPRESSION FRACTURE OF FIFTH LUMBAR VERTEBRA, INIT Status: Acute Priority: High Current Visit: No (3) Degenerative joint disease (DJD) of lumbar spine Status: Acute Current Visit: No Qualifiers: Spinal osteoarthritis complication: with radiculopathy Qualified Code(s): M47.26 - Other spondylosis with radiculopathy, lumbar region (4) Heart disease SNOMED Code(s): 51577489 Code(s): I51.9 - HEART DISEASE, UNSPECIFIED Status: Acute Priority: High Current Visit: No Annotation/Comment:: Chest Pain protocol was not initiated in the emergency room secondary to absence of anginal-type symptoms. Note history of distant atrial fibrillation with no current anticoagulation therapy. Complete bifascicular bundle-branch, sinus arrhythmia, and sinus bradycardia with multiple previous negative Persantine Cardiolite evaluations as below. Note CHF as above with consideration of an echocardiogram on an outpatient basis. Cardiology consultation as needed. (5) Low back pain SNOMED Code(s): 187647732 Code(s): M54.5 - LOW BACK PAIN Status: Acute Priority: High Current Visit: No Qualifiers: Chronicity: acute Back pain laterality: right Sciatica laterality: sciatica of right side (6) Macular degeneration SNOMED Code(s): 182922194 Code(s): H35.30 - UNSPECIFIED MACULAR DEGENERATION Status: Acute Current Visit: No (7) Right sided sciatica SNOMED Code(s): 71965651 Code(s): M54.31 - SCIATICA, RIGHT SIDE Status: Acute Priority: High Current Visit: No Onset Date: Unknown Annotation/Comment:: improved since yesterday but still present. (8) Spinal stenosis of lumbar region at multiple levels SNOMED Code(s): 58489183 Code(s): M48.06 - SPINAL STENOSIS, LUMBAR REGION Status: Acute Priority: High Current Visit: No (9) Hyperlipidemia SNOMED Code(s): 62383832 Code(s): E78.5 - HYPERLIPIDEMIA, UNSPECIFIED Status: Chronic Priority: Low Current Visit: No Annotation/Comment:: Medically treated with repeat lipid panel per discretion [place] [facility] [place] (10) Hypertension SNOMED Code(s): 95093373 Code(s): I10 - ESSENTIAL (PRIMARY) HYPERTENSION Status: Chronic Priority : Low Current Visit: No Annotation/Comment:: Currently on no medication for HTN due to episodes of dizziness in past. (11) Hypothyroidism SNOMED Code(s): 10785469 Code(s): E03.9 - HYPOTHYROIDISM, UNSPECIFIED Status: Chronic Priority: Low Current Visit: No (12) Obesity SNOMED Code(s): 465797036 Code(s): E66.9 - OBESITY, UNSPECIFIED Status: Chronic Priority: Low Current Visit: No (13) Osteoarthritis SNOMED Code(s): 575344034 Code(s): M19.90 - UNSPECIFIED OSTEOARTHRITIS, UNSPECIFIED SITE Status: Chronic Priority: Low Current Visit: No Qualifiers: Osteoarthritis location: spine Spinal region: lumbosacral Spinal osteoarthritis complication: with radiculopathy Qualified Code(s): M47.27 - Other spondylosis with radiculopathy, lumbosacral region Annotation/Comment:: Stable by patient history despite history of spinal stenosis (14) TIA (transient ischemic attack) SNOMED Code(s): 924173260, 000739388 Code(s): G45.9 - TRANSIENT CEREBRAL ISCHEMIC ATTACK, UNSPECIFIED Status: Suspected Current Visit: No (15) Depressed affect SNOMED Code(s): 792983262 Code(s): R45.89 - OTHER SYMPTOMS AND SIGNS INVOLVING EMOTIONAL STATE Status : Acute Priority: High Current Visit: Yes (16) Radiculopathy of leg SNOMED Code(s): 95980634 Code(s): M54.10 - RADICULOPATHY, SITE UNSPECIFIED Status: Acute Priority : High Current Visit: Yes - Problem List Review Problem List Initiated/Reviewed/Updated: Yes - My Orders Last 24 Hours: My Active Orders 04/12/17 20:00 Non-Formulary Medication [NF Drug] 0 each PO Q12HR 04/13/17 08:00 Metoprolol Succinate [Toprol XL] 25 mg PO DAILY - Plan Plan:: 01/13/17 Ever Marino MD Severe low back pain. Treated with IV solumedrol, IV toradol, for right sciatica. Lumbar CT today reveals acute compression fracture L5, spinal stenosis , DJD lumbar spine. Platelets decreasing so IV toradol stopped. Miacalcin started. Needs swing bed status for continued pain control, monitoring renal function, platelet level and PT-OT. 01/21/17 Ever Marino MD Still with severe pain into right leg. On scheduled tylenol, scheduled tramadol , scheduled NSAID (celebrex) and prn pain medications. PT working with her. Will order MRI. 01/27/17 Ever Marino MD Still with pain right low back, right hip and right lateral thigh. MRI 25% loss of vertebral height compression fracture of L1. L4-L5 severe central stenosis, advanced facet arthropathy, diffuse bulging disc. Discussed options with her and daughter Ashley. PT starting to help pain. She continues on scheduled tylenol , scheduled tramadol, scheduled NSAID (celebrex), calcitonin, vitamin D, and lidocaine patch and prn pain medications. 02/08/17 Ever Marino MD Still with significant right lower back and right leg pain. Increase in pain pill has helped. She continues with PT. She has appointment with [facility] Wednesday02/15/17, 1300 x-rays and appointment with Dr.Dan Parnell 1340. Continue PT-OT. 03/26/17 Ever Marino MD She says her pain is improved. In fact she thinks she is good enough to go home. Questions about the doctor appointments in [place]. She does not think the appointments have helped her. Will obtain OT evaluation for home safety next week and review notes from [place]. 03/29/17 Ever Marino MD She says she is about the same. She was seen by OT today. She is still not dressing herself. She can not get out of bed herself. [id number] not here at this time. I did call her cell phone [phone] but no answer. 03/30/17 Ever Marino MD She had [address] [facility] today. Notes reviewed from Dr. Tim Felton. Restart PT. Increase gabapentin. Continue other medications. Manage decubitus ulcer. Pain is from spinal stenosis. She has appointment Wednesday with psychologist for evaluation to consider the spinal nerve stimulator. Talked with Jessy, son Deandre, and daughter in law Dominique. Discussion >1 hour. She has surgical consult on with surgeon to evaluate decubitus ulcer. All in agreement with plan of care. 04/11/17 Ever Marino MD She is scheduled tomorrow at [facility] for temporary placement of spinal nerve stimulator. NPO after midnight except will have her take metoprolol tartrate for rate control for her atrial fibrillation with sip of water before she leaves for [place]. She is not on any blood thinners. We do not have the metoprolol succinate available for her at this time. I did call [facility] on Wednesday to Dr. Felton. I was able to talk to his nurse. I reported to her to let him know regarding Jessy decubitus ulcer on coccyx. [facility] plans to proceed with the procedure Wednesday April 12, 2017. Jessy says she cannot live this way. Multiple medical therapies have been utilized. She is receiving PT currently but she feels her walking is not improving due to the pain in the right leg. 04/13/17 Ever Marino MD Pain does seem to be better with spinal nerve stimulator in place. Talked with Jessy and [id number]-roa Dominique. Appointment in [place] tomorrow for recheck. Permanent placement tentatively scheduled for next Wednesday04/19/2017.
[2017-04-14] MEDS: Levothyroxine 25 MCG Tab PO SCH (07:26)
[2017-04-14] MEDS: Acetaminophen/HYDROcodone 325-10 MG Tab PO SCH ×3 (07:27→19:19)
[2017-04-14] MEDS: Calcium Citrate 950 MG Tab PO SCH ×2 (07:54→17:40)
[2017-04-14] MEDS: DULoxetine 30 MG Cap PO SCH (07:54)
[2017-04-14] MEDS: Gabapentin 300 MG Cap PO SCH ×2 (07:54→16:33)
[2017-04-14] MEDS: Famotidine 20 MG Tab PO SCH ×2 (07:55→17:40)
[2017-04-14] MEDS: Metoprolol Succinate 25 MG Tab.ER PO SCH (07:55)
[2017-04-14] MEDS: CEPHALEXIN 500MG CAPS PO SCH (07:55)
[2017-04-14] MEDS: Cholecalciferol (Vitamin D3) 1,000 Unit Tab PO SCH (07:56)
[2017-04-14] MEDS: Multivitamin Tab PO SCH (11:18)
[2017-04-14] MEDS: Zinc (Zinc Gluconate) 50 MG Tab PO SCH (11:19)
[2017-04-14] MEDS: Loperamide 2 MG Tab PO PRN (11:29)
[2017-04-14] MEDS: GABAPENTIN 600 MG PO SCH (19:19)
[2017-04-15 07:34] LABS: CHLORIDE,CL 107 mmol/L (98-107); SODIUM,NA 142 mmol/L (136-145)
[2017-04-15] MEDS: Levothyroxine 25 MCG Tab PO SCH (07:34)
[2017-04-15] MEDS: Calcium Citrate 950 MG Tab PO SCH ×2 (08:10→17:50)
[2017-04-15] MEDS: Acetaminophen/HYDROcodone 325-10 MG Tab PO SCH ×3 (08:11→19:23)
[2017-04-15] MEDS: Gabapentin 300 MG Cap PO SCH ×2 (08:12→13:31)
[2017-04-15] MEDS: Famotidine 20 MG Tab PO SCH ×2 (08:12→17:50)
[2017-04-15] MEDS: Cholecalciferol (Vitamin D3) 1,000 Unit Tab PO SCH (08:12)
[2017-04-15] MEDS: DULoxetine 30 MG Cap PO SCH (08:12)
[2017-04-15] MEDS: Multivitamin Tab PO SCH (11:56)
[2017-04-15] MEDS: Zinc (Zinc Gluconate) 50 MG Tab PO SCH (11:56)
[2017-04-15] MEDS ORDERED: Digoxin 250 MCG Tab PO ONE (12:00)
--- NOTE | 2017-04-15 16:31 | PCM.PN ---
Addendum entered and electronically signed by Adelita English NP 04/16/17 13: 13: Late entry Patient's past medical history, past surgical history and family history are reviewed. Adelita English CNP Original Note: - General Info Date of Service: 04/15/17 Admission Dx/Problem (Free Text): Admission Diagnosis/Problem Admission Diagnosis/Problem Compression fracture Closed wedge compression fracture of 5th lumbar vertebra Lumbar stenosis decubitus ulcer Subjective Update: Patient is being seen for a history and physical for placement of spinal cord stimulator implant on 04/19/2017. Patient has been trialed on multiple narcotics with increased confusion and little relief of her pain. Patient has been limited with mobility due to her pain and now has a decubitus ulcer with current dressing changes. The specialist recommends the placement of the pain stimulator due to the patient's decline and side effects from the narcotics. Functional Status: Reports: pain controlled, tolerating diet - Review of Systems General: Reports: Weakness, Fatigue HEENT: Reports: no symptoms Pulmonary: Reports: no symptoms Cardiovascular: Reports: No Symptoms Gastrointestinal: Reports: No symptoms Genitourinary: Reports: no symptoms Musculoskeletal: Reports: back pain, joint pain Skin: Reports: other (decubitus ulcer to coccyx) Neurological: Reports: No Symptoms Psychiatric: Reports: no symptoms - Patient Data Vitals - most recent: Last Vital Signs Temp 98.2 F 04/14/17 08:00 Pulse 78 04/15/17 12:00 Resp 20 04/15/17 08:48 BP 91/59 L 04/15/17 10:47 Pulse Ox 94 L 04/15/17 08:48 Weight - most recent: 170 lb 9.6 oz I&O - last 24 hours: Intake & Output 04/15/17 04/15/17 04/15/17 06:59 14:59 22:59 Intake Total 1440 Balance 1440 Lab Results last 24 hrs: Laboratory Results - last 24 hr 04/15/17 04/15/17 Range/Units 07:00 07:00 WBC 4.5 (4.0-10.2) K/uL RBC 4.16 (3.77-5.09) M/uL Hgb 13.3 (11.7-15.5) g/dL Hct 39.6 (34.0-46.0) % MCV 95.2 (84.0-98.0) fL MCH 32.0 (28.2-33.3) pg MCHC 33.6 (31.7-36.0) g/dL RDW 13.1 (11.2-14.1) % Plt Count 129 L (150-350) K/uL Neut % (Auto) 61.6 (45.0-80.0) % Lymph % (Auto) 22.2 (10.0-50.0) % Barber % (Auto) 10.1 (2.0-14.0) % Eos % (Auto) 5.4 H (0.0-5.0) % Baso % (Auto) 0.7 (0.0-2.0) % Neut # (Auto) 2.75 (1.40-7.00) K/uL Lymph # (Auto) 0.99 (0.50-3.50) K/uL Barber # (Auto) 0.45 (0.00-1.00) K/uL Eos # (Auto) 0.24 (0.00-0.50) K/uL Baso # (Auto) 0.03 (0.00-0.20) K/uL Sodium 142 (136-145) mmol/L Potassium 4.0 (3.5-5.1) mmol/L Chloride 107 (98-107) mmol/L Carbon Dioxide 29.5 (21.0-32.0) mmol/L BUN 20 H (7-18) mg/dL Creatinine 0.69 (0.51-1.17) mg/dL Est Cr Clr Drug Dosing 54.66 mL/min Estimated GFR (MDRD) > 60 mL/min Glucose 98 (74-106) mg/dL Calcium 8.8 (8.5-10.1) mg/dL Total Bilirubin 0.4 (0.2-1.0) mg/dL AST 27 (15-37) U/L ALT 25 (12-78) U/L Alkaline Phosphatase 60 (46-116) IU/L Total Protein 6.2 L (6.4-8.2) g/dL Albumin 2.9 L (3.4-5.0) g/dL Med Orders - Current: Current Medications Hydrocodone Bitart/Acetaminophen ([place] 325-10 Mg) 1 tab PO TID@0800,1400,2000 [facility], [facility] Last Admin: 04/15/17 13:32 Dose: 1 tab Calcium Citrate (Calcitrate) 950 mg PO BID [facility], [facility] Last Admin: 04/15/17 08:10 Dose: 950 mg Cholecalciferol (Vitamin D3) 4,000 units PO DAILY [facility], [facility] Last Admin: 04/15/17 08:12 Dose: 4,000 units Digoxin (Lanoxin) 250 mcg PO ONETIME ONE Stop: 04/16/17 12:01 Digoxin (Lanoxin) 125 mcg PO DAILY@1200 [facility], [facility] Duloxetine HCl (Cymbalta) 30 mg PO DAILY [facility] Last Admin: 04/15/17 08:12 Dose: 30 mg Famotidine (Pepcid) 20 mg PO BID [facility] Last Admin: 04/15/17 08:12 Dose: 20 mg Gabapentin (Neurontin) 300 mg PO BID@0800,1400 [facility] Last Admin: 04/15/17 13:31 Dose: 300 mg Levothyroxine Sodium (Levothyroxine) 25 mcg PO ACBREAKFAST [facility] Last Admin: 04/15/17 07:34 Dose: 25 mcg Loperamide HCl (Imodium Ad) 2 mg PO Q4H PRN PRN Reason: Diarrhea Last Admin: 04/14/17 11:29 Dose: 2 mg Magnesium Hydroxide (Milk Of Magnesia) 30 ml PO DAILY PRN PRN Reason: Constipation Last Admin: 04/10/17 11:08 Dose: 30 ml Multivitamins/Minerals/Vitamin C (Tab-A-Camila) 1 tab PO DAILY@1200 [facility] Last Admin: 04/15/17 11:56 Dose: 1 tab Gabapentin 600 Mg (Cap Own Med ) 1 each PO BEDTIME [facility] Last Admin: 04/14/17 19:19 Dose: 1 each Oxycodone HCl (Oxycodone) 5 mg PO Q4H PRN PRN Reason: Pain Last Admin: 04/12/17 05:56 Dose: 5 mg Senna (Senna) 8.6 mg PO BID PRN PRN Reason: Constipation Last Admin: 04/11/17 11:14 Dose: 8.6 mg Zinc Gluconate (Zinc) 50 mg PO DAILY@1200 [facility] Last Admin: 04/15/17 11:56 Dose: 50 mg Discontinued Medications Acetaminophen (Tylenol) 650 mg PO Q6H PRN PRN Reason: Pain Last Admin: 01/20/17 07:39 Dose: 650 mg Acetaminophen (Tylenol Arthritis Pain) 650 mg PO Q12H [facility] Last Admin: 03/08/17 08:35 Dose: 650 mg Acetaminophen (Tylenol Arthritis Pain) 650 mg PO Q8H PRN PRN Reason: Pain Last Admin: 02/08/17 16:38 Dose: 650 mg Hydrocodone Bitart/Acetaminophen ([place] 325-5 Mg) 1 tab PO Q6H PRN PRN Reason: Pain Last Admin: 02/08/17 06:20 Dose: 1 tab Hydrocodone Bitart/Acetaminophen ([place] 325-10 Mg) 1 tab PO Q6H PRN PRN Reason: Pain Last Admin: 03/08/17 05:27 Dose: 1 tab Hydrocodone Bitart/Acetaminophen ([place] 325-10 Mg) 1 tab PO Q4H PRN PRN Reason: Pain Last Admin: 03/13/17 18:24 Dose: 1 tab Alendronate Sodium (Fosamax) 70 mg PO Q7D@0600 [facility] Last Admin: 03/31/17 14:55 Dose: Not Given Alendronate Sodium (Fosamax) 70 mg PO Q7D@0600 [facility] Last Admin: 04/01/17 06:10 Dose: 70 mg Betamethasone/Clotrimazole (Lotrisone) 0 gm TOP BID [facility] Last Admin: 04/13/17 07:52 Dose: 1 applic Betamethasone/Clotrimazole (Lotrisone) 0 gm TOP Q12HR [facility] Calcitonin Terrell (Miacalcin Nasal [place]) 0 ml RADHA DAILY [facility] Last Admin: 03/30/17 07:42 Dose: 1 spray Calcium Citrate (Calcitrate) 315 mg PO BID [facility] Last Admin: 02/17/17 19:39 Dose: Not Given Celecoxib (Celebrex) 100 mg PO BID [facility] Last Admin: 01/24/17 07:48 Dose: 100 mg Celecoxib (Celebrex) 100 mg PO DAILY@1800 [facility] Last Admin: 01/31/17 17:16 Dose: 100 mg Celecoxib (Celebrex) 100 mg PO BID [facility] Last Admin: 03/08/17 08:33 Dose: 100 mg Celecoxib (Celebrex) 100 mg PO BID [facility] Last Admin: 04/07/17 17:23 Dose: 100 mg Cholecalciferol (Vitamin D3) 2,000 units PO QAM [facility] Last Admin: 01/17/17 07:42 Dose: 2,000 units Cholecalciferol (Vitamin D3) 2,000 units PO BID [facility] Last Admin: 01/21/17 07:54 Dose: 2,000 units Cholecalciferol (Vitamin D3) 4,000 units PO BID [facility] Last Admin: 03/10/17 08:03 Dose: 4,000 units Digoxin (Lanoxin) 500 mcg PO ONETIME ONE Stop: 04/15/17 12:01 Last Admin: 04/15/17 12:00 Dose: 500 mcg Duloxetine HCl (Cymbalta) 20 mg PO DAILY [facility] Last Admin: 03/14/17 07:38 Dose: 20 mg Duloxetine HCl (Cymbalta) 30 mg PO DAILY [facility] Last Admin: 03/15/17 08:58 Dose: Not Given Fentanyl (Sublimaze) 25 mcg IVPUSH Q4H PRN PRN Reason: Pain (severe 7-10) Last Admin: 01/16/17 08:24 Dose: 25 mcg Gabapentin (Neurontin) 100 mg PO BEDTIME [facility] Last Admin: 02/07/17 19:18 Dose: 100 mg Gabapentin (Neurontin) 300 mg PO Q12HR [facility] Last Admin: 02/26/17 08:20 Dose: 300 mg Gabapentin (Neurontin) 300 mg PO TID@0800,1400,2000 [facility] Last Admin: 03/08/17 08:34 Dose: 300 mg Gabapentin (Neurontin) 400 mg PO TID@0800,1400,2000 [facility] Last Admin: 03/11/17 14:32 Dose: 400 mg Gabapentin (Neurontin) 300 mg PO TID@0800,1400,2000 [facility] Last Admin: 03/30/17 17:45 Dose: 300 mg Gabapentin (Neurontin) 600 mg PO BEDTIME [facility] Last Admin: 03/30/17 19:12 Dose: 600 mg Levothyroxine Sodium (Levothyroxine) 25 mcg PO QAM [facility] Last Admin: 02/17/17 08:43 Dose: 25 mcg Lidocaine (Lidocaine 5% Paraben-Free) 140 mg TRDERM Q24H [facility] Last Admin: 03/07/17 19:16 Dose: 140 mg Lidocaine (Lidoderm 5%) 700 mg TRDERM Q24H [facility] Last Admin: 03/17/17 19:25 Dose: Not Given Loperamide HCl (Imodium Ad) 4 mg PO DAILY [facility] Last Admin: 01/19/17 07:44 Dose: 4 mg Metoprolol Succinate (Toprol Xl) 25 mg PO DAILY [facility] Last Admin: 04/11/17 08:39 Dose: Not Given Metoprolol Succinate (Toprol Xl) 25 mg PO DAILY [facility] Last Admin: 04/14/17 07:55 Dose: 25 mg Metoprolol Tartrate (Lopressor) 25 mg PO Q12HR [facility] Last Admin: 04/10/17 08:28 Dose: 25 mg Metoprolol Tartrate (Lopressor) 25 mg PO DAILY [facility] Last Admin: 04/11/17 08:38 Dose: 25 mg Metoprolol Tartrate (Lopressor) 25 mg PO ONETIME ONE Stop: 04/12/17 06:01 Last Admin: 04/12/17 05:45 Dose: 25 mg Miscellaneous Information (Remove Patch) 1 ea TRDERM DAILY@0800 [facility] Last Admin: 03/08/17 08:35 Dose: 1 ea Miscellaneous Information (Remove Patch) 1 ea TRDERM DAILY@0800 [facility] Last Admin: 03/18/17 08:06 Dose: 1 ea Morphine Sulfate (Ms Contin) 15 mg PO TID@0800,1400,2000 [facility] Last Admin: 03/11/17 14:32 Dose: 15 mg Morphine Sulfate (Ms Contin) 15 mg PO Q12HR [facility] Last Admin: 03/14/17 07:38 Dose: 15 mg Multivitamins/Minerals/Vitamin C (Tab-A-Camila) 1 tab PO DAILY [facility] Last Admin: 03/30/17 07:46 Dose: 1 tab Cephalexin 500mg (Caps) 0 each PO Q12HR [facility] Stop: 04/14/17 08:01 Last Admin: 04/14/17 07:55 Dose: 1 each Sodium Chloride (Saline Flush) 10 ml FLUSH ASDIRECTED PRN PRN Reason: flush Last Admin: 01/16/17 08:28 Dose: 10 ml Sodium Chloride (Saline Flush) 10 ml FLUSH BID [facility] Last Admin: 01/19/17 17:31 Dose: 10 ml Tramadol HCl (Ultram) 50 mg PO Q6H PRN PRN Reason: Pain (moderate 4-6) Last Admin: 02/25/17 12:03 Dose: 50 mg Tramadol HCl (Ultram) 50 mg PO Q12H [facility] Last Admin: 03/08/17 08:37 Dose: 50 mg Zinc Gluconate (Zinc) 50 mg PO DAILY [facility] Last Admin: 03/30/17 07:46 Dose: 50 mg - Exam Quality Assessment: skin breakdown General: alert, cooperative, no acute distress HEENT: Pupils equal, Pupils reactive Neck: supple Lungs: Clear to auscultation, Normal respiratory effort Cardiovascular: Regular Rate, Irregular Rhythm, Murmurs (known history of A fib) Abdomen: bowel sounds present, soft, no tenderness, no distension Back Exam: Normal Inspection, Full Range of Motion Extremities: no edema Peripheral Pulses: 1+: Dorsalis Pedis (L), Dorsalis Pedis (R) Skin: warm, dry, intact Wound/Incisions: decubitis (to coccyx area) Neurological: no new focal deficit Psy/Mental Status: alert, normal affect, normal mood EKG INTERPRETATION EKG Date: 04/15/17 Rhythm: a-fib - Problem List & Annotations (1) Compression fracture of L5 lumbar vertebra SNOMED Code(s): 873056607 Code(s): S32.050A - WEDGE COMPRESSION FRACTURE OF FIFTH LUMBAR VERTEBRA, INIT Status: Acute Priority: High Current Visit: No Qualifiers: Fracture healing: with delayed healing (2) Atrial fibrillation SNOMED Code(s): 69591580 Code(s): I48.91 - UNSPECIFIED ATRIAL FIBRILLATION Status: Acute Current Visit: Yes Qualifiers: Atrial fibrillation type: unspecified Qualified Code(s): I48.91 - Unspecified atrial fibrillation (3) Hypertension SNOMED Code(s): 94515387 Code(s): I10 - ESSENTIAL (PRIMARY) HYPERTENSION Status: Chronic Priority : Low Current Visit: No Qualifiers: Hypertension type: essential hypertension Qualified Code(s): I10 - Essential (primary) hypertension - Problem List Review Problem List Initiated/Reviewed/Updated: Yes - My Orders Last 24 Hours: My Active Orders 04/15/17 08:51 Communication Order [RC] ROUTINE 04/15/17 13:24 EKG Documentation Completion [RC] ASDIRECTED 04/15/17 13:25 Chest 2V [CR] Routine - Plan Plan:: 01/13/17 Ever Marino MD Severe low back pain. Treated with IV solumedrol, IV toradol, for right sciatica. Lumbar CT today reveals acute compression fracture L5, spinal stenosis , DJD lumbar spine. Platelets decreasing so IV toradol stopped. Miacalcin started. Needs swing bed status for continued pain control, monitoring renal function, platelet level and PT-OT. 01/21/17 Ever Marino MD Still with severe pain into right leg. On scheduled tylenol, scheduled tramadol , scheduled NSAID (celebrex) and prn pain medications. PT working with her. Will order MRI. 01/27/17 Ever Marino MD Still with pain right low back, right hip and right lateral thigh. MRI 25% loss of vertebral height compression fracture of L1. L4-L5 severe central stenosis, advanced facet arthropathy, diffuse bulging disc. Discussed options with her and daughter Ashley. PT starting to help pain. She continues on scheduled tylenol , scheduled tramadol, scheduled NSAID (celebrex), calcitonin, vitamin D, and lidocaine patch and prn pain medications. 02/08/17 Ever Marino MD Still with significant right lower back and right leg pain. Increase in pain pill has helped. She continues with PT. She has appointment with [facility] Wednesday02/15/17, 1300 x-rays and appointment with Dr.Dan Parnell [id number]. Continue PT-OT. 03/26/17 Ever Marino MD She says her pain is improved. In fact she thinks she is good enough to go home. Questions about the doctor appointments in [place]. She does not think the appointments have helped her. Will obtain OT evaluation for home safety next week and review notes from [place]. 03/29/17 Ever Marino MD She says she is about the same. She was seen by OT today. She is still not dressing herself. She can not get out of bed herself. [id number] not here at this time. I did call her cell phone [phone] but no answer. 03/30/17 Ever Marino MD She had 2 appointments in [facility] today. Notes reviewed from Dr. Tim Felton. Restart PT. Increase gabapentin. Continue other medications. Manage decubitus ulcer. Pain is from spinal stenosis. She has appointment Wednesday with psychologist for evaluation to consider the spinal nerve stimulator. Talked with Jessy, son Deandre, and daughter in law Dominique. Discussion >1 hour. She has surgical consult on with surgeon to evaluate decubitus ulcer. All in agreement with plan of care. 04/11/17 Ever Marino MD She is scheduled tomorrow at [facility] for temporary placement of spinal nerve stimulator. NPO after midnight except will have her take metoprolol tartrate for rate control for her atrial fibrillation with sip of water before she leaves for [place]. She is not on any blood thinners. We do not have the metoprolol succinate available for her at this time. I did call [facility] on Wednesday to Dr. Felton. I was able to talk to his nurse. I reported to her to let him know regarding Jessy decubitus ulcer on coccyx. [facility] plans to proceed with the procedure Wednesday April 12, 2017. Jessy says she cannot live this way. Multiple medical therapies have been utilized. She is receiving PT currently but she feels her walking is not improving due to the pain in the right leg. 04/13/17 Ever Marino MD Pain does seem to be better with spinal nerve stimulator in place. Talked with Jessy and [id number] Dominique. Appointment in [place] tomorrow for recheck. Permanent placement tentatively scheduled for next Wednesday04/19/2017. 04/15/2017 Patient was seen for pre op history and physical for spinal cord stimulator. Will order platelet per surgeon's request. Chest Xray and EKG reviewed. Patient states understanding the procedure and wants to continue with the plan. Will wait with wound vac to decubitus coccyx ulcer until after the implant is placed. Patient has not had any issues with anesthesia in the past. Medications and past history and physicals noted and reviewed. Discussed with Dr Curtis. Patient is currently in swingbed in [facility] and will continue to need to require skilled care after the procedure and for the wound vac. patient did not have any further questions or concerns. Adelita English,[employer]ER
[2017-04-15] MEDS: GABAPENTIN 600 MG PO SCH (19:22)
[2017-04-16] MEDS: Levothyroxine 25 MCG Tab PO SCH (09:24)
[2017-04-16] MEDS: Famotidine 20 MG Tab PO SCH ×2 (09:26→18:10)
[2017-04-16] MEDS: Gabapentin 300 MG Cap PO SCH ×2 (09:26→14:00)
[2017-04-16] MEDS: DULoxetine 30 MG Cap PO SCH (09:27)
[2017-04-16] MEDS: Calcium Citrate 950 MG Tab PO SCH ×2 (09:27→18:09)
[2017-04-16] MEDS: Acetaminophen/HYDROcodone 325-10 MG Tab PO SCH ×3 (09:29→20:01)
[2017-04-16] MEDS: Cholecalciferol (Vitamin D3) 1,000 Unit Tab PO SCH (09:30)
[2017-04-16] MEDS ORDERED: Digoxin 250 MCG Tab PO ONE (12:00)
[2017-04-16] MEDS: Zinc (Zinc Gluconate) 50 MG Tab PO SCH (12:16)
[2017-04-16] MEDS: Multivitamin Tab PO SCH (12:16)
[2017-04-16] MEDS: GABAPENTIN 600 MG PO SCH (19:33)
[2017-04-16] MEDS: Loperamide 2 MG Tab PO PRN (20:04)
[2017-04-17] MEDS: DULoxetine 30 MG Cap PO SCH (07:28)
[2017-04-17] MEDS: Calcium Citrate 950 MG Tab PO SCH ×2 (07:28→17:54)
[2017-04-17] MEDS: Levothyroxine 25 MCG Tab PO SCH (07:28)
[2017-04-17] MEDS: Gabapentin 300 MG Cap PO SCH ×2 (07:28→14:32)
[2017-04-17] MEDS: Acetaminophen/HYDROcodone 325-10 MG Tab PO SCH ×3 (07:29→19:14)
[2017-04-17] MEDS: Famotidine 20 MG Tab PO SCH ×2 (07:30→17:54)
[2017-04-17] MEDS: Cholecalciferol (Vitamin D3) 1,000 Unit Tab PO SCH (07:31)
[2017-04-17] MEDS: Digoxin 125 MCG Tab PO SCH (11:53)
[2017-04-17] MEDS: Zinc (Zinc Gluconate) 50 MG Tab PO SCH (11:54)
[2017-04-17] MEDS: Multivitamin Tab PO SCH (11:54)
[2017-04-17] MEDS: GABAPENTIN 600 MG PO SCH (19:13)
[2017-04-18] MEDS: DULoxetine 30 MG Cap PO SCH (07:28)
[2017-04-18] MEDS: Calcium Citrate 950 MG Tab PO SCH ×2 (07:28→18:05)
[2017-04-18] MEDS: Levothyroxine 25 MCG Tab PO SCH (07:28)
[2017-04-18] MEDS: Gabapentin 300 MG Cap PO SCH ×2 (07:29→14:16)
[2017-04-18] MEDS: Famotidine 20 MG Tab PO SCH ×2 (07:30→18:05)
[2017-04-18] MEDS: Acetaminophen/HYDROcodone 325-10 MG Tab PO SCH ×3 (07:30→19:11)
[2017-04-18] MEDS: Cholecalciferol (Vitamin D3) 1,000 Unit Tab PO SCH (07:32)
[2017-04-18] MEDS: Zinc (Zinc Gluconate) 50 MG Tab PO SCH (12:00)
[2017-04-18] MEDS: Multivitamin Tab PO SCH (12:00)
[2017-04-18] MEDS: Digoxin 125 MCG Tab PO SCH (12:00)
[2017-04-18] MEDS: GABAPENTIN 600 MG PO SCH (19:09)
[2017-04-19] MEDS: oxyCODONE 5 MG Tab PO PRN (05:57)
[2017-04-19] MEDS: Acetaminophen/HYDROcodone 325-10 MG Tab PO SCH ×3 (07:25→19:30)
[2017-04-19] MEDS: Calcium Citrate 950 MG Tab PO SCH ×2 (07:25→17:31)
[2017-04-19] MEDS: Gabapentin 300 MG Cap PO SCH ×2 (07:25→13:18)
[2017-04-19] MEDS: DULoxetine 30 MG Cap PO SCH (07:25)
[2017-04-19] MEDS: Levothyroxine 25 MCG Tab PO SCH (07:25)
[2017-04-19] MEDS: Cholecalciferol (Vitamin D3) 1,000 Unit Tab PO SCH (07:25)
[2017-04-19] MEDS: Famotidine 20 MG Tab PO SCH ×2 (07:25→17:33)
--- NOTE | 2017-04-19 08:14 | PN ---
Date of Service: 04/15/2017 This patient is seen in followup of her sacral ulcer. A silver absorbent dressing has been used on this over the past several days. The wound continues to be clean in the surrounding skin although the base of the wound shows very superficial exudate. The wound seems to have decreased in size slightly over the last 2 weeks, but does persist. It is estimated at 2 x 1 cm in size now. The wound does not appear to have decreased in depth in the last 2 weeks and I would recommend a trial of wound VAC to see if this will speed up wound healing. I anticipate that a trial of this along with having her continue to keep pressure off the wound as well as continuing to maximize her nutrition would allow this wound to heal. PRISCA Osorio MD /[id number]
[2017-04-19] MEDS: Multivitamin Tab PO SCH (13:17)
[2017-04-19] MEDS: Digoxin 125 MCG Tab PO SCH (13:17)
[2017-04-19] MEDS: Zinc (Zinc Gluconate) 50 MG Tab PO SCH (13:18)
[2017-04-19] MEDS: GABAPENTIN 600 MG PO SCH (19:29)
[2017-04-19] MEDS ORDERED: Cephalexin 250 MG Cap PO ONE (20:40)
[2017-04-19] MEDS ORDERED: CEPHALEXIN 500 MG PO ONE ×2 (21:45→22:00)
[2017-04-19] MEDS ORDERED: CEPHALEXIN 500 MG PO SCH (21:45)
[2017-04-20 07:26] LABS: CHLORIDE,CL 106 mmol/L (98-107); SODIUM,NA 143 mmol/L (136-145)
[2017-04-20] MEDS: Levothyroxine 25 MCG Tab PO SCH (07:42)
[2017-04-20] MEDS: Acetaminophen/HYDROcodone 325-10 MG Tab PO SCH ×3 (07:43→20:45)
[2017-04-20] MEDS ORDERED: CEPHALEXIN 500 MG PO SCH (08:00)
[2017-04-20] MEDS ORDERED: Cephalexin 250 MG Cap PO SCH (08:00)
[2017-04-20] MEDS: Calcium Citrate 950 MG Tab PO SCH ×2 (08:08→17:26)
[2017-04-20] MEDS: Gabapentin 300 MG Cap PO SCH ×2 (08:09→14:16)
[2017-04-20] MEDS: DULoxetine 30 MG Cap PO SCH (08:09)
[2017-04-20] MEDS: Cholecalciferol (Vitamin D3) 1,000 Unit Tab PO SCH (08:11)
[2017-04-20] MEDS: Famotidine 20 MG Tab PO SCH ×2 (08:11→17:26)
[2017-04-20] MEDS: Digoxin 125 MCG Tab PO SCH (11:13)
[2017-04-20] MEDS: Zinc (Zinc Gluconate) 50 MG Tab PO SCH (11:14)
[2017-04-20] MEDS: Multivitamin Tab PO SCH (11:14)
[2017-04-20] MEDS: GABAPENTIN 600 MG PO SCH (20:44)
[2017-04-20] MEDS: CEPHALEXIN 500MG CAPS PO SCH (20:44)
[2017-04-21] MEDS: oxyCODONE 5 MG Tab PO PRN
[2017-04-21] MEDS: Levothyroxine 25 MCG Tab PO SCH (07:35)
[2017-04-21] MEDS: DULoxetine 30 MG Cap PO SCH (08:11)
[2017-04-21] MEDS: CEPHALEXIN 500MG CAPS PO SCH ×2 (08:12→20:13)
[2017-04-21] MEDS: Gabapentin 300 MG Cap PO SCH ×2 (08:12→13:24)
[2017-04-21] MEDS: Famotidine 20 MG Tab PO SCH ×2 (08:12→17:57)
[2017-04-21] MEDS: Acetaminophen/HYDROcodone 325-10 MG Tab PO SCH ×3 (08:14→20:14)
[2017-04-21] MEDS: Calcium Citrate 950 MG Tab PO SCH ×2 (08:15→17:57)
[2017-04-21] MEDS: Cholecalciferol (Vitamin D3) 1,000 Unit Tab PO SCH (08:15)
[2017-04-21] MEDS: Digoxin 125 MCG Tab PO SCH (11:35)
[2017-04-21] MEDS: Multivitamin Tab PO SCH (11:36)
[2017-04-21] MEDS: Zinc (Zinc Gluconate) 50 MG Tab PO SCH (11:36)
[2017-04-21] MEDS: GABAPENTIN 600 MG PO SCH (20:14)
[2017-04-22] MEDS: Acetaminophen/HYDROcodone 325-10 MG Tab PO SCH ×3 (07:17→19:40)
[2017-04-22] MEDS: Levothyroxine 25 MCG Tab PO SCH (07:17)
[2017-04-22] MEDS: Famotidine 20 MG Tab PO SCH ×2 (07:53→17:35)
[2017-04-22] MEDS: DULoxetine 30 MG Cap PO SCH (07:53)
[2017-04-22] MEDS: CEPHALEXIN 500MG CAPS PO SCH ×2 (07:53→19:39)
[2017-04-22] MEDS: Gabapentin 300 MG Cap PO SCH ×2 (07:53→14:25)
[2017-04-22] MEDS: Calcium Citrate 950 MG Tab PO SCH ×2 (07:53→17:35)
[2017-04-22] MEDS: Cholecalciferol (Vitamin D3) 1,000 Unit Tab PO SCH (07:54)
[2017-04-22] MEDS: Digoxin 125 MCG Tab PO SCH (11:42)
[2017-04-22] MEDS: Multivitamin Tab PO SCH (11:42)
[2017-04-22] MEDS: Zinc (Zinc Gluconate) 50 MG Tab PO SCH (11:43)
[2017-04-22] MEDS: GABAPENTIN 600 MG PO SCH (19:39)
[2017-04-23] MEDS: Levothyroxine 25 MCG Tab PO SCH (07:23)
[2017-04-23] MEDS: Famotidine 20 MG Tab PO SCH ×2 (07:48→17:13)
[2017-04-23] MEDS: CEPHALEXIN 500MG CAPS PO SCH ×2 (07:48→19:23)
[2017-04-23] MEDS: DULoxetine 30 MG Cap PO SCH (07:48)
[2017-04-23] MEDS: Gabapentin 300 MG Cap PO SCH ×2 (07:48→14:21)
[2017-04-23] MEDS: Acetaminophen/HYDROcodone 325-10 MG Tab PO SCH ×3 (07:50→19:24)
[2017-04-23] MEDS: Calcium Citrate 950 MG Tab PO SCH ×2 (07:52→17:13)
[2017-04-23] MEDS: Cholecalciferol (Vitamin D3) 1,000 Unit Tab PO SCH (07:53)
[2017-04-23] MEDS: Zinc (Zinc Gluconate) 50 MG Tab PO SCH (11:43)
[2017-04-23] MEDS: Digoxin 125 MCG Tab PO SCH (11:43)
[2017-04-23] MEDS: Multivitamin Tab PO SCH (11:43)
[2017-04-23] MEDS: Magnesium Hydroxide 400 MG/5 ML Susp 30 ML Cup PO PRN (17:25)
[2017-04-23] MEDS: GABAPENTIN 600 MG PO SCH (19:23)
[2017-04-24] MEDS: Levothyroxine 25 MCG Tab PO SCH (06:57)
[2017-04-24] MEDS: Calcium Citrate 950 MG Tab PO SCH ×2 (07:42→17:21)
[2017-04-24] MEDS: Gabapentin 300 MG Cap PO SCH ×2 (07:43→13:12)
[2017-04-24] MEDS: CEPHALEXIN 500MG CAPS PO SCH ×2 (07:43→19:13)
[2017-04-24] MEDS: DULoxetine 30 MG Cap PO SCH (07:43)
[2017-04-24] MEDS: Acetaminophen/HYDROcodone 325-10 MG Tab PO SCH ×3 (07:44→19:14)
[2017-04-24] MEDS: Cholecalciferol (Vitamin D3) 1,000 Unit Tab PO SCH (07:45)
[2017-04-24] MEDS: Famotidine 20 MG Tab PO SCH ×2 (07:45→17:21)
[2017-04-24] MEDS: Sennosides 8.6 MG Tab PO PRN (08:12)
[2017-04-24] MEDS: Digoxin 125 MCG Tab PO SCH (11:43)
[2017-04-24] MEDS: Multivitamin Tab PO SCH (11:44)
[2017-04-24] MEDS: Zinc (Zinc Gluconate) 50 MG Tab PO SCH (11:44)
[2017-04-24] MEDS: GABAPENTIN 600 MG PO SCH (19:13)
[2017-04-25] MEDS: Levothyroxine 25 MCG Tab PO SCH (07:04)
[2017-04-25] MEDS: Calcium Citrate 950 MG Tab PO SCH ×2 (07:34→17:23)
[2017-04-25] MEDS: CEPHALEXIN 500MG CAPS PO SCH ×2 (07:35→19:08)
[2017-04-25] MEDS: Acetaminophen/HYDROcodone 325-10 MG Tab PO SCH ×3 (07:35→19:08)
[2017-04-25] MEDS: DULoxetine 30 MG Cap PO SCH (07:35)
[2017-04-25] MEDS: Gabapentin 300 MG Cap PO SCH ×2 (07:35→13:07)
[2017-04-25] MEDS: Famotidine 20 MG Tab PO SCH ×2 (07:36→17:23)
[2017-04-25] MEDS: Cholecalciferol (Vitamin D3) 1,000 Unit Tab PO SCH (07:37)
[2017-04-25] MEDS: Digoxin 125 MCG Tab PO SCH (11:16)
[2017-04-25] MEDS: Zinc (Zinc Gluconate) 50 MG Tab PO SCH (11:17)
[2017-04-25] MEDS: Multivitamin Tab PO SCH (11:17)
[2017-04-25] MEDS: GABAPENTIN 600 MG PO SCH (19:08)
[2017-04-26] MEDS: Calcium Citrate 950 MG Tab PO SCH ×2 (07:13→18:14)
[2017-04-26] MEDS: Levothyroxine 25 MCG Tab PO SCH (07:13)
[2017-04-26] MEDS: DULoxetine 30 MG Cap PO SCH (07:14)
[2017-04-26] MEDS: Famotidine 20 MG Tab PO SCH ×2 (07:14→18:14)
[2017-04-26] MEDS: Gabapentin 300 MG Cap PO SCH ×2 (07:14→14:04)
[2017-04-26] MEDS: CEPHALEXIN 500MG CAPS PO SCH ×2 (07:14→19:08)
[2017-04-26] MEDS: Cholecalciferol (Vitamin D3) 1,000 Unit Tab PO SCH (07:15)
[2017-04-26] MEDS: Acetaminophen/HYDROcodone 325-10 MG Tab PO SCH ×3 (07:15→19:08)
[2017-04-26] MEDS: Digoxin 125 MCG Tab PO SCH (12:07)
[2017-04-26] MEDS: Multivitamin Tab PO SCH (12:07)
[2017-04-26] MEDS: Zinc (Zinc Gluconate) 50 MG Tab PO SCH (12:08)
[2017-04-26] MEDS: GABAPENTIN 600 MG PO SCH (19:08)
[2017-04-27] MEDS: Levothyroxine 25 MCG Tab PO SCH (07:18)
[2017-04-27] MEDS: Acetaminophen/HYDROcodone 325-10 MG Tab PO SCH ×3 (07:19→19:12)
[2017-04-27] MEDS: Calcium Citrate 950 MG Tab PO SCH ×2 (07:50→17:27)
[2017-04-27] MEDS: Gabapentin 300 MG Cap PO SCH ×2 (07:50→13:53)
[2017-04-27] MEDS: DULoxetine 30 MG Cap PO SCH (07:50)
[2017-04-27] MEDS: CEPHALEXIN 500MG CAPS PO SCH ×2 (07:50→19:13)
[2017-04-27] MEDS: Cholecalciferol (Vitamin D3) 1,000 Unit Tab PO SCH (07:51)
[2017-04-27] MEDS: Famotidine 20 MG Tab PO SCH ×2 (07:51→17:27)
[2017-04-27] MEDS: Digoxin 125 MCG Tab PO SCH (11:17)
[2017-04-27] MEDS: Multivitamin Tab PO SCH (11:18)
[2017-04-27] MEDS: Zinc (Zinc Gluconate) 50 MG Tab PO SCH (11:18)
[2017-04-27] MEDS: GABAPENTIN 600 MG PO SCH (19:13)
[2017-04-28] MEDS: Levothyroxine 25 MCG Tab PO SCH (07:11)
[2017-04-28] MEDS: DULoxetine 30 MG Cap PO SCH (07:40)
[2017-04-28] MEDS: Calcium Citrate 950 MG Tab PO SCH ×2 (07:40→17:23)
[2017-04-28] MEDS: Gabapentin 300 MG Cap PO SCH ×2 (07:41→14:14)
[2017-04-28] MEDS: CEPHALEXIN 500MG CAPS PO SCH ×2 (07:41→19:01)
[2017-04-28] MEDS: Acetaminophen/HYDROcodone 325-10 MG Tab PO SCH ×3 (07:42→19:01)
[2017-04-28] MEDS: Cholecalciferol (Vitamin D3) 1,000 Unit Tab PO SCH (07:42)
[2017-04-28] MEDS: Famotidine 20 MG Tab PO SCH ×2 (07:42→17:23)
[2017-04-28] MEDS: oxyCODONE 5 MG Tab PO PRN (10:19)
[2017-04-28] MEDS: Multivitamin Tab PO SCH (11:17)
[2017-04-28] MEDS: Zinc (Zinc Gluconate) 50 MG Tab PO SCH (11:17)
[2017-04-28] MEDS: Digoxin 125 MCG Tab PO SCH (11:17)
[2017-04-28] MEDS: GABAPENTIN 600 MG PO SCH (19:00)
[2017-04-29] MEDS: Levothyroxine 25 MCG Tab PO SCH (06:47)
[2017-04-29] MEDS: CEPHALEXIN 500MG CAPS PO SCH (07:19)
[2017-04-29] MEDS: Calcium Citrate 950 MG Tab PO SCH ×2 (07:19→17:15)
[2017-04-29] MEDS: DULoxetine 30 MG Cap PO SCH (07:20)
[2017-04-29] MEDS: Gabapentin 300 MG Cap PO SCH ×3 (07:20→19:29)
[2017-04-29] MEDS: Acetaminophen/HYDROcodone 325-10 MG Tab PO SCH ×2 (07:20→15:17)
[2017-04-29] MEDS: Famotidine 20 MG Tab PO SCH ×2 (07:21→17:15)
[2017-04-29] MEDS: Cholecalciferol (Vitamin D3) 1,000 Unit Tab PO SCH (07:22)
[2017-04-29] MEDS: Digoxin 125 MCG Tab PO SCH (15:13)
[2017-04-29] MEDS: Zinc (Zinc Gluconate) 50 MG Tab PO SCH (15:14)
[2017-04-29] MEDS: Multivitamin Tab PO SCH (15:14)
--- NOTE | 2017-04-29 15:44 | PCM.SN ---
- Free Text/Narrative Note: 04/29/2017 Patient returned from the pain clinic appointment with the doctor recommending changing Paul to as needed and changing gabapentin to 300mg one tab three times a day. Continue physical therapy. Changes made according to the pain clinic recommendations Adelita English,[place]
[2017-04-30] MEDS: Levothyroxine 25 MCG Tab PO SCH (07:09)
[2017-04-30] MEDS: DULoxetine 30 MG Cap PO SCH (07:39)
[2017-04-30] MEDS: Calcium Citrate 950 MG Tab PO SCH ×2 (07:39→17:19)
[2017-04-30] MEDS: Gabapentin 300 MG Cap PO SCH ×3 (07:40→19:47)
[2017-04-30] MEDS: Cholecalciferol (Vitamin D3) 1,000 Unit Tab PO SCH (07:40)
[2017-04-30] MEDS: Famotidine 20 MG Tab PO SCH ×2 (07:40→17:19)
[2017-04-30] MEDS: Acetaminophen/HYDROcodone 325-10 MG Tab PO PRN ×2 (08:36→23:26)
[2017-04-30] MEDS: Loperamide 2 MG Tab PO PRN (09:16)
[2017-04-30] MEDS: Multivitamin Tab PO SCH (11:22)
[2017-04-30] MEDS: Digoxin 125 MCG Tab PO SCH (11:22)
[2017-04-30] MEDS: Zinc (Zinc Gluconate) 50 MG Tab PO SCH (11:23)
[2017-05-01] MEDS: Levothyroxine 25 MCG Tab PO SCH (07:09)
[2017-05-01] MEDS: Calcium Citrate 950 MG Tab PO SCH ×2 (07:47→17:35)
[2017-05-01] MEDS: Gabapentin 300 MG Cap PO SCH ×3 (07:48→19:30)
[2017-05-01] MEDS: Cholecalciferol (Vitamin D3) 1,000 Unit Tab PO SCH (07:48)
[2017-05-01] MEDS: DULoxetine 30 MG Cap PO SCH (07:48)
[2017-05-01] MEDS: Famotidine 20 MG Tab PO SCH ×2 (07:48→17:35)
[2017-05-01] MEDS: Digoxin 125 MCG Tab PO SCH (11:19)
[2017-05-01] MEDS: Zinc (Zinc Gluconate) 50 MG Tab PO SCH (11:20)
[2017-05-01] MEDS: Multivitamin Tab PO SCH (11:20)
[2017-05-02] MEDS: DULoxetine 30 MG Cap PO SCH (08:05)
[2017-05-02] MEDS: Gabapentin 300 MG Cap PO SCH ×3 (08:05→19:19)
[2017-05-02] MEDS: Levothyroxine 25 MCG Tab PO SCH (08:05)
[2017-05-02] MEDS: Famotidine 20 MG Tab PO SCH ×2 (08:06→17:33)
[2017-05-02] MEDS: Cholecalciferol (Vitamin D3) 1,000 Unit Tab PO SCH (08:06)
[2017-05-02] MEDS: Acetaminophen/HYDROcodone 325-10 MG Tab PO PRN ×2 (08:07→17:34)
[2017-05-02] MEDS: Calcium Citrate 950 MG Tab PO SCH ×2 (08:07→17:32)
[2017-05-02] MEDS: Digoxin 125 MCG Tab PO SCH (12:04)
[2017-05-02] MEDS: Multivitamin Tab PO SCH (12:05)
[2017-05-02] MEDS: Zinc (Zinc Gluconate) 50 MG Tab PO SCH (12:05)
[2017-05-03] MEDS: Levothyroxine 25 MCG Tab PO SCH (07:11)
[2017-05-03] MEDS: Calcium Citrate 950 MG Tab PO SCH ×2 (07:29→17:15)
[2017-05-03] MEDS: Cholecalciferol (Vitamin D3) 1,000 Unit Tab PO SCH (07:30)
[2017-05-03] MEDS: DULoxetine 30 MG Cap PO SCH (07:30)
[2017-05-03] MEDS: Gabapentin 300 MG Cap PO SCH ×3 (07:30→18:59)
[2017-05-03] MEDS: Famotidine 20 MG Tab PO SCH ×2 (07:30→17:15)
[2017-05-03] MEDS: Zinc (Zinc Gluconate) 50 MG Tab PO SCH (11:33)
[2017-05-03] MEDS: Digoxin 125 MCG Tab PO SCH (11:34)
[2017-05-03] MEDS: Multivitamin Tab PO SCH (11:34)
[2017-05-03] MEDS: Acetaminophen/HYDROcodone 325-10 MG Tab PO PRN (16:13)
[2017-05-04] MEDS: Levothyroxine 25 MCG Tab PO SCH (07:02)
[2017-05-04] MEDS: Gabapentin 300 MG Cap PO SCH ×3 (07:28→19:23)
[2017-05-04] MEDS: DULoxetine 30 MG Cap PO SCH (07:28)
[2017-05-04] MEDS: Famotidine 20 MG Tab PO SCH ×2 (07:28→17:53)
[2017-05-04] MEDS: Calcium Citrate 950 MG Tab PO SCH ×2 (07:28→17:52)
[2017-05-04] MEDS: Cholecalciferol (Vitamin D3) 1,000 Unit Tab PO SCH (07:29)
[2017-05-04] MEDS: Acetaminophen/HYDROcodone 325-10 MG Tab PO PRN (09:02)
[2017-05-04] MEDS: Digoxin 125 MCG Tab PO SCH (11:33)
[2017-05-04] MEDS: Zinc (Zinc Gluconate) 50 MG Tab PO SCH (11:34)
[2017-05-04] MEDS: Multivitamin Tab PO SCH (11:34)
[2017-05-05] MEDS: Levothyroxine 25 MCG Tab PO SCH (06:37)
[2017-05-05] MEDS: Calcium Citrate 950 MG Tab PO SCH ×2 (07:29→16:59)
[2017-05-05] MEDS: Famotidine 20 MG Tab PO SCH ×2 (07:30→17:00)
[2017-05-05] MEDS: Gabapentin 300 MG Cap PO SCH ×3 (07:30→19:24)
[2017-05-05] MEDS: DULoxetine 30 MG Cap PO SCH (07:30)
[2017-05-05] MEDS: Cholecalciferol (Vitamin D3) 1,000 Unit Tab PO SCH (07:31)
[2017-05-05] MEDS: Acetaminophen/HYDROcodone 325-10 MG Tab PO PRN (07:35)
[2017-05-05] MEDS: Zinc (Zinc Gluconate) 50 MG Tab PO SCH (10:59)
[2017-05-05] MEDS: Digoxin 125 MCG Tab PO SCH (10:59)
[2017-05-05] MEDS: Multivitamin Tab PO SCH (10:59)
[2017-05-06] MEDS: Acetaminophen/HYDROcodone 325-10 MG Tab PO PRN (04:54)
[2017-05-06] MEDS: Levothyroxine 25 MCG Tab PO SCH (07:34)
[2017-05-06] MEDS: Gabapentin 300 MG Cap PO SCH ×3 (08:00→19:22)
[2017-05-06] MEDS: Calcium Citrate 950 MG Tab PO SCH ×2 (08:00→17:29)
[2017-05-06] MEDS: DULoxetine 30 MG Cap PO SCH (08:00)
[2017-05-06] MEDS: Famotidine 20 MG Tab PO SCH ×2 (08:01→17:29)
[2017-05-06] MEDS: Cholecalciferol (Vitamin D3) 1,000 Unit Tab PO SCH (08:01)
[2017-05-06] MEDS: Digoxin 125 MCG Tab PO SCH (11:42)
[2017-05-06] MEDS: Multivitamin Tab PO SCH (11:43)
[2017-05-06] MEDS: Zinc (Zinc Gluconate) 50 MG Tab PO SCH (11:43)
[2017-05-07] MEDS: Levothyroxine 25 MCG Tab PO SCH (07:27)
[2017-05-07] MEDS: Gabapentin 300 MG Cap PO SCH ×3 (08:07→19:13)
[2017-05-07] MEDS: DULoxetine 30 MG Cap PO SCH (08:07)
[2017-05-07] MEDS: Calcium Citrate 950 MG Tab PO SCH ×2 (08:07→17:17)
[2017-05-07] MEDS: Famotidine 20 MG Tab PO SCH ×2 (08:08→17:18)
[2017-05-07] MEDS: Cholecalciferol (Vitamin D3) 1,000 Unit Tab PO SCH (08:08)
[2017-05-07] MEDS: Acetaminophen/HYDROcodone 325-10 MG Tab PO PRN (08:32)
[2017-05-07] MEDS: Loperamide 2 MG Tab PO PRN (09:25)
[2017-05-07] MEDS: Zinc (Zinc Gluconate) 50 MG Tab PO SCH (11:30)
[2017-05-07] MEDS: Digoxin 125 MCG Tab PO SCH (11:30)
[2017-05-07] MEDS: Multivitamin Tab PO SCH (11:30)
[2017-05-08] MEDS: Acetaminophen/HYDROcodone 325-10 MG Tab PO PRN (02:53)
[2017-05-08] MEDS: Levothyroxine 25 MCG Tab PO SCH (06:53)
[2017-05-08] MEDS: Calcium Citrate 950 MG Tab PO SCH ×2 (07:42→17:04)
[2017-05-08] MEDS: DULoxetine 30 MG Cap PO SCH (07:42)
[2017-05-08] MEDS: Gabapentin 300 MG Cap PO SCH ×3 (07:43→19:21)
[2017-05-08] MEDS: Famotidine 20 MG Tab PO SCH ×2 (07:43→17:05)
[2017-05-08] MEDS: Cholecalciferol (Vitamin D3) 1,000 Unit Tab PO SCH (07:44)
[2017-05-08] MEDS: Digoxin 125 MCG Tab PO SCH (11:08)
[2017-05-08] MEDS: Zinc (Zinc Gluconate) 50 MG Tab PO SCH (11:09)
[2017-05-08] MEDS: Multivitamin Tab PO SCH (11:09)
[2017-05-09] MEDS: Calcium Citrate 950 MG Tab PO SCH ×2 (07:33→17:04)
[2017-05-09] MEDS: Levothyroxine 25 MCG Tab PO SCH (07:33)
[2017-05-09] MEDS: Famotidine 20 MG Tab PO SCH ×2 (07:34→17:04)
[2017-05-09] MEDS: Cholecalciferol (Vitamin D3) 1,000 Unit Tab PO SCH (07:38)
[2017-05-09] MEDS: Gabapentin 300 MG Cap PO SCH ×3 (07:38→19:34)
[2017-05-09] MEDS: DULoxetine 30 MG Cap PO SCH (07:41)
[2017-05-09] MEDS: Acetaminophen/HYDROcodone 325-10 MG Tab PO PRN (10:49)
[2017-05-09] MEDS: Digoxin 125 MCG Tab PO SCH (11:00)
[2017-05-09] MEDS: Multivitamin Tab PO SCH (11:00)
[2017-05-09] MEDS: Zinc (Zinc Gluconate) 50 MG Tab PO SCH (11:01)
[2017-05-10] MEDS: Levothyroxine 25 MCG Tab PO SCH (06:50)
[2017-05-10] MEDS: DULoxetine 30 MG Cap PO SCH (07:59)
[2017-05-10] MEDS: Calcium Citrate 950 MG Tab PO SCH ×2 (07:59→17:53)
[2017-05-10] MEDS: Famotidine 20 MG Tab PO SCH ×2 (08:01→17:52)
[2017-05-10] MEDS: Gabapentin 300 MG Cap PO SCH ×3 (08:01→19:07)
[2017-05-10] MEDS: Cholecalciferol (Vitamin D3) 1,000 Unit Tab PO SCH (08:02)
[2017-05-10] MEDS: Digoxin 125 MCG Tab PO SCH (11:44)
[2017-05-10] MEDS: Multivitamin Tab PO SCH (11:45)
[2017-05-10] MEDS: Zinc (Zinc Gluconate) 50 MG Tab PO SCH (11:46)
[2017-05-10] MEDS: Acetaminophen/HYDROcodone 325-10 MG Tab PO PRN (18:29)
[2017-05-11] MEDS: Levothyroxine 25 MCG Tab PO SCH (07:18)
[2017-05-11] MEDS: Acetaminophen/HYDROcodone 325-10 MG Tab PO PRN ×2 (07:38→15:49)
[2017-05-11] MEDS: Calcium Citrate 950 MG Tab PO SCH ×2 (07:39→18:03)
[2017-05-11] MEDS: Gabapentin 300 MG Cap PO SCH ×3 (07:40→18:59)
[2017-05-11] MEDS: Famotidine 20 MG Tab PO SCH ×2 (07:40→18:04)
[2017-05-11] MEDS: DULoxetine 30 MG Cap PO SCH (07:40)
[2017-05-11] MEDS: Cholecalciferol (Vitamin D3) 1,000 Unit Tab PO SCH (07:41)
[2017-05-11] MEDS: Digoxin 125 MCG Tab PO SCH (11:47)
[2017-05-11] MEDS: Multivitamin Tab PO SCH (11:49)
[2017-05-11] MEDS: Zinc (Zinc Gluconate) 50 MG Tab PO SCH (11:50)
[2017-05-12] MEDS: Levothyroxine 25 MCG Tab PO SCH (06:53)
[2017-05-12] MEDS: DULoxetine 30 MG Cap PO SCH (07:51)
[2017-05-12] MEDS: Calcium Citrate 950 MG Tab PO SCH ×2 (07:51→17:20)
[2017-05-12] MEDS: Famotidine 20 MG Tab PO SCH ×2 (07:52→17:20)
[2017-05-12] MEDS: Gabapentin 300 MG Cap PO SCH ×3 (07:53→19:22)
[2017-05-12] MEDS: Cholecalciferol (Vitamin D3) 1,000 Unit Tab PO SCH (07:54)
[2017-05-12] MEDS: Acetaminophen/HYDROcodone 325-10 MG Tab PO PRN (07:59)
[2017-05-12] MEDS: Digoxin 125 MCG Tab PO SCH (11:36)
[2017-05-12] MEDS: Zinc (Zinc Gluconate) 50 MG Tab PO SCH (11:37)
[2017-05-12] MEDS: Multivitamin Tab PO SCH (11:37)
[2017-05-13] MEDS: Acetaminophen/HYDROcodone 325-10 MG Tab PO PRN ×2 (00:26→19:47)
[2017-05-13] MEDS: Levothyroxine 25 MCG Tab PO SCH (06:53)
[2017-05-13] MEDS: Calcium Citrate 950 MG Tab PO SCH ×2 (07:44→17:33)
[2017-05-13] MEDS: DULoxetine 30 MG Cap PO SCH (07:44)
[2017-05-13] MEDS: Famotidine 20 MG Tab PO SCH ×2 (07:45→17:34)
[2017-05-13] MEDS: Gabapentin 300 MG Cap PO SCH ×3 (07:45→19:46)
[2017-05-13] MEDS: Cholecalciferol (Vitamin D3) 1,000 Unit Tab PO SCH (07:45)
[2017-05-13] MEDS: Digoxin 125 MCG Tab PO SCH (11:18)
[2017-05-13] MEDS: Multivitamin Tab PO SCH (11:23)
[2017-05-13] MEDS: Zinc (Zinc Gluconate) 50 MG Tab PO SCH (11:24)
[2017-05-14] MEDS: Acetaminophen/HYDROcodone 325-10 MG Tab PO PRN (04:57)
[2017-05-14] MEDS: Gabapentin 300 MG Cap PO SCH ×3 (08:14→19:14)
[2017-05-14] MEDS: DULoxetine 30 MG Cap PO SCH (08:15)
[2017-05-14] MEDS: Famotidine 20 MG Tab PO SCH ×2 (08:15→17:06)
[2017-05-14] MEDS: Levothyroxine 25 MCG Tab PO SCH (08:15)
[2017-05-14] MEDS: Calcium Citrate 950 MG Tab PO SCH ×2 (08:16→17:06)
[2017-05-14] MEDS: Cholecalciferol (Vitamin D3) 1,000 Unit Tab PO SCH (08:16)
[2017-05-14] MEDS: Digoxin 125 MCG Tab PO SCH (12:01)
[2017-05-14] MEDS: Multivitamin Tab PO SCH (12:02)
[2017-05-14] MEDS: Zinc (Zinc Gluconate) 50 MG Tab PO SCH (12:02)
[2017-05-15] MEDS: Acetaminophen/HYDROcodone 325-10 MG Tab PO PRN (05:16)
[2017-05-15] MEDS: Levothyroxine 25 MCG Tab PO SCH (07:14)
[2017-05-15] MEDS: Calcium Citrate 950 MG Tab PO SCH ×2 (07:43→17:14)
[2017-05-15] MEDS: DULoxetine 30 MG Cap PO SCH (07:43)
[2017-05-15] MEDS: Famotidine 20 MG Tab PO SCH ×2 (07:43→17:14)
[2017-05-15] MEDS: Cholecalciferol (Vitamin D3) 1,000 Unit Tab PO SCH (07:43)
[2017-05-15] MEDS: Gabapentin 300 MG Cap PO SCH ×3 (07:43→18:59)
[2017-05-15] MEDS: Multivitamin Tab PO SCH (11:04)
[2017-05-15] MEDS: Zinc (Zinc Gluconate) 50 MG Tab PO SCH (11:04)
[2017-05-15] MEDS: Digoxin 125 MCG Tab PO SCH (11:04)
[2017-05-16] MEDS: Levothyroxine 25 MCG Tab PO SCH (07:26)
[2017-05-16] MEDS: Famotidine 20 MG Tab PO SCH ×2 (07:51→17:19)
[2017-05-16] MEDS: Gabapentin 300 MG Cap PO SCH ×3 (07:51→19:25)
[2017-05-16] MEDS: Cholecalciferol (Vitamin D3) 1,000 Unit Tab PO SCH (07:51)
[2017-05-16] MEDS: DULoxetine 30 MG Cap PO SCH (07:51)
[2017-05-16] MEDS: Calcium Citrate 950 MG Tab PO SCH ×2 (07:51→17:19)
[2017-05-16] MEDS: Multivitamin Tab PO SCH (11:26)
[2017-05-16] MEDS: Zinc (Zinc Gluconate) 50 MG Tab PO SCH (11:26)
[2017-05-16] MEDS: Digoxin 125 MCG Tab PO SCH (11:26)
[2017-05-17] MEDS: Levothyroxine 25 MCG Tab PO SCH (06:53)
[2017-05-17] MEDS: DULoxetine 30 MG Cap PO SCH (07:53)
[2017-05-17] MEDS: Famotidine 20 MG Tab PO SCH ×2 (07:53→17:42)
[2017-05-17] MEDS: Gabapentin 300 MG Cap PO SCH ×3 (07:53→19:29)
[2017-05-17] MEDS: Calcium Citrate 950 MG Tab PO SCH ×2 (07:53→17:42)
[2017-05-17] MEDS: Cholecalciferol (Vitamin D3) 1,000 Unit Tab PO SCH (07:54)
[2017-05-17] MEDS: Digoxin 125 MCG Tab PO SCH (11:11)
[2017-05-17] MEDS: Multivitamin Tab PO SCH (11:11)
[2017-05-17] MEDS: Zinc (Zinc Gluconate) 50 MG Tab PO SCH (11:12)
[2017-05-18] MEDS: Levothyroxine 25 MCG Tab PO SCH (07:22)
[2017-05-18] MEDS: Gabapentin 300 MG Cap PO SCH ×3 (07:36→19:16)
[2017-05-18] MEDS: Famotidine 20 MG Tab PO SCH ×2 (07:36→17:15)
[2017-05-18] MEDS: Cholecalciferol (Vitamin D3) 1,000 Unit Tab PO SCH (07:36)
[2017-05-18] MEDS: Calcium Citrate 950 MG Tab PO SCH ×2 (07:36→17:14)
[2017-05-18] MEDS: DULoxetine 30 MG Cap PO SCH (07:36)
[2017-05-18] MEDS: Loperamide 2 MG Tab PO PRN (09:36)
[2017-05-18] MEDS: Zinc (Zinc Gluconate) 50 MG Tab PO SCH (11:58)
[2017-05-18] MEDS: Multivitamin Tab PO SCH (11:58)
[2017-05-18] MEDS: Digoxin 125 MCG Tab PO SCH (11:58)
[2017-05-19] MEDS: Levothyroxine 25 MCG Tab PO SCH (06:40)
[2017-05-19] MEDS: Calcium Citrate 950 MG Tab PO SCH ×2 (07:45→19:53)
[2017-05-19] MEDS: Gabapentin 300 MG Cap PO SCH ×3 (07:48→19:53)
[2017-05-19] MEDS: Famotidine 20 MG Tab PO SCH ×2 (07:48→19:53)
[2017-05-19] MEDS: DULoxetine 30 MG Cap PO SCH (07:49)
[2017-05-19] MEDS: Cholecalciferol (Vitamin D3) 1,000 Unit Tab PO SCH (07:51)
[2017-05-19] MEDS: Loperamide 2 MG Tab PO PRN (09:16)
[2017-05-19] MEDS: Zinc (Zinc Gluconate) 50 MG Tab PO SCH (12:05)
[2017-05-19] MEDS: Digoxin 125 MCG Tab PO SCH (12:05)
[2017-05-19] MEDS: Multivitamin Tab PO SCH (12:05)
[2017-05-20] MEDS: Levothyroxine 25 MCG Tab PO SCH (07:43)
[2017-05-20] MEDS ORDERED: Gabapentin 300 MG Cap PO SCH (08:00)
[2017-05-20] MEDS: Calcium Citrate 950 MG Tab PO SCH ×2 (08:44→17:35)
[2017-05-20] MEDS: DULoxetine 30 MG Cap PO SCH (08:46)
[2017-05-20] MEDS: Gabapentin 300 MG Cap PO SCH ×3 (08:48→20:29)
[2017-05-20] MEDS: Famotidine 20 MG Tab PO SCH ×2 (08:48→17:36)
[2017-05-20] MEDS: Cholecalciferol (Vitamin D3) 1,000 Unit Tab PO SCH (08:48)
[2017-05-20] MEDS: Loperamide 2 MG Tab PO SCH (08:51)
[2017-05-20] MEDS: Multivitamin Tab PO SCH (12:09)
[2017-05-20] MEDS: Digoxin 125 MCG Tab PO SCH (12:09)
[2017-05-21] MEDS: Levothyroxine 25 MCG Tab PO SCH (06:55)
[2017-05-21] MEDS: Acetaminophen/HYDROcodone 325-10 MG Tab PO PRN (07:25)
[2017-05-21] MEDS: Calcium Citrate 950 MG Tab PO SCH ×2 (07:59→17:48)
[2017-05-21] MEDS: DULoxetine 30 MG Cap PO SCH (07:59)
[2017-05-21] MEDS: Cholecalciferol (Vitamin D3) 1,000 Unit Tab PO SCH (08:00)
[2017-05-21] MEDS: Gabapentin 300 MG Cap PO SCH ×2 (08:00→19:38)
[2017-05-21] MEDS: Famotidine 20 MG Tab PO SCH ×2 (08:00→17:49)
[2017-05-21] MEDS: Loperamide 2 MG Tab PO SCH (08:02)
[2017-05-21] MEDS: Digoxin 125 MCG Tab PO SCH (11:10)
[2017-05-21] MEDS: Multivitamin Tab PO SCH (11:11)
[2017-05-21] MEDS ORDERED: Acetaminophen 650 MG Tab.ER PO PRN (16:27)
[2017-05-21] MEDS ORDERED: Acetaminophen/HYDROcodone 325-5 MG Tab PO PRN ×2 (17:00→20:00)
[2017-05-21] MEDS: Celecoxib 100 MG Cap PO SCH (18:21)
--- NOTE | 2017-05-21 19:02 | PCM.PN ---
- General Info Date of Service: 05/21/17 Admission Dx/Problem (Free Text): Admission Diagnosis/Problem Admission Diagnosis/Problem Compression fracture Closed wedge compression fracture of 5th lumbar vertebra Lumbar stenosis decubitus ulcer Subjective Update: Patient is being seen for a history and physical for placement of spinal cord stimulator implant on 04/19/2017. Patient has been trialed on multiple narcotics with increased confusion and little relief of her pain. Patient has been limited with mobility due to her pain and now has a decubitus ulcer with current dressing changes. The specialist recommends the placement of the pain stimulator due to the patient's decline and side effects from the narcotics. Functional Status: Reports: tolerating diet, ambulating - Review of Systems General: Reports: No Symptoms HEENT: Reports: other (decreased vision) Pulmonary: Reports: no symptoms Cardiovascular: Reports: No Symptoms Gastrointestinal: Reports: No symptoms Genitourinary: Reports: no symptoms Musculoskeletal: Reports: leg pain (right) Skin: Reports: other (ulcer coccyx) Neurological: Reports: Pre-Existing Deficit (spinal stenosis) Psychiatric: Reports: depression - Patient Data Vitals - most recent: Last Vital Signs Temp 98.5 F 05/21/17 08:00 Pulse 65 05/21/17 11:10 Resp 16 05/21/17 08:00 BP 139/66 05/21/17 08:00 Pulse Ox 96 05/21/17 08:00 Weight - most recent: 171 lb 2 oz Med Orders - Current: Current Medications Acetaminophen (Tylenol Arthritis Pain) 650 mg PO Q8H PRN PRN Reason: Breakthrough Pain Hydrocodone Bitart/Acetaminophen ([place] 325-5 Mg) 1 tab PO Q4H PRN PRN Reason: Breakthrough Pain Alendronate Sodium (Fosamax) 70 mg PO Q7D@0600 [facility] Calcium Citrate (Calcitrate) 950 mg PO BID [facility] Last Admin: 05/21/17 17:48 Dose: 950 mg Celecoxib (Celebrex) 100 mg PO BID [facility] Last Admin: 05/21/17 18:21 Dose: 100 mg Cholecalciferol (Vitamin D3) 4,000 units PO DAILY [facility] Last Admin: 05/21/17 08:00 Dose: 4,000 units Digoxin (Lanoxin) 125 mcg PO DAILY@1200 [facility] Last Admin: 05/21/17 11:10 Dose: 125 mcg Duloxetine HCl (Cymbalta) 30 mg PO DAILY [facility] Last Admin: 05/21/17 07:59 Dose: 30 mg Famotidine (Pepcid) 20 mg PO BID [facility] Last Admin: 05/21/17 17:49 Dose: 20 mg Gabapentin (Neurontin) 300 mg PO Q12HR [facility] Last Admin: 05/21/17 08:00 Dose: 300 mg Levothyroxine Sodium (Levothyroxine) 25 mcg PO ACBREAKFAST [facility] Last Admin: 05/21/17 06:55 Dose: 25 mcg Loperamide HCl (Imodium Ad) 2 mg PO Q4H PRN PRN Reason: Diarrhea Last Admin: 05/19/17 09:16 Dose: 2 mg Loperamide HCl (Imodium Ad) 2 mg PO DAILY [facility] Last Admin: 05/21/17 08:02 Dose: 2 mg Magnesium Hydroxide (Milk Of Magnesia) 30 ml PO DAILY PRN PRN Reason: Constipation Last Admin: 04/23/17 17:25 Dose: 30 ml Multivitamins/Minerals/Vitamin C (Tab-A-Camila) 1 tab PO DAILY@1200 [facility] Last Admin: 05/21/17 11:11 Dose: 1 tab Senna (Senna) 8.6 mg PO BID PRN PRN Reason: Constipation Last Admin: 04/24/17 08:12 Dose: 8.6 mg Discontinued Medications Acetaminophen (Tylenol) 650 mg PO Q6H PRN PRN Reason: Pain Last Admin: 01/20/17 07:39 Dose: 650 mg Acetaminophen (Tylenol Arthritis Pain) 650 mg PO Q12H [facility] Last Admin: 03/08/17 08:35 Dose: 650 mg Acetaminophen (Tylenol Arthritis Pain) 650 mg PO Q8H PRN PRN Reason: Pain Last Admin: 02/08/17 16:38 Dose: 650 mg Hydrocodone Bitart/Acetaminophen ([place] 325-5 Mg) 1 tab PO Q6H PRN PRN Reason: Pain Last Admin: 02/08/17 06:20 Dose: 1 tab Hydrocodone Bitart/Acetaminophen ([place] 325-10 Mg) 1 tab PO Q6H PRN PRN Reason: Pain Last Admin: 03/08/17 05:27 Dose: 1 tab Hydrocodone Bitart/Acetaminophen ([place] 325-10 Mg) 1 tab PO Q4H PRN PRN Reason: Pain Last Admin: 03/13/17 18:24 Dose: 1 tab Hydrocodone Bitart/Acetaminophen ([place] 325-10 Mg) 1 tab PO TID@0800,1400,2000 [facility] Last Admin: 04/29/17 15:17 Dose: 1 tab Hydrocodone Bitart/Acetaminophen ([place] 325-10 Mg) 1 tab PO TID@0800,1400,2000 PRN PRN Reason: Pain Last Admin: 05/21/17 07:25 Dose: 1 tab Hydrocodone Bitart/Acetaminophen ([place] 325-5 Mg) 1 tab PO TID@0800,1400,2000 PRN PRN Reason: Breakthrough Pain Alendronate Sodium (Fosamax) 70 mg PO Q7D@0600 [facility] Last Admin: 03/31/17 14:55 Dose: Not Given Alendronate Sodium (Fosamax) 70 mg PO Q7D@0600 [facility] Last Admin: 04/01/17 06:10 Dose: 70 mg Betamethasone/Clotrimazole (Lotrisone) 0 gm TOP BID [facility] Last Admin: 04/13/17 07:52 Dose: 1 applic Betamethasone/Clotrimazole (Lotrisone) 0 gm TOP Q12HR [facility] Calcitonin [place] (Miacalcin Nasal Sargeant) 0 ml RADHA DAILY [facility] Last Admin: 03/30/17 07:42 Dose: 1 spray Calcium Citrate (Calcitrate) 315 mg PO BID [facility] Last Admin: 02/17/17 19:39 Dose: Not Given Celecoxib (Celebrex) 100 mg PO BID [facility] Last Admin: 01/24/17 07:48 Dose: 100 mg Celecoxib (Celebrex) 100 mg PO DAILY@1800 [facility] Last Admin: 01/31/17 17:16 Dose: 100 mg Celecoxib (Celebrex) 100 mg PO BID [facility] Last Admin: 03/08/17 08:33 Dose: 100 mg Celecoxib (Celebrex) 100 mg PO BID [facility] Last Admin: 04/07/17 17:23 Dose: 100 mg Cephalexin (Keflex) 500 mg PO Q12HR [facility] Stop: 04/30/17 08:01 Cephalexin (Keflex) 500 mg PO ONETIME ONE Stop: 04/19/17 20:41 Last Admin: 04/19/17 23:17 Dose: Not Given Cholecalciferol (Vitamin D3) 2,000 units PO QAM [facility] Last Admin: 01/17/17 07:42 Dose: 2,000 units Cholecalciferol (Vitamin D3) 2,000 units PO BID [facility] Last Admin: 01/21/17 07:54 Dose: 2,000 units Cholecalciferol (Vitamin D3) 4,000 units PO BID [facility] Last Admin: 03/10/17 08:03 Dose: 4,000 units Digoxin (Lanoxin) 500 mcg PO ONETIME ONE Stop: 04/15/17 12:01 Last Admin: 04/15/17 12:00 Dose: 500 mcg Digoxin (Lanoxin) 250 mcg PO ONETIME ONE Stop: 04/16/17 12:01 Last Admin: 04/16/17 12:15 Dose: 250 mcg Duloxetine HCl (Cymbalta) 20 mg PO DAILY [facility] Last Admin: 03/14/17 07:38 Dose: 20 mg Duloxetine HCl (Cymbalta) 30 mg PO DAILY [facility] Last Admin: 03/15/17 08:58 Dose: Not Given Fentanyl (Sublimaze) 25 mcg IVPUSH Q4H PRN PRN Reason: Pain (severe 7-10) Last Admin: 01/16/17 08:24 Dose: 25 mcg Gabapentin (Neurontin) 100 mg PO BEDTIME [facility] Last Admin: 02/07/17 19:18 Dose: 100 mg Gabapentin (Neurontin) 300 mg PO Q12HR [facility] Last Admin: 02/26/17 08:20 Dose: 300 mg Gabapentin (Neurontin) 300 mg PO TID@0800,1400,2000 [facility] Last Admin: 03/08/17 08:34 Dose: 300 mg Gabapentin (Neurontin) 400 mg PO TID@0800,1400,2000 [facility] Last Admin: 03/11/17 14:32 Dose: 400 mg Gabapentin (Neurontin) 300 mg PO TID@0800,1400,2000 [facility] Last Admin: 03/30/17 17:45 Dose: 300 mg Gabapentin (Neurontin) 300 mg PO BID@0800,1400 [facility] Last Admin: 04/29/17 15:16 Dose: 300 mg Gabapentin (Neurontin) 600 mg PO BEDTIME [facility] Last Admin: 03/30/17 19:12 Dose: 600 mg Gabapentin (Neurontin) 300 mg PO TID@0800,1400,2000 [facility] Last Admin: 05/20/17 16:18 Dose: Not Given Levothyroxine Sodium (Levothyroxine) 25 mcg PO QAM [facility] Last Admin: 02/17/17 08:43 Dose: 25 mcg Lidocaine (Lidocaine 5% Paraben-Free) 140 mg TRDERM Q24H [facility] Last Admin: 03/07/17 19:16 Dose: 140 mg Lidocaine (Lidoderm 5%) 700 mg TRDERM Q24H [facility] Last Admin: 03/17/17 19:25 Dose: Not Given Loperamide HCl (Imodium Ad) 4 mg PO DAILY [facility] Last Admin: 01/19/17 07:44 Dose: 4 mg Metoprolol Succinate (Toprol Xl) 25 mg PO DAILY [facility] Last Admin: 04/11/17 08:39 Dose: Not Given Metoprolol Succinate (Toprol Xl) 25 mg PO DAILY [facility] Last Admin: 04/14/17 07:55 Dose: 25 mg Metoprolol Tartrate (Lopressor) 25 mg PO Q12HR [facility] Last Admin: 04/10/17 08:28 Dose: 25 mg Metoprolol Tartrate (Lopressor) 25 mg PO DAILY [facility] Last Admin: 04/11/17 08:38 Dose: 25 mg Metoprolol Tartrate (Lopressor) 25 mg PO ONETIME ONE Stop: 04/12/17 06:01 Last Admin: 04/12/17 05:45 Dose: 25 mg Miscellaneous Information (Remove Patch) 1 ea TRDERM DAILY@0800 [facility] Last Admin: 03/08/17 08:35 Dose: 1 ea Miscellaneous Information (Remove Patch) 1 ea TRDERM DAILY@0800 [facility] Last Admin: 03/18/17 08:06 Dose: 1 ea Morphine Sulfate (Ms Contin) 15 mg PO TID@0800,1400,2000 [facility] Last Admin: 03/11/17 14:32 Dose: 15 mg Morphine Sulfate (Ms Contin) 15 mg PO Q12HR [facility] Last Admin: 03/14/17 07:38 Dose: 15 mg Multivitamins/Minerals/Vitamin C (Tab-A-Camila) 1 tab PO DAILY [facility] Last Admin: 03/30/17 07:46 Dose: 1 tab Gabapentin 600 Mg (Cap Own Med ) 1 each PO BEDTIME [facility] Last Admin: 04/28/17 19:00 Dose: 1 each Cephalexin 500mg (Caps) 0 each PO Q12HR [facility] Stop: 04/14/17 08:01 Last Admin: 04/14/17 07:55 Dose: 1 each Nf Med Cephalexin (500mg *Pt Own Med) 1 each PO BID [facility] Stop: 04/30/17 08:01 Last Admin: 04/19/17 23:17 Dose: Not Given Nf Med Cephalexin (500mg *Pt Own Med) 1 each PO ONETIME ONE Stop: 04/19/17 21:46 Last Admin: 04/19/17 23:18 Dose: Not Given Nf Med Cephalexin (500mg *Pt Own Med) 1 each PO ONETIME ONE Stop: 04/19/17 22:01 Last Admin: 04/19/17 21:52 Dose: 1 each Nf Med Cephalexin (500mg *Pt Own Med) 1 each PO BID [facility] Stop: 04/30/17 08:01 Last Admin: 04/20/17 08:19 Dose: 1 each Cephalexin 500mg (Caps) 1 each PO Q12HR [facility] Stop: 04/30/17 08:01 Last Admin: 04/28/17 07:41 Dose: 1 each Cephalexin 500mg (Caps) 1 each PO Q12HR [facility] Stop: 04/29/17 08:01 Last Admin: 04/29/17 07:19 Dose: 1 each Oxycodone HCl (Oxycodone) 5 mg PO Q4H PRN PRN Reason: Pain Last Admin: 04/28/17 10:19 Dose: 5 mg Sodium Chloride (Saline Flush) 10 ml FLUSH ASDIRECTED PRN PRN Reason: flush Last Admin: 01/16/17 08:28 Dose: 10 ml Sodium Chloride (Saline Flush) 10 ml FLUSH BID [facility] Last Admin: 01/19/17 17:31 Dose: 10 ml Tramadol HCl (Ultram) 50 mg PO Q6H PRN PRN Reason: Pain (moderate 4-6) Last Admin: 02/25/17 12:03 Dose: 50 mg Tramadol HCl (Ultram) 50 mg PO Q12H [facility] Last Admin: 03/08/17 08:37 Dose: 50 mg Zinc Gluconate (Zinc) 50 mg PO DAILY [facility] Last Admin: 03/30/17 07:46 Dose: 50 mg Zinc Gluconate (Zinc) 50 mg PO DAILY@1200 [facility] Last Admin: 05/19/17 12:05 Dose: 50 mg - Exam Quality Assessment: skin breakdown (coccyx) General: alert, cooperative, no acute distress HEENT: Mucous membr. moist/pink, Other (decreased vision acuity) Neck: trachea midline, no JVD Lungs: Clear to auscultation, Normal respiratory effort Cardiovascular: Irregular Rhythm Abdomen: bowel sounds present, soft, no tenderness, no distension (Female) Exam: Deferred Back Exam: Decreased Range of Motion, Other (kyphosis, scoliosis) Extremities: no edema, no calf tenderness Skin: warm, dry, intact Wound/Incisions: healing well, no drainage, decubitis Neurological: no new focal deficit Psy/Mental Status: alert, depressed - Problem List & Annotations (1) COPD (chronic obstructive pulmonary disease) SNOMED Code(s): 35356187 Code(s): J44.9 - CHRONIC OBSTRUCTIVE PULMONARY DISEASE, UNSPECIFIED Status : Acute Priority: Medium Current Visit: No Annotation/Comment:: No recent history of bronchitic-type symptoms, fever, etc. with patient not using any medications currently for her COPD/pulmonary fibrosis. Consider PFTs on an outpatient basis (2) Compression fracture of L5 lumbar vertebra SNOMED Code(s): 265571036 Code(s): S32.050A - WEDGE COMPRESSION FRACTURE OF FIFTH LUMBAR VERTEBRA, INIT Status: Acute Priority: High Current Visit: No Qualifiers: Fracture healing: with delayed healing (3) Degenerative joint disease (DJD) of lumbar spine Status: Acute Current Visit: No Qualifiers: Spinal osteoarthritis complication: with radiculopathy Qualified Code(s): M47.26 - Other spondylosis with radiculopathy, lumbar region (4) Heart disease SNOMED Code(s): 32312464 Code(s): I51.9 - HEART DISEASE, UNSPECIFIED Status: Acute Priority: High Current Visit: No Annotation/Comment:: Chest Pain protocol was not initiated in the emergency room secondary to absence of anginal-type symptoms. Note history of distant atrial fibrillation with no current anticoagulation therapy. Complete bifascicular bundle-branch, sinus arrhythmia, and sinus bradycardia with multiple previous negative Persantine Cardiolite evaluations as below. Note CHF as above with consideration of an echocardiogram on an outpatient basis. Cardiology consultation as needed. (5) Low back pain SNOMED Code(s): 192291648 Code(s): M54.5 - LOW BACK PAIN Status: Acute Priority: High Current Visit: No Qualifiers: Chronicity: acute Back pain laterality: right Sciatica laterality: sciatica of right side (6) Macular degeneration SNOMED Code(s): 625254784 Code(s): H35.30 - UNSPECIFIED MACULAR DEGENERATION Status: Acute Current Visit: No (7) Right sided sciatica SNOMED Code(s): 57581728 Code(s): M54.31 - SCIATICA, RIGHT SIDE Status: Acute Priority: High Current Visit: No Onset Date: Unknown Annotation/Comment:: improved since yesterday but still present. (8) Spinal stenosis of lumbar region at multiple levels SNOMED Code(s): 23742904 Code(s): M48.06 - SPINAL STENOSIS, LUMBAR REGION Status: Acute Priority: High Current Visit: No (9) Hyperlipidemia SNOMED Code(s): 02724709 Code(s): E78.5 - HYPERLIPIDEMIA, UNSPECIFIED Status: Chronic Priority: Low Current Visit: No Annotation/Comment:: Medically treated with repeat lipid panel per discretion of her providers at [facility] (10) Hypertension SNOMED Code(s): 58284465 Code(s): I10 - ESSENTIAL (PRIMARY) HYPERTENSION Status: Chronic Priority : Low Current Visit: No Qualifiers: Hypertension type: essential hypertension Qualified Code(s): I10 - Essential (primary) hypertension (11) Hypothyroidism SNOMED Code(s): 12935737 Code(s): E03.9 - HYPOTHYROIDISM, UNSPECIFIED Status: Chronic Priority: Low Current Visit: No (12) Obesity SNOMED Code(s): 103738212 Code(s): E66.9 - OBESITY, UNSPECIFIED Status: Chronic Priority: Low Current Visit: No (13) Osteoarthritis SNOMED Code(s): 274076237 Code(s): M19.90 - UNSPECIFIED OSTEOARTHRITIS, UNSPECIFIED SITE Status: Chronic Priority: Low Current Visit: No Qualifiers: Osteoarthritis location: spine Spinal region: lumbosacral Spinal osteoarthritis complication: with radiculopathy Qualified Code(s): M47.27 - Other spondylosis with radiculopathy, lumbosacral region Annotation/Comment:: Stable by patient history despite history of spinal stenosis (14) TIA (transient ischemic attack) SNOMED Code(s): 655151381, 241938402 Code(s): G45.9 - TRANSIENT CEREBRAL ISCHEMIC ATTACK, UNSPECIFIED Status: Suspected Current Visit: No (15) Depressed affect SNOMED Code(s): 240492893 Code(s): R45.89 - OTHER SYMPTOMS AND SIGNS INVOLVING EMOTIONAL STATE Status : Acute Priority: High Current Visit: Yes (16) Radiculopathy of leg SNOMED Code(s): 53473986 Code(s): M54.10 - RADICULOPATHY, SITE UNSPECIFIED Status: Acute Priority : High Current Visit: Yes - Problem List Review Problem List Initiated/Reviewed/Updated: Yes - My Orders Last 24 Hours: My Active Orders 05/20/17 20:00 Gabapentin [Neurontin] 300 mg PO Q12HR 05/21/17 16:27 Acetaminophen [Tylenol Arthritis Pain] 650 mg PO Q8H PRN 05/21/17 17:00 Acetaminophen/HYDROcodone [[place] 325-5 MG] 1 tab PO Q4H PRN 05/21/17 18:00 Celecoxib [CeleBREX] 100 mg PO BID 05/24/17 05:11 CBC WITH AUTO DIFF [HEME] Routine CMP [COMPREHENSIVE METABOLIC PN,CMP] [CHEM] Routine DIGOXIN [CHEM] Routine VITAMIN D 25-HYROXY (D2, D3) [REF] Routine 05/26/17 06:00 Alendronate [Fosamax] 70 mg PO Q7D@0600 - Plan Plan:: 01/13/17 Ever Marino MD Severe low back pain. Treated with IV solumedrol, IV toradol, for right sciatica. Lumbar CT today reveals acute compression fracture L5, spinal stenosis , DJD lumbar spine. Platelets decreasing so IV toradol stopped. Miacalcin started. Needs swing bed status for continued pain control, monitoring renal function, platelet level and PT-OT. 01/21/17 Ever Marino MD Still with severe pain into right leg. On scheduled tylenol, scheduled tramadol , scheduled NSAID (celebrex) and prn pain medications. PT working with her. Will order MRI. 01/27/17 Ever Marino MD Still with pain right low back, right hip and right lateral thigh. MRI 25% loss of vertebral height compression fracture of L1. L4-L5 severe central stenosis, advanced facet arthropathy, diffuse bulging disc. Discussed options with her and daughter Ashley. PT starting to help pain. She continues on scheduled tylenol , scheduled tramadol, scheduled NSAID (celebrex), calcitonin, vitamin D, and lidocaine patch and prn pain medications. 02/08/17 Ever Marino MD Still with significant right lower back and right leg pain. Increase in pain pill has helped. She continues with PT. She has appointment with [place] [facility] Wednesday02/15/17, 1300 x-rays and appointment with Dr.Dan Parnell 1340. Continue PT-OT. 03/26/17 Ever Marino MD She says her pain is improved. In fact she thinks she is good enough to go home. Questions about the doctor appointments in [place]. She does not think the appointments have helped her. Will obtain OT evaluation for home safety next week and review notes from [place]. 03/29/17 Ever Marino MD She says she is about the same. She was seen by OT today. She is still not dressing herself. She can not get out of bed herself. [id number] not here at this time. I did call her cell phone [phone] but no answer. 03/30/17 Ever Marino MD She had 2 appointments in [facility] today. Notes reviewed from Dr. Tim Felton. Restart PT. Increase gabapentin. Continue other medications. Manage decubitus ulcer. Pain is from spinal stenosis. She has appointment Wednesday with psychologist for evaluation to consider the spinal nerve stimulator. Talked with Jessy, son Deandre, and daughter in law Dominique. Discussion >1 hour. She has surgical consult on with surgeon to evaluate decubitus ulcer. All in agreement with plan of care. 04/11/17 Ever Marino MD She is scheduled tomorrow at [facility] for temporary placement of spinal nerve stimulator. NPO after midnight except will have her take metoprolol tartrate for rate control for her atrial fibrillation with sip of water before she leaves for [place]. She is not on any blood thinners. We do not have the metoprolol succinate available for her at this time. I did call [facility] on Wednesday to Dr. Felton. I was able to talk to his nurse. I reported to her to let him know regarding Jessy decubitus ulcer on coccyx. [facility] plans to proceed with the procedure Wednesday April 12, 2017. Jessy says she cannot live this way. Multiple medical therapies have been utilized. She is receiving PT currently but she feels her walking is not improving due to the pain in the right leg. 04/13/17 Ever Marino MD Pain does seem to be better with spinal nerve stimulator in place. Talked with Jessy and coxgakcl-so-fso Dominique. Appointment in [place] tomorrow for recheck. Permanent placement tentatively scheduled for next Wednesday04/19/2017. 04/15/2017 Patient was seen for pre op history and physical for spinal cord stimulator. Will order platelet per surgeon's request. Chest Xray and EKG reviewed. Patient states understanding the procedure and wants to continue with the plan. Will wait with wound vac to decubitus coccyx ulcer until after the implant is placed. Patient has not had any issues with anesthesia in the past. Medications and past history and physicals noted and reviewed. Discussed with Dr Curtis. Patient is currently in swingbed in [facility] and will continue to need to require skilled care after the procedure and for the wound vac. patient did not have any further questions or concerns. Adelita English,POSTDOCTORAL SCHOLAR 05/21/17 Ever Marino MD Pain is maybe a little better per Jessy. Pain medication has been decreased and she is walking better. Medications adjusted per Dr. Felton recommendations. 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 Labs ordered for Wednesday.
[2017-05-22] MEDS: Levothyroxine 25 MCG Tab PO SCH (06:48)
[2017-05-22] MEDS: Celecoxib 100 MG Cap PO SCH ×2 (07:43→17:23)
[2017-05-22] MEDS: Calcium Citrate 950 MG Tab PO SCH ×2 (07:43→17:22)
[2017-05-22] MEDS: DULoxetine 30 MG Cap PO SCH (07:43)
[2017-05-22] MEDS: Loperamide 2 MG Tab PO SCH (07:44)
[2017-05-22] MEDS: Gabapentin 300 MG Cap PO SCH ×2 (07:45→19:29)
[2017-05-22] MEDS: Cholecalciferol (Vitamin D3) 1,000 Unit Tab PO SCH (07:45)
[2017-05-22] MEDS: Famotidine 20 MG Tab PO SCH ×2 (07:45→17:23)
[2017-05-22] MEDS: Digoxin 125 MCG Tab PO SCH (11:22)
[2017-05-22] MEDS: Multivitamin Tab PO SCH (11:22)
[2017-05-23] MEDS: Calcium Citrate 950 MG Tab PO SCH ×2 (07:34→17:35)
[2017-05-23] MEDS: Levothyroxine 25 MCG Tab PO SCH (07:34)
[2017-05-23] MEDS: Celecoxib 100 MG Cap PO SCH ×2 (07:35→17:36)
[2017-05-23] MEDS: DULoxetine 30 MG Cap PO SCH (07:35)
[2017-05-23] MEDS: Loperamide 2 MG Tab PO SCH (07:36)
[2017-05-23] MEDS: Gabapentin 300 MG Cap PO SCH ×2 (07:37→19:14)
[2017-05-23] MEDS: Famotidine 20 MG Tab PO SCH ×2 (07:37→17:36)
[2017-05-23] MEDS: Cholecalciferol (Vitamin D3) 1,000 Unit Tab PO SCH (07:38)
[2017-05-23] MEDS: Multivitamin Tab PO SCH (11:43)
[2017-05-23] MEDS: Digoxin 125 MCG Tab PO SCH (11:43)
[2017-05-24] MEDS: Levothyroxine 25 MCG Tab PO SCH (07:03)
[2017-05-24] MEDS: DULoxetine 30 MG Cap PO SCH (07:54)
[2017-05-24] MEDS: Calcium Citrate 950 MG Tab PO SCH ×2 (07:54→17:23)
[2017-05-24] MEDS: Loperamide 2 MG Tab PO SCH (07:54)
[2017-05-24] MEDS: Celecoxib 100 MG Cap PO SCH ×2 (07:54→17:27)
[2017-05-24] MEDS: Cholecalciferol (Vitamin D3) 1,000 Unit Tab PO SCH (07:55)
[2017-05-24] MEDS: Famotidine 20 MG Tab PO SCH ×2 (07:55→17:27)
[2017-05-24] MEDS: Gabapentin 300 MG Cap PO SCH ×2 (07:55→20:15)
[2017-05-24 08:12] LABS: CHLORIDE,CL 105 mmol/L (98-107); SODIUM,NA 143 mmol/L (136-145)
[2017-05-24] MEDS: Digoxin 125 MCG Tab PO SCH (11:22)
[2017-05-24] MEDS: Multivitamin Tab PO SCH (11:23)
[2017-05-25] MEDS: Levothyroxine 25 MCG Tab PO SCH (07:55)
[2017-05-25] MEDS: Gabapentin 300 MG Cap PO SCH ×2 (07:56→19:18)
[2017-05-25] MEDS: DULoxetine 30 MG Cap PO SCH (07:56)
[2017-05-25] MEDS: Celecoxib 100 MG Cap PO SCH ×2 (07:56→17:24)
[2017-05-25] MEDS: Loperamide 2 MG Tab PO SCH (07:57)
[2017-05-25] MEDS: Calcium Citrate 950 MG Tab PO SCH ×2 (07:57→17:24)
[2017-05-25] MEDS: Famotidine 20 MG Tab PO SCH ×2 (07:57→17:25)
[2017-05-25] MEDS: Cholecalciferol (Vitamin D3) 1,000 Unit Tab PO SCH (07:58)
[2017-05-25] MEDS: Digoxin 125 MCG Tab PO SCH (11:30)
[2017-05-25] MEDS: Multivitamin Tab PO SCH (11:30)
[2017-05-26] MEDS ORDERED: Alendronate 70 MG Tab PO SCH (06:00)
[2017-05-26] MEDS: Levothyroxine 25 MCG Tab PO SCH (07:30)
[2017-05-26] MEDS: Calcium Citrate 950 MG Tab PO SCH ×2 (08:06→17:53)
[2017-05-26] MEDS: DULoxetine 30 MG Cap PO SCH (08:06)
[2017-05-26] MEDS: Celecoxib 100 MG Cap PO SCH ×2 (08:06→17:54)
[2017-05-26] MEDS: Famotidine 20 MG Tab PO SCH ×2 (08:07→17:54)
[2017-05-26] MEDS: Gabapentin 300 MG Cap PO SCH ×2 (08:07→19:45)
[2017-05-26] MEDS: Loperamide 2 MG Tab PO SCH (08:07)
[2017-05-26] MEDS: Cholecalciferol (Vitamin D3) 1,000 Unit Tab PO SCH (08:07)
[2017-05-26] MEDS: Digoxin 125 MCG Tab PO SCH (11:18)
[2017-05-26] MEDS: Multivitamin Tab PO SCH (11:18)
[2017-05-27] MEDS: Levothyroxine 25 MCG Tab PO SCH (07:29)
[2017-05-27] MEDS: Celecoxib 100 MG Cap PO SCH ×2 (07:37→17:07)
[2017-05-27] MEDS: DULoxetine 30 MG Cap PO SCH (07:37)
[2017-05-27] MEDS: Calcium Citrate 950 MG Tab PO SCH ×2 (07:37→17:07)
[2017-05-27] MEDS: Loperamide 2 MG Tab PO SCH (07:38)
[2017-05-27] MEDS: Famotidine 20 MG Tab PO SCH ×2 (07:38→17:07)
[2017-05-27] MEDS: Gabapentin 300 MG Cap PO SCH ×2 (07:38→19:26)
[2017-05-27] MEDS: Cholecalciferol (Vitamin D3) 1,000 Unit Tab PO SCH (07:39)
[2017-05-27] MEDS: Digoxin 125 MCG Tab PO SCH (11:09)
[2017-05-27] MEDS: Multivitamin Tab PO SCH (11:09)
--- NOTE | 2017-05-27 22:30 | PCM.PN ---
- General Info Date of Service: 05/27/17 Admission Dx/Problem (Free Text): Admission Diagnosis/Problem Admission Diagnosis/Problem Compression fracture Closed wedge compression fracture of 5th lumbar vertebra Lumbar stenosis decubitus ulcer Subjective Update: Patient is being seen for a history and physical for placement of spinal cord stimulator implant on 04/19/2017. Patient has been trialed on multiple narcotics with increased confusion and little relief of her pain. Patient has been limited with mobility due to her pain and now has a decubitus ulcer with current dressing changes. The specialist recommends the placement of the pain stimulator due to the patient's decline and side effects from the narcotics. Functional Status: Reports: Tolerating Diet, Ambulating - Review of Systems General: Reports: Other (still with right leg pain) HEENT: Reports: Other (decreased visual acuity) Pulmonary: Reports: No Symptoms Cardiovascular: Reports: No Symptoms Gastrointestinal: Reports: No Symptoms Genitourinary: Reports: No Symptoms Musculoskeletal: Reports: Leg Pain (right), Other (back stimulator) Skin: Reports: No Symptoms Neurological: Reports: Pre-Existing Deficit Psychiatric: Reports: No Symptoms - Patient Data Vitals - most recent: Last Vital Signs Temp 97.8 F 05/27/17 08:00 Pulse 60 05/27/17 11:09 Resp 18 05/27/17 08:00 BP 132/63 05/27/17 08:00 Pulse Ox 95 05/27/17 08:00 Weight - most recent: 171 lb 2 oz Med Orders - Current: Current Medications Acetaminophen (Tylenol Arthritis Pain) 650 mg PO Q8H PRN PRN Reason: Breakthrough Pain Hydrocodone Bitart/Acetaminophen ([place] 325-5 Mg) 1 tab PO Q4H PRN PRN Reason: Breakthrough Pain Last Admin: 05/22/17 17:25 Dose: 1 tab Alendronate Sodium (Fosamax) 70 mg PO Q7D@0600 [facility] Last Admin: 05/26/17 05:56 Dose: 70 mg Calcium Citrate (Calcitrate) 950 mg PO BID [facility] Last Admin: 05/27/17 17:07 Dose: 950 mg Celecoxib (Celebrex) 100 mg PO BID [facility] Last Admin: 05/27/17 17:07 Dose: 100 mg Cholecalciferol (Vitamin D3) 4,000 units PO DAILY [facility] Last Admin: 05/27/17 07:39 Dose: 4,000 units Digoxin (Lanoxin) 125 mcg PO DAILY@1200 [facility] Last Admin: 05/27/17 11:09 Dose: 125 mcg Duloxetine HCl (Cymbalta) 30 mg PO DAILY [facility] Last Admin: 05/27/17 07:37 Dose: 30 mg Famotidine (Pepcid) 20 mg PO BID [facility] Last Admin: 05/27/17 17:07 Dose: 20 mg Gabapentin (Neurontin) 300 mg PO Q12HR [facility] Last Admin: 05/27/17 19:26 Dose: 300 mg Levothyroxine Sodium (Levothyroxine) 25 mcg PO ACBREAKFAST [facility] Last Admin: 05/27/17 07:29 Dose: 25 mcg Loperamide HCl (Imodium Ad) 2 mg PO Q4H PRN PRN Reason: Diarrhea Last Admin: 05/19/17 09:16 Dose: 2 mg Loperamide HCl (Imodium Ad) 2 mg PO DAILY [facility] Last Admin: 05/27/17 07:38 Dose: 2 mg Magnesium Hydroxide (Milk Of Magnesia) 30 ml PO DAILY PRN PRN Reason: Constipation Last Admin: 04/23/17 17:25 Dose: 30 ml Multivitamins/Minerals/Vitamin C (Tab-A-Camila) 1 tab PO DAILY@1200 [facility] Last Admin: 05/27/17 11:09 Dose: 1 tab Senna (Senna) 8.6 mg PO BID PRN PRN Reason: Constipation Last Admin: 04/24/17 08:12 Dose: 8.6 mg Discontinued Medications Acetaminophen (Tylenol) 650 mg PO Q6H PRN PRN Reason: Pain Last Admin: 01/20/17 07:39 Dose: 650 mg Acetaminophen (Tylenol Arthritis Pain) 650 mg PO Q12H [facility] Last Admin: 03/08/17 08:35 Dose: 650 mg Acetaminophen (Tylenol Arthritis Pain) 650 mg PO Q8H PRN PRN Reason: Pain Last Admin: 02/08/17 16:38 Dose: 650 mg Hydrocodone Bitart/Acetaminophen ([place] 325-5 Mg) 1 tab PO Q6H PRN PRN Reason: Pain Last Admin: 02/08/17 06:20 Dose: 1 tab Hydrocodone Bitart/Acetaminophen ([place] 325-10 Mg) 1 tab PO Q6H PRN PRN Reason: Pain Last Admin: 03/08/17 05:27 Dose: 1 tab Hydrocodone Bitart/Acetaminophen ([place] 325-10 Mg) 1 tab PO Q4H PRN PRN Reason: Pain Last Admin: 03/13/17 18:24 Dose: 1 tab Hydrocodone Bitart/Acetaminophen ([place] 325-10 Mg) 1 tab PO TID@0800,1400,2000 [facility] Last Admin: 04/29/17 15:17 Dose: 1 tab Hydrocodone Bitart/Acetaminophen ([place] 325-10 Mg) 1 tab PO TID@0800,1400,2000 PRN PRN Reason: Pain Last Admin: 05/21/17 07:25 Dose: 1 tab Hydrocodone Bitart/Acetaminophen ([place] 325-5 Mg) 1 tab PO TID@0800,1400,2000 PRN PRN Reason: Breakthrough Pain Alendronate Sodium (Fosamax) 70 mg PO Q7D@0600 [facility] Last Admin: 03/31/17 14:55 Dose: Not Given Alendronate Sodium (Fosamax) 70 mg PO Q7D@0600 [facility] Last Admin: 04/01/17 06:10 Dose: 70 mg Betamethasone/Clotrimazole (Lotrisone) 0 gm TOP BID [facility] Last Admin: 04/13/17 07:52 Dose: 1 applic Betamethasone/Clotrimazole (Lotrisone) 0 gm TOP Q12HR [facility] Calcitonin [place] (Miacalcin Nasal [place]) 0 ml RADHA DAILY [facility] Last Admin: 03/30/17 07:42 Dose: 1 spray Calcium Citrate (Calcitrate) 315 mg PO BID [facility] Last Admin: 02/17/17 19:39 Dose: Not Given Celecoxib (Celebrex) 100 mg PO BID [facility] Last Admin: 01/24/17 07:48 Dose: 100 mg Celecoxib (Celebrex) 100 mg PO DAILY@1800 [facility] Last Admin: 01/31/17 17:16 Dose: 100 mg Celecoxib (Celebrex) 100 mg PO BID [facility] Last Admin: 03/08/17 08:33 Dose: 100 mg Celecoxib (Celebrex) 100 mg PO BID [facility] Last Admin: 04/07/17 17:23 Dose: 100 mg Cephalexin (Keflex) 500 mg PO Q12HR [facility] Stop: 04/30/17 08:01 Cephalexin (Keflex) 500 mg PO ONETIME ONE Stop: 04/19/17 20:41 Last Admin: 04/19/17 23:17 Dose: Not Given Cholecalciferol (Vitamin D3) 2,000 units PO QAM [facility] Last Admin: 01/17/17 07:42 Dose: 2,000 units Cholecalciferol (Vitamin D3) 2,000 units PO BID [facility] Last Admin: 01/21/17 07:54 Dose: 2,000 units Cholecalciferol (Vitamin D3) 4,000 units PO BID [facility] Last Admin: 03/10/17 08:03 Dose: 4,000 units Digoxin (Lanoxin) 500 mcg PO ONETIME ONE Stop: 04/15/17 12:01 Last Admin: 04/15/17 12:00 Dose: 500 mcg Digoxin (Lanoxin) 250 mcg PO ONETIME ONE Stop: 04/16/17 12:01 Last Admin: 04/16/17 12:15 Dose: 250 mcg Duloxetine HCl (Cymbalta) 20 mg PO DAILY [facility] Last Admin: 03/14/17 07:38 Dose: 20 mg Duloxetine HCl (Cymbalta) 30 mg PO DAILY [facility] Last Admin: 03/15/17 08:58 Dose: Not Given Fentanyl (Sublimaze) 25 mcg IVPUSH Q4H PRN PRN Reason: Pain (severe 7-10) Last Admin: 01/16/17 08:24 Dose: 25 mcg Gabapentin (Neurontin) 100 mg PO BEDTIME [facility] Last Admin: 02/07/17 19:18 Dose: 100 mg Gabapentin (Neurontin) 300 mg PO Q12HR [facility] Last Admin: 02/26/17 08:20 Dose: 300 mg Gabapentin (Neurontin) 300 mg PO TID@0800,1400,1999 [facility] Last Admin: 03/08/17 08:34 Dose: 300 mg Gabapentin (Neurontin) 400 mg PO TID@0800,1400,1999 [facility] Last Admin: 03/11/17 14:32 Dose: 400 mg Gabapentin (Neurontin) 300 mg PO TID@0800,1400,1999 [facility] Last Admin: 03/30/17 17:45 Dose: 300 mg Gabapentin (Neurontin) 300 mg PO BID@0800,1400 [facility] Last Admin: 04/29/17 15:16 Dose: 300 mg Gabapentin (Neurontin) 600 mg PO BEDTIME [facility] Last Admin: 03/30/17 19:12 Dose: 600 mg Gabapentin (Neurontin) 300 mg PO TID@0800,1400,1999 [facility] Last Admin: 05/20/17 16:18 Dose: Not Given Levothyroxine Sodium (Levothyroxine) 25 mcg PO QAM [facility] Last Admin: 02/17/17 08:43 Dose: 25 mcg Lidocaine (Lidocaine 5% Paraben-Free) 140 mg TRDERM Q24H [facility] Last Admin: 03/07/17 19:16 Dose: 140 mg Lidocaine (Lidoderm 5%) 700 mg TRDERM Q24H [facility] Last Admin: 03/17/17 19:25 Dose: Not Given Loperamide HCl (Imodium Ad) 4 mg PO DAILY [facility] Last Admin: 01/19/17 07:44 Dose: 4 mg Metoprolol Succinate (Toprol Xl) 25 mg PO DAILY [facility] Last Admin: 04/11/17 08:39 Dose: Not Given Metoprolol Succinate (Toprol Xl) 25 mg PO DAILY [facility] Last Admin: 04/14/17 07:55 Dose: 25 mg Metoprolol Tartrate (Lopressor) 25 mg PO Q12HR [facility] Last Admin: 04/10/17 08:28 Dose: 25 mg Metoprolol Tartrate (Lopressor) 25 mg PO DAILY [facility] Last Admin: 04/11/17 08:38 Dose: 25 mg Metoprolol Tartrate (Lopressor) 25 mg PO ONETIME ONE Stop: 04/12/17 06:01 Last Admin: 04/12/17 05:45 Dose: 25 mg Miscellaneous Information (Remove Patch) 1 ea TRDERM DAILY@0800 [facility] Last Admin: 03/08/17 08:35 Dose: 1 ea Miscellaneous Information (Remove Patch) 1 ea TRDERM DAILY@0800 [facility] Last Admin: 03/18/17 08:06 Dose: 1 ea Morphine Sulfate (Ms Contin) 15 mg PO TID@0800,1400,1999 [facility] Last Admin: 03/11/17 14:32 Dose: 15 mg Morphine Sulfate (Ms Contin) 15 mg PO Q12HR [facility] Last Admin: 03/14/17 07:38 Dose: 15 mg Multivitamins/Minerals/Vitamin C (Tab-A-Camila) 1 tab PO DAILY [facility] Last Admin: 03/30/17 07:46 Dose: 1 tab Gabapentin 600 Mg (Cap Own Med ) 1 each PO BEDTIME [facility] Last Admin: 04/28/17 19:00 Dose: 1 each Cephalexin 500mg (Caps) 0 each PO Q12HR [facility] Stop: 04/14/17 08:01 Last Admin: 04/14/17 07:55 Dose: 1 each Nf Med Cephalexin (500mg *Pt Own Med) 1 each PO BID [facility] Stop: 04/30/17 08:01 Last Admin: 04/19/17 23:17 Dose: Not Given Nf Med Cephalexin (500mg *Pt Own Med) 1 each PO ONETIME ONE Stop: 04/19/17 21:46 Last Admin: 04/19/17 23:18 Dose: Not Given Nf Med Cephalexin (500mg *Pt Own Med) 1 each PO ONETIME ONE Stop: 04/19/17 22:01 Last Admin: 04/19/17 21:52 Dose: 1 each Nf Med Cephalexin (500mg *Pt Own Med) 1 each PO BID [facility] Stop: 04/30/17 08:01 Last Admin: 04/20/17 08:19 Dose: 1 each Cephalexin 500mg (Caps) 1 each PO Q12HR [facility] Stop: 04/30/17 08:01 Last Admin: 04/28/17 07:41 Dose: 1 each Cephalexin 500mg (Caps) 1 each PO Q12HR [facility] Stop: 04/29/17 08:01 Last Admin: 04/29/17 07:19 Dose: 1 each Oxycodone HCl (Oxycodone) 5 mg PO Q4H PRN PRN Reason: Pain Last Admin: 04/28/17 10:19 Dose: 5 mg Sodium Chloride (Saline Flush) 10 ml FLUSH ASDIRECTED PRN PRN Reason: flush Last Admin: 01/16/17 08:28 Dose: 10 ml Sodium Chloride (Saline Flush) 10 ml FLUSH BID [facility] Last Admin: 01/19/17 17:31 Dose: 10 ml Tramadol HCl (Ultram) 50 mg PO Q6H PRN PRN Reason: Pain (moderate 4-6) Last Admin: 02/25/17 12:03 Dose: 50 mg Tramadol HCl (Ultram) 50 mg PO Q12H [facility] Last Admin: 03/08/17 08:37 Dose: 50 mg Zinc Gluconate (Zinc) 50 mg PO DAILY [facility] Last Admin: 03/30/17 07:46 Dose: 50 mg Zinc Gluconate (Zinc) 50 mg PO DAILY@1200 [facility] Last Admin: 05/19/17 12:05 Dose: 50 mg - Exam General: alert, cooperative HEENT: Mucous membr. moist/pink Neck: trachea midline, no JVD Lungs: Clear to Auscultation, Normal Respiratory Effort Cardiovascular: Irregular Rhythm GI/Abdominal Exam: Normal Bowel Sounds, Soft, Non-Tender, No Organomegaly, No Distention, No Abnormal Bruit, No Mass, Pelvis Stable (Female) Exam: Deferred Back Exam: Other (kyphosis) Extremities: Normal Inspection, No Pedal Edema Skin: warm, dry, intact Wound/Incisions: decubitis (improving) Neurological: no new focal deficit, other (pre-existing deficit) Psy/Mental Status: alert, normal affect, depressed (at times) - Problem List & Annotations (1) COPD (chronic obstructive pulmonary disease) SNOMED Code(s): 25758733 Code(s): J44.9 - CHRONIC OBSTRUCTIVE PULMONARY DISEASE, UNSPECIFIED Status : Acute Priority: Medium Current Visit: No Annotation/Comment:: No recent history of bronchitic-type symptoms, fever, etc. with patient not using any medications currently for her COPD/pulmonary fibrosis. Consider PFTs on an outpatient basis (2) Compression fracture of L5 lumbar vertebra SNOMED Code(s): 065102586 Code(s): S32.050A - WEDGE COMPRESSION FRACTURE OF FIFTH LUMBAR VERTEBRA, INIT Status: Acute Priority: High Current Visit: No Qualifiers: Fracture healing: with delayed healing (3) Degenerative joint disease (DJD) of lumbar spine Status: Acute Current Visit: No Qualifiers: Spinal osteoarthritis complication: with radiculopathy Qualified Code(s): M47.26 - Other spondylosis with radiculopathy, lumbar region (4) Heart disease SNOMED Code(s): 11857921 Code(s): I51.9 - HEART DISEASE, UNSPECIFIED Status: Acute Priority: High Current Visit: No Annotation/Comment:: Chest Pain protocol was not initiated in the emergency room secondary to absence of anginal-type symptoms. Note history of distant atrial fibrillation with no current anticoagulation therapy. Complete bifascicular bundle-branch, sinus arrhythmia, and sinus bradycardia with multiple previous negative Persantine Cardiolite evaluations as below. Note CHF as above with consideration of an echocardiogram on an outpatient basis. Cardiology consultation as needed. (5) Low back pain SNOMED Code(s): 711871548 Code(s): M54.5 - LOW BACK PAIN Status: Acute Priority: High Current Visit: No Qualifiers: Chronicity: acute Back pain laterality: right Sciatica laterality: sciatica of right side (6) Macular degeneration SNOMED Code(s): 160330545 Code(s): H35.30 - UNSPECIFIED MACULAR DEGENERATION Status: Acute Current Visit: No (7) Right sided sciatica SNOMED Code(s): 93919731 Code(s): M54.31 - SCIATICA, RIGHT SIDE Status: Acute Priority: High Current Visit: No Onset Date: Unknown Annotation/Comment:: improved since yesterday but still present. (8) Spinal stenosis of lumbar region at multiple levels SNOMED Code(s): 13264588 Code(s): M48.06 - SPINAL STENOSIS, LUMBAR REGION Status: Acute Priority: High Current Visit: No (9) Hyperlipidemia SNOMED Code(s): 17279380 Code(s): E78.5 - HYPERLIPIDEMIA, UNSPECIFIED Status: Chronic Priority: Low Current Visit: No Annotation/Comment:: Medically treated with repeat lipid panel per discretion of her providers at [facility] (10) Hypertension SNOMED Code(s): 99947011 Code(s): I10 - ESSENTIAL (PRIMARY) HYPERTENSION Status: Chronic Priority : Low Current Visit: No Qualifiers: Hypertension type: essential hypertension Qualified Code(s): I10 - Essential (primary) hypertension (11) Hypothyroidism SNOMED Code(s): 25433474 Code(s): E03.9 - HYPOTHYROIDISM, UNSPECIFIED Status: Chronic Priority: Low Current Visit: No (12) Obesity SNOMED Code(s): 846987244 Code(s): E66.9 - OBESITY, UNSPECIFIED Status: Chronic Priority: Low Current Visit: No (13) Osteoarthritis SNOMED Code(s): 595880273 Code(s): M19.90 - UNSPECIFIED OSTEOARTHRITIS, UNSPECIFIED SITE Status: Chronic Priority: Low Current Visit: No Qualifiers: Osteoarthritis location: spine Spinal region: lumbosacral Spinal osteoarthritis complication: with radiculopathy Qualified Code(s): M47.27 - Other spondylosis with radiculopathy, lumbosacral region Annotation/Comment:: Stable by patient history despite history of spinal stenosis (14) TIA (transient ischemic attack) SNOMED Code(s): 398685611, 903081600 Code(s): G45.9 - TRANSIENT CEREBRAL ISCHEMIC ATTACK, UNSPECIFIED Status: Suspected Current Visit: No (15) Depressed affect SNOMED Code(s): 507901599 Code(s): R45.89 - OTHER SYMPTOMS AND SIGNS INVOLVING EMOTIONAL STATE Status : Acute Priority: High Current Visit: Yes (16) Radiculopathy of leg SNOMED Code(s): 65929403 Code(s): M54.10 - RADICULOPATHY, SITE UNSPECIFIED Status: Acute Priority : High Current Visit: Yes (17) Decubitus ulcer limited to breakdown of skin (stage 2) SNOMED Code(s): 483730345 Code(s): L89.92 - PRESSURE ULCER OF UNSPECIFIED SITE, STAGE 2 Status: Acute Priority: High Current Visit: Yes Qualifiers: Pressure ulcer location: buttock Laterality: unspecified laterality Qualified Code(s): L89.302 - Pressure ulcer of unspecified buttock, stage 2 - Problem List Review Problem List Initiated/Reviewed/Updated: Yes - Plan Plan:: 01/13/17 Ever Marino MD Severe low back pain. Treated with IV solumedrol, IV toradol, for right sciatica. Lumbar CT today reveals acute compression fracture L5, spinal stenosis , DJD lumbar spine. Platelets decreasing so IV toradol stopped. Miacalcin started. Needs swing bed status for continued pain control, monitoring renal function, platelet level and PT-OT. 01/21/17 Ever Marino MD Still with severe pain into right leg. On scheduled tylenol, scheduled tramadol , scheduled NSAID (celebrex) and prn pain medications. PT working with her. Will order MRI. 01/27/17 Ever Marino MD Still with pain right low back, right hip and right lateral thigh. MRI 25% loss of vertebral height compression fracture of L1. L4-L5 severe central stenosis, advanced facet arthropathy, diffuse bulging disc. Discussed options with her and daughter Ashley. PT starting to help pain. She continues on scheduled tylenol , scheduled tramadol, scheduled NSAID (celebrex), calcitonin, vitamin D, and lidocaine patch and prn pain medications. 02/08/17 Ever Marino MD Still with significant right lower back and right leg pain. Increase in pain pill has helped. She continues with PT. She has appointment with [facility] Wednesday02/15/17, 1300 x-rays and appointment with Dr.Dan Parnell 1340. Continue PT-OT. 03/26/17 Ever Marino MD She says her pain is improved. In fact she thinks she is good enough to go home. Questions about the doctor appointments in [place]. She does not think the appointments have helped her. Will obtain OT evaluation for home safety next week and review notes from [place]. 03/29/17 Ever Marino MD She says she is about the same. She was seen by OT today. She is still not dressing herself. She can not get out of bed herself. [id number] not here at this time. I did call her cell phone [phone] but no answer. 03/30/17 Ever Marino MD She had 2 appointments in [facility] today. Notes reviewed from Dr. Tim Felton. Restart PT. Increase gabapentin. Continue other medications. Manage decubitus ulcer. Pain is from spinal stenosis. She has appointment Wednesday with psychologist for evaluation to consider the spinal nerve stimulator. Talked with Jessy, son Deandre, and daughter in law Dominique. Discussion >1 hour. She has surgical consult on with surgeon to evaluate decubitus ulcer. All in agreement with plan of care. 04/11/17 Ever Marino MD She is scheduled tomorrow at [facility] for temporary placement of spinal nerve stimulator. NPO after midnight except will have her take metoprolol tartrate for rate control for her atrial fibrillation with sip of water before she leaves for [place]. She is not on any blood thinners. We do not have the metoprolol succinate available for her at this time. I did call [facility] on Wednesday to Dr. Felton. I was able to talk to his nurse. I reported to her to let him know regarding Jessy decubitus ulcer on coccyx. [facility] plans to proceed with the procedure Wednesday April 12, 2017. Jessy says she cannot live this way. Multiple medical therapies have been utilized. She is receiving PT currently but she feels her walking is not improving due to the pain in the right leg. 04/13/17 Ever Marino MD Pain does seem to be better with spinal nerve stimulator in place. Talked with Jessy and [id number] Dominique. Appointment in [place] tomorrow for recheck. Permanent placement tentatively scheduled for next Wednesday04/19/2017. 04/15/2017 Patient was seen for pre op history and physical for spinal cord stimulator. Will order platelet per surgeon's request. Chest Xray and EKG reviewed. Patient states understanding the procedure and wants to continue with the plan. Will wait with wound vac to decubitus coccyx ulcer until after the implant is placed. Patient has not had any issues with anesthesia in the past. Medications and past history and physicals noted and reviewed. Discussed with Dr Curtis. Patient is currently in swingbed in [facility] and will continue to need to require skilled care after the procedure and for the wound vac. patient did not have any further questions or concerns. Adelita English,SALES PROFESSIONAL 05/21/17 Ever Marino MD Pain is maybe a little better per Jessy. Pain medication has been decreased and she is walking better. Medications adjusted per Dr. Felton recommendations. Long discussion regarding her financial concerns and [facility]ci plans. Labs ordered for Wednesday. 05/27/17 Ever Marino MD Still with pain right thigh. Lab results discussed with her, Dominique (daughter-in- law) , and son Deandre. Recommendations for termite helper placement discussed. She prefers [place] or [place]. She is requiring skilled level care so she is considering transfer to [facility] or [facility]. Deandre ([facility]) is assisting her with her decisions and assisting her with her finances. We discussed her pain medication and the back stimulator.
[2017-05-28] MEDS: Celecoxib 100 MG Cap PO SCH ×2 (07:32→19:42)
[2017-05-28] MEDS: Levothyroxine 25 MCG Tab PO SCH (07:32)
[2017-05-28] MEDS: DULoxetine 30 MG Cap PO SCH (07:32)
[2017-05-28] MEDS: Gabapentin 300 MG Cap PO SCH ×2 (07:32→19:42)
[2017-05-28] MEDS: Calcium Citrate 950 MG Tab PO SCH ×2 (07:33→19:43)
[2017-05-28] MEDS: Famotidine 20 MG Tab PO SCH ×2 (07:33→19:43)
[2017-05-28] MEDS: Loperamide 2 MG Tab PO SCH (07:34)
[2017-05-28] MEDS: Cholecalciferol (Vitamin D3) 1,000 Unit Tab PO SCH (07:34)
[2017-05-28] MEDS: Multivitamin Tab PO SCH (11:44)
[2017-05-28] MEDS: Digoxin 125 MCG Tab PO SCH (11:46)
[2017-05-29] MEDS: Levothyroxine 25 MCG Tab PO SCH (06:53)
[2017-05-29] MEDS: Celecoxib 100 MG Cap PO SCH ×2 (07:30→17:21)
[2017-05-29] MEDS: Calcium Citrate 950 MG Tab PO SCH ×2 (07:30→17:21)
[2017-05-29] MEDS: DULoxetine 30 MG Cap PO SCH (07:30)
[2017-05-29] MEDS: Loperamide 2 MG Tab PO SCH (07:31)
[2017-05-29] MEDS: Gabapentin 300 MG Cap PO SCH ×2 (07:31→19:40)
[2017-05-29] MEDS: Famotidine 20 MG Tab PO SCH ×2 (07:31→17:21)
[2017-05-29] MEDS: Cholecalciferol (Vitamin D3) 1,000 Unit Tab PO SCH (07:32)
[2017-05-29] MEDS: Multivitamin Tab PO SCH (11:14)
[2017-05-29] MEDS: Digoxin 125 MCG Tab PO SCH (11:14)
[2017-05-30] MEDS: Levothyroxine 25 MCG Tab PO SCH (07:06)
[2017-05-30] MEDS: Calcium Citrate 950 MG Tab PO SCH ×2 (07:52→17:04)
[2017-05-30] MEDS: Celecoxib 100 MG Cap PO SCH ×2 (07:55→17:04)
[2017-05-30] MEDS: DULoxetine 30 MG Cap PO SCH (07:55)
[2017-05-30] MEDS: Gabapentin 300 MG Cap PO SCH ×2 (07:56→19:17)
[2017-05-30] MEDS: Famotidine 20 MG Tab PO SCH ×2 (07:56→17:04)
[2017-05-30] MEDS: Loperamide 2 MG Tab PO SCH (07:56)
[2017-05-30] MEDS: Cholecalciferol (Vitamin D3) 1,000 Unit Tab PO SCH (07:57)
[2017-05-30] MEDS: Digoxin 125 MCG Tab PO SCH (11:19)
[2017-05-30] MEDS: Multivitamin Tab PO SCH (11:20)
[2017-05-30] MEDS: Loperamide 2 MG Tab PO PRN (11:21)
[2017-05-31] MEDS: Levothyroxine 25 MCG Tab PO SCH (06:45)
[2017-05-31] MEDS: Calcium Citrate 950 MG Tab PO SCH (07:33)
[2017-05-31] MEDS: Celecoxib 100 MG Cap PO SCH (07:33)
[2017-05-31] MEDS: Famotidine 20 MG Tab PO SCH (07:34)
[2017-05-31] MEDS: Loperamide 2 MG Tab PO SCH (07:34)
[2017-05-31] MEDS: Gabapentin 300 MG Cap PO SCH (07:34)
[2017-05-31] MEDS: DULoxetine 30 MG Cap PO SCH (07:34)
[2017-05-31] MEDS: Cholecalciferol (Vitamin D3) 1,000 Unit Tab PO SCH (07:35)
[2017-05-31 10:36] VITALS: BP 128/61
[2017-05-31] MEDS: Digoxin 125 MCG Tab PO SCH (11:08)
[2017-05-31] MEDS: Multivitamin Tab PO SCH (11:09)
--- NOTE | 2017-05-31 11:44 | PCM.PN ---
- General Info Date of Service: 05/31/17 Admission Dx/Problem (Free Text): Admission Diagnosis/Problem Admission Diagnosis/Problem Compression fracture Closed wedge compression fracture of 5th lumbar vertebra Lumbar stenosis decubitus ulcer Subjective Update: Patient is being seen for a history and physical for placement of spinal cord stimulator implant on 04/19/2017. Patient has been trialed on multiple narcotics with increased confusion and little relief of her pain. Patient has been limited with mobility due to her pain and now has a decubitus ulcer with current dressing changes. The specialist recommends the placement of the pain stimulator due to the patient's decline and side effects from the narcotics. Functional Status: Reports: Pain Controlled - Review of Systems General: Reports: No Symptoms HEENT: Reports: No Symptoms Pulmonary: Reports: No Symptoms Cardiovascular: Reports: No Symptoms Gastrointestinal: Reports: No Symptoms Genitourinary: Reports: No Symptoms Musculoskeletal: Reports: Leg Pain (right) Skin: Reports: No Symptoms, Other (decubitus) Neurological: Reports: Pre-Existing Deficit Psychiatric: Reports: Depression, Anxiety - Patient Data Vitals - most recent: Last Vital Signs Temp 97.6 F 05/31/17 08:00 Pulse 72 05/31/17 11:08 Resp 18 05/31/17 08:00 BP 128/61 05/31/17 08:00 Pulse Ox 95 05/31/17 08:00 Weight - most recent: 169 lb 14.4 oz I&O - last 24 hours: Intake & Output 05/30/17 05/31/17 05/31/17 22:59 06:59 14:59 Intake Total 100 Balance 100 Med Orders - Current: Current Medications Acetaminophen (Tylenol Arthritis Pain) 650 mg PO Q8H PRN PRN Reason: Breakthrough Pain Hydrocodone Bitart/Acetaminophen ([place] 325-5 Mg) 1 tab PO Q4H PRN PRN Reason: Breakthrough Pain Last Admin: 05/22/17 17:25 Dose: 1 tab Alendronate Sodium (Fosamax) 70 mg PO Q7D@0600 [facility] Last Admin: 05/26/17 05:56 Dose: 70 mg Calcium Citrate (Calcitrate) 950 mg PO BID [facility] Last Admin: 05/31/17 07:33 Dose: 950 mg Celecoxib (Celebrex) 100 mg PO BID [facility] Last Admin: 05/31/17 07:33 Dose: 100 mg Cholecalciferol (Vitamin D3) 2,000 units PO DAILY [facility] Last Admin: 05/31/17 07:35 Dose: 2,000 units Digoxin (Lanoxin) 125 mcg PO DAILY@1200 [facility] Last Admin: 05/31/17 11:08 Dose: 125 mcg Duloxetine HCl (Cymbalta) 30 mg PO DAILY [facility] Last Admin: 05/31/17 07:34 Dose: 30 mg Famotidine (Pepcid) 20 mg PO BID [facility] Last Admin: 05/31/17 07:34 Dose: 20 mg Gabapentin (Neurontin) 300 mg PO Q12HR [facility] Last Admin: 05/31/17 07:34 Dose: 300 mg Levothyroxine Sodium (Levothyroxine) 25 mcg PO ACBREAKFAST [facility] Last Admin: 05/31/17 06:45 Dose: 25 mcg Loperamide HCl (Imodium Ad) 2 mg PO Q4H PRN PRN Reason: Diarrhea Last Admin: 05/30/17 11:21 Dose: 2 mg Loperamide HCl (Imodium Ad) 2 mg PO DAILY [facility] Last Admin: 05/31/17 07:34 Dose: 2 mg Magnesium Hydroxide (Milk Of Magnesia) 30 ml PO DAILY PRN PRN Reason: Constipation Last Admin: 04/23/17 17:25 Dose: 30 ml Multivitamins/Minerals/Vitamin C (Tab-A-Camila) 1 tab PO DAILY@1200 [facility] Last Admin: 05/31/17 11:09 Dose: 1 tab Senna (Senna) 8.6 mg PO BID PRN PRN Reason: Constipation Last Admin: 04/24/17 08:12 Dose: 8.6 mg Discontinued Medications Acetaminophen (Tylenol) 650 mg PO Q6H PRN PRN Reason: Pain Last Admin: 01/20/17 07:39 Dose: 650 mg Acetaminophen (Tylenol Arthritis Pain) 650 mg PO Q12H [facility] Last Admin: 03/08/17 08:35 Dose: 650 mg Acetaminophen (Tylenol Arthritis Pain) 650 mg PO Q8H PRN PRN Reason: Pain Last Admin: 02/08/17 16:38 Dose: 650 mg Hydrocodone Bitart/Acetaminophen (Hyannis 325-5 Mg) 1 tab PO Q6H PRN PRN Reason: Pain Last Admin: 02/08/17 06:20 Dose: 1 tab Hydrocodone Bitart/Acetaminophen (Hyannis 325-10 Mg) 1 tab PO Q6H PRN PRN Reason: Pain Last Admin: 03/08/17 05:27 Dose: 1 tab Hydrocodone Bitart/Acetaminophen (Hyannis 325-10 Mg) 1 tab PO Q4H PRN PRN Reason: Pain Last Admin: 03/13/17 18:24 Dose: 1 tab Hydrocodone Bitart/Acetaminophen (Hyannis 325-10 Mg) 1 tab PO TID@0800,1400,2000 [facility] Last Admin: 04/29/17 15:17 Dose: 1 tab Hydrocodone Bitart/Acetaminophen (Hyannis 325-10 Mg) 1 tab PO TID@0800,1400,2000 PRN PRN Reason: Pain Last Admin: 05/21/17 07:25 Dose: 1 tab Hydrocodone Bitart/Acetaminophen (Hyannis 325-5 Mg) 1 tab PO TID@0800,1400,2000 PRN PRN Reason: Breakthrough Pain Alendronate Sodium (Fosamax) 70 mg PO Q7D@0600 [facility] Last Admin: 03/31/17 14:55 Dose: Not Given Alendronate Sodium (Fosamax) 70 mg PO Q7D@0600 [facility] Last Admin: 04/01/17 06:10 Dose: 70 mg Betamethasone/Clotrimazole (Lotrisone) 0 gm TOP BID [facility] Last Admin: 04/13/17 07:52 Dose: 1 applic Betamethasone/Clotrimazole (Lotrisone) 0 gm TOP Q12HR [facility] Calcitonin [place] (Miacalcin Nasal [place]) 0 ml RADHA DAILY [facility] Last Admin: 03/30/17 07:42 Dose: 1 spray Calcium Citrate (Calcitrate) 315 mg PO BID [facility] Last Admin: 02/17/17 19:39 Dose: Not Given Celecoxib (Celebrex) 100 mg PO BID [facility] Last Admin: 01/24/17 07:48 Dose: 100 mg Celecoxib (Celebrex) 100 mg PO DAILY@1800 [facility] Last Admin: 01/31/17 17:16 Dose: 100 mg Celecoxib (Celebrex) 100 mg PO BID [facility] Last Admin: 03/08/17 08:33 Dose: 100 mg Celecoxib (Celebrex) 100 mg PO BID [facility] Last Admin: 04/07/17 17:23 Dose: 100 mg Cephalexin (Keflex) 500 mg PO Q12HR [facility] Stop: 04/30/17 08:01 Cephalexin (Keflex) 500 mg PO ONETIME ONE Stop: 04/19/17 20:41 Last Admin: 04/19/17 23:17 Dose: Not Given Cholecalciferol (Vitamin D3) 2,000 units PO QAM [facility] Last Admin: 01/17/17 07:42 Dose: 2,000 units Cholecalciferol (Vitamin D3) 2,000 units PO BID [facility] Last Admin: 01/21/17 07:54 Dose: 2,000 units Cholecalciferol (Vitamin D3) 4,000 units PO BID [facility] Last Admin: 03/10/17 08:03 Dose: 4,000 units Cholecalciferol (Vitamin D3) 4,000 units PO DAILY [facility] Last Admin: 05/28/17 07:34 Dose: 4,000 units Digoxin (Lanoxin) 500 mcg PO ONETIME ONE Stop: 04/15/17 12:01 Last Admin: 04/15/17 12:00 Dose: 500 mcg Digoxin (Lanoxin) 250 mcg PO ONETIME ONE Stop: 04/16/17 12:01 Last Admin: 04/16/17 12:15 Dose: 250 mcg Duloxetine HCl (Cymbalta) 20 mg PO DAILY [facility] Last Admin: 03/14/17 07:38 Dose: 20 mg Duloxetine HCl (Cymbalta) 30 mg PO DAILY [facility] Last Admin: 03/15/17 08:58 Dose: Not Given Fentanyl (Sublimaze) 25 mcg IVPUSH Q4H PRN PRN Reason: Pain (severe 7-10) Last Admin: 01/16/17 08:24 Dose: 25 mcg Gabapentin (Neurontin) 100 mg PO BEDTIME [facility] Last Admin: 02/07/17 19:18 Dose: 100 mg Gabapentin (Neurontin) 300 mg PO Q12HR [facility] Last Admin: 02/26/17 08:20 Dose: 300 mg Gabapentin (Neurontin) 300 mg PO TID@0800,1400,2000 [facility] Last Admin: 03/08/17 08:34 Dose: 300 mg Gabapentin (Neurontin) 400 mg PO TID@0800,1400,1999 [facility] Last Admin: 03/11/17 14:32 Dose: 400 mg Gabapentin (Neurontin) 300 mg PO TID@0800,1400,2000 [facility] Last Admin: 03/30/17 17:45 Dose: 300 mg Gabapentin (Neurontin) 300 mg PO BID@0800,1400 [facility] Last Admin: 04/29/17 15:16 Dose: 300 mg Gabapentin (Neurontin) 600 mg PO BEDTIME [facility] Last Admin: 03/30/17 19:12 Dose: 600 mg Gabapentin (Neurontin) 300 mg PO TID@0800,1400,1999 [facility] Last Admin: 05/20/17 16:18 Dose: Not Given Levothyroxine Sodium (Levothyroxine) 25 mcg PO QAM [facility] Last Admin: 02/17/17 08:43 Dose: 25 mcg Lidocaine (Lidocaine 5% Paraben-Free) 140 mg TRDERM Q24H [facility] Last Admin: 03/07/17 19:16 Dose: 140 mg Lidocaine (Lidoderm 5%) 700 mg TRDERM Q24H [facility] Last Admin: 03/17/17 19:25 Dose: Not Given Loperamide HCl (Imodium Ad) 4 mg PO DAILY [facility] Last Admin: 01/19/17 07:44 Dose: 4 mg Metoprolol Succinate (Toprol Xl) 25 mg PO DAILY [facility] Last Admin: 04/11/17 08:39 Dose: Not Given Metoprolol Succinate (Toprol Xl) 25 mg PO DAILY [facility] Last Admin: 04/14/17 07:55 Dose: 25 mg Metoprolol Tartrate (Lopressor) 25 mg PO Q12HR [facility] Last Admin: 04/10/17 08:28 Dose: 25 mg Metoprolol Tartrate (Lopressor) 25 mg PO DAILY [facility] Last Admin: 04/11/17 08:38 Dose: 25 mg Metoprolol Tartrate (Lopressor) 25 mg PO ONETIME ONE Stop: 04/12/17 06:01 Last Admin: 04/12/17 05:45 Dose: 25 mg Miscellaneous Information (Remove Patch) 1 ea TRDERM DAILY@0800 [facility] Last Admin: 03/08/17 08:35 Dose: 1 ea Miscellaneous Information (Remove Patch) 1 ea TRDERM DAILY@0800 [facility] Last Admin: 03/18/17 08:06 Dose: 1 ea Morphine Sulfate (Ms Contin) 15 mg PO TID@0800,1400,2000 [facility] Last Admin: 03/11/17 14:32 Dose: 15 mg Morphine Sulfate (Ms Contin) 15 mg PO Q12HR [facility] Last Admin: 03/14/17 07:38 Dose: 15 mg Multivitamins/Minerals/Vitamin C (Tab-A-Camila) 1 tab PO DAILY [facility] Last Admin: 03/30/17 07:46 Dose: 1 tab Gabapentin 600 Mg (Cap Own Med ) 1 each PO BEDTIME [facility] Last Admin: 04/28/17 19:00 Dose: 1 each Cephalexin 500mg (Caps) 0 each PO Q12HR [facility] Stop: 04/14/17 08:01 Last Admin: 04/14/17 07:55 Dose: 1 each Nf Med Cephalexin (500mg *Pt Own Med) 1 each PO BID ANIYA Stop: 04/30/17 08:01 Last Admin: 04/19/17 23:17 Dose: Not Given Nf Med Cephalexin (500mg *Pt Own Med) 1 each PO ONETIME ONE Stop: 04/19/17 21:46 Last Admin: 04/19/17 23:18 Dose: Not Given Nf Med Cephalexin (500mg *Pt Own Med) 1 each PO ONETIME ONE Stop: 04/19/17 22:01 Last Admin: 04/19/17 21:52 Dose: 1 each Nf Med Cephalexin (500mg *Pt Own Med) 1 each PO BID [facility] Stop: 04/30/17 08:01 Last Admin: 04/20/17 08:19 Dose: 1 each Cephalexin 500mg (Caps) 1 each PO Q12HR [facility] Stop: 04/30/17 08:01 Last Admin: 04/28/17 07:41 Dose: 1 each Cephalexin 500mg (Caps) 1 each PO Q12HR [facility] Stop: 04/29/17 08:01 Last Admin: 04/29/17 07:19 Dose: 1 each Oxycodone HCl (Oxycodone) 5 mg PO Q4H PRN PRN Reason: Pain Last Admin: 04/28/17 10:19 Dose: 5 mg Sodium Chloride (Saline Flush) 10 ml FLUSH ASDIRECTED PRN PRN Reason: flush Last Admin: 01/16/17 08:28 Dose: 10 ml Sodium Chloride (Saline Flush) 10 ml FLUSH BID [facility] Last Admin: 01/19/17 17:31 Dose: 10 ml Tramadol HCl (Ultram) 50 mg PO Q6H PRN PRN Reason: Pain (moderate 4-6) Last Admin: 02/25/17 12:03 Dose: 50 mg Tramadol HCl (Ultram) 50 mg PO Q12H [facility] Last Admin: 03/08/17 08:37 Dose: 50 mg Zinc Gluconate (Zinc) 50 mg PO DAILY [facility] Last Admin: 03/30/17 07:46 Dose: 50 mg Zinc Gluconate (Zinc) 50 mg PO DAILY@1200 [facility] Last Admin: 05/19/17 12:05 Dose: 50 mg - Exam General: alert, no acute distress HEENT: Mucous membr. moist/pink Neck: trachea midline, no JVD Lungs: Clear to Auscultation, Normal Respiratory Effort, Rhonchi Cardiovascular: Regular Rhythm, Irregular Rhythm GI/Abdominal Exam: Normal Bowel Sounds, Soft, Non-Tender, No Organomegaly, No Distention, No Mass, Pelvis Stable (Female) Exam: Deferred Back Exam: Normal Inspection, Decreased Range of Motion, Other (back stimulator) Extremities: No Pedal Edema, Normal Capillary Refill, Leg Pain (right thigh) Skin: warm, dry, intact Wound/Incisions: healing well, no drainage, erythema improving, decubitis Neurological: no new focal deficit, other (pre-existing deficit) Psy/Mental Status: alert, normal affect, anxious, depressed - Problem List & Annotations (1) COPD (chronic obstructive pulmonary disease) SNOMED Code(s): 46483676 Code(s): J44.9 - CHRONIC OBSTRUCTIVE PULMONARY DISEASE, UNSPECIFIED Status : Acute Priority: Medium Current Visit: No Annotation/Comment:: No recent history of bronchitic-type symptoms, fever, etc. with patient not using any medications currently for her COPD/pulmonary fibrosis. Consider PFTs on an outpatient basis (2) Compression fracture of L5 lumbar vertebra SNOMED Code(s): 996957492 Code(s): S32.050A - WEDGE COMPRESSION FRACTURE OF FIFTH LUMBAR VERTEBRA, INIT Status: Acute Priority: High Current Visit: No Qualifiers: Fracture healing: with delayed healing (3) Degenerative joint disease (DJD) of lumbar spine Status: Acute Current Visit: No Qualifiers: Spinal osteoarthritis complication: with radiculopathy Qualified Code(s): M47.26 - Other spondylosis with radiculopathy, lumbar region (4) Heart disease SNOMED Code(s): 01884194 Code(s): I51.9 - HEART DISEASE, UNSPECIFIED Status: Acute Priority: High Current Visit: No Annotation/Comment:: Chest Pain protocol was not initiated in the emergency room secondary to absence of anginal-type symptoms. Note history of distant atrial fibrillation with no current anticoagulation therapy. Complete bifascicular bundle-branch, sinus arrhythmia, and sinus bradycardia with multiple previous negative Persantine Cardiolite evaluations as below. Note CHF as above with consideration of an echocardiogram on an outpatient basis. Cardiology consultation as needed. (5) Low back pain SNOMED Code(s): 568628712 Code(s): M54.5 - LOW BACK PAIN Status: Acute Priority: High Current Visit: No Qualifiers: Chronicity: acute Back pain laterality: right Sciatica laterality: sciatica of right side (6) Macular degeneration SNOMED Code(s): 407199878 Code(s): H35.30 - UNSPECIFIED MACULAR DEGENERATION Status: Acute Current Visit: No (7) Right sided sciatica SNOMED Code(s): 55101967 Code(s): M54.31 - SCIATICA, RIGHT SIDE Status: Acute Priority: High Current Visit: No Onset Date: Unknown Annotation/Comment:: improved since yesterday but still present. (8) Spinal stenosis of lumbar region at multiple levels SNOMED Code(s): 36417985 Code(s): M48.06 - SPINAL STENOSIS, LUMBAR REGION Status: Acute Priority: High Current Visit: No (9) Hyperlipidemia SNOMED Code(s): 10731093 Code(s): E78.5 - HYPERLIPIDEMIA, UNSPECIFIED Status: Chronic Priority: Low Current Visit: No Annotation/Comment:: Medically treated with repeat lipid panel per discretion of her providers at [facility] (10) Hypertension SNOMED Code(s): 06291065 Code(s): I10 - ESSENTIAL (PRIMARY) HYPERTENSION Status: Chronic Priority : Low Current Visit: No Qualifiers: Hypertension type: essential hypertension Qualified Code(s): I10 - Essential (primary) hypertension (11) Hypothyroidism SNOMED Code(s): 34773322 Code(s): E03.9 - HYPOTHYROIDISM, UNSPECIFIED Status: Chronic Priority: Low Current Visit: No (12) Obesity SNOMED Code(s): 102269039 Code(s): E66.9 - OBESITY, UNSPECIFIED Status: Chronic Priority: Low Current Visit: No (13) Osteoarthritis SNOMED Code(s): 155564457 Code(s): M19.90 - UNSPECIFIED OSTEOARTHRITIS, UNSPECIFIED SITE Status: Chronic Priority: Low Current Visit: No Qualifiers: Osteoarthritis location: spine Spinal region: lumbosacral Spinal osteoarthritis complication: with radiculopathy Qualified Code(s): M47.27 - Other spondylosis with radiculopathy, lumbosacral region Annotation/Comment:: Stable by patient history despite history of spinal stenosis (14) TIA (transient ischemic attack) SNOMED Code(s): 496490922, 121142137 Code(s): G45.9 - TRANSIENT CEREBRAL ISCHEMIC ATTACK, UNSPECIFIED Status: Suspected Current Visit: No (15) Depressed affect SNOMED Code(s): 778133337 Code(s): R45.89 - OTHER SYMPTOMS AND SIGNS INVOLVING EMOTIONAL STATE Status : Acute Priority: High Current Visit: Yes (16) Radiculopathy of leg SNOMED Code(s): 64837806 Code(s): M54.10 - RADICULOPATHY, SITE UNSPECIFIED Status: Acute Priority : High Current Visit: Yes (17) Decubitus ulcer limited to breakdown of skin (stage 2) SNOMED Code(s): 530728866 Code(s): L89.92 - PRESSURE ULCER OF UNSPECIFIED SITE, STAGE 2 Status: Acute Priority: High Current Visit: Yes Qualifiers: Pressure ulcer location: buttock Laterality: unspecified laterality Qualified Code(s): L89.302 - Pressure ulcer of unspecified buttock, stage 2 - Problem List Review Problem List Initiated/Reviewed/Updated: Yes - Plan Plan:: 01/13/17 Ever Marino MD Severe low back pain. Treated with IV solumedrol, IV toradol, for right sciatica. Lumbar CT today reveals acute compression fracture L5, spinal stenosis , DJD lumbar spine. Platelets decreasing so IV toradol stopped. Miacalcin started. Needs swing bed status for continued pain control, monitoring renal function, platelet level and PT-OT. 01/21/17 Ever Marino MD Still with severe pain into right leg. On scheduled tylenol, scheduled tramadol , scheduled NSAID (celebrex) and prn pain medications. PT working with her. Will order MRI. 01/27/17 Ever Marino MD Still with pain right low back, right hip and right lateral thigh. MRI 25% loss of vertebral height compression fracture of L1. L4-L5 severe central stenosis, advanced facet arthropathy, diffuse bulging disc. Discussed options with her and daughter Ashley. PT starting to help pain. She continues on scheduled tylenol , scheduled tramadol, scheduled NSAID (celebrex), calcitonin, vitamin D, and lidocaine patch and prn pain medications. 02/08/17 Ever Marino MD Still with significant right lower back and right leg pain. Increase in pain pill has helped. She continues with PT. She has appointment with [facility] Wednesday02/15/17, 1300 x-rays and appointment with Dr.Dan Parnell 1340. Continue PT-OT. 03/26/17 Ever Marino MD She says her pain is improved. In fact she thinks she is good enough to go home. Questions about the doctor appointments in [place]. She does not think the appointments have helped her. Will obtain OT evaluation for home safety next week and review notes from [place]. 03/29/17 Ever Marino MD She says she is about the same. She was seen by OT today. She is still not dressing herself. She can not get out of bed herself. [id number] not here at this time. I did call her cell phone [phone] but no answer. 03/30/17 Ever Marino MD She had 2 appointments in [facility] today. Notes reviewed from Dr. Tim Felton. Restart PT. Increase gabapentin. Continue other medications. Manage decubitus ulcer. Pain is from spinal stenosis. She has appointment Wednesday with psychologist for evaluation to consider the spinal nerve stimulator. Talked with Jessy, son Deandre, and daughter in law Dominique. Discussion >1 hour. She has surgical consult on with surgeon to evaluate decubitus ulcer. All in agreement with plan of care. 04/11/17 Ever Marino MD She is scheduled tomorrow at [facility] for temporary placement of spinal nerve stimulator. NPO after midnight except will have her take metoprolol tartrate for rate control for her atrial fibrillation with sip of water before she leaves for [place]. She is not on any blood thinners. We do not have the metoprolol succinate available for her at this time. I did call [facility] on Wednesday to Dr. Felton. I was able to talk to his nurse. I reported to her to let him know regarding Jessy decubitus ulcer on coccyx. [facility] plans to proceed with the procedure Wednesday April 12, 2017. Jessy says she cannot live this way. Multiple medical therapies have been utilized. She is receiving PT currently but she feels her walking is not improving due to the pain in the right leg. 04/13/17 Ever Marino MD Pain does seem to be better with spinal nerve stimulator in place. Talked with Jessy and [id number] Dominique. Appointment in [place] tomorrow for recheck. Permanent placement tentatively scheduled for next Wednesday04/19/2017. 04/15/2017 Patient was seen for pre op history and physical for spinal cord stimulator. Will order platelet per surgeon's request. Chest Xray and EKG reviewed. Patient states understanding the procedure and wants to continue with the plan. Will wait with wound vac to decubitus coccyx ulcer until after the implant is placed. Patient has not had any issues with anesthesia in the past. Medications and past history and physicals noted and reviewed. Discussed with Dr Curtis. Patient is currently in swingbed in [facility] and will continue to need to require skilled care after the procedure and for the wound vac. patient did not have any further questions or concerns. Adelita English,EYELET MACHINE OPERATOR 05/21/17 Ever Marino MD Pain is maybe a little better per Jessy. Pain medication has been decreased and she is walking better. Medications adjusted per Dr. Felton recommendations. Long discussion regarding her financial concerns and senior living plans. Labs ordered for Wednesday. 05/27/17 Ever Marino MD Still with pain right thigh. Lab results discussed with her, Dominique (daughter-in- law) , and son Deandre. Recommendations for manager terminal placement discussed. She prefers [place] or [place]. She is requiring skilled level care so she is considering transfer to [facility] or [facility]. Deandre ([facility]) is assisting her with her decisions and assisting her with her finances. We discussed her pain medication and the back stimulator. 05/31/17 She has decided to transfer to [facility] today.
--- NOTE | 2017-05-31 12:12 | PCM.DCSUM1 ---
Discharge Summary - Discharge Data Discharge Date: 05/31/17 Discharge Disposition: [facility] Condition: Good - Discharge Diagnosis/Problem(s) (1) COPD (chronic obstructive pulmonary disease) SNOMED Code(s): 08405969 ICD Code: J44.9 - CHRONIC OBSTRUCTIVE PULMONARY DISEASE, UNSPECIFIED Status : Acute Priority: Medium Current Visit: No Problem Details: No recent history of bronchitic-type symptoms, fever, etc. with patient not using any medications currently for her COPD/pulmonary fibrosis. Consider PFTs on an outpatient basis (2) Compression fracture of L5 lumbar vertebra SNOMED Code(s): 749331003 ICD Code: S32.050A - WEDGE COMPRESSION FRACTURE OF FIFTH LUMBAR VERTEBRA, INIT Status: Acute Priority: High Current Visit: No Qualifiers: Fracture healing: with delayed healing (3) Degenerative joint disease (DJD) of lumbar spine Status: Acute Current Visit: No Qualifiers: Spinal osteoarthritis complication: with radiculopathy Qualified Code(s): M47.26 - Other spondylosis with radiculopathy, lumbar region (4) Heart disease SNOMED Code(s): 95809605 ICD Code: I51.9 - HEART DISEASE, UNSPECIFIED Status: Acute Priority: High Current Visit: No Problem Details: Chest Pain protocol was not initiated in the emergency room secondary to absence of anginal-type symptoms. Note history of distant atrial fibrillation with no current anticoagulation therapy. Complete bifascicular bundle-branch, sinus arrhythmia, and sinus bradycardia with multiple previous negative Persantine Cardiolite evaluations as below. Note CHF as above with consideration of an echocardiogram on an outpatient basis. Cardiology consultation as needed. (5) Low back pain SNOMED Code(s): 972214902 ICD Code: M54.5 - LOW BACK PAIN Status: Acute Priority: High Current Visit: No Qualifiers: Chronicity: acute Back pain laterality: right Sciatica laterality: sciatica of right side (6) Macular degeneration SNOMED Code(s): 579930022 ICD Code: H35.30 - UNSPECIFIED MACULAR DEGENERATION Status: Acute Current Visit: No (7) Right sided sciatica SNOMED Code(s): 97708315 ICD Code: M54.31 - SCIATICA, RIGHT SIDE Status: Acute Priority: High Current Visit: No Onset Date: Unknown Problem Details: improved since yesterday but still present. (8) Spinal stenosis of lumbar region at multiple levels SNOMED Code(s): 65072031 ICD Code: M48.06 - SPINAL STENOSIS, LUMBAR REGION Status: Acute Priority : High Current Visit: No (9) Hyperlipidemia SNOMED Code(s): 15675482 ICD Code: E78.5 - HYPERLIPIDEMIA, UNSPECIFIED Status: Chronic Priority: Low Current Visit: No Problem Details: Medically treated with repeat lipid panel per discretion of [place] providers [place] [facility] [place]10) Hypertension SNOMED Code(s): 57316110 ICD Code: I10 - ESSENTIAL (PRIMARY) HYPERTENSION Status: Chronic Priority : Low Current Visit: No Qualifiers: Hypertension type: essential hypertension Qualified Code(s): I10 - Essential (primary) hypertension (11) Hypothyroidism SNOMED Code(s): 64385529 ICD Code: E03.9 - HYPOTHYROIDISM, UNSPECIFIED Status: Chronic Priority: Low Current Visit: No (12) Obesity SNOMED Code(s): 569729789 ICD Code: E66.9 - OBESITY, UNSPECIFIED Status: Chronic Priority: Low Current Visit: No (13) Osteoarthritis SNOMED Code(s): 871713186 ICD Code: M19.90 - UNSPECIFIED OSTEOARTHRITIS, UNSPECIFIED SITE Status: Chronic Priority: Low Current Visit: No Problem Details: Stable by patient history despite history of spinal stenosis Qualifiers: Osteoarthritis location: spine Spinal region: lumbosacral Spinal osteoarthritis complication: with radiculopathy Qualified Code(s): M47.27 - Other spondylosis with radiculopathy, lumbosacral region (14) TIA (transient ischemic attack) SNOMED Code(s): 375622497, 916755395 ICD Code: G45.9 - TRANSIENT CEREBRAL ISCHEMIC ATTACK, UNSPECIFIED Status: Suspected Current Visit: No (15) Depressed affect SNOMED Code(s): 419258145 ICD Code: R45.89 - OTHER SYMPTOMS AND SIGNS INVOLVING EMOTIONAL STATE Status: Acute Priority: High Current Visit: Yes (16) Radiculopathy of leg SNOMED Code(s): 27320166 ICD Code: M54.10 - RADICULOPATHY, SITE UNSPECIFIED Status: Acute Priority : High Current Visit: Yes (17) Decubitus ulcer limited to breakdown of skin (stage 2) SNOMED Code(s): 435178718 ICD Code: L89.92 - PRESSURE ULCER OF UNSPECIFIED SITE, STAGE 2 Status: Acute Priority: High Current Visit: Yes Qualifiers: Pressure ulcer location: buttock Laterality: unspecified laterality Qualified Code(s): L89.302 - Pressure ulcer of unspecified buttock, stage 2 - Patient Summary/Data Consults: Consultations 03/23/17 14:11 Consult to Dietary [Consult to [employer]] [CONS] Routine 03/29/17 08:00 Consult to Occupational Therapy [OT Evaluation and Treatment] [CONS] Routine 03/31/17 08:00 Consult to Physical Therapy [PT Evaluation and Treatment] [CONS] Routine 04/01/17 08:00 Consult to Physician [CONS] Routine 04/29/17 16:42 Consult to Physical Therapy [PT Evaluation and Treatment] [CONS] Routine - Patient Instructions Diet: Usual Diet as Tolerated Activity: Full Weight Bearing Other/Special Instructions: 05/31/17 Aquacel Ag Ribbon or equivalent dressing Apply to decubitous ulcer on coccyx and change every 3 days and prn. D/C when healed. Turn Jessy every 2 hours when in bed. Consult PT-OT, evaluate and treat. Instuctions for Internal Back Stimulator in Jessy back---Charge internal back stimulator weekly every Wednesday starting at 0:800 for a few hours to make sure the stimulator is fully charged. Make sure backshoe person is directly over stimulator. Instructions for charging internal back stimulator are on a pamphlet that Jessy has. Nursing staff and family able to adjust setting for internal back stimulator prn pain. - Discharge Plan Prescriptions/Med Rec: Acetaminophen/HYDROcodone [Penn 325-5 MG] 1 tab PO Q4H PRN #30 tablet PRN Reason: Pain Alendronate [Fosamax] 70 mg PO Q7D@0600 #7 tablet Cholecalciferol (Vitamin D3) [Vitamin D3] 2,000 unit PO DAILY #100 capsule Venlafaxine HCl [Venlafaxine ER] 37.5 mg PO DAILY #30 cap.er.24h Home Medications: Home Meds Fish Oil/[place]-3 Fatty Acids [Fish Oil 1,000 MG] 1,000 mg PO QAM 05/28/15 [ History] Levothyroxine 25 mcg PO QAM 05/28/15 [History] Ezetimibe [Zetia] 10 mg PO BEDTIME 01/20/16 [History] Multivitamin [Daily Multiple Vitamin] 1 tab PO DAILY 01/20/16 [History] Vit C/E/Zn/Coppr/Lutein/Zeaxan [Preservision Areds 2 Softgel] 1 each PO BID [History] Alendronate [Fosamax] 70 mg PO Q7D@0600 #7 tablet 03/31/17 [Rx] Cholecalciferol (Vitamin D3) [Vitamin D3] 2,000 unit PO DAILY #100 capsule 05/28 [Rx] Acetaminophen [Tylenol Arthritis Pain] 650 mg PO Q8H PRN #100 tab.er 05/31/17 [ Rx] Acetaminophen/HYDROcodone [Penn 325-5 MG] 1 tab PO Q4H PRN #30 tablet 05/31/17 [Rx] Calcium Citrate [Calcitrate (190 MG Calcium)] 950 mg PO BID tablet 05/31/17 [Rx ] Celecoxib [CeleBREX] 100 mg PO BID cap 05/31/17 [Rx] Digoxin [Lanoxin] 125 mcg PO DAILY@1200 tablet 05/31/17 [Rx] Famotidine [Pepcid] 20 mg PO BID tablet 05/31/17 [Rx] Gabapentin [Neurontin] 300 mg PO Q12HR cap 05/31/17 [Rx] Venlafaxine HCl [Venlafaxine ER] 37.5 mg PO DAILY #30 cap.er.24h 05/31/17 [Rx] Referrals: Radha Lucero MD [Primary Care Provider] - - Discharge Summary/Plan Comment DC Time >30 min.: Yes Discharge Summary/Plan Comment: 05/31/17 Ever Marino MD See progress note on 05/31/17. - Patient Data Vitals - Most Recent: Last Vital Signs Temp 97.6 F 05/31/17 08:00 Pulse 72 05/31/17 11:08 Resp 18 05/31/17 08:00 BP 128/61 05/31/17 08:00 Pulse Ox 95 05/31/17 08:00 Weight - Most Recent: 169 lb 14.4 oz I&O - Last 24 hours: Intake & Output 05/30/17 05/31/17 05/31/17 22:59 06:59 14:59 Intake Total 100 Balance 100 Med Orders - Current: Current Medications Acetaminophen (Tylenol Arthritis Pain) 650 mg PO Q8H PRN PRN Reason: Breakthrough Pain Hydrocodone Bitart/Acetaminophen (Penn 325-5 Mg) 1 tab PO Q4H PRN PRN Reason: Breakthrough Pain Last Admin: 05/22/17 17:25 Dose: 1 tab Alendronate Sodium (Fosamax) 70 mg PO Q7D@0600 [facility] Last Admin: 05/26/17 05:56 Dose: 70 mg Calcium Citrate (Calcitrate) 950 mg PO BID [facility] Last Admin: 05/31/17 07:33 Dose: 950 mg Celecoxib (Celebrex) 100 mg PO BID [facility] Last Admin: 05/31/17 07:33 Dose: 100 mg Cholecalciferol (Vitamin D3) 2,000 units PO DAILY [facility] Last Admin: 05/31/17 07:35 Dose: 2,000 units Digoxin (Lanoxin) 125 mcg PO DAILY@1200 [facility] Last Admin: 05/31/17 11:08 Dose: 125 mcg Duloxetine HCl (Cymbalta) 30 mg PO DAILY [facility] Last Admin: 05/31/17 07:34 Dose: 30 mg Famotidine (Pepcid) 20 mg PO BID [facility] Last Admin: 05/31/17 07:34 Dose: 20 mg Gabapentin (Neurontin) 300 mg PO Q12HR [facility] Last Admin: 05/31/17 07:34 Dose: 300 mg Levothyroxine Sodium (Levothyroxine) 25 mcg PO ACBREAKFAST [facility] Last Admin: 05/31/17 06:45 Dose: 25 mcg Loperamide HCl (Imodium Ad) 2 mg PO Q4H PRN PRN Reason: Diarrhea Last Admin: 05/30/17 11:21 Dose: 2 mg Loperamide HCl (Imodium Ad) 2 mg PO DAILY [facility] Last Admin: 05/31/17 07:34 Dose: 2 mg Magnesium Hydroxide (Milk Of Magnesia) 30 ml PO DAILY PRN PRN Reason: Constipation Last Admin: 04/23/17 17:25 Dose: 30 ml Multivitamins/Minerals/Vitamin C (Tab-A-Camila) 1 tab PO DAILY@1200 [facility] Last Admin: 05/31/17 11:09 Dose: 1 tab Senna (Senna) 8.6 mg PO BID PRN PRN Reason: Constipation Last Admin: 04/24/17 08:12 Dose: 8.6 mg Discontinued Medications Acetaminophen (Tylenol) 650 mg PO Q6H PRN PRN Reason: Pain Last Admin: 01/20/17 07:39 Dose: 650 mg Acetaminophen (Tylenol Arthritis Pain) 650 mg PO Q12H [facility] Last Admin: 03/08/17 08:35 Dose: 650 mg Acetaminophen (Tylenol Arthritis Pain) 650 mg PO Q8H PRN PRN Reason: Pain Last Admin: 02/08/17 16:38 Dose: 650 mg Hydrocodone Bitart/Acetaminophen (Penn 325-5 Mg) 1 tab PO Q6H PRN PRN Reason: Pain Last Admin: 02/08/17 06:20 Dose: 1 tab Hydrocodone Bitart/Acetaminophen (Penn 325-10 Mg) 1 tab PO Q6H PRN PRN Reason: Pain Last Admin: 03/08/17 05:27 Dose: 1 tab Hydrocodone Bitart/Acetaminophen (Penn 325-10 Mg) 1 tab PO Q4H PRN PRN Reason: Pain Last Admin: 03/13/17 18:24 Dose: 1 tab Hydrocodone Bitart/Acetaminophen (Penn 325-10 Mg) 1 tab PO TID@0800,1400,2000 [facility] Last Admin: 04/29/17 15:17 Dose: 1 tab Hydrocodone Bitart/Acetaminophen (Penn 325-10 Mg) 1 tab PO TID@0800,1400,2000 PRN PRN Reason: Pain Last Admin: 05/21/17 07:25 Dose: 1 tab Hydrocodone Bitart/Acetaminophen (Penn 325-5 Mg) 1 tab PO TID@0800,1400,2000 PRN PRN Reason: Breakthrough Pain Alendronate Sodium (Fosamax) 70 mg PO Q7D@0600 [facility] Last Admin: 03/31/17 14:55 Dose: Not Given Alendronate Sodium (Fosamax) 70 mg PO Q7D@0600 [facility] Last Admin: 04/01/17 06:10 Dose: 70 mg Betamethasone/Clotrimazole (Lotrisone) 0 gm TOP BID [facility] Last Admin: 04/13/17 07:52 Dose: 1 applic Betamethasone/Clotrimazole (Lotrisone) 0 gm TOP Q12HR [facility] Calcitonin [place] (Miacalcin Nasal [place]) 0 ml RADHA DAILY [facility] Last Admin: 03/30/17 07:42 Dose: 1 spray Calcium Citrate (Calcitrate) 315 mg PO BID [facility] Last Admin: 02/17/17 19:39 Dose: Not Given Celecoxib (Celebrex) 100 mg PO BID [facility] Last Admin: 01/24/17 07:48 Dose: 100 mg Celecoxib (Celebrex) 100 mg PO DAILY@1800 [facility] Last Admin: 01/31/17 17:16 Dose: 100 mg Celecoxib (Celebrex) 100 mg PO BID [facility] Last Admin: 03/08/17 08:33 Dose: 100 mg Celecoxib (Celebrex) 100 mg PO BID [facility] Last Admin: 04/07/17 17:23 Dose: 100 mg Cephalexin (Keflex) 500 mg PO Q12HR [facility] Stop: 04/30/17 08:01 Cephalexin (Keflex) 500 mg PO ONETIME ONE Stop: 04/19/17 20:41 Last Admin: 04/19/17 23:17 Dose: Not Given Cholecalciferol (Vitamin D3) 2,000 units PO QAM [facility] Last Admin: 01/17/17 07:42 Dose: 2,000 units Cholecalciferol (Vitamin D3) 2,000 units PO BID [facility] Last Admin: 01/21/17 07:54 Dose: 2,000 units Cholecalciferol (Vitamin D3) 4,000 units PO BID [facility] Last Admin: 03/10/17 08:03 Dose: 4,000 units Cholecalciferol (Vitamin D3) 4,000 units PO DAILY [facility] Last Admin: 05/28/17 07:34 Dose: 4,000 units Digoxin (Lanoxin) 500 mcg PO ONETIME ONE Stop: 04/15/17 12:01 Last Admin: 04/15/17 12:00 Dose: 500 mcg Digoxin (Lanoxin) 250 mcg PO ONETIME ONE Stop: 04/16/17 12:01 Last Admin: 04/16/17 12:15 Dose: 250 mcg Duloxetine HCl (Cymbalta) 20 mg PO DAILY [facility] Last Admin: 03/14/17 07:38 Dose: 20 mg Duloxetine HCl (Cymbalta) 30 mg PO DAILY [facility] Last Admin: 03/15/17 08:58 Dose: Not Given Fentanyl (Sublimaze) 25 mcg IVPUSH Q4H PRN PRN Reason: Pain (severe 7-10) Last Admin: 01/16/17 08:24 Dose: 25 mcg Gabapentin (Neurontin) 100 mg PO BEDTIME [facility] Last Admin: 02/07/17 19:18 Dose: 100 mg Gabapentin (Neurontin) 300 mg PO Q12HR [facility] Last Admin: 02/26/17 08:20 Dose: 300 mg Gabapentin (Neurontin) 300 mg PO TID@0800,1400,1999 [facility] Last Admin: 03/08/17 08:34 Dose: 300 mg Gabapentin (Neurontin) 400 mg PO TID@0800,1400,1999 [facility] Last Admin: 03/11/17 14:32 Dose: 400 mg Gabapentin (Neurontin) 300 mg PO TID@0800,1400,1999 [facility] Last Admin: 03/30/17 17:45 Dose: 300 mg Gabapentin (Neurontin) 300 mg PO BID@0800,1400 [facility] Last Admin: 04/29/17 15:16 Dose: 300 mg Gabapentin (Neurontin) 600 mg PO BEDTIME [facility] Last Admin: 03/30/17 19:12 Dose: 600 mg Gabapentin (Neurontin) 300 mg PO TID@0800,1400,1999 [facility] Last Admin: 05/20/17 16:18 Dose: Not Given Levothyroxine Sodium (Levothyroxine) 25 mcg PO QAM [facility] Last Admin: 02/17/17 08:43 Dose: 25 mcg Lidocaine (Lidocaine 5% Paraben-Free) 140 mg TRDERM Q24H [facility] Last Admin: 03/07/17 19:16 Dose: 140 mg Lidocaine (Lidoderm 5%) 700 mg TRDERM Q24H [facility] Last Admin: 03/17/17 19:25 Dose: Not Given Loperamide HCl (Imodium Ad) 4 mg PO DAILY [facility] Last Admin: 01/19/17 07:44 Dose: 4 mg Metoprolol Succinate (Toprol Xl) 25 mg PO DAILY [facility] Last Admin: 04/11/17 08:39 Dose: Not Given Metoprolol Succinate (Toprol Xl) 25 mg PO DAILY [facility] Last Admin: 04/14/17 07:55 Dose: 25 mg Metoprolol Tartrate (Lopressor) 25 mg PO Q12HR [facility] Last Admin: 04/10/17 08:28 Dose: 25 mg Metoprolol Tartrate (Lopressor) 25 mg PO DAILY [facility] Last Admin: 04/11/17 08:38 Dose: 25 mg Metoprolol Tartrate (Lopressor) 25 mg PO ONETIME ONE Stop: 04/12/17 06:01 Last Admin: 04/12/17 05:45 Dose: 25 mg Miscellaneous Information (Remove Patch) 1 ea TRDERM DAILY@0800 [facility] Last Admin: 03/08/17 08:35 Dose: 1 ea Miscellaneous Information (Remove Patch) 1 ea TRDERM DAILY@0800 [facility] Last Admin: 03/18/17 08:06 Dose: 1 ea Morphine Sulfate (Ms Contin) 15 mg PO TID@0800,1400,2000 [facility] Last Admin: 03/11/17 14:32 Dose: 15 mg Morphine Sulfate (Ms Contin) 15 mg PO Q12HR [facility] Last Admin: 03/14/17 07:38 Dose: 15 mg Multivitamins/Minerals/Vitamin C (Tab-A-Camila) 1 tab PO DAILY [facility] Last Admin: 03/30/17 07:46 Dose: 1 tab Gabapentin 600 Mg (Cap Own Med ) 1 each PO BEDTIME [facility] Last Admin: 04/28/17 19:00 Dose: 1 each Cephalexin 500mg (Caps) 0 each PO Q12HR [facility] Stop: 04/14/17 08:01 Last Admin: 04/14/17 07:55 Dose: 1 each Nf Med Cephalexin (500mg *Pt Own Med) 1 each PO BID [facility] Stop: 04/30/17 08:01 Last Admin: 04/19/17 23:17 Dose: Not Given Nf Med Cephalexin (500mg *Pt Own Med) 1 each PO ONETIME ONE Stop: 04/19/17 21:46 Last Admin: 04/19/17 23:18 Dose: Not Given Nf Med Cephalexin (500mg *Pt Own Med) 1 each PO ONETIME ONE Stop: 04/19/17 22:01 Last Admin: 04/19/17 21:52 Dose: 1 each Nf Med Cephalexin (500mg *Pt Own Med) 1 each PO BID [facility] Stop: 04/30/17 08:01 Last Admin: 04/20/17 08:19 Dose: 1 each Cephalexin 500mg (Caps) 1 each PO Q12HR [facility] Stop: 04/30/17 08:01 Last Admin: 04/28/17 07:41 Dose: 1 each Cephalexin 500mg (Caps) 1 each PO Q12HR [facility] Stop: 04/29/17 08:01 Last Admin: 04/29/17 07:19 Dose: 1 each Oxycodone HCl (Oxycodone) 5 mg PO Q4H PRN PRN Reason: Pain Last Admin: 04/28/17 10:19 Dose: 5 mg Sodium Chloride (Saline Flush) 10 ml FLUSH ASDIRECTED PRN PRN Reason: flush Last Admin: 01/16/17 08:28 Dose: 10 ml Sodium Chloride (Saline Flush) 10 ml FLUSH BID [facility] Last Admin: 01/19/17 17:31 Dose: 10 ml Tramadol HCl (Ultram) 50 mg PO Q6H PRN PRN Reason: Pain (moderate 4-6) Last Admin: 02/25/17 12:03 Dose: 50 mg Tramadol HCl (Ultram) 50 mg PO Q12H [facility] Last Admin: 03/08/17 08:37 Dose: 50 mg Zinc Gluconate (Zinc) 50 mg PO DAILY [facility] Last Admin: 03/30/17 07:46 Dose: 50 mg Zinc Gluconate (Zinc) 50 mg PO DAILY@1200 [facility] Last Admin: 05/19/17 12:05 Dose: 50 mg *Q Meaningful Use (DIS) - VTE *Q VTE Criteria *Q: - Stroke *Q Stroke Criteria *Q: - AMI *Q AMI Criteria *Q:
== END 2017-05-31 14:00 | DRG 552 ==
LOC: UNDOADMIN 16:27 → LL.MS 16:27 → LL.SWG 01-15 14:35 → LL.MS 01-15 19:38 → LL.SWG 01-16 10:30 → UNDODISIN 05-31 14:00 → LL.SWG 06-02 14:25 → LL.MS 06-02 14:25
PROVIDERS: ADMIT Family Medicine; ATTEND Family Medicine
PROC: 2W15X6Z Compression of Back using Pressure Dressing (ICD-10-PCS; principal; 2017-04-07)
DX: M54.5 Low back pain (principal); S32.050A Wedge compression fracture of fifth lumbar vertebra, initial encounter for closed fracture; M47.26 Other spondylosis with radiculopathy, lumbar region; M54.31 Sciatica, right side; J44.9 Chronic obstructive pulmonary disease, unspecified; M48.06 Spinal stenosis, lumbar region; L89.152 Pressure ulcer of sacral region, stage 2; H35.30 Unspecified macular degeneration; E78.5 Hyperlipidemia, unspecified; I51.9 Heart disease, unspecified; I10 Essential (primary) hypertension; E03.9 Hypothyroidism, unspecified; E66.9 Obesity, unspecified; R45.89 Other symptoms and signs involving emotional state; I48.91 Unspecified atrial fibrillation; E55.9 Vitamin D deficiency, unspecified; Z85.42 Personal history of malignant neoplasm of other parts of uterus; Z88.1 Allergy status to other antibiotic agents; Z79.899 Other long term (current) drug therapy; Z86.73 Personal history of transient ischemic attack (TIA), and cerebral infarction without residual deficits; X58.XXXA Exposure to other specified factors, initial encounter
CPT/HCPCS: 36415; 71020; 72148; 72170; 72202; 73721-RT; 77080; 80053; 80162; 80171; 82306; 82310; 83970; 84443; 85025; 85027; 85049; 85610; 85730; 93005; 97012-GP; 97032-GP; 97110-GP; 97116-GP; 97140-GP; 97161-GP; 97164-GP; 97165-GO; 97168-GO; 97530-GO; 97530-GP; 97535-GO; A9270-GY; G0283-GP; J3010; J7050